=== PATIENT | male | born 1935 | race Caucasian/White ===

== ENCOUNTER 2023-10-11 13:43 | Inpatient (IN) | payer MEDICARE, BC, SELFPAY ==
[2023-10-11] VITALS (11 sets, daily range): BP systolic 104–171; BP diastolic 45–75; BMI 23.2
[2023-10-11 09:11] LABS: % Basophils 0.6 % (0-2); % Eosinophils 1.2 % (0-6); % Immature Granulocytes 0.6 % (0-0.5); % Lymphocytes 40.4 % (20.5-51.1); % Monocytes 5.8 % (1.7-9.3); % Neutrophils 51.4 % (42.2-75.2); Absolute Lymphocytes 0.7 10^3/uL (1.2-3.4); Absolute Monocytes 0.1 10^3/uL (0.1-0.6); Hematocrit 39.9 % (39.0-52.0); Hemoglobin 12.6 g/dL (13.0-18.0); Mean Corp Hgb Conc. 31.6 g/dL (33.0-37.0); Mean Corpuscular Hgb 31.3 pg (27.0-31.0); Mean Platelet Volume 12.8 fL (7.4-10.4); Nucleated Red Blood Cells % 1.8 % (-); Red Blood Cell Count 4.03 10^6/uL (4.70-6.10); Red Cell Dist. Width 15.6 % (11.5-14.5)
[2023-10-11 09:17] LABS: ALT (SGPT) 42 U/L (0-50); AST (SGOT) 50 U/L (17-59); Albumin 3.8 g/dl (3.5-5.0); Alkaline Phosphatase 103 U/L (38-126); Blood Urea Nitrogen 29 mg/dl (9-20); Carbon Dioxide 33 mmol/L (22-30); Chloride 103 mmol/L (98-107); Estimated Creatinine Clearance 55 ml/min; Glucose 98 mg/dl (70-99); Potassium 4.3 mmol/L (3.5-5.1); Sodium 138 mmol/L (135-145); Total Bilirubin 1.3 mg/dl (0.2-1.3); Total Protein 6.5 g/dl (6.3-8.2); White Blood Cell Count 1.7 10^3/uL (4.8-10.8); eGFR > 60.00
--- NOTE | 2023-10-11 09:17 | ED.GENMED ---
History of Present Illness
<Emma Gage PA-C - Last Filed: 10/11/23 15:12>
General
Chief Complaint: Fall
Source: patient
Exam Limitations: none
Time Seen by Provider: 10/11/23 08:03
Nursing documentation reviewed up to this point in time: agreed with
Travel History
Have you had any contact with someone who has COVID-19?: No
Do you have any symptoms of coronavirus? Fever > 100 degrees, chills, cough, shortness of breath, sore throat, loss of taste or smell, muscle aches, or headache?: No
History of Present Illness
History of Present Illness:
pt is a 87 y/o M with h/o afib s/p watchmann proc, neuropathy, chf, myelodysplasia
here with dizziness causing a fall this am
pt says he got up from sleeping and suddenly felt room spinning dizziness that caused him to sit back down. it resolved quickly. pt was abl eto get up and walk to his sliding door to let out his dog but whne he went to open the door the dizziness
returned causing him to fall against the door behind him and then slide onto the ground
he has mid back pain, no loc, no heads trike
pt says that he was slowly able to crawl back to his bedroom following the fall and pull the emergency cord.
pt has generalized fatigue x 1 week
says he hasnt' been feeling well for about 3 weeks, had UTI and was on abx and had some upset stomahc while on them
cmpleted the course but just hasn't had energy.
today since the fall he has felt a little sob. yesterday he had a mild headache
no fever, cp, sob, neck pain, numbness/tingling/weaknses in arms or legs, chest pain, abdominal pain, black stool, hematuria.
Past History
<Emma Gage PA-C - Last Filed: 10/11/23 15:12>
Past History
ED Past Medical History: Arrthythmia (Atrial fib), CHF, HTN and Hypercholesterolemia
ED Past Surgical History: Appendectomy, Cholecystectomy and Other (Hernia repair)
Patient has exhibited threatening behavior?: No
PSI?: No
Social History
Tobacco: Former smoker
Alcohol: Occasional
Personal:
Living: assisted living ([facility])
Review of Systems
<Emma Gage PA-C - Last Filed: 10/11/23 15:12>
Review of Systems
Allergies reviewed?: Yes
All Other Systems: Not applicable
Phy Exam
<Emma Gage PA-C - Last Filed: 10/11/23 15:12>
Physical Exam
Physical Exam:
GENERAL: Alert , in no apparent distress, generally weak
HEAD: NC
small area of redness base of skull, nontender
EYE: pupils equal and reactive, no nystagmus, no photophobia, pale conjunctiva
NECK: Supple,full rom, nontender
ENT: o/p clr, mmm.
CARDIAC: Regular rate and rhythm . no edema
LUNGS: Clear breath sounds bilaterally, no acute respiratory distress, no wheezes/rales/rhonchi
ABDOMEN: Soft, without focal tenderness, no r/g, no cvat
NEUROLOGICAL: Alert and orientedx 4, cn intact, no facial asymmetry, 5/5 strength in UE/LE, sensation intact, romberg neg, ambulates without assistance, neg pronator drift
SKIN: Warm and dry, skin intact.
MUSCULOSKELETAL: No edema, well perfused.
PSYCH: Normal and appropriate interaction.
Course
<Emma Gage PA-C - Last Filed: 10/11/23 15:12>
Orders/Labs/Results
Orders:
Orders
10/11/23 08:08
EKG [Electrocardiogram (*1)] Urgent
Reason for Study: Vertigo / Dizzy
EKG- Treatment ONCE
10/11/23 08:29
Type+Screen Urgent
CT Head W/o Iv Contrast Urgent
Comment:
Reason For Exam: fall, dizziness,
Cardiac Monitoring- Treatment ONCE
Orthostatic VS- Treatment ONCE
10/11/23 08:30
Electrocardiogram (*1) Stat
Reason for Study: Other
Other Reason for Exam: neuro symptoms
10/11/23 08:31
CR Chest - 2 Views Urgent
Comment:
Reason For Exam: fatigue, sob
CR Thoracic Spine 3 Views Urgent
Reason For Exam: back pain afterf fall
10/11/23 08:55
Complete Blood Count/With Diff Urgent
Comprehensive Metabolic Panel Urgent
NT-proBNP Urgent
Troponin I Urgent
10/11/23 09:17
COVID-19 Antigen Urgent
Source: Nasal Swab
Influenza A+B Rapid Molecular Urgent
ELI Source: Nasal Swab
Specimen Description:
10/11/23 09:46
Urinalysis Reflex To Culture Urgent
Date Specimen was Collected: 10/11/23
Time Specimen was Collected: 09:44
Urine Microscopic Reflex Cult Urgent
10/11/23 10:13
CT Chest Pe Study Urgent
Comment:
Reason For Exam: sob, fall;
10/11/23 10:18
Morphine Sulfate 2 mg IV NOW STA
10/11/23 11:32
Morphine Sulfate 2 mg .ROUTE .STK-MED ONE
10/11/23 11:38
Morphine Sulfate 2 mg IV NOW STA
10/11/23 13:24
Admit/Transfer Patient As Directed
Co-Sign Provider:
Level of Care: Inpatient admission
Assign to:: Telemetry
Physician / Group: Hospitalist
Diagnosis: Dizziness
Reason for Telemetry: Medication for Arrhythmia
Date to Stop Telemetry: 10/13/23
Time to Stop Telemetry: 11:00
Reason for Hospitalization: .
Expected length of stay greater than two midnights?: Yes
ELOS- Estimated Length of Stay in days: 3
I certify the patient meets the requirements for IP care: Yes
10/13/23 11:00
DC Protocol for Telemetry ONCE
Abnormal Lab Results
10/11/23 10/11/23
08:55 09:46
WBC 1.7 L* 10^3/uL
(4.8-10.8)
RBC 4.03 L 10^6/uL
(4.70-6.10)
Hgb 12.6 L g/dL
(13.0-18.0)
MCV 99.0 H fL
(80.0-94.0)
MCH 31.3 H pg
(27.0-31.0)
MCHC 31.6 L g/dL
(33.0-37.0)
RDW 15.6 H %
(11.5-14.5)
Plt Count 81 L 10^3/uL
(130-400)
MPV 12.8 H fL
(7.4-10.4)
Absolute Neuts (auto) 0.9 L* 10^3/uL
(1.4-6.5)
Absolute Lymphs (auto) 0.7 L 10^3/uL
(1.2-3.4)
Immature Gran % 0.6 H %
(0-0.5)
Carbon Dioxide 33 H mmol/L
(22-30)
BUN 29 H mg/dl
(9-20)
Calcium 8.0 L mg/dl
(8.4-10.2)
Ur Occult Blood Reflex 1+ A
(Negative)
10/11/23 08:55
02/24/24 08:55
Vital Signs
Initial and Last Documented VS:
Initial Vital Signs
Temp
98.4 F
10/11/23 08:04
Last Documented Vital Signs
Temp Pulse Resp BP Pulse Ox
98.4 F 85 32 135/45 99
10/11/23 08:04 10/11/23 13:00 10/11/23 13:00 10/11/23 13:03 10/11/23 11:15
<Carlos Fletcher MD - Last Filed: 10/11/23 11:28>
Orders/Labs/Results
Orders:
Orders
10/11/23 08:08
EKG [Electrocardiogram (*1)] Urgent
Reason for Study: Vertigo / Dizzy
EKG- Treatment ONCE
10/11/23 08:29
Type+Screen Urgent
CT Head W/o Iv Contrast Urgent
Comment:
Reason For Exam: fall, dizziness,
Cardiac Monitoring- Treatment ONCE
Orthostatic VS- Treatment ONCE
10/11/23 08:30
Electrocardiogram (*1) Stat
Reason for Study: Other
Other Reason for Exam: neuro symptoms
10/11/23 08:31
CR Chest - 2 Views Urgent
Comment:
Reason For Exam: fatigue, sob
CR Thoracic Spine 3 Views Urgent
Reason For Exam: back pain afterf fall
10/11/23 08:55
Complete Blood Count/With Diff Urgent
Comprehensive Metabolic Panel Urgent
NT-proBNP Urgent
Troponin I Urgent
10/11/23 09:17
COVID-19 Antigen Urgent
Source: Nasal Swab
Influenza A+B Rapid Molecular Urgent
ELI Source: Nasal Swab
Specimen Description:
10/11/23 09:46
Urinalysis Reflex To Culture Urgent
Date Specimen was Collected: 10/11/23
Time Specimen was Collected: 09:44
Urine Microscopic Reflex Cult Urgent
10/11/23 10:13
CT Chest Pe Study Urgent
Comment:
Reason For Exam: sob, fall;
10/11/23 10:18
Morphine Sulfate 2 mg IV NOW STA
10/11/23 11:32
Morphine Sulfate 2 mg .ROUTE .STK-MED ONE
10/11/23 11:38
Morphine Sulfate 2 mg IV NOW STA
10/11/23 13:24
Admit/Transfer Patient As Directed
Co-Sign Provider:
Level of Care: Inpatient admission
Assign to:: Telemetry
Physician / Group: Hospitalist
Diagnosis: Dizziness
Reason for Telemetry: Medication for Arrhythmia
Date to Stop Telemetry: 10/13/23
Time to Stop Telemetry: 11:00
Reason for Hospitalization: .
Expected length of stay greater than two midnights?: Yes
ELOS- Estimated Length of Stay in days: 3
I certify the patient meets the requirements for IP care: Yes
10/13/23 11:00
DC Protocol for Telemetry ONCE
Abnormal Lab Results
10/11/23 10/11/23
08:55 09:46
WBC 1.7 L* 10^3/uL
(4.8-10.8)
RBC 4.03 L 10^6/uL
(4.70-6.10)
Hgb 12.6 L g/dL
(13.0-18.0)
MCV 99.0 H fL
(80.0-94.0)
MCH 31.3 H pg
(27.0-31.0)
MCHC 31.6 L g/dL
(33.0-37.0)
RDW 15.6 H %
(11.5-14.5)
Plt Count 81 L 10^3/uL
(130-400)
MPV 12.8 H fL
(7.4-10.4)
Absolute Neuts (auto) 0.9 L* 10^3/uL
(1.4-6.5)
Absolute Lymphs (auto) 0.7 L 10^3/uL
(1.2-3.4)
Immature Gran % 0.6 H %
(0-0.5)
Carbon Dioxide 33 H mmol/L
(22-30)
BUN 29 H mg/dl
(9-20)
Calcium 8.0 L mg/dl
(8.4-10.2)
Ur Occult Blood Reflex 1+ A
(Negative)
10/11/23 08:55
10/11/23 08:55
Vital Signs
Initial and Last Documented VS:
Initial Vital Signs
Temp
98.4 F
10/11/23 08:04
Last Documented Vital Signs
Temp Pulse Resp BP Pulse Ox
98.4 F 85 32 135/45 99
10/11/23 08:04 10/11/23 13:00 10/11/23 13:00 10/11/23 13:03 10/11/23 11:15
<Emma Gage PA-C - Last Filed: 10/11/23 15:12>
MDM/Problems Addressed
Differential Diagnosis Includes:
Vertigo, vertebrobasilar insufficiency, stroke, PE, thoracic fracture
MDM/Problems Addressed:
87-year-old male coming from independent living [facility] after a fall, he says he banged into his door and hit his back which was quite painful. He was able to crawl to get for help. Patient says because the fall was a vertiginous dizziness
that occurred this morning when he got up and then again right before the fall. He did not feel like he was going to pass out but he felt like the room was spinning. He has had something like this 1 other time but did not get evaluated for it.
Patient's neurologic exam is intact, he had no midline thoracic tenderness, is moving his arms and legs, he did complain of back pain and was a little short of breath and was placed on oxygen for comfort. Patient has myelodysplastic syndrome and
his labs are at his baseline. His x-ray reveals a an acute T8-9 vertebral fracture without any pneumothorax or rib fractures. Unfortunately CT was delayed because he was having trouble laying flat, I believe this is because of pain and not really
that he was hypoxic, he had some air hunger and was put on oxygen for comfort. After morphine this tachypnea resolved. Patient was able to have his CT of his head and chest, there were no acute findings. We discussed the case with neurologist
Antonia who agreed that patient could have an MRI of his brain. Patient was signed out to the hospitalist
<Emma Gage PA-C - Last Filed: 10/11/23 15:12>
*Critical Care Note
Total Time (30-74mins, 75-104mins- exclusive of procedures): Not Applicable
ED Attending Note
<Emma Gage PA-C - Last Filed: 10/11/23 15:12>
-
Portions of this chart may have been created with voice recognition software.� Occasional wrong word or��sound alike� substitutions may have occurred due to the inherent limitations of voice recognition software.
<Carlos Fletcher MD - Last Filed: 10/11/23 11:28>
ED Attending Note
Patient seen and examined by attending physician: Yes
ED Attending Note:
I have seen and evaluated the patient with a [id number] encounter. I have spoken to the advance practicer provider and involved in the medical history, the physical exam, medical decision making.
Evaluation and management service: agree unless noted differently below.
Results interpretation: agree unless noted differently below.
Focused HPI: 87-year-old male with history as documented presents for evaluation of intense dizziness. Patient reports that he got up to walk his dog this morning and when he got up out of bed he felt very dizzy. He says that he walked out to the
[place] at his apartment and when he stepped outside he felt intense room spinning sensation to the point that he fell backwards and hit his back on a glass door. He says he did not hit his head. He says he was very dizzy could not get up instead
crawled to his bed sat up on the bed and the dizziness subsided a bit. He was able to pull the cord to call for help. Here in the emergency room he says that he does not have significant dizziness any longer. He did not have any loss of vision.
He has had some generalized weakness recently, was recently treated for UTI. No focal weakness or numbness. No speech issues. His only other complaint today is that he is feeling increased shortness of breath which started around the same time as
his dizziness this morning. Denies any chest pain.
Physical exam: Hypertensive, mild tachypnea. Pulse ox acceptable on room air. There is no signs of trauma to the head. No tenderness of the cervical spine. He has bidirectional fatigable nystagmus but no rotary or vertical nystagmus (he
apparently has baseline nystagmus). He has no focal weakness or numbness in his extremities, cranial nerves are intact 2 through 12.
Medical Decision Making: Patient presents with acute onset dizziness this morning that sounds vertiginous. It was quite intense caused him to fall had a minor back injury. No head trauma. It seems to have improved. He has bidirectional nystagmus
right now but apparently this is baseline according to medical records. He has no other neurologic symptoms and no deficits on exam. His only other complaint is shortness of breath�he has not appropriate pulse ox but he does have some mild
tachypnea. Dyspnea seems worse when laying flat. He had lab work sent off including a CBC which showed leukopenia and neutropenia which are at baseline for patient; he has marginal anemia unlikely accounts for his symptoms. His CMP is
unremarkable. Troponin is negative. BNP is slightly elevated. Chest x-ray showed some new cardiomegaly with no gross edema or other abnormalities. He had a thoracic spine x-ray which showed T9 compression fracture likely acute related to fall.
For his dyspnea will check CTA to rule out PE with nondiagnostic chest x-ray, tachypnea and rather abrupt onset dyspnea. Differential would also include new onset CHF. Regarding his dizziness it sounds more vertiginous rather than syncopal, stroke
a consideration;he does have an A-fib history but has a watchman in place. Will check CT head to start. Will need neurology consultation. Will plan for admission pending initial workup.
Discharge Plan
Departure
Patient Disposition: Admit
Date of Disposition: 10/11/23
Time of Disposition: 13:10
Admit to: Telemetry
Presentation/result/management discussed w/ accepting MD/DO: Hospitalist
Patient with high blood pressure during this ER visit?: No
Condition: Fair
Covid-19: Negative COVID-19
Discharge Problem:
Shortness of breath, Dizziness
Interventions
Interventions:
*Risk Screen - Suicide Last Done: 10/11/23 08:04
*General Assessment Last Done: 10/11/23 08:04
*Neglect/Abuse Screening Last Done: 10/11/23 08:04
*ED COVID-19 Vaccine History Last Done: 10/11/23 08:04
ED-Musculoskeletal Assessment Last Done: 10/11/23 08:09
ED- Neurological Assessment Last Done: 10/11/23 08:09
ED-Skin Assessment Last Done: 10/11/23 08:09
[2023-10-11 09:28] LABS: NT-proBNP 842 pg/ml; Troponin I < 0.012 ng/ml
[2023-10-11 09:39] LABS: COVID-19 Antigen Negative (Negative)
[2023-10-11 10:13] LABS: Platelet Count 81 10^3/uL (130-400)
[2023-10-11 10:15] LABS: Absolute Neutrophils 0.9 10^3/uL (1.4-6.5)
[2023-10-11] MEDS: MORPHINE SULFATE 2 MG IV ×2 (10:34→11:38)
[2023-10-11 10:59] LABS: Urine Albumin Trace (Neg - Trace); Urine Bilirubin Negative (Negative); Urine Character Clear (Clear); Urine Color Yellow; Urine Glucose Negative (Negative); Urine Ketone Negative (Negative); Urine Leukocyte Negative (Negative); Urine Nitrite Negative (Negative); Urine Occult Blood 1+ (Negative); Urine Specific Gravity 1.015 (<1.030); Urine Urobilinogen Negative (Neg - 1+)
[2023-10-11 11:32] LABS: Urine Red Blood Cell 0-2 /HPF (0-2); Urine Squamous Cell 0-2 /LPF (Few)
--- NOTE | 2023-10-11 13:24 | HPS.HSE ---
Family Physician
-
Family Physician: Shelby Dillon
Chief Complaint
-
Dizziness at home
History of Present Illness
87 years old male presented from independent living at [facility]. Patient woke up feeling normal this morning. He felt dizzy upon getting up but later resolved. He let the dog outside and then felt an episode of vertigo/spinning sensation.
He sat down but he got up later and he had another similar episode and he hit the door with his back. He fell to the floor without hitting his head. He crawled to his bedroom and pulled emergency cord line.
He reported feeling normal but recently treated for urinary tract infection. He gets shots with hematology for low blood counts. He complained of back pain in the emergency room and was given morphine. Scan of the head did not show acute finding.
X-ray of thoracic spine where he had the trauma showed superior endplate fracture of thoracic 9. Scan of the chest did not show pulmonary embolism or pneumothorax..
Medical History
Past Medical History
Past Medical History: Reports Other (Hypertension, paroxysmal atrial fibrillation, chronic diastolic heart failure, neuropathy, iron deficiency anemia, chronic fatigue, coronary artery disease, BPH, hyperlipidemia, history of GI bleeding, MDS, gait
disturbance.)
Past Surgical History: Reports Other (No recent major surgery)
Social History
Tobacco: Former Smoker
Alcohol: None
Drug: None
Living: Alone
Employment: Retired
Family History
Family History: Other (Family history positive for heart disease, coronary artery disease, mother had multiple myeloma, history of stroke in grandmother.)
Allergies / Home Medications
Allergies reflects when Allergies were last updated in [facility].
Home Medications with original date entered in [facility]
Allergy/Medication List:
Allergies
Allergy/AdvReac Type Severity Reaction Status Date / Time
No Known Allergies Allergy Verified 10/11/23 08:04
Home Medications
atorvastatin 20 mg tablet 20 mg PO HS High cholesterol 01/24/22
cyanocobalamin (vitamin B-12) 1,000 mcg tablet 500 mcg PO DAILY Supplement 01/24/22
famotidine 40 mg tablet 40 mg PO HS Gastrointestinal issue 01/24/22
finasteride 5 mg tablet 5 mg PO HS Urinary issue 01/24/22
tamsulosin 0.4 mg capsule 0.4 mg PO HS Urinary issue 01/24/22
pantoprazole 40 mg tablet,delayed release 40 mg PO BID #60 tabs 04/04/23
aspirin 81 mg chewable tablet 81 mg PO DAILY #30 tabs 04/12/23
sotalol 80 mg tablet 80 mg PO BID Arrhythmia #60 tabs 04/12/23
polyethylene glycol 3350 17 gram oral powder packet (Miralax) 17 g PO DAILY 10/11/23
vitamin A-vitamin C-vit E-min tablet 1 tab PO BID 10/11/23
Review of Systems
-
History Source: Patient
A 12 point ROS was completed and negative except as noted: Yes
Constitutional: Reports Fatigue; Denies Fever or Chills
EENT: Denies Sore Throat
Respiratory: Denies Cough or Trouble Breathing
Cardiac: Denies Chest Pain
Abdomen/GI: Denies Abdominal Pain
: Denies Dysuria, Frequency or Difficulty Voiding
Musculoskeletal: Reports Other (Back pain)
Neurological: Reports Dizzy; Denies Numbness
Endocrine: Denies Temp Intolerance
Hematologic/Lymphatic: Denies Bruising
Psych: Denies Panic Disorder
Physical Exam
Vital Signs
Vital Signs
Temp Pulse Resp BP Pulse Ox
98.4 F 85 32 135/45 99
10/11/23 08:04 10/11/23 13:00 10/11/23 13:00 10/11/23 13:03 10/11/23 11:15
Physical Exam
General: No Apparent Distress and Comfortable
HEENT: Moist mucous membranes, Atraumatic and Other (Chronic nystagmus in both eyes)
Respiratory: Clear
Cardiac: S1/S2 and Regular Rhythm
GI: Soft, Non Tender and Non Distended
Rectal: No Maroon Stools
Genito-urinary: No costovertebral tender
Musculoskeletal: No Clubbing, No Cyanosis and No Edema
Skin: Warm; No Jaundice
Neuro: AO x 3 and Nonfocal/grossly intact; No Slurred Speech or Facial Droop
Psych: Calm and Intact Judgment/Insight
Laboratory Results
-
10/11/23 08:55
10/11/23 08:55
Laboratory Results
Total Bilirubin 1.3 mg/dl (0.2-1.3) 10/11/23 08:55
AST 50 U/L (17-59) 10/11/23 08:55
ALT 42 U/L (0-50) 10/11/23 08:55
Alkaline Phosphatase 103 U/L (38-126) 10/11/23 08:55
Troponin I < 0.012 ng/ml 10/11/23 08:55
Impression/Plan
-
IMPRESSION:
87-year-old male presented with sudden onset of dizziness/vertigo
#Dizziness
Currently patient is not dizzy. Neurology recommended MRI.
Will do neurocheck. Continue with aspirin.
Head scan did not show acute finding
Patient had chronic nystagmus in both eyes.
No nausea or vomiting.
No fever or headache at present time.
Chronic fatigue reported and past medical history
#MDS
Primary tobacco roller Dr. Cortes.
Chronic leukopenia with WBC on admission 1.7. Platelet 81. Hemoglobin 12.6.
#History of mitral regurgitation.
#Chronic heart failure with a preserved ejection fraction. He is not in acute failure.
#T9 fracture. Continue with pain control. No pneumothorax. Continue with Tylenol [id number] and as needed and low-dose morphine
#Primary hypertension
Check for orthostatic hypotension.
#Paroxysmal atrial fibrillation
History of gait dysfunction. Uses a walker. Consult PT/OT.
# CODE STATUS, DNR.
Total time spent to see the patient, examine the patient on the floor, review data and lab results, discuss treatment plan with patient, nursing staff, ER doctor around 75 minutes
[2023-10-11] MEDS: TYLENOL 1000 MG PO (18:12)
[2023-10-11] MEDS: BETAPACE 80 MG PO (20:34)
[2023-10-11] MEDS: PROTONIX 40 MG PO (20:35)
[2023-10-11] MEDS: HEPARIN 5000 UNITS SC (20:35)
[2023-10-11] MEDS: LIPITOR 20 MG PO (21:21)
[2023-10-11] MEDS: PEPCID 40 MG PO (21:21)
[2023-10-11] MEDS: PROSCAR 5 MG PO (21:21)
[2023-10-11] MEDS: FLOMAX 0.400000000000000022 MG PO (21:21)
[2023-10-12] VITALS (8 sets, daily range): BP systolic 102–141; BP diastolic 46–59; PULSE 58–70; O2SAT 97; BMI 22.6
[2023-10-12] MEDS: TYLENOL 1000 MG PO ×4 (00:02→20:40)
[2023-10-12] MEDS: BETAPACE 80 MG PO (08:50)
[2023-10-12] MEDS: LOW STRENGTH ASPIRIN 81 MG PO (08:50)
[2023-10-12] MEDS: PROTONIX 40 MG PO ×2 (08:51→20:38)
[2023-10-12] MEDS: MIRALAX 17 GRAMS PO (08:51)
[2023-10-12] MEDS: HEPARIN 5000 UNITS SC ×2 (08:51→20:38)
--- NOTE | 2023-10-12 09:47 | CON.NEURO4 ---
Consultation - Neurology 4
-
CONSULTING PHYSICIAN: Jarocho
REFERRING PHYSICIAN: hospitalist
DICTATED BY: Jarocho
DATE/TIME OF REQUEST: 10/11/23
DATE/TIME OF CONSULTATION: 10/12/23 at 845
Reason for Consultation: vertigo
History of Present Illness:
87-year-old male with a history of A-fib status post Watchman procedure, neuropathy, CHF and myelodysplasia brought in yesterday after experiencing a fall in the morning as a result of dizziness. Of note about 1 year ago he had an episode of brief
vertigo. He says that yesterday he got up to walk his dog and when he got out of bed he felt very dizzy. He had to sit back down. He then walked out onto the stairs of his apartment and he felt an intense room spinning sensation again, falling
backwards and hitting his back on a glass door. No head trauma. He did sustain a T9 endplate fracture. He felt very dizzy afterward and could not get up. He had to crawl on the floor and pull a cord to for help. No associated focal neurological
deficits. No loss of consciousness. He does have some baseline hearing loss. He has no prior history of stroke. No further episodes of dizziness in the ER. no focal findings on exam in the ER. He reported that he had been generally weak and
fatigued and was recently treated for UTI. Also reported some increased shortness of breath that started around the time of this dizziness.
Yesterday he had an episode of mild dizziness with an internal room spinning sensation when standing up looking in the mirror in the bathroom in his room here. This was short in duration.
PMH: Hypertension, paroxysmal atrial fibrillation, chronic diastolic heart failure, neuropathy, iron deficiency anemia, chronic fatigue, coronary artery disease, BPH, hyperlipidemia, history of GI bleeding, MDS, gait disturbance, congenital
nystagmus, episode of brief vertigo about 1 year ago, hearing loss
Past Surgical History: watchman
Social History
Tobacco: Former Smoker
Alcohol: None
Drug: None
Employment: Retired
Family History
Family History:Family history positive for heart disease, coronary artery disease, mother had multiple myeloma, history of stroke in grandmother
Allergies
No Known Allergies Allergy (Verified 10/11/23 08:04)
Home Medications
Medication Instructions Recorded
atorvastatin 20 mg tablet 20 mg PO HS High cholesterol 01/24/22
cyanocobalamin (vitamin B-12) 500 mcg PO DAILY Supplement 01/24/22
1,000 mcg tablet
famotidine 40 mg tablet 40 mg PO HS Gastrointestinal issue 01/24/22
finasteride 5 mg tablet 5 mg PO HS Urinary issue 01/24/22
tamsulosin 0.4 mg capsule 0.4 mg PO HS Urinary issue 01/24/22
pantoprazole 40 mg tablet,delayed 40 mg PO BID #60 tabs 04/04/23
release
aspirin 81 mg chewable tablet 81 mg PO DAILY #30 tabs 04/12/23
sotalol 80 mg tablet 80 mg PO BID Arrhythmia #60 tabs 04/12/23
polyethylene glycol 3350 17 gram 17 g PO DAILY Constipation 10/11/23
oral powder packet (Miralax)
vitamin A-vitamin C-vit E-min 1 tab PO BID Supplement 10/11/23
tablet
Review of Symptoms:
Patient denies any fever, headache, chest pain, shortness of breath, GI or symptoms.
�Per the HPI.�All systems are reviewed negative except above.
Vital Signs
Temp Pulse Resp BP Pulse Ox
97.5 F 57 17 113/57 94
10/12/23 07:00 10/12/23 07:00 10/12/23 07:00 10/12/23 07:00 10/12/23 07:00
Lab Results
10/11/23 08:55
10/11/23 08:55
Sodium 138 mmol/L (135-145) 10/11/23 08:55
Potassium 4.3 mmol/L (3.5-5.1) 10/11/23 08:55
BUN 29 mg/dl (9-20) H 10/11/23 08:55
Glucose 98 mg/dl (70-99) 10/11/23 08:55
Calcium 8.0 mg/dl (8.4-10.2) L 10/11/23 08:55
Ovn-L-Xbgaerlrwcm Pept 842 pg/ml 10/11/23 08:55
Physical Exam:
The patient is afebrile, heart sounds S1 and S2 are regular , and chest is clear to auscultation bilaterally.
NIH Stroke Scale:
I performed the NIH stroke scale on the patient on 10/12/23 at 845. The patient scored 1 points on the NIH stroke scale assessment, which were assigned as follows: 1 point for right sided temperature sensation loss.
Neurologic Examination:
The patient is awake, alert and oriented x 3. He is able to follow commands and answer questions appropriately. There is no aphasia or dysarthria. On cranial nerve assessment, pupils are 3 mm bilateral, round and reactive to light and
accommodation. Visual booth are full. Extraocular movements are intact. He has congenital horizontal gaze evoked nystagmus. Facial sensations are intact and bilaterally symmetrical, there is no facial asymmetry. Hearing is intact bilaterally to
normal conversation volume. Tongue palate and uvula are midline. Sternocleidomastoid strengths are full bilaterally. Motor strengths are 5/5 bilateral upper and lower extremities on medical research [place] scale. There is no drift or involuntary
movement noted. Deep tendon reflexes are 1+ bilateral upper and lower extremities and Babinski is absent bilaterally. +diminished sensation to temperature in the R face arm and leg. There was no extinction noted on double simultaneous stimulation.
Coordination is intact by finger to nose bilaterally.
Lab Results:
Neuro Imaging: HCT 10/11 no acute findings,
In the anterior left paramidline frontal region, contiguous with the inner table of the calvarium, there is an extra-axial mass measuring approximately 10 mm, partially calcified. Similar to prior examination, most consistent with small meningioma.
Tspine XR:
1. � Mild subsegmental atelectasis and scarring in both lower lungs.
2. � Mild cardiomegaly.
3. � New superior endplate fracture of T9 with mild loss of vertebral body height.
4. � Mild multilevel discogenic degenerative disease throughout the thoracic spine.
5. � Mild right convex curvature of the midthoracic spine.
Impression:
JUAN ANTONIO FRIAS is a 87 year old M who has presented to the hospital with intermittent dizziness resulting in a fall. He has a small meningioma on HCT that appears stable and some R sided numbness on exam of unclear etiology.
Differentials for the patient's presentation include:
1. bppv
2. Labyrinthitis
3. Orthostasis
4. Small posterior circulation stroke, intermittent nature of the symptoms argues against stroke
Patient has the following risk factors for their symptoms: afib, htn, hld
IV Tenecteplase/IAT candidacy: not a candidate given nondisabling symptoms, lack of clarity of stroke as cause for symptoms
Recommendations:
1. mri brain w/wo contrast with attn to iacs
2. continue asa 81mg daily, atorvastatin; only order remainder of stroke workup if stroke is seen on MRI
3. check orthostatics
4. consider meclizine if dizziness returns
5. Management of pain and T9 fracture per primary team
6. continue neurochecks
Discussed patient care with: patient, primary team
--- NOTE | 2023-10-12 10:25 | W.PN.HOSP.TC ---
Today's Communication/Plan
-
.
Assessment / Plan
Assessment / Plan
Physical Exam
General: No Apparent Distress and Comfortable
HEENT: Moist mucous membranes, Atraumatic and Other (Chronic nystagmus in both eyes)
Respiratory: Clear
Cardiac: S1/S2 and Regular Rhythm
GI: Soft, Non Tender and Non Distended
Rectal: No Maroon Stools
Genito-urinary: No costovertebral tender
Musculoskeletal: No Clubbing, No Cyanosis and No Edema
Skin: Warm; No Jaundice
Neuro: AO x 3 and Nonfocal/grossly intact; No Slurred Speech or Facial Droop
Psych: Calm and Intact Judgment/Insight.
87-year-old male presented with sudden onset of dizziness/vertigo
#Dizziness
Intermittent at times. Could be BPPV
Currently patient is not dizzy.�
Unchanged neurochecks.� Continue with aspirin.
Head scan did not show acute finding
Patient had chronic nystagmus in both eyes.
No nausea or vomiting.
No fever or headache at present time.
Chronic fatigue reported and past medical history
Order MRI
Appreciate neurology input
#MDS
Primary biomedical scientist Dr. Cortes.
Chronic leukopenia with WBC on admission 1.7.� Platelet 81.� Hemoglobin 12.6.
#History of mitral regurgitation.
#Chronic heart failure with a preserved ejection fraction.� He is not in acute failure.
#T9 fracture.�
Pain is not significant today
Normal SaO2 on RA
Order PT/OT
Continue with pain control.� No pneumothorax.� Continue with Tylenol [id number] and as needed and low-dose morphine
#Primary hypertension
Check for orthostatic hypotension.
#Paroxysmal atrial fibrillation
History of gait dysfunction.� Uses a walker.� Consult PT/OT.
# CODE STATUS, DNR.
Total time spent to see the patient, examine the patient on the floor, review data and lab results, discuss treatment plan with patient, nursing staff around 55 minutes
Anticipated Discharge: 24 - 48 hours
Subjective/Interval History
-
Date of Service: October 12, 2023
No back pain
Not dizzy
No chest pain or sob
Objective Data
-
Vital Signs:
Vital Signs
Temp Pulse Resp BP Pulse Ox
97.5 F 57 17 113/57 94
10/12/23 07:00 10/12/23 07:00 10/12/23 07:00 10/12/23 07:00 10/12/23 07:00
I&O
10/11/23 10/12/23 10/13/23
06:59 06:59 06:59
Intake Total 720 / 720
Output Total 125 / 125
Balance 595 / 595
--- NOTE | 2023-10-12 10:43 | CM ---
CM following re: discharge planning.
Reviewed pt's chart, met with pt.
Pt is an 87 year old male, admitted with primary dx of Dizziness.
The patient resides alone in an independent apartment at [facility], has supportive son and a stepson. Patient has a walker, shower chair and shower rails in bath at home. The patient has not been to a SNF/rehab in the past. Pt is known to
[facility].
PT and OT will evaluate the pt to determine a level of care at discharge.
PCP: Shelby Dillon
Pharmacy: [facility].
D/C plan: The patient anticipates being discharged back to home with [facility].
CM will follow with discharge plan updates as hospitalization progresses
[2023-10-12] MEDS: PEPCID 40 MG PO (20:38)
[2023-10-12] MEDS: PROSCAR 5 MG PO (20:38)
[2023-10-12] MEDS: FLOMAX 0.400000000000000022 MG PO (20:38)
[2023-10-12] MEDS: LIPITOR 20 MG PO (20:39)
[2023-10-12] MEDS: BETAPACE PO (23:03)
[2023-10-13 01:05] VITALS: BP 132/46
[2023-10-13 05:16] VITALS: BP 133/54
[2023-10-13 05:17] VITALS: BMI 22.0
[2023-10-13 05:28] LABS: Hematocrit 35.2 % (39.0-52.0); Mean Corp Hgb Conc. 31.3 g/dL (33.0-37.0); Mean Corpuscular Hgb 31.7 pg (27.0-31.0); Mean Corpuscular Volume 101.4 fL (80.0-94.0); Mean Platelet Volume 11.5 fL (7.4-10.4); Platelet Count 69 10^3/uL (130-400); Red Blood Cell Count 3.47 10^6/uL (4.70-6.10); Red Cell Dist. Width 15.9 % (11.5-14.5)
[2023-10-13 05:44] LABS: White Blood Cell Count 1.2 10^3/uL (4.8-10.8)
[2023-10-13 05:56] LABS: Blood Urea Nitrogen 33 mg/dl (9-20); Calcium 7.9 mg/dl (8.4-10.2); Carbon Dioxide 33 mmol/L (22-30); Chloride 102 mmol/L (98-107); Estimated Creatinine Clearance 47 ml/min; Glucose 96 mg/dl (70-99); Potassium 3.9 mmol/L (3.5-5.1); Sodium 138 mmol/L (135-145); eGFR > 60.00
[2023-10-13 07:00] VITALS: BP 141/59
[2023-10-13] MEDS: BETAPACE 80 MG PO (08:07)
[2023-10-13] MEDS: LOW STRENGTH ASPIRIN 81 MG PO (08:07)
[2023-10-13] MEDS: TYLENOL 1000 MG PO ×2 (08:07→15:16)
[2023-10-13] MEDS: PROTONIX 40 MG PO (08:07)
[2023-10-13] MEDS: HEPARIN 5000 UNITS SC (08:08)
[2023-10-13] MEDS: MIRALAX 17 GRAMS PO (08:08)
--- NOTE | 2023-10-13 08:15 | W.PN.NEURO.1 ---
Addendum entered and electronically signed by Jim Denney MD 10/13/23 12:06:
I saw and evaluated the patient I reviewed the note by Debby Goldman agree the findings with the following comments:
87-year-old male with a past ministry of atrial fibrillation, congenital nystagmus neuropathy, CHF, mild dysplasia presents to hospital after fall that occurred after a very short lasting very severe dizziness.
Patient reports that he had had a similar episode that was very short lasting about 9 to 12 months ago. He has not had any headaches or tinnitus or obvious hearing loss.
Patient denies any diplopia.
Neurologic examination shows the congenital nystagmus with nystagmus on the left and right horizontal gaze, no other cranial nerve abnormalities, motor function shows normal bulk and tone no pronator drift or focal weakness is seen, patient requires
walker for standing but does not have an ataxic gait..
Moni-Hallpike maneuver was positive with leftward head turn producing upward torsional nystagmus and small dizziness.
MRI brain demonstrates a small nodule in the left inferior rectus muscle of the left eye.
Assessment: Presumed benign paroxysmal positional vertigo producing a episode of severe vertigo.
Left eye inferior rectus muscle abnormality appears nodule on MRI brain, appears asymptomatic at this time, unclear etiology to me and would warrant outpatient ophthalmology evaluation.
Recommendations
-Educated and provided printout on Jada maneuver which patient should do twice a day for the next 7 days and expect resolution of the vertigo and BPPV symptoms
-Outpatient ophthalmology evaluation for the left eye inferior rectus muscle abnormality seen on MRI brain
-Not recommending any myasthenia gravis antibody test
-Outpatient physical therapy
-TREVOR stockings slow position changing and increase fluid intake for orthostasis
-Would have neurology follow-up in 4 to 6 weeks as
No further recommendations neurology will sign off call questions and concerns
Original Note:
Today's Communication / Plan
-
.
Neuro Assessment/Plan
Assessment
87-year-old male with a history of A-fib status post Watchman procedure, neuropathy, CHF and myelodysplasia brought in yesterday after experiencing a fall in the morning as a result of dizziness.� Of note about 1 year ago he had an episode of brief
vertigo.� He says that yesterday he got up to walk his dog and when he got out of bed he felt very dizzy.� He had to sit back down.� He then walked out onto the stairs of his apartment and he felt an intense room spinning sensation again, falling
backwards and hitting his back on a glass door.� No head trauma.� He did sustain a T9 endplate fracture.
�
-CT head 10/11/23: HCT 10/11 no acute findings, In the anterior left paramidline frontal region, contiguous with the inner table of the calvarium, there is an extra-axial mass measuring approximately�10 mm, partially calcified. Similar to prior
examination, most consistent with small meningioma.
-Xray Thoracic Spine 10/11/23: 1. � Mild subsegmental atelectasis and scarring in both lower lungs. Mild cardiomegaly. New superior endplate fracture of T9 with mild loss of vertebral body height. Mild multilevel discogenic degenerative disease
throughout the thoracic spine. Mild right convex curvature of the midthoracic spine.
-MRI Brain 10/12/23: No acute infarct. Moderate chronic microvascular white matter ischemic disease. 3 small uncomplicated meningiomas. No evidence of vestibular cochlear schwannoma. Incidental circumscribed 6 mm enhancing nodule adjacent to the left
orbital inferior rectus muscle sclera attachment. Nonspecific. Possibly reactive or inflammatory (prior inflammatory myositis). Cannot entirely exclude primary benign or malignant neoplasm, or unusual metastatic neoplasm in the proper clinical
setting.
I. Left-sided BPPV, +Jerome Halpike maneuver on the left side.
II. Orthostasis
III. MRI brain negative for stroke.
IV. Left eye ptosis. MRI brain demonstrates a left orbital inferior rectus muscle sclera nodule, possibly contributing to left eyelid drooping. Less likely myasthenia gravis.
V. Incidental three benign meningiomas.
. Fall with traumatic T9 endplate fracture.
Plan
-Patient provided with left-sided Self-Jada maneuver instructions. Should perform this at least twice a day for one week.
-Patient would benefit from continued outpatient physical therapy.
-Check orthostatic vital signs as ordered. Slow position changes, TREVOR stockings, and increased fluid intake discussed.
-Patient should follow-up with ophthalmology regarding left orbital inferior rectus nodule.
-Consider myasthenia gravis antibody testing as an outpatient after evaluation by ophthalmology.
-Management of pain and T9 fracture per primary team.
-PT/OT evaluations.
-DVT prophylaxis.
-Neurological checks per unit guidelines.
-Patient should follow-up with Neurology as an outpatient in about 4 weeks, may see the NUTRITION AIDES TEACHER or one of the physicians.
Subjective/Objective
Subjective Data
Date of Service: October 13, 2023
No acute events overnight. Patient denies any further dizziness since yesterday. He endorses left eyelid drooping that has been ongoing for about 3 years. He denies any double vision or changes in his vision. He reports chronic sensation loss in
bilateral lower extremities. He also reports fatigue starting last summer when he was severely anemic. He has severe exhaustion with the 8 minute walk to the dining room at [facility] where he lives. He denies any headache, speech/swallow
difficulty, arm weakness, tinnitus, nausea, chest pain, back pain, palpitations, and shortness of breath.
Objective Data
Vital Signs
Temp Pulse Resp BP Pulse Ox
99.3 F 59 17 141/59 95
10/13/23 07:00 10/13/23 08:07 10/13/23 07:00 10/13/23 08:07 10/13/23 07:00
Lab Results
10/13/23 05:06
10/13/23 05:06
Sodium 138 mmol/L (135-145) 10/13/23 05:06
Potassium 3.9 mmol/L (3.5-5.1) 10/13/23 05:06
BUN 33 mg/dl (9-20) H 10/13/23 05:06
Glucose 96 mg/dl (70-99) 10/13/23 05:06
Calcium 7.9 mg/dl (8.4-10.2) L 10/13/23 05:06
Cfc-B-Damiglnklti Pept 842 pg/ml 10/11/23 08:55
Patient Allergies
No Known Allergies Allergy (Verified 10/11/23 08:04)
Review of Systems
-
History Source: Patient
EENT: Other (left eye ptosis); Negative Blurry Vision, Eye Pain, Decreased Vision, Tinnitis or Swallowing Difficulty
Respiratory: Negative Cough or Trouble Breathing
Cardiac: Negative Chest Pain or Palpitations
Abdomen/GI: Negative Nausea
Musculoskeletal: Negative Back Pain
Neuro: Numbness (BLE); Negative Dizzy, Headache, Weakness, Ataxia, Tremors or Speech Problem
Physical Exam
-
General: No Apparent Distress
Eyes: PERRLA; Negative No Ptosis (left eye ptosis)
HEENT: Normocephalic and Atraumatic
Neck: Full Range of Motion
Respiratory: No Dyspnea
GI: Non-distended
Extremities: No Clubbing, No Cyanosis and No Edema
Psych: Unremarkable
Extended Neurological Exam
Mood & Affect: Mood Unremarkable and Affect Unremarkable
Attention Span & Concentration: Awake, Alert and Interactive
Memory: Unremarkable (AAOx3) and Able to Recall
Tremor: Hand Tremor Absent and Head Tremor Absent
Involuntary Movement: None
Speech: Quality Unremarkable, Quantity Unremarkable and Rate of Production Unremarkable
Cranial Nerve II: Left Eye: Pupillary Reactivity Unremarkable, Pupillary Size Unremarkable and Visual [place] Intact
Cranial Nerve II: Right Eye: Pupillary Reactivity Unremarkable, Pupillary Size Unremarkable and Visual [place] Intact
Cranial Nerves III, IV, : Extraocular Movement: Extraocular Movement Full in all Directions, Nystagmus with Extreme Gaze to Left, Nystagmus with Extreme Gaze to Right and Other (nystagmus with upward gaze, slight nystagmus with resting gaze.
Positive Jerome Hallpike on the Left.)
Cranial Nerve V: Facial Sensation: Intact to Light Touch
Cranial Nerve VII: Facial Symmetry: Normal Facial Symmetry
Cranial Nerve VIII: Hearing: Grossly Reduced (wearing hearing aids)
Cranial Nerves IX, X: Palate Movement: Palate Elevation Symmetric
Cranial Nerve XI: Shoulder Shrug: Unremarkable
Cranial Nerve XII: Tongue Protusion: Midline
Muscle Strength, Overall: Full Throughout
Muscle Bulk & Tone: Bulk Unremarkable and Tone Unremarkable
Pronator Drift: No Drift in Upper Extremities and No Drift in Lower Extremities
Deep Tendon Reflexes: Unremarkable Throughout
Cold Sensation: Reduced Mildly Distally
Vibration Sensation: Reduced Moderately Distally
Touch Sensation: Double Simultaneous Stimulation Unremarkable
Coordination: Stpgdt-[id number]-lgmjhp Testing Unremarkable
Babinski Sign: Absent Bilaterally
Data Reviewed
-
MRI Head: Report Reviewed and Image Reviewed
Orthostatic Testing: Report Reviewed
Labs: Report Reviewed
Reviewed with: Physician and Patient
Medications
-
Active Medications
Generic Name Dose Route Start Last Admin
Trade Name Freq PRN Reason Stop Dose Admin
Acetaminophen 1,000 mg 10/12/23 22:00 10/13/23 08:07
Acetaminophen 500 Mg Tablet PO 11/09/23 21:59 1,000 mg
TID DANICA Administration
Aspirin 81 mg 10/12/23 08:00 10/13/23 08:07
Aspirin 81 Mg Chewable Tablet PO 11/09/23 07:59 81 mg
DAILY DANICA Administration
Atorvastatin Calcium 20 mg 10/11/23 22:00 10/12/23 20:39
Atorvastatin (Lipitor) 20 Mg Tablet PO 11/08/23 21:59 20 mg
HS DANICA Administration
Famotidine 40 mg 10/11/23 22:00 10/12/23 20:38
Famotidine 40 Mg Tablet PO 11/08/23 21:59 40 mg
HS DANICA Administration
Finasteride 5 mg 10/11/23 22:00 10/12/23 20:38
Finasteride 5 Mg Tablet PO 11/08/23 21:59 5 mg
HS DANICA Administration
Heparin Sodium 5,000 units 10/11/23 20:00 10/13/23 08:08
Heparin 5,000 Units/Ml 1 Ml Vial SC 11/08/23 19:59 5,000 units
Q12 DANICA Administration
Morphine Sulfate 2 mg 10/11/23 16:03
Morphine 2 Mg/Ml Syringe IV 10/25/23 16:02
Q4HPRN PRN
mod to severe pain
Pantoprazole Sodium 40 mg 10/11/23 20:00 10/13/23 08:07
Pantoprazole 40 Mg Delayed Release Tablet PO 11/08/23 19:59 40 mg
BID DANICA Administration
Polyethylene Glycol 17 grams 10/12/23 08:00 10/13/23 08:08
Polyethylene Glycol Powder 17 Grams Packet PO 11/09/23 07:59 17 grams
DAILY DANICA Administration
Sodium Chloride 0 flush 10/11/23 17:00
Sodium Chloride 0.9% (Flush) Syringe IV 11/08/23 16:59
PER PROTOCOL DANICA
Sotalol HCl 80 mg 10/11/23 20:00 10/13/23 08:07
Sotalol 80 Mg Tablet PO 11/08/23 19:59 80 mg
BID DANICA Administration
Tamsulosin HCl 0.4 mg 10/11/23 22:00 10/12/23 20:38
Tamsulosin 0.4 Mg Capsule PO 11/08/23 21:59 0.4 mg
HS DANICA Administration
Home Medications
Medication Instructions Recorded
atorvastatin 20 mg tablet 20 mg PO HS High cholesterol 01/24/22
cyanocobalamin (vitamin B-12) 500 mcg PO DAILY Supplement 01/24/22
1,000 mcg tablet
famotidine 40 mg tablet 40 mg PO HS Gastrointestinal issue 01/24/22
finasteride 5 mg tablet 5 mg PO HS Urinary issue 01/24/22
tamsulosin 0.4 mg capsule 0.4 mg PO HS Urinary issue 01/24/22
pantoprazole 40 mg tablet,delayed 40 mg PO BID #60 tabs 04/04/23
release
aspirin 81 mg chewable tablet 81 mg PO DAILY #30 tabs 04/12/23
sotalol 80 mg tablet 80 mg PO BID Arrhythmia #60 tabs 04/12/23
polyethylene glycol 3350 17 gram 17 g PO DAILY Constipation 10/11/23
oral powder packet (Miralax)
vitamin A-vitamin C-vit E-min 1 tab PO BID Supplement 10/11/23
tablet
--- NOTE | 2023-10-13 09:24 | W.PN.HOSP.TC ---
Today's Communication/Plan
-
Discharge today
Assessment / Plan
Assessment / Plan
87-year-old male presented with sudden onset of dizziness/vertigo
# Probable BPPV
Brain MRI negative
Appreciate neurology input, patient likely has BPPV
He ambulated with PT without any dizziness
PT recommends home care
Medically stable for discharge, outpatient vestibular rehab prescription provided
Follow-up neurology in the office
#Nodule and left inferior rectus muscle seen on MRI
Recommend outpatient follow-up with ophthalmology
#MDS
Primary grading clerk Dr. Cortes.
Chronic leukopenia
#History of mitral regurgitation
#Chronic heart failure with a preserved ejection fraction
Stable
#New superior endplate fracture of T9 with mild loss of vertebral body height
Continue Tylenol 1 g 3 times daily upon discharge
#Primary hypertension
Check for orthostatic hypotension.
#Paroxysmal atrial fibrillation
History of gait dysfunction.� Uses a walker.�
DVT prophylaxis�subcu heparin
DNR
Physical Exam
General: No acute distress
HEENT: Normocephalic, Atraumatic, EOMI, MMM
Respiratory: Clear to Auscultation bilaterally
Cardiac: Normal S1/S2, Regular Rate and Rhythm
GI: Soft, Nontender, Nondistended, Normal Bowel Sounds
Extremities: No Clubbing, Cyanosis, or Edema
Neuro: Appears diffusely weak
Anticipated Discharge: Today
Subjective/Interval History
-
Date of Service: October 13, 2023
No dizziness at rest. Patient ambulated without any dizziness. He does feel weak.
Objective Data
-
Labs:
Laboratory Results
10/13/23
05:06
WBC 1.2 L*
Hgb 11.0 L
Hct 35.2 L
Plt Count 69 L
Sodium 138
Potassium 3.9
Chloride 102
Carbon Dioxide 33 H
BUN 33 H
Creatinine 1.1
Glucose 96
Calcium 7.9 L
Vital Signs:
Vital Signs
Temp Pulse Resp BP Pulse Ox
99.3 F 59 17 141/59 95
10/13/23 07:00 10/13/23 08:07 10/13/23 07:00 10/13/23 08:07 10/13/23 07:00
I&O
10/12/23 10/13/23 10/14/23
06:59 06:59 06:59
Intake Total 720 / 720 1200 / 1200
Output Total 125 / 125 300 / 300
Balance 595 / 595 900 / 900
[2023-10-13 11:00] VITALS: BP 125/55; BP 140/64; BP 141/65; PULSE 65; O2SAT 94
--- NOTE | 2023-10-13 12:45 | W.DCSUMMARY ---
Discharge Summary
Discharge Data
Date of Admission: 10/11/23
Date of Discharge: 10/13/23
-
Pending Results: No
Hospital Course
Discharge diagnosis:
Vertigo, probable benign paroxysmal positional vertigo
Nodule in the left inferior rectus muscle seen on imaging
Myelodysplastic syndrome
History of mitral regurgitation
Chronic heart failure with a preserved ejection fraction
New superior endplate fracture of the thoracic 9 vertebrae
Primary hypertension
Paroxysmal atrial fibrillation
History of gait dysfunction
Consults: Neurology
Brain MRI:
No acute infarct. Moderate chronic microvascular white matter ischemic disease. 3 small uncomplicated meningiomas. No evidence of vestibular cochlear schwannoma.
Incidental circumscribed 6 mm enhancing nodule adjacent to the left orbital inferior rectus muscle sclera attachment. Nonspecific. Possibly reactive or inflammatory (prior inflammatory myositis). Cannot entirely exclude primary benign or malignant
neoplasm, or unusual metastatic neoplasm in the proper clinical setting.
Chest CT:
No evidence of pulmonary embolism.
Small left and trace right pleural effusion. Minor atelectasis. No evidence of pneumonia. Mild bronchial wall thickening, suggesting bronchitis.
T Spine XR:
1. � Mild subsegmental atelectasis and scarring in both lower lungs.
2. � Mild cardiomegaly.
3. � New superior endplate fracture of T9 with mild loss of vertebral body height.
4. � Mild multilevel discogenic degenerative disease throughout the thoracic spine.
5. � Mild right convex curvature of the midthoracic spine.
Hospital course:
87-year-old male with a history of A-fib status post Watchman procedure, neuropathy, CHF and myelodysplasia was admitted for a fall secondary to vertigo. Patient was seen in conjunction with neurology, who suspects he has benign paroxysmal
positional vertigo. Brain MRI was negative. Patient's vertigo resolved.
Brain MRI did show an incidental nodule in the left inferior rectus muscle. Patient has been recommended to follow-up with ophthalmology in the office.
Patient had back pain from his fall. He did have spine x-rays, which showed a new superior endplate fracture of T9 with mild loss of vertebral body height. He was treated with Tylenol 1 g 3 times a day, and can continue this upon discharge.
Patient was seen in conjunction with PT. He ambulated in the hallways without any dizziness or vertigo. He felt much better. He is medically stable and cleared by neurology for discharge. He needs to follow-up with his primary care doctor 1
week, ophthalmology, as well as neurology in 3-4 weeks.
Disposition: Home with home care
Discharge planning: Required 36 minutes
Discharge Plan
-
Patient Disposition: Home with Home Care
Discharge Diagnosis/Procedures: Presumed benign paroxysmal positional vertigo producing an episode of severe vertigo, weakness
Condition: Good
Diet: Low Fat and Low Cholesterol
Activity: As tolerated
Driving Restrictions: As prior to admission
Other Services: VN and PT
Activity Restrictions/Additional Instructions:
You have an abnormal left eye inferior rectus muscle seen on your brain MRI.
We recommend you follow-up with ophthalmology in the office.
Please wear TEDs stockings, and increase fluid intake.
Please undergo outpatient vestibular rehab for your vertigo.
Follow-up with your primary care doctor 1 week, neurology in the office in 4 to 6 weeks as needed.
Referrals:
Jim Denney MD [Active] - in four to six weeks
Nain Hudson MD [Active] - in three to four weeks
Shelby Dillon MD [Family Provider] - in one week
Prescriptions:
New
acetaminophen [Tylenol Extra Strength] 500 mg Tablet
1,000 mg PO TID PRN (Reason: fever or pain) Qty: 0 0RF
Continued
atorvastatin 20 MG tablet
20 mg PO HS
famotidine 40 MG tablet
40 mg PO HS
cyanocobalamin (vitamin B-12) 1,000 MCG tablet
500 mcg PO DAILY
tamsulosin 0.4 MG capsule
0.4 mg PO HS
finasteride 5 MG tablet
5 mg PO HS
pantoprazole 40 mg Tablet,Delayed Release (Dr/Ec)
40 mg PO BID Qty: 60 1RF
aspirin 81 mg Tablet,Chewable
81 mg PO DAILY Qty: 30 0RF
sotalol 80 mg tablet
80 mg PO BID Qty: 60 0RF
polyethylene glycol 3350 [Miralax] 17 gram Powder In Packet
17 g PO DAILY
vitamin A-vitamin C-vit E-min Tablet
1 tab PO BID
Discharge Orders:
Discharge Patient (As Directed); Ordered 10/13/23
Ordered By: Octavio Kumar
Discharge Date and Time
Discharge Date/Time: 10/13/23 17:58
--- NOTE | 2023-10-13 12:51 | CM ---
Patient seen bedside, discussed recommendation of home health, patient agreeable to [facility] as he has had [facility] in the past, update to [facility] liaison. IMM reviewed, signed, placed in patients chart. Patient reports his friend will provide transportation
home. CM will continue to follow for discharge planning needs.
Plan; return to [facility] with [facility].
--- NOTE | 2023-10-13 16:05 | VNURNOTE ---
Home Health Liaison met with patient at 1500 to discuss [facility] nurse/therapy, visits, schedule and homebound status. Patient discussed need of Vestibular therapy and home health is unable to provide that.
Patient wants to start OP PT with Vestibular Therapy as soon as possible and understands he is not able to receive both OP and [facility] at same time.
[facility] referral that was completed in [facility] earlier is now a non admit.
== END 2023-10-13 17:58 | disposition home health service (06) | DRG 149 ==
LOC: 3 WEST ACU 13:43
PROVIDERS: Physician Assistant; ADMITTING PHYSICIAN Internal Medicine; ATTENDING PHYSICIAN Family Medicine; CONSULT PHYSICIAN Psychiatry & Neurology Neurology; EMERGENCY PHYSICIAN Emergency Medicine; FAMILY PHYSICIAN Internal Medicine Geriatric Medicine
DX: H81.10 Benign paroxysmal vertigo, unspecified ear (principal); S22.079A Unspecified fracture of T9-T10 vertebra, initial encounter for closed fracture; I50.32 Chronic diastolic (congestive) heart failure; Z11.52 Encounter for screening for COVID-19; Z87.891 Personal history of nicotine dependence; D46.9 Myelodysplastic syndrome, unspecified; I11.0 Hypertensive heart disease with heart failure; Z66 Do not resuscitate; Z79.82 Long term (current) use of aspirin; I48.0 Paroxysmal atrial fibrillation
CPT/HCPCS: 70450; 70553; 71046; 71275; 72072; 80048; 80053; 81003; 81015; 83880; 84484; 85025; 85027; 86850; 86900; 86901; 87502; 87811; 93005; 96374; 96376; 97163; 97167; 97530; 99285; A9575; Q9967

== ENCOUNTER → 2023-11-27 13:46 | Outpatient (REF) | payer MEDICARE, BC, SELFPAY | LOC: HWRAD 13:46 | PROVIDERS: ATTENDING PHYSICIAN Internal Medicine; FAMILY PHYSICIAN Internal Medicine Geriatric Medicine | DX: R04.2 Hemoptysis (principal) | CPT/HCPCS: 71046 ==

== ENCOUNTER 2024-03-13 20:48 | Inpatient (IN) | payer MEDICARE, BC, SELFPAY ==
[2024-03-13 17:08] VITALS: BMI 22.8
[2024-03-13 17:09] VITALS: BP 162/69
--- NOTE | 2024-03-13 17:29 | ED.GENMED ---
History of Present Illness
General
Chief Complaint: Fatigue
Source: patient
Exam Limitations: none
Time Seen by Provider: 03/13/24 17:18
History of Present Illness
History of Present Illness:
See MDM
Past History
Past History
ED Past Medical History: Arrthythmia (Atrial fib), CHF, HTN and Hypercholesterolemia
ED Past Surgical History: Appendectomy, Cholecystectomy and Other (Hernia repair)
Patient has exhibited threatening behavior?: No
PSI?: No
Social History
Tobacco: Former smoker
Alcohol: Occasional
Personal:
Living: assisted living ([facility])
Phy Exam
Physical Exam
Physical Exam:
See MDM
Course
Orders/Labs/Results
Orders:
Orders
03/13/24 17:13
Electrocardiogram (*1) Urgent
Reason for Study: Chest Pain
Cardiac Monitoring- Treatment ONCE
EKG- Treatment ONCE
IV Insert/Care/Rem.- Treatment PRN
O2 Therapy [RESP] Urgent
Titrate/Wean O2 to maintain O2 sat greater than (%): 90
Special Instructions: Maintain sats >/=90%
Pulse Ox/spot Check [RESP] Urgent
Quantity: 1
Special Instructions: ON ROOM AIR
03/13/24 17:15
Complete Blood Count/With Diff Urgent
Comprehensive Metabolic Panel Urgent
NT-proBNP Urgent
Comment: ADD ON
Troponin I Urgent
03/13/24 17:28
Add On- LAB Urgent
Tests Added?: pro BNP
03/13/24 17:29
CR Chest - 2 Views Urgent
Comment:
Reason For Exam: SOB, weight gain
03/13/24 19:30
Furosemide [Lasix] 40 mg IV NOW STA
Abnormal Lab Results
03/13/24
17:15
WBC 1.7 L* 10^3/uL
(4.8-10.8)
RBC 3.78 L 10^6/uL
(4.70-6.10)
Hgb 12.1 L g/dL
(13.0-18.0)
Hct 37.7 L %
(39.0-52.0)
MCV 99.7 H fL
(80.0-94.0)
MCH 32.0 H pg
(27.0-31.0)
MCHC 32.1 L g/dL
(33.0-37.0)
RDW 15.6 H %
(11.5-14.5)
Plt Count 73 L 10^3/uL
(130-400)
Absolute Neuts (auto) 0.7 L* 10^3/uL
(1.4-6.5)
Absolute Lymphs (auto) 0.9 L 10^3/uL
(1.2-3.4)
Neutrophils % 40.2 L %
(42.2-75.2)
Lymphocytes % 52.1 H %
(20.5-51.1)
Carbon Dioxide 39 H mmol/L
(22-30)
BUN 33 H mg/dl
(9-20)
Glucose 106 H mg/dl
(70-99)
Calcium 8.2 L mg/dl
(8.4-10.2)
Total Bilirubin 1.4 H mg/dl
(0.2-1.3)
03/13/24 17:15
03/13/24 17:15
Vital Signs
Initial and Last Documented VS:
Initial Vital Signs
Temp Pulse Resp BP Pulse Ox
98.5 F 69 20 162/69 86
03/13/24 17:09 03/13/24 17:09 03/13/24 17:09 03/13/24 17:09 03/13/24 17:09
Last Documented Vital Signs
Temp Pulse Resp BP Pulse Ox
98.5 F 67 21 143/63 96
03/13/24 17:09 03/13/24 18:15 03/13/24 18:15 03/13/24 18:00 03/13/24 18:15
MDM/Problems Addressed
Differential Diagnosis Includes:
HPI and MDM Narrative:
88-year-old male presenting with increased shortness of breath over the past month or so. Patient has noted that he is requiring more breaks when he walks to dinner at the nursing facility. When questioned, patient does acknowledge that he thinks
he has gained weight and thinks that both his legs are more swollen. He does have a history of CHF. Given that symptoms have progressed, 911 was called. On arrival, patient 85% on room air and patient was placed on 2 liters nasal cannula
Physical exam
General: Weak and frail
HEENT: protecting airway
Neck: appears supple
CV: No evidence of cyanosis. Regular rate and rhythm
Resp: No accessory muscle use. Crackles at bases
Abd: Non-distended
Extremities: +2 pitting edema bilateral lower extremities
Neuro: alert
Psych: Normal affect
Skin: Intact
Problems Addressed including Acute and Chronic Conditions affecting care:
1. CHF exacerbation
Acuity: acute
Prognosis: unstable
Details: Given his history of CHF and his new hypoxia, concern for CHF exacerbation and pulmonary edema. Will continue 2 L nasal cannula and obtain chest x-ray and basic blood work
Updates
BNP mildly elevated from baseline. However, chest x-ray shows moderate size left pleural effusion which is increased from prior. Patient ambulated to the bathroom without difficulty. However, when he returned to the bed, he is more visibly short
of breath. Patient 75% on 2 L. This was increased to 4 L. Will give IV Lasix and admit
Differential Diagnosis (but not limited to): CHF exacerbation, pneumonia
Testing considered: D-dimer
Drug therapy (if applicable): OTC meds, please see d/c instruction regarding Rx drugs
Amount and/or Complexity of Data Reviewed
Clinical info obtained from: Patient
External data reviewed: N/A
Labs I independently reviewed (but not limited to): Elevated BNP, baseline leukopenia
Radiology: X-ray independently reviewed: Chest x-ray has a large left pleural effusion
Pulse Ox: hypoxic
EKG independently reviewed: Sinus rhythm, normal axis, no STEMI
Svp: Sinus rhythm
Critical Care: N/A
Risk of Complication:
Social Determinants of health: Good social support
Discussed with other providers: Hospitalist
Escalation of Care includes Admit/Obs: Given the pleural effusion with hypoxia, will admit
Occasional wrong word or 'sound a like' substitutions may have occurred due to the inherent limitations of voice recognition software. Read the chart carefully and recognize, using context, where substitutions have occurred.
*Critical Care Note
Total Time (30-74mins, 75-104mins- exclusive of procedures): Not Applicable
ED Attending Note
-
Portions of this chart may have been created with voice recognition software.� Occasional wrong word or��sound alike� substitutions may have occurred due to the inherent limitations of voice recognition software.
Discharge Plan
Departure
Patient Disposition: Admit
Date of Disposition: 03/13/24
Time of Disposition: 19:42
Admit to: Med/Surg
Presentation/result/management discussed w/ accepting MD/DO: Hospitalist
Discharge Problem:
Pleural effusion, Hypoxia
Prescriptions:
No Action
atorvastatin 20 MG tablet
20 mg PO HS
famotidine 40 MG tablet
40 mg PO HS
cyanocobalamin (vitamin B-12) 1,000 MCG tablet
500 mcg PO DAILY
tamsulosin 0.4 MG capsule
0.4 mg PO HS
finasteride 5 MG tablet
5 mg PO HS
aspirin 81 mg Tablet,Chewable
81 mg PO DAILY Qty: 30 0RF
sotalol 80 mg tablet
80 mg PO BID Qty: 60 0RF
polyethylene glycol 3350 [Miralax] 17 gram Powder In Packet
17 g PO DAILYPRN PRN (Reason: constipation)
ferrous sulfate 325 mg (65 mg iron) Tablet
325 mg PO DAILY
Referrals:
Shelby Dillon MD [Family Provider] -
Interventions
Interventions:
*Risk Screen - Suicide Last Done: 03/13/24 17:20
*General Assessment Last Done: 03/13/24 17:11
ED- Fall Risk Assessment Last Done: 03/13/24 17:20
*ED COVID-19 Vaccine History Last Done: 03/13/24 17:11
Discharge Date and Time
Print Language: ROMANIAN
[2024-03-13 17:39] LABS: ALT (SGPT) 33 U/L (0-50); AST (SGOT) 51 U/L (17-59); Alkaline Phosphatase 86 U/L (38-126); Blood Urea Nitrogen 33 mg/dl (9-20); Calcium 8.2 mg/dl (8.4-10.2); Carbon Dioxide 39 mmol/L (22-30); Chloride 99 mmol/L (98-107); Estimated Creatinine Clearance 59 ml/min; Glucose 106 mg/dl (70-99); Sodium 139 mmol/L (135-145); Total Bilirubin 1.4 mg/dl (0.2-1.3); Total Protein 6.3 g/dl (6.3-8.2); eGFR > 60.00
[2024-03-13 17:42] LABS: % Basophils 0.6 % (0-2); % Eosinophils 1.2 % (0-6); % Lymphocytes 52.1 % (20.5-51.1); % Monocytes 5.9 % (1.7-9.3); % Neutrophils 40.2 % (42.2-75.2); Absolute Lymphocytes 0.9 10^3/uL (1.2-3.4); Absolute Monocytes 0.1 10^3/uL (0.1-0.6); Absolute Neutrophils 0.7 10^3/uL (1.4-6.5); Hematocrit 37.7 % (39.0-52.0); Hemoglobin 12.1 g/dL (13.0-18.0); Mean Corp Hgb Conc. 32.1 g/dL (33.0-37.0); Mean Corpuscular Volume 99.7 fL (80.0-94.0); Nucleated Red Blood Cells % 0 % (-); Platelet Count 73 10^3/uL (130-400); Red Blood Cell Count 3.78 10^6/uL (4.70-6.10); Red Cell Dist. Width 15.6 % (11.5-14.5); White Blood Cell Count 1.7 10^3/uL (4.8-10.8)
[2024-03-13 17:51] LABS: NT-proBNP 1110 pg/ml; Troponin I < 0.012 ng/ml
[2024-03-13 18:00] VITALS: BP 143/63
[2024-03-13] MEDS: LASIX 40 MG IV (19:38)
--- NOTE | 2024-03-13 20:24 | HPS.HSE ---
Family Physician
-
Family Physician: Shelby Dillon
Chief Complaint
-
SOB
History of Present Illness
Patient is an 88y M with PMH significant for MDS, A-Fib and prior CHFpEF who presents to ED complaining of progressive weakness and RODRÍGUEZ over the past 2-3 weeks. Patient states that he began to note fatigue when walking to and from the dining
facility at [facility]. This has gotten progressively worse over the past few weeks. He now needs to stop and rest about retirement between the dining [place] and his rooms. Patient also notes SOB that occurs at night when lying down in bed. He
sleeps elevated on 4 pillows. He has chronic LE swelling which he notes may be slightly worse than usual. He denies any abdominal distention, N/V/D, etc. He does not check his weight at home regularly.
Patient has been checking his SpO2 with a home monitor and notes that it has very fluctuant - but with readings frequently into the 80s. He does not wear oxygen at home.
He felt very weak this AM and his SpO2 was in the 80s. He called EMS and it was recommended that he go to the ED for evaluation; however, he declined at that time.
Later in the day, he began to feel more weak / SOB and again called EMS. He was then agreeable to transport to the ED.
Patient denies any chest pain, palpitations.
He denies any recent illness including sore throat, cough, fevers / chills.
He denies any recent changes in his medication regimen.
Medical History
Past Medical History
Past Medical History: Reports Other
Additional Past Medical History:
Myelodysplastic Syndrome with Pancytopenia
Paroxysmal Atrial Fibrillation
Chronic HFpEF
BPH
Chronic Nystagmus
Schwannoma of the Neck
Past Surgical History: Reports Other
Additional Past Surgical History:
DCCV x 2
Watchman Device Implantation
Schwannoma Excision (2012)
Appendectomy
Cholecystectomy
T&A
TURP
Social History
Tobacco: Former Smoker (Quit smoking in 1970. < 20 pack years total.)
Alcohol: None
Drug: None
Living: Assisted Living
Family History
Family History: Not pertinent
Allergies / Home Medications
Allergies reflects when Allergies were last updated in [facility].
Home Medications with original date entered in [facility]
Allergy/Medication List:
Allergies
Allergy/AdvReac Type Severity Reaction Status Date / Time
No Known Allergies Allergy Verified 10/11/23 08:04
Home Medications
atorvastatin 20 mg tablet 20 mg PO HS High cholesterol 01/24/22
cyanocobalamin (vitamin B-12) 1,000 mcg tablet 500 mcg PO DAILY Supplement 01/24/22
famotidine 40 mg tablet 40 mg PO HS Gastrointestinal issue 01/24/22
finasteride 5 mg tablet 5 mg PO HS Urinary issue 01/24/22
tamsulosin 0.4 mg capsule 0.4 mg PO HS Urinary issue 01/24/22
aspirin 81 mg chewable tablet 81 mg PO DAILY #30 tabs 04/12/23
sotalol 80 mg tablet 80 mg PO BID Arrhythmia #60 tabs 04/12/23
polyethylene glycol 3350 17 gram oral powder packet (Miralax) 17 g PO DAILYPRN PRN constipation 10/11/23
ferrous sulfate 325 mg (65 mg iron) tablet 325 mg PO DAILY 03/13/24
Review of Systems
-
History Source: Patient
A 12 point ROS was completed and negative except as noted: Yes
Constitutional: Reports Fatigue; Denies Fever or Chills
EENT: Denies Sore Throat
Respiratory: Reports Trouble Breathing and Other (Orthopnea); Denies Cough or Hemoptysis
Cardiac: Denies Chest Pain, Diaphoresis, Palpitations or Syncope
Abdomen/GI: Denies Abdominal Pain, Nausea, Vomiting or Diarrhea
: Denies Dysuria, Frequency or Flank Pain
Musculoskeletal: Reports Edema; Denies Joint Pain
Neurological: Denies Dizzy or Headache
Psych: Denies Depression or Anxiety
Physical Exam
Vital Signs
Vital Signs
Temp Pulse Resp BP Pulse Ox
98.5 F 76 20 143/63 95
03/13/24 17:09 03/13/24 19:48 03/13/24 19:48 03/13/24 18:00 03/13/24 19:48
Physical Exam
General: Other (88y M in no acute distress, Occasional conversational dyspnea and some 'deliberate' swallowing during interview / exam.)
HEENT: Moist mucous membranes, PERRLA and Other (Neck supple. No JVD.)
Respiratory: Other (Decrased BS throughout. Dullness at L base. No wheezes / rales.)
Cardiac: S1/S2, Regular Rhythm and Murmur (Late systolic murmur.)
GI: Soft, Non Tender, Non Distended and Normal Bowel Sounds
Musculoskeletal: No Clubbing, No Cyanosis and Other (2+ pitting edema b/l LEs.)
Neuro: AO x 3
Laboratory Results
-
03/13/24 17:15
03/13/24 17:15
Laboratory Results
Total Bilirubin 1.4 mg/dl (0.2-1.3) H 03/13/24 17:15
AST 51 U/L (17-59) 03/13/24 17:15
ALT 33 U/L (0-50) 03/13/24 17:15
Alkaline Phosphatase 86 U/L (38-126) 03/13/24 17:15
Troponin I < 0.012 ng/ml 03/13/24 17:15
Impression/Plan
-
A/P: Patient is an 88y M with PMH significant for A-Fib, MDS and prior cardiomyopathy / CHF who presents to ED complaining of progressive weakness and dyspnea over several weeks.
Acute HFpEF
Acute / Subacute Hypoxemic Respiratory Insufficiency secondary to the above
- Admit for further evaluation and treatment.
- IV Lasix BID for now and follow I/Os, daily weights, etc.
- Update Echo - last done 05/2023. EF = 55%, moderate MR, mild AR.
- Cardiology evaluation for additional recommendations.
- Follow I/Os, daily weights, etc.
- Follow for clinical improvement.
Left Pleural Effusion
- Moderate L effusion.
- Likely secondary to CHF as noted above - follow for any changes.
- If no significant improvement with diuresis, would consider IR eval for dx / tx thoracentesis.
Paroxysmal Atrial Fibrillation
- Stable. In sinus rhythm at present.
- Continue Sotalol at current dose.
- Not on OAC s/p Watchman device.
MDS with Pancytopenia
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
- Stable. Cell counts seem at / near known baselines.
- Hgb somewhat higher than prior values.
- Continue to monitor H&H.
- Patient followed by Dr. Cortes as an outpatient and received occasional injection therapy for Hgb (? Procrit).
BPH
- Stable. Continue finasteride / tamsulosin.
- Bladder scan protocol.
DVT Prophylaxis: SCDs
Code Status: DNR
[2024-03-13 21:32] VITALS: BMI 22.8
[2024-03-13 21:46] VITALS: BP 134/52; BP 147/66; BP 152/62; PULSE 71; PULSE 73; BMI 21.8
[2024-03-13] MEDS: PEPCID 40 MG PO (22:09)
[2024-03-13] MEDS: FLOMAX 0.4 MG PO (22:12)
[2024-03-13] MEDS: LIPITOR 20 MG PO (22:12)
[2024-03-13] MEDS: PROSCAR 5 MG PO (22:12)
[2024-03-13 22:31] LABS: Troponin I 0.012 ng/ml
[2024-03-13 22:52] LABS: TSH Reflex To Free T4 1.46 uIU/ml (0.47-4.68)
--- NOTE | 2024-03-13 23:00 | PTCARENOTE ---
Addendum entered by Lola Young RN 03/14/24 01:22:
Pt AAOx2 (time), forgetful and high risk for fall. Pt severely weak, requires 2 person assistance. Constantly trying to get up to urinate. Bladder scan and pt had > 378 ml and ENTRY LEVEL BUSINESS ANALYST notify. Oneil cath order for retention.
Original Note:
Pt was admitted to . AAOx3, forgetful at times, anxious and flat affect. [employer] [place] [employer] NSR int he monitor. Shallow breathing and tachypneic. Diminished and fine crackles at the bases lung sounds. SaO2 96-98% 4L. Dyspneic w/ exertion and rest. +BS. Frequent
urination. Call arndt within reach. will cont w/ tx plan.
[2024-03-13 23:14] VITALS: BP 164/68
[2024-03-14] VITALS (10 sets, daily range): BP systolic 111–143; BP diastolic 45–84; PULSE 2–77; BMI 21.8
[2024-03-14] MEDS: MIRALAX 17 GRAMS PO (00:51)
--- NOTE | 2024-03-14 05:15 | PTCARENOTE ---
Pt mental state changed as the night progressed. AAOx1, anxious and restless. SaO2 96% 3L. Lung sounds stayed the same, diminished with crackles at the bases. TRAVELING SALES REPRESENTATIVE notify and ABG order.
[2024-03-14 05:25] LABS: Hematocrit 36.3 % (39.0-52.0); Hemoglobin 11.3 g/dL (13.0-18.0); Mean Corp Hgb Conc. 31.1 g/dL (33.0-37.0); Mean Corpuscular Hgb 31.7 pg (27.0-31.0); Mean Platelet Volume 12.3 fL (7.4-10.4); Platelet Count 63 10^3/uL (130-400); Red Blood Cell Count 3.56 10^6/uL (4.70-6.10); Red Cell Dist. Width 15.3 % (11.5-14.5); White Blood Cell Count 1.4 10^3/uL (4.8-10.8)
[2024-03-14 05:43] LABS: Calcium 7.8 mg/dl (8.4-10.2); Chloride 98 mmol/L (98-107); Estimated Creatinine Clearance 56 ml/min; Glucose 97 mg/dl (70-99); Potassium 4.6 mmol/L (3.5-5.1); Sodium 139 mmol/L (135-145); eGFR > 60.00
[2024-03-14 05:50] LABS: Troponin I < 0.012 ng/ml
[2024-03-14 05:53] LABS: Blood Urea Nitrogen 31 mg/dl (9-20); Carbon Dioxide 35 mmol/L (22-30)
[2024-03-14 06:57] LABS: B.E. 13.8 mmol/L; O2 Saturation % 97.4 % (94-98); PO2 79 mmHg (83-108); pH 7.29 (7.35-7.45)
[2024-03-14 07:03] LABS: HCO3 43.8 mmol/L (21-28); PCO2 91 mmHg (35-48)
--- NOTE | 2024-03-14 08:15 | W.PN.HOSP.TC ---
Today's Communication/Plan
-
Increase oxygen flow to 4 L
Pulmonary consult
Continue diuresis
Check echocardiogram
Lidocaine patch to the neck
Assessment / Plan
Assessment / Plan
Gen-awake, alert, tachypneic
HEENT-NC, AT, anicteric, clear oral mm
Neck-supple
CV-reg, no M, +S1/S2
Lungs-clear B/L
Abd-soft, NT, ND
Ext-no edema
Musculoskeletal-no cyanosis, clubbing, tender posterior cervical spine
Skin-warm and dry
Neuro-grossly non-focal
Psych-calm, cooperative
Acute hypoxic/hypercapnic respiratory failure -mildly increased work of breathing and tachypneic this morning but denies shortness of breath. Mainly complaining of posterior neck pain.
ABG noted with respiratory acidosis. Suspect chronic respiratory acidosis given elevated serum bicarbonate. Etiology unclear but rule out diaphragmatic muscle weakness, COPD, other causes. Consult pulmonary. Oxygenation currently 88 to 90% on 2
L, improved to 94% on 4 L. Not ideal BiPAP candidate given his age and frailty.
Pulmonary edema and pleural effusion contributing to respiratory failure. Chest x-ray also mentions severe atelectasis basilar segments of the left lower lobe, mild atelectasis in the right lower lobe.
Acute heart failure with preserved EF exacerbation -continue diuresis. Cardiology consulted. Check echocardiogram. BNP 1110.
Moderate left pleural effusion -likely due to heart failure exacerbation. May need thoracentesis if no improvement with diuretics.
Posterior neck pain -started in the hospital. Tender on exam and suspect musculoskeletal pain. Denies radicular symptoms. Will treat supportively for now. Add lidocaine patch.
Paroxysmal atrial fibrillation -continue sotalol. Underwent Watchman device in the past. Not on anticoagulation.
Chronic pancytopenia -likely due to myelodysplastic syndrome. Counts appear to be at baseline.
Hyperlipidemia - on atorvastatin.
BPH
DNR
Anticipated Discharge: > 48 hours
Subjective/Interval History
-
Date of Service: March 14, 2024
Patient seen and examined. Complaining of posterior neck pain. Denies shortness of breath currently.
Objective Data
-
Labs:
Laboratory Results
03/14/24 03/14/24
04:44 06:47
WBC 1.4 L*
Hgb 11.3 L
Hct 36.3 L
Plt Count 63 L
HCO3 43.8 H*
Sodium 139
Potassium 4.6
Chloride 98
Carbon Dioxide 35 H
BUN 31 H
Creatinine 0.9
Glucose 97
Calcium 7.8 L
Vital Signs:
Vital Signs
Temp Pulse Resp BP Pulse Ox
98.1 F 78 20 137/84 100
03/14/24 07:29 03/14/24 07:29 03/14/24 07:29 03/14/24 07:29 03/14/24 07:29
I&O
03/13/24 03/14/24 03/15/24
06:59 06:59 06:59
Intake Total 240 / 240
Output Total 1825 / 1825
Balance -1585 / -1585
Review of Systems
-
History Source: Patient
All other systems: Reviewed and negative
[2024-03-14] MEDS: LASIX 20 MG IV ×2 (08:39→17:10)
[2024-03-14] MEDS: LOW STRENGTH ASPIRIN 81 MG PO (08:40)
[2024-03-14] MEDS: FEOSOL 325 MG PO (08:40)
[2024-03-14] MEDS: BETAPACE 80 MG PO ×2 (08:40→20:08)
[2024-03-14] MEDS: LIDOCAINE 4% PATCH 1 PATCH TOPICAL (08:42)
--- NOTE | 2024-03-14 09:17 | CON.PUL ---
Consultation
Consultation Request
Date/Time Consultation Requested: 03/14/2024-9:30 AM
Date/Time Consultation Performed: 03/14/2024-9:30 AM
Requesting Provider: Hospitalist
Performing Provider: Dr. Aranda
Reason for Consultation: Hypercapnia
Medical History
-
Chief Complaint: Confusion and shortness of breath
History of Present Illness:
88-year-old male with a history of myelodysplasia, atrial fibrillation, heart failure preserved EF presented with weakness over the past 3 weeks and noted to have acute heart failure with preserved EF, respiratory insufficiency and moderate left
pleural effusion-pulmonary consulted for hypercapnia, effusions and confusion 03/14/2024. Patient is alert and oriented and knows that he is somewhat confused. Denies any shortness of breath at rest but has some dyspnea with exertion. Denies any
chest pain, chest congestion, productive cough, hemoptysis, abdominal pain or focal weakness.
Past Medical History
Past Medical History: None (MDS followed by Dr. Cortes. PAF. Chronic heart failure preserved EF. BPH. Chronic nystagmus. Schwannoma of the neck. Watchman device. Appendectomy. Cholecystectomy. Schwannoma excision 2012. Tonsillectomy. TURP.)
Social History
Tobacco: Former Smoker ( [id number] quit 1971)
Alcohol: None
Drug: None
Personal:
Living: Assisted Living
Occupational Exposures: No known asbestos exposure
Environmental Exposures: No known tuberculosis exposure
Family History
Family History: Reviewed & Not Pertinent
Allergies / Home Medications
Allergies
Allergy/AdvReac Type Severity Reaction Status Date / Time
No Known Allergies Allergy Verified 10/11/23 08:04
Home Medications
�Medication �Instructions �Recorded �Confirmed �Last Taken �Type
atorvastatin 20 mg tablet 20 mg PO HS High cholesterol 01/24/22 03/13/24 03/12/24 History
cyanocobalamin (vitamin B-12) 500 mcg PO DAILY Supplement 01/24/22 03/13/24 03/13/24 History
1,000 mcg tablet
famotidine 40 mg tablet 40 mg PO HS Gastrointestinal issue 01/24/22 03/13/24 03/12/24 History
finasteride 5 mg tablet 5 mg PO HS Urinary issue 01/24/22 03/13/24 03/12/24 History
tamsulosin 0.4 mg capsule 0.4 mg PO HS Urinary issue 01/24/22 03/13/24 03/12/24 History
aspirin 81 mg chewable tablet 81 mg PO DAILY #30 tabs 04/12/23 03/13/24 03/13/24 Rx
sotalol 80 mg tablet 80 mg PO BID Arrhythmia #60 tabs 04/12/23 03/13/24 03/13/24 Rx
polyethylene glycol 3350 17 gram 17 g PO DAILYPRN PRN constipation 10/11/23 03/13/24 Unknown History
oral powder packet (Miralax)
ferrous sulfate 325 mg (65 mg 325 mg PO DAILY Supplement 03/13/24 03/13/24 03/13/24 History
iron) tablet
Review of Systems
-
Unable to Obtain full review of systems at this time due to: Other (Per HPI)
Vitals / Labs / Diagnostic Testing
Vital Signs
Temp Pulse Resp BP Pulse Ox
98.1 F 78 20 137/84 100
03/14/24 07:29 03/14/24 08:39 03/14/24 07:29 03/14/24 08:39 03/14/24 07:29
Lab Data
03/14/24 04:44
03/14/24 04:44
Laboratory Results
03/14/24
06:47
pH 7.29 L
pCO2 91 H*
pO2 79 L
HCO3 43.8 H*
O2 Delivery Level
Diagnostic Testing:
Physical Exam
-
Exam:
Well-nourished and well-developed in no apparent distress
HEENT-atraumatic, normocephalic, mild temporal wasting
Neck-supple, no JVD, no bruit
Heart irregular with systolic murmur
Chest with diminished breath sounds especially at the left base, rare crackles and no wheezes
Back-no tenderness
Abdomen-soft, nontender, nondistended, no hepatosplenomegaly
Extremities-no cyanosis, clubbing, lower extremity edema
Integument-intact, no rashes, lesions or ecchymosis
Neurology-alert and oriented, nonfocal motor and sensory exam
Assessment
-
88-year-old male with a history of myelodysplasia, atrial fibrillation, heart failure preserved EF presented with weakness over the past 3 weeks and noted to have acute heart failure with preserved EF, respiratory insufficiency and moderate left
pleural effusion-pulmonary consulted for hypercapnia, effusions and confusion 03/14/2024.
Respiratory insufficiency-hypoxemia and acute on top of chronic hypercapnic respiratory failure
ABG 03/14/2024--91/79/7.29
CHF-acute preserved EF
Left pleural effusion-moderate
Hypercapnia
Posterior neck pain
Metabolic alkalosis-suspect from chronic underlying hypercapnia
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
Leukopenia-WBC 1.4
Emszns-jdfzidbwdh-yvqpfnchls 11.3
Thrombocytopenia-platelet 63
Conditions present prior to admission:
Recent hospitalization 10/13/2023-vertigo probably paroxysmal positional vertigo-seen by neurology
MDS followed by Dr. Cortes.
PAF.
Chronic heart failure preserved EF.
Pulmonary nodules-followed on CT, no enlargement, small
BPH.
Chronic nystagmus.
Schwannoma of the neck.
Watchman device. Appendectomy. Cholecystectomy. Schwannoma excision 2012. Tonsillectomy. TURP.
Plan
Suspect decompensation is subacute and has been progressive over the last several weeks/months with progressive heart failure
Supplemental oxygen as needed
High flow oxygen if needed
Temporary BiPAP if tolerated
Nebulizers if needed-currently not bronchospastic
Aspiration precautions
Incentive spirometry
Acapella if able
Moderate left pleural effusion significantly increased since last x-ray 3 months ago-summarized below
Thoracentesis on the left recommended with fluid analysis
Interventional radiology contacted
Diuresis as tolerated
Monitor renal function, electrolytes, intake/output, lower extremity edema and weight
Replace electrolytes as needed
Cardiology to see patient-pending
Continues with sotalol, Lasix, aspirin and atorvastatin
Monitor pancytopenia
Follows with Dr. Cortes as an outpatient
DVT prophylaxis-mechanical
GI prophylaxis-on famotidine
Nutrition
Early mobilization/physical therapy
Reviewed with nursing, hospitalist and stepson-Dr. Shea
Diagnostic data:
Chest x-ray 10/07/2023-mild subsegmental atelectasis and scarring both lungs, T9 endplate fracture
Chest x-ray 11/27/2023-trace left pleural effusion
Chest x-ray 03/13/2024-moderate size left pleural effusion, severe basilar atelectasis
CT chest 10/06/2022-stable or slightly less pronounced tiny pulmonary nodules, no hilar or mediastinal mass, bronchial wall thickening consistent with bronchitis,, no new nodules or existing nodular enlargement
CT chest 01/24/2023-left atrial appendage chicken wing morphology without evidence for thrombus, small sub-5 mm pulmonary nodules in both lungs appear unchanged
CT chest 10/07/2023-no evidence for pulm embolism, small left and trace right pleural effusions
Echocardiogram 05/22/2023-EF 55%, [address], no thrombus or significant leak, moderate mitral regurgitation, mild aortic regurgitation
Data Reviewed
-
Radiology: Image personally visualized and interpreted and Report reviewed by me
CT Scan: Report reviewed by me
Medical Tests (Nuc Med, Echo etc): Report reviewed by me
Labs: Labs reviewed by me
Old Records: Reviewed
Total Time Spent with Patient (in minutes): 65
[2024-03-14 11:16] LABS: Troponin I < 0.012 ng/ml
--- NOTE | 2024-03-14 12:57 | PTOTSP ---
SPEECH THERAPY SWALLOW EVALUATION:
Patient exhibits clinical signs of oropharyngeal dysphagia, likely chronic related to weakness/deconditioning secondary to MDS and acutely exacerbated by acute/subacute hypoxic respiratory insufficiency. Patient remains at risk for aspiration and
related complications given tenuous pulmonary status and confusion. CXR concerning for moderate size left pleural effusion, severe basilar atelectasis. Unable to rule out aspiration at bedside. Consider a Videofluoroscopic Swallowing Study if
concern for aspiration. Recommend Regular texture diet, thin liquids. Medications whole in applesauce. Aspiration precautions: Full supervision and partial assistance as needed with meals. Small single sips/bites. Slow rate of intake. Ensure patient
swallows prior to next bite. Oral care 3x/day to reduce risk for nosocomial infection. Monitor CXR, labs, temperature. D/c oral diet and make NPO should patient exhibit any signs of aspiration or decline in mental or respiratory status. Speech
therapy to follow closely, assess diet tolerance and modify as appropriate, determine indication for VSE, and provide continued diagnostic swallow therapy as appropriate. Discussed with pt, RN, Dr. Chowdhury.
RECOMMEND:
1) Regular texture diet, thin liquids
2) Medications whole in applesauce
3) Aspiration precautions: Full supervision and partial assistance as needed with meals. Small single sips/bites. Slow rate of intake. Ensure patient swallows prior to next bite. Oral care 3x/day to reduce risk for nosocomial infection. Monitor CXR,
labs, temperature. D/c oral diet and make NPO should patient exhibit any signs of aspiration or decline in mental or respiratory status
4) Consider a Videofluoroscopic Swallowing Study if concern for aspiration
5) Speech therapy to follow
--- NOTE | 2024-03-14 16:33 | CM ---
Patient from [facility] with Dx Acute hypoxic/hypercapnic respiratory failure, HF, Moderate left pleural effusion. O2 4L. Receiving IV Lasix. Per nurse assessment; confused. PT/OT Evals pending.
Spoke with criss Hyde;
the patient resides alone in an apartment at [facility].
At baseline patient is A/O.
He has been independent in ADLs and ambulates with his rollator.
The patient has occasionally had a caregiver assisting him, however not on a regular basis/regular schedule.
DME - rollator
No prior VN or SNF.
Plan follow up after seen by PT/OT.
[facility]
--- NOTE | 2024-03-14 18:04 | CON.CAR ---
Consultation
Consultation Request
Date/Time Consultation Requested: 03/13/2024 2117
Date/Time Consultation Performed: 03/14/2024 1100
Requesting Provider: Cain Ashby DO
Performing Provider: Reynaldo Grewal DO
Reason for Consultation: HF
Medical History
-
Chief Complaint: SOB, edema
History of Present Illness:
Patient is an 88-year-old male with a past medical history significant for paroxysmal atrial fibrillation, hypertension, nonischemic cardiomyopathy with recovered LVEF in 2021 at 51%, nonrheumatic mitral regurgitation, mild AI, MDS, dyslipidemia,
history of GI bleed status post Watchman device 03/25/2023 off anticoagulation who presents with worsening shortness of breath, edema, and fatigue over the past 2-3 weeks. Additionally, patient notes worsening shortness of breath requiring elevation
of head of bed/pillows (positive orthopnea). Patient denies any chest pain, lightheadedness, dizziness, near-syncope, syncope, cough, fever, chills, palpitations. Patient was noted to have fluctuating oxygen levels by home pulse oximeter however
prior to arrival, patient was noted to be more weak, shortness of breath, and hypoxic in the 80s. Patient subsequently brought to [facility] for evaluation. On admission, patient noted to have an elevated BNP of 1100, evidence of pleural
effusions on imaging and elevated CO2 on blood gas. Troponin were negative.
Past Medical History
Past Medical History: Other (See HPI)
Past Surgical History: Other (DCCVx2, Watchman 2022, schwannoma excision, appy/choley, T&A, TURP)
Social History
Tobacco: Former Smoker
Alcohol: None
Drug: None
Living: Assisted Living
Employment: Retired
Family History
Family History: Reviewed & Not Pertinent
Allergies / Home Medications
Allergy/AdvReac Type Severity Reaction Status Date / Time
No Known Allergies Allergy Verified 10/11/23 08:04
�Medication �Instructions �Recorded �Confirmed �Type
atorvastatin 20 mg tablet 20 mg PO HS High cholesterol 01/24/22 03/13/24 History
cyanocobalamin (vitamin B-12) 500 mcg PO DAILY Supplement 01/24/22 03/13/24 History
1,000 mcg tablet
famotidine 40 mg tablet 40 mg PO HS Gastrointestinal issue 01/24/22 03/13/24 History
finasteride 5 mg tablet 5 mg PO HS Urinary issue 01/24/22 03/13/24 History
tamsulosin 0.4 mg capsule 0.4 mg PO HS Urinary issue 01/24/22 03/13/24 History
aspirin 81 mg chewable tablet 81 mg PO DAILY #30 tabs 04/12/23 03/13/24 Rx
sotalol 80 mg tablet 80 mg PO BID Arrhythmia #60 tabs 04/12/23 03/13/24 Rx
polyethylene glycol 3350 17 gram 17 g PO DAILYPRN PRN constipation 10/11/23 03/13/24 History
oral powder packet (Miralax)
ferrous sulfate 325 mg (65 mg 325 mg PO DAILY Supplement 03/13/24 03/13/24 History
iron) tablet
Review of Systems
-
History Source: Patient and Family
All other systems: Negative unless noted
Constitutional: Fatigue
EENT: No Symptoms
Respiratory: Trouble Breathing
Cardiac: No Symptoms
Abdomen/GI: No Symptoms
: No Symptoms
Musculoskeletal: No Symptoms
Skin: No Symptoms
Neurological: No Symptoms
Endocrine: No Symptoms
Hematologic/Lymphatic: No Symptoms
Physical Exam
Vital Signs
Temp Pulse Resp BP Pulse Ox
98.2 F 67 20 116/50 97
03/14/24 15:20 03/14/24 17:10 03/14/24 15:20 03/14/24 17:10 03/14/24 15:20
Lab Results
03/14/24 04:44
03/14/24 04:44
Troponin I < 0.012 ng/ml 03/14/24 10:41
Mcz-Y-Pumdedapfrs Pept 1110 pg/ml 03/13/24 17:15
Physical Exam
General: No Apparent Distress and Other (Conversational dyspnea)
HEENT: Normocephalic, Anicteric, Moist Mucous Membranes and Other (no JVD appreciated)
Respiratory: Other (decreased breath sounds BL; no rhonchi or wheeze)
Cardiac: S1/S2, Regular Rhythm, Murmur (2/6 holosystolic) and Other (no rub or gallop)
Breast: Deferred by me
GI: Soft, Non Tender and Non Distended
Rectal: Deferred by Provider
Musculoskeletal: No Clubbing, No Cyanosis and Edema (2+ RLE, 1+ LLE)
Skin: Warm and Dry
Neuro: AO x 3
Psych: Calm
Impression / Plan
-
PCP: Shelby Dillon MD
Primary Extractor Operator Solvent Process: Martha Brizuela MD
.
Assessment:
Acute on chronic heart failure with preserved ejection fraction
� Noted pleural effusions
� Elevated BNP
� Negative troponin
Hypoxic respiratory insufficiency, multifactorial
� Likely component of CO2 retention with heart failure
Diastolic dysfunction
Paroxysmal atrial fibrillation
� Off anticoagulation, status post Watchman LAAO 03/25/2023
Nonischemic cardiomyopathy with recovered EF 2021
History of GI bleed
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
Hypertension
Hyperlipidemia
MDS follows with oncology
BPH
FABIANA 05/22/2023: EF 55%, no leak with watchman, mod MR, mild AR
FABIANA 03/25/2023: EF 55-60%, mild-mod MR, mild AR
Echo 04/04/2022: EF 51%, mild MR, Mild AR
Echo 04/11/21: EF 68%, mild cLVH, mild MR, mild AI, mild TR, PAP 32 mmHg
Echo 03/2020:�EF 45% mild MR, mild TR
Recommendations:
� 2D echocardiogram
� IV diuresis, strict intake/output
� Agree with [facility] consult for possible intervention on pole or low effusions
� Monitor renal function, hemoglobin as anemia may also play a role in shortness of breath
� Supplemental O2 for now, wean as tolerated
� PT OT
� Neutropenic precautions with history of MDS
Data Reviewed
-
EKG: Tracing Personally Visualized and interpreted
Radiology: Report Reviewed by me
Medical Tests (Nuc Med, Echo etc): Report Reviewed by me
Labs: Labs Reviewed by me
Old Records: Reviewed
Total Time Spent with Patient (in minutes): 55
--- NOTE | 2024-03-14 18:12 | PTCARENOTE ---
pt on Bipap PRN this shift, tolerated for a few hours; more arousable as the shift progressed, continuous pox to monitor; family at bedside, assisted to the bedside commode very unsteady on his feet, no BM yet.
[2024-03-14] MEDS: PROSCAR 5 MG PO (21:17)
[2024-03-14] MEDS: LIPITOR 20 MG PO (21:17)
[2024-03-14] MEDS: FLOMAX 0.4 MG PO (21:17)
[2024-03-14] MEDS: PEPCID 40 MG PO (21:17)
[2024-03-15] VITALS (13 sets, daily range): BP systolic 60–141; BP diastolic 38–66; PULSE 2–73; O2SAT 96; BMI 21.4
[2024-03-15] MEDS: TYLENOL 650 MG PO (01:58)
--- NOTE | 2024-03-15 08:53 | W.PN.CARDCBS ---
Addendum entered and electronically signed by Nain Barclay MD 03/15/24 11:42:
Patient does not complain of dyspnea. He complained of having the mask on but said he did not realize earlier he was short of breath. Close family friend at bedside.
PMH/PSH/FH/SH: Reviewed
Allergies: None
Outpatient medications: Reviewed, patient on sotalol as outpatient, was not on furosemide
Current medications: Aspirin 81 mg a day, atorvastatin 20 mg a day, Pepcid 40 mg a day, iron, Proscar 5 mg at bedtime, sotalol 80 mg p.o. twice daily, tamsulosin, 0.4 mg at bedtime, furosemide 20 mg IV twice daily, lidocaine patch
ROS: Reviewed
127/59, pulse 66, respirate 18, afebrile, weight is 67.8 kg, down 1.2 kg, weight on admission was 72 kg
Pleasant, somewhat tangential, head neck exam unremarkable, lungs seem fairly clear on right, decreased on left, regular rate and rhythm, very soft systolic murmur at apex JVD okay, abdomen seems benign extremities without significant edema, neuro
nonfocal, musculoskeletal intact pulses palpable
White count 1.8, hemoglobin 10.2, platelets are 61, BUN and creatinine are 40 and 1.0, potassium is 4.3, troponin was undetectable, proBNP was 1110, had been 842 September
Assessment:
Presented 03/13/2024 with worsening shortness of breath, edema, and fatigue over the past 2-3 weeks
Respiratory insufficiency-hypoxemia and acute on top of chronic hypercapnic respiratory failure
Acute on chronic heart failure with preserved ejection fraction
� Noted pleural effusions
� Elevated BNP, 1100
� Negative troponin
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
Chronic heart failure with recovered EF
Paroxysmal atrial fibrillation
� Off anticoagulation, status post Watchman LAAO 03/25/2023
Nonischemic cardiomyopathy with recovered EF 2021
History of GI bleed
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
Hypertension
Hyperlipidemia
MDS follows with oncology
BPH
Plan:
He looks reasonably comfortable from a volume standpoint despite diminished breath sounds in the left bases. Overall heart failure with mildly reduced EF is clinically improved.
For thoracentesis later today.
Await echocardiogram.
He reports he had a bladder infection earlier this year, so for now we will not start SGLT2 antagonist.
We could consider the use of spironolactone, but will defer to Dr. Brizuela as an outpatient.
.
Will discuss continued sotalol use with electrophysiology in the setting of HFpEF
.
Continue IV furosemide at present. Await serologies from pleural fluid.
Original Note:
Today's Communication / Plan
-
Continue IV diuresis
Echo today
Left thoracentesis today
Labs pending
Impression / Plan
-
PCP: Shelby Dillon MD
Primary Crm Dynamics Developer: Martha Brizuela MD
.
Assessment:
Presented 03/13/2024 with worsening shortness of breath, edema, and fatigue over the past 2-3 weeks
Respiratory insufficiency-hypoxemia and acute on top of chronic hypercapnic respiratory failure
Acute on chronic heart failure with preserved ejection fraction
� Noted pleural effusions
� Elevated BNP, 1100
� Negative troponin
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
Chronic heart failure with recovered EF
Paroxysmal atrial fibrillation
� Off anticoagulation, status post Watchman LAAO 03/25/2023
Nonischemic cardiomyopathy with recovered EF 2021
History of GI bleed
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
Hypertension
Hyperlipidemia
MDS follows with oncology
BPH
Echo 03/15/2024: ordered
FABIANA 05/22/2023: EF 55%, no leak with watchman, mod MR, mild AR
FABIANA 03/25/2023: EF 55-60%, mild-mod MR, mild AR
Echo 04/04/2022: EF 51%, mild MR, Mild AR
Echo 04/11/21: EF 68%, mild cLVH, mild MR, mild AI, mild TR, PAP 32 mmHg
Echo 03/2020:�EF 45% mild MR, mild TR
Recommendations:
- Presented 03/13/2024 with worsening shortness of breath, edema, and fatigue over the past 2-3 weeks and noted to have acute on chronic HF with recovered EF.
� Check 2D echocardiogram 03/15/24
- Weight down at least 3 pounds if not more if admission scale correct. Continue IV diuresis with Lasix 20 mg IV twice daily
- Repeat labs pending, creatinine stable on 03/14/2024 is 0.9.
� Left moderate size pleural effusion. IR consulted for thoracentesis
- Paroxysmal atrial fibrillation maintained on sotalol. Per review of telemetry patient in sinus rhythm.
- Not on anticoagulation as patient has watchman implant
� MDS followed by Dr. Cortes hemoglobin 11.3 on 03/14/2024. Repeat labs pending.
�Currently 3 L via nasal cannula, wean as tolerated
� Neutropenic precautions with history of MDS
HPI 03/14/2024:
Patient is an 88-year-old male with a past medical history significant for paroxysmal atrial fibrillation, hypertension, nonischemic cardiomyopathy with recovered LVEF in 2021 at 51%, nonrheumatic mitral regurgitation, mild AI, MDS, dyslipidemia,
history of GI bleed status post Watchman device 03/25/2023 off anticoagulation who presents with worsening shortness of breath, edema, and fatigue over the past 2-3 weeks. Additionally, patient notes worsening shortness of breath requiring elevation
of head of bed/pillows (positive orthopnea). Patient denies any chest pain, lightheadedness, dizziness, near-syncope, syncope, cough, fever, chills, palpitations. Patient was noted to have fluctuating oxygen levels by home pulse oximeter however
prior to arrival, patient was noted to be more weak, shortness of breath, and hypoxic in the 80s. Patient subsequently brought to [facility] for evaluation. On admission, patient noted to have an elevated BNP of 1100, evidence of pleural
effusions on imaging and elevated CO2 on blood gas. Troponin were negative.
Progress Note - Crm [employer] Developer
Subjective
Date of Service: March 15, 2024
Patient seen and examined. Patient sitting in bed and denies chest pain, shortness of breath. Reports he is feeling better. Still on oxygen
Objective
Labs:
Labs
Hgb 11.3 g/dL (13.0-18.0) L 03/14/24 04:44
Hct 36.3 % (39.0-52.0) L 03/14/24 04:44
Plt Count 63 10^3/uL (130-400) L 03/14/24 04:44
Sodium 139 mmol/L (135-145) 03/14/24 04:44
Potassium 4.6 mmol/L (3.5-5.1) 03/14/24 04:44
BUN 31 mg/dl (9-20) H 03/14/24 04:44
Creatinine 0.9 mg/dL (0.7-1.3) 03/14/24 04:44
Glucose 97 mg/dl (70-99) 03/14/24 04:44
Troponins
03/13/24 03/13/24 03/14/24
17:15 21:51 04:44
Troponin I < 0.012 0.012 < 0.012
03/14/24
10:41
Troponin I < 0.012
Vital Signs and I&O:
Vital Signs
Temp Pulse Resp BP Pulse Ox
97.6 F 58 18 99/38 92
03/15/24 03:21 03/15/24 03:21 03/15/24 03:21 03/15/24 03:03/15/24 05:00
Vital Signs
Temp Pulse Resp BP Pulse Ox
97.6 F 58 18 99/38 92
03/15/24 03:21 03/15/24 03:21 03/15/24 03:21 03/15/24 03:21 03/15/24 05:00
Intake & Output
03/13/24 03/14/24 03/15/24 03/16/24
06:59 06:59 06:59 06:59
Intake Total 240 / 240 1200 / 1200
Output Total 1825 / 1825 1350 / 1350
Balance -1585 / -1585 -150 / -150
Physical Exam
Physical Exam
GEN: No distress, awake, Ox3
HEENT: supple, anicteric, mmm
LUNGS: Absent breath sounds at left base, mildly decreased at right base CTA, no wheezes/rales, wearing oxygen 3 L/min
CV: Reg, S1/S2, 1/6 syst murmur, no rub or gallop
ABD: soft, BS+, NT/ND
: Oneil indwelling with orange-colored urine
EXT: No edema, clubbing or cyanosis, pneumatic compression stockings in place
NEURO: Gross non-focal
SKIN: No rash, warm, dry, pink
[2024-03-15] MEDS: FEOSOL 325 MG PO (08:55)
[2024-03-15] MEDS: LIDOCAINE 4% PATCH 1 PATCH TOPICAL (08:55)
[2024-03-15] MEDS: LOW STRENGTH ASPIRIN 81 MG PO (08:55)
[2024-03-15] MEDS: BETAPACE 80 MG PO ×2 (08:56→20:29)
[2024-03-15] MEDS: LASIX 20 MG IV ×2 (08:56→17:15)
--- NOTE | 2024-03-15 09:09 | W.PN.HOSP.TC ---
Today's Communication/Plan
-
see bold
Assessment / Plan
Assessment / Plan
Acute hypoxic/hypercapnic respiratory failure -ABG noted with respiratory acidosis. Suspect chronic respiratory acidosis given elevated serum bicarbonate. Etiology unclear but rule out diaphragmatic muscle weakness, COPD, other causes. Pulmonary
edema and pleural effusion contributing to respiratory failure. Chest x-ray also mentions severe atelectasis basilar segments of the left lower lobe, mild atelectasis in the right lower lobe. Currently down to 3 L of oxygen, was on 4. He does not
wear oxygen at home. Appreciate pulmonology input, continue Bipap HS and prn.
Acute heart failure with preserved EF exacerbation -appreciate cardiology input, continue IV Lasix, echocardiogram requested.
Moderate left pleural effusion -likely due to heart failure exacerbation. For thoracentesis today
Posterior neck pain -started in the hospital. Tender on exam and suspect musculoskeletal pain. Denies radicular symptoms. Will treat supportively with lidocaine patch, tylenol prn
Paroxysmal atrial fibrillation -continue sotalol. Underwent Watchman device in the past. Not on anticoagulation.
Chronic pancytopenia -likely due to myelodysplastic syndrome. Counts appear to be at baseline.
Hyperlipidemia - on atorvastatin.
BPH
DVT prophylaxis�SCDs secondary to thrombocytopenia
DNR
Dispo - PT rec SNF
Total time spent to see the patient on the floor, examine the patient, review data and lab results, discuss treatment plan with patient, nursing staff around 38 minutes.
Physical exam
Gen-awake, alert, tachypneic
HEENT-NC, AT, anicteric, clear oral mm
Neck-supple
CV-reg, no M, +S1/S2
Lungs-clear B/L
Abd-soft, NT, ND
Ext-no edema
Musculoskeletal-no cyanosis, clubbing, tender posterior cervical spine
Skin-warm and dry
Neuro-grossly non-focal
Psych-calm, cooperative
Anticipated Discharge: 24 - 48 hours
Subjective/Interval History
-
Date of Service: March 15, 2024
Patient reports his shortness of breath continues to improve. No chest pain, no vomiting. No fever.
Objective Data
-
Labs:
Laboratory Results
03/15/24
06:00
WBC Pending
Hgb Pending
Hct Pending
Plt Count Pending
Sodium Pending
Potassium Pending
Chloride Pending
Carbon Dioxide Pending
BUN Pending
Creatinine Pending
Glucose Pending
Calcium Pending
Vital Signs:
Vital Signs
Temp Pulse Resp BP Pulse Ox
97.8 F 66 18 127/59 94
03/15/24 08:56 03/15/24 08:56 03/15/24 08:56 03/15/24 08:56 03/15/24 08:56
I&O
03/14/24 03/15/24 03/16/24
06:59 06:59 06:59
Intake Total 240 / 240 1200 / 1200
Output Total 1825 / 1825 1350 / 1350
Balance -1585 / -1585 -150 / -150
[2024-03-15 09:51] LABS: Hematocrit 32.7 % (39.0-52.0); Hemoglobin 10.2 g/dL (13.0-18.0); Mean Corp Hgb Conc. 31.2 g/dL (33.0-37.0); Mean Corpuscular Hgb 31.8 pg (27.0-31.0); Mean Corpuscular Volume 101.9 fL (80.0-94.0); Mean Platelet Volume 11.8 fL (7.4-10.4); Platelet Count 61 10^3/uL (130-400); Red Blood Cell Count 3.21 10^6/uL (4.70-6.10); Red Cell Dist. Width 15.2 % (11.5-14.5)
[2024-03-15 10:08] LABS: Blood Urea Nitrogen 40 mg/dl (9-20); Calcium 7.9 mg/dl (8.4-10.2); Chloride 94 mmol/L (98-107); Estimated Creatinine Clearance 50 ml/min; Glucose 94 mg/dl (70-99); Potassium 4.3 mmol/L (3.5-5.1); Sodium 140 mmol/L (135-145); eGFR > 60.00
[2024-03-15 10:12] LABS: % Eosinophils 1.1 % (0-6); % Immature Granulocytes 0.6 % (0-0.5); % Monocytes 6.3 % (1.7-9.3); Absolute Lymphocytes 0.7 10^3/uL (1.2-3.4); Absolute Monocytes 0.1 10^3/uL (0.1-0.6); Absolute Neutrophils 0.9 10^3/uL (1.4-6.5); Nucleated Red Blood Cells % 0 % (-); White Blood Cell Count 1.8 10^3/uL (4.8-10.8)
[2024-03-15 10:18] LABS: Carbon Dioxide 44 mmol/L (22-30)
--- NOTE | 2024-03-15 10:41 | W.PN.PUL3 ---
Today's Communication / Plan
-
Continue IV diuresis
Monitor electrolytes
Incentive spirometry
BiPAP as needed and at bedtime.
Thoracentesis today
Continue ox supplementation and wean off as able.
Assessment
-
88-year-old male with a history of myelodysplasia, atrial fibrillation, heart failure preserved EF presented with weakness over the past 3 weeks and noted to have acute heart failure with preserved EF, respiratory insufficiency and moderate left
pleural effusion-pulmonary consulted for hypercapnia, effusions and confusion 03/14/2024.
Respiratory insufficiency-hypoxemia and acute on top of chronic hypercapnic respiratory failure
ABG 03/14/2024--91/.
CHF-acute preserved EF
Left pleural effusion-moderate
Hypercapnia
Posterior neck pain
Metabolic alkalosis-suspect from chronic underlying hypercapnia
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
Leukopenia-WBC 1.4
Tmxwze-yedcjjqtvz-pzcvqeowaj 11.3
Thrombocytopenia-platelet 63
Conditions present prior to admission:
Recent hospitalization 10/13/2023-vertigo probably paroxysmal positional vertigo-seen by neurology
MDS followed by Dr. Cortes.
PAF.
Chronic heart failure preserved EF.
Pulmonary nodules-followed on CT, no enlargement, small
BPH.
Chronic nystagmus.
Schwannoma of the neck.
Watchman device. Appendectomy. Cholecystectomy. Schwannoma excision 2012. Tonsillectomy. TURP.
Plan
Suspect decompensation is subacute and has been progressive over the last several weeks/months with progressive heart failure.
-
Mental status appears baseline.
Continue nocturnal BiPAP and as needed-patient states that he is uncomfortable with BiPAP. He will try his best. Definitely does not want for home.
Avoid sedatives
Oxygen supplementation, maintain pulse ox above 90%. Currently on 4 L, pulse ox 94% with conversation. Continue to wean as able.
-
Aspiration precautions
Incentive spirometry encouraged.
Moderate left pleural effusion significantly increased since last x-ray 3 months ago-summarized below
Ultrasound-guided thoracentesis today 03/15/2024. Part of it may be atelectatic.
Interventional radiology on consult.
IV diuresis ongoing.
Monitor renal function, electrolytes, intake/output, lower extremity edema and weight
Replace electrolytes as needed
Cardiology following patient, repeat echocardiogram today.
Monitor pancytopenia
Follows with Dr. Cortes as an outpatient
DVT prophylaxis-mechanical
GI prophylaxis-on famotidine
Early mobilization/physical therapy as tolerated.

Diagnostic data:
Chest x-ray 10/07/2023-mild subsegmental atelectasis and scarring both lungs, T9 endplate fracture
Chest x-ray 11/27/2023-trace left pleural effusion
Chest x-ray 03/13/2024-moderate size left pleural effusion, severe basilar atelectasis
CT chest 10/06/2022-stable or slightly less pronounced tiny pulmonary nodules, no hilar or mediastinal mass, bronchial wall thickening consistent with bronchitis,, no new nodules or existing nodular enlargement
CT chest 01/24/2023-left atrial appendage chicken wing morphology without evidence for thrombus, small sub-5 mm pulmonary nodules in both lungs appear unchanged
CT chest 10/07/2023-no evidence for pulm embolism, small left and trace right pleural effusions
Echocardiogram 05/22/2023-EF 55%, [address], no thrombus or significant leak, moderate mitral regurgitation, mild aortic regurgitation
Subjective Data
-
Date of Service:
Date of Service: March 15, 2024
Chief Complaint: Pulmonary Follow Up (Acute hypoxemic respiratory sufficiency/left pleural effusion)
Subjective:
No new complaints
Tolerated BiPAP overnight
Denies any headache
Denies shortness of breath at rest
No significant cough or phlegm production.
Review of Systems
Cardiopulmonary: Dyspnea (n)
GI: Abdominal Pain (n)
Neuro: Headache (n)
Objective Data
Data Reviewed
Vital Signs / I&O / Oxygen:
Vital Signs
Temp Pulse Resp BP Pulse Ox
97.8 F 66 18 127/59 94
03/15/24 08:56 03/15/24 08:56 03/15/24 08:56 03/15/24 08:56 03/15/24 08:56
Intake and Output
03/14/24 03/15/24 03/16/24
06:59 06:59 06:59
Intake Total 240 / 240 1200 / 1200
Output Total 1825 / 1825 1350 / 1350
Balance -1585 / -1585 -150 / -150
SaO2 94
Nasal Cannula flow liters per 3
minute
Physical Exam
General: Comfortable
HEENT: Normocephalic
Cardiovascular: S1-S2 and Regular Rhythm
Respiratory: Crackles and Non-Labored Respirations
GI: Soft and Non Distended
Neurology: Awake and Alert
Skin: Warm
Labs/Micro/Reports
Lab Data
03/15/24 09:24
03/15/24 09:24
Microbiology
03/13/24 21:51 Nose MRSA Screen - Final
No Methicillin Resistant Staphylococcus aureus isolated.
[2024-03-15 14:49] LABS: Body Fluid Mononuclear 98.7 %; Body Fluid Polymorphonuclear 1.3 %; Body Fluid WBC 839 /CUMM
[2024-03-15 14:50] LABS: Body Fluid pH 7.43
[2024-03-15 14:52] LABS: Body Fluid Second Tech AMA
[2024-03-15 15:02] LABS: Body Fluid Glucose 126 mg/dl; Body Fluid LDH 138 U/L; Body Fluid Protein 3.3 g/dl
--- NOTE | 2024-03-15 15:32 | CM ---
Addendum entered by Gamal Clinton 03/15/24 15:38:
Resident of [facility]. Notified liaison. Patient and Primary contact prefer Kindra Davila. Referral forwarded.
Original Note:
IV Lasix, Thoracentesis w 600cc pleural fluid, wean O2 as tolerated. Therapy recommending STR. Will contact primary contact for preferences and to provide [employer] lists.
[2024-03-15] MEDS: LIPITOR 20 MG PO (21:26)
[2024-03-15] MEDS: FLOMAX 0.4 MG PO (21:26)
[2024-03-15] MEDS: PROSCAR 5 MG PO (21:26)
[2024-03-15] MEDS: PEPCID 40 MG PO (21:26)
[2024-03-16] VITALS (8 sets, daily range): BP systolic 100–135; BP diastolic 47–62; PULSE 2–100; BMI 22.0
[2024-03-16 06:55] LABS: Blood Urea Nitrogen 47 mg/dl (9-20); Calcium 7.7 mg/dl (8.4-10.2); Chloride 93 mmol/L (98-107); Estimated Creatinine Clearance 57 ml/min; Glucose 112 mg/dl (70-99); Magnesium 1.9 mg/dl (1.6-2.3); Potassium 4.2 mmol/L (3.5-5.1); Sodium 138 mmol/L (135-145); eGFR > 60.00
[2024-03-16 07:04] LABS: Carbon Dioxide 44 mmol/L (22-30)
[2024-03-16] MEDS: LOW STRENGTH ASPIRIN 81 MG PO (07:37)
[2024-03-16] MEDS: FEOSOL 325 MG PO (07:37)
[2024-03-16] MEDS: LIDOCAINE 4% PATCH 1 PATCH TOPICAL (07:37)
[2024-03-16] MEDS: BETAPACE 80 MG PO ×2 (07:38→19:54)
[2024-03-16] MEDS: LASIX 20 MG IV ×2 (07:39→17:19)
--- NOTE | 2024-03-16 08:08 | W.PN.HOSP.TC ---
Addendum entered and electronically signed by Octavio Kumar MD 03/16/24 15:02:
Stage 1 pressure injury sacrum - offloading, wound care
Original Note:
Today's Communication/Plan
-
see bold
Assessment / Plan
Assessment / Plan
Acute hypoxic/hypercapnic respiratory failure -ABG noted with respiratory acidosis. Suspect chronic respiratory acidosis given elevated serum bicarbonate. Etiology unclear but rule out diaphragmatic muscle weakness, COPD, other causes. Pulmonary
edema and pleural effusion contributing to respiratory failure. Chest x-ray also mentions severe atelectasis basilar segments of the left lower lobe, mild atelectasis in the right lower lobe. Currently down to 2-3 L of oxygen, was on 4. He does
not wear oxygen at home. Appreciate pulmonology input, continue Bipap HS and prn. He is compensated. Avoid sedatives.
Acute heart failure with preserved EF exacerbation -appreciate cardiology input, continue IV Lasix. Echo 03/15/2024: EF 60 to 65%, some views suggest prolapse of posterior leaflet, mild MR, mild AI, mild TR, PAP 35 to 40 mmHg, no significant change
compared to prior.
Moderate left pleural effusion -likely due to heart failure exacerbation. Status post left thoracentesis yielding 600 cc of clear elma fluid, mildly exudative. Pulmonology suspects it is due to heart failure, and is now exudative due to IV
diuresis.
Toxic metabolic encephalopathy -check urine analysis, TSH, B12
Posterior neck pain -started in the hospital. Tender on exam and suspect musculoskeletal pain. Denies radicular symptoms. Treat supportively with lidocaine patch, tylenol prn
Paroxysmal atrial fibrillation -continue sotalol. Underwent Watchman device in the past. Not on anticoagulation.
Chronic pancytopenia -likely due to myelodysplastic syndrome. Counts appear to be at baseline. Follow-up with hematology/oncology outpatient
Hyperlipidemia - on atorvastatin.
Constipation�increase laxatives
BPH
DVT prophylaxis�SCDs secondary to thrombocytopenia
DNR
Dispo - PT rec SNF
Total time spent to see the patient on the floor, examine the patient, review data and lab results, discuss treatment plan with patient, nursing staff around 50 minutes.
Physical exam
Gen-awake, alert, no acute distress
HEENT-NC, AT, anicteric, clear oral mmm
Neck-supple
CV-reg, no M, +S1/S2
Lungs-diminished breath sounds at the bases bilaterally
Abd-soft, NT, ND
Ext-no edema
Musculoskeletal-no cyanosis, clubbing, tender posterior cervical spine
Skin-warm and dry
Neuro-intermittently confused
Psych-calm, cooperative
Anticipated Discharge: 24 - 48 hours
Subjective/Interval History
-
Date of Service: March 15, 2024
Patient is confused, he thinks there was a stranger in his room last night. He complains of constipation. No fever, no vomiting.
Objective Data
-
Labs:
Laboratory Results
03/15/24
09:24
WBC 1.8 L*
Hgb 10.2 L
Hct 32.7 L
Plt Count 61 L
Sodium 140
Potassium 4.3
Chloride 94 L
Carbon Dioxide 44 H
BUN 40 H
Creatinine 1.0
Glucose 94
Calcium 7.9 L
Vital Signs:
Vital Signs
Temp Pulse Resp BP Pulse Ox
98.6 F 67 18 110/60 99
03/15/24 14:05 03/15/24 14:40 03/15/24 14:40 03/15/24 14:40 03/15/24 14:05
I&O
03/14/24 03/15/24 03/16/24
06:59 06:59 06:59
Intake Total 240 / 240 1200 / 1200
Output Total 1825 / 1825 1350 / 1350
Balance -1585 / -1585 -150 / -150
[2024-03-16] MEDS: MIRALAX PO (08:50)
[2024-03-16 09:15] LABS: B.E. 19.5 mmol/L; O2 Saturation % 95.7 % (94-98); PCO2 67 mmHg (35-48); PO2 68 mmHg (83-108); pH 7.45 (7.35-7.45)
[2024-03-16 09:18] LABS: HCO3 46.6 mmol/L (21-28)
[2024-03-16] MEDS: DULCOLAX 10 MG RECTAL (09:33)
--- NOTE | 2024-03-16 10:24 | W.PN.PUL3 ---
Today's Communication / Plan
-
Continue IV diuresis
Follow cytology
Wean down FiO2
Can use BiPAP at night if patient tolerates. Currently not needed during the day while patient awake, ABG is compensated.
Avoid sedatives, discussed with nursing and respiratory therapist.
Assessment
-
88-year-old male with a history of myelodysplasia, atrial fibrillation, heart failure preserved EF presented with weakness over the past 3 weeks and noted to have acute heart failure with preserved EF, respiratory insufficiency and moderate left
pleural effusion-pulmonary consulted for hypercapnia, effusions and confusion 03/14/2024.
Respiratory insufficiency-hypoxemia and acute on top of chronic hypercapnic respiratory failure
ABG 03/14/2024--91//7.
CHF-acute preserved EF
Left pleural effusion-moderate
Hypercapnia
Posterior neck pain
Metabolic alkalosis-suspect from chronic underlying hypercapnia
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
Leukopenia-WBC 1.4
Ytqhjv-jgnyccuuqp-awrpggiauw 11.3
Thrombocytopenia-platelet 63
Conditions present prior to admission:
Recent hospitalization 10/13/2023-vertigo probably paroxysmal positional vertigo-seen by neurology
MDS followed by Dr. Cortes.
PAF.
Chronic heart failure preserved EF.
Pulmonary nodules-followed on CT, no enlargement, small
BPH.
Chronic nystagmus.
Schwannoma of the neck.
Watchman device. Appendectomy. Cholecystectomy. Schwannoma excision 2012. Tonsillectomy. TURP.
Plan
Suspect decompensation is subacute and has been progressive over the last several weeks/months with progressive heart failure.
-
Mental status appears baseline.
Continue nocturnal BiPAP and as with naps-patient states that he is uncomfortable with BiPAP. He will try his best. Definitely does not want for home.
ABG this morning 03/16/2024: Compensated/baseline despite not wearing BiPAP consistently.
on 2 L nasal cannula.
Avoid sedatives-would avoid Ativan.
He can use BiPAP as tolerated. He does not like it. Would not force it or use any sedative to increase compliance. He is compensated and likely has been living with this for years.
Oxygen supplementation, maintain pulse ox above 90%.
Pulse ox 3 L nasal cannula pulse ox is 94% with conversation. Wean as able.
-
Aspiration precautions
Incentive spirometry encouraged.
Moderate left pleural effusion significantly increased since last x-ray 3 months ago-summarized below
Ultrasound-guided thoracentesis today 03/15/2024. Part of it may be atelectatic.
Status post left thoracentesis.
Repeat chest x-ray 03/15/2024 reviewed showed resolution of pleural effusion without pneumothorax
Chemistry consistent with a mild exudate. Suspect converted to exudate after diuresis.
I suspect pleural effusion is to volume overload.
No evidence for infection
Follow cytology.
-
IV diuresis ongoing.
Monitor renal function, electrolytes, intake/output, lower extremity edema and weight
Replace electrolytes as needed
Cardiology following patient, repeat echocardiogram today.
Monitor pancytopenia
Follows with Dr. Cortes as an outpatient
DVT prophylaxis-mechanical
GI prophylaxis-on famotidine
Increase physical activity as tolerated.

Diagnostic data:
Chest x-ray 10/07/2023-mild subsegmental atelectasis and scarring both lungs, T9 endplate fracture
Chest x-ray 11/27/2023-trace left pleural effusion
Chest x-ray 03/13/2024-moderate size left pleural effusion, severe basilar atelectasis
CT chest 10/06/2022-stable or slightly less pronounced tiny pulmonary nodules, no hilar or mediastinal mass, bronchial wall thickening consistent with bronchitis,, no new nodules or existing nodular enlargement
CT chest 01/24/2023-left atrial appendage chicken wing morphology without evidence for thrombus, small sub-5 mm pulmonary nodules in both lungs appear unchanged
CT chest 10/07/2023-no evidence for pulm embolism, small left and trace right pleural effusions
Echocardiogram 05/22/2023-EF 55%, [address], no thrombus or significant leak, moderate mitral regurgitation, mild aortic regurgitation
Subjective Data
-
Date of Service:
Date of Service: March 16, 2024
Chief Complaint: Pulmonary Follow Up (Acute hypoxemic respiratory sufficiency/left pleural effusion)
Subjective:
Denies any coughing
Denies shortness of breath at rest
Intermittently tolerating BiPAP. He does not like it.
Review of Systems
General: Fever (n)
Cardiopulmonary: Dyspnea (Not at rest), Cough (n) and Chest Pain (n)
GI: Abdominal Pain (n) and Nausea (n)
Neuro: Headache (n)
Objective Data
Data Reviewed
Vital Signs / I&O / Oxygen:
Vital Signs
Temp Pulse Resp BP Pulse Ox
97.9 F 69 18 128/50 87
03/16/24 07:10 03/16/24 07:39 03/16/24 07:10 03/16/24 07:39 03/16/24 07:10
Intake and Output
03/15/24 03/16/24 03/17/24
06:59 06:59 06:59
Intake Total 1200 / 1200 1440 / 1440
Output Total 1350 / 1350 1000 / 1000
Balance -150 / -150 440 / 440
SaO2 87
Nasal Cannula flow liters per 3
minute
Physical Exam
General: Comfortable
HEENT: Normocephalic
Cardiovascular: S1-S2 and Regular Rhythm
Respiratory: Crackles and Non-Labored Respirations
GI: Soft and Non Distended
Neurology: Awake, Alert, Oriented and Other (Cooperative. Calm. Follows commands.)
Skin: Warm
Labs/Micro/Reports
Lab Data
03/15/24 09:24
03/16/24 05:20
Laboratory Results
03/16/24
09:03
pH 7.45
pCO2 67 H
pO2 68 L
HCO3 46.6 H*
O2 Delivery Level
Microbiology
03/15/24 14:32 Pleural Fluid Body Fluid Culture - Preliminary
No Growth After 18-24 Hours
03/15/24 14:32 Pleural Fluid Gram Stain - Preliminary
03/13/24 21:51 Nose MRSA Screen - Final
No Methicillin Resistant Staphylococcus aureus isolated.
--- NOTE | 2024-03-16 11:13 | W.PN.CARDCBS ---
Addendum entered and electronically signed by Matt Mendoza DO 03/16/24 13:02:
I saw and examined the patient.
The Fryer Operator's note was reviewed and I agree with the note.
Comment:
Plan:
Continue diuresis.
Remains in sinus. Given limited options with regards to antiarrhythmic therapy after discussion with primary fabrication department supervisor, will continue Sotalol for now.
She has hx of chronic HF.
Not on anticoagulation as patient has watchman implant
MDS followed by Dr. Cortes, hemoglobin 10.2 on 03/16
-currently on neutropenic precautions with history of MDS
Wean O2 as able
Original Note:
Today's Communication / Plan
-
Continue diuresis
Await pathology/cytology of pleural fluid
Wean O2
Consider transitioning off sotalol
Impression / Plan
-
PCP: Shelby Dillon MD
Primary Hogshead Roller: Martha Brizuela MD
.
Assessment:
Presented 03/13/2024 with worsening shortness of breath, edema, and fatigue over the past 2-3 weeks
Respiratory insufficiency-hypoxemia and acute on top of chronic hypercapnic respiratory failure
Acute on chronic heart failure with preserved ejection fraction
� Noted pleural effusions
� Elevated BNP, 1100
� Negative troponin
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
Chronic heart failure with recovered EF
Paroxysmal atrial fibrillation
� Off anticoagulation, status post Watchman LAAO 03/25/2023
Nonischemic cardiomyopathy with recovered EF 2021
History of GI bleed
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
Hypertension
Hyperlipidemia
MDS follows with oncology
BPH
Echo 03/15/2024: EF 60 to 65%, some views suggest prolapse of posterior leaflet, mild MR, mild AI, mild TR, PAP 35 to 40 mmHg, no significant change compared to prior
FABIANA 05/22/2023: EF 55%, no leak with watchman, mod MR, mild AR
FABIANA 03/25/2023: EF 55-60%, mild-mod MR, mild AR
Echo 04/04/2022: EF 51%, mild MR, Mild AR
Echo 04/11/21: EF 68%, mild cLVH, mild MR, mild AI, mild TR, PAP 32 mmHg
Echo 03/2020:�EF 45% mild MR, mild TR
Recommendations:
-Presented 03/13/2024 with worsening shortness of breath, edema, and fatigue over the past 2-3 weeks and noted to have acute on chronic HF with recovered EF.
-Status post left thoracentesis for 600 cc on 03/15/2024
-Wean supplemental O2 as able
-Echocardiogram with results as above, reviewed with patient on 03/16
-Suspect weight today inaccurate as up 4 pounds overnight. Continue IV Lasix diuresis 20 mg twice daily. Prior to admission was not on diuretic. Creatinine stable at 0.9
-Remains in sinus rhythm upon review of telemetry with 1 brief episode of A-fib versus A. tach. He is chronically been on sotalol. Will need to consider continued candidacy for sotalol given new heart failure diagnosis.
-Not on anticoagulation as patient has watchman implant
-MDS followed by Dr. Cortes, hemoglobin 10.2 on 03/16
-currently on neutropenic precautions with history of MDS
HPI 03/14/2024:
Patient is an 88-year-old male with a past medical history significant for paroxysmal atrial fibrillation, hypertension, nonischemic cardiomyopathy with recovered LVEF in 2021 at 51%, nonrheumatic mitral regurgitation, mild AI, MDS, dyslipidemia,
history of GI bleed status post Watchman device 03/25/2023 off anticoagulation who presents with worsening shortness of breath, edema, and fatigue over the past 2-3 weeks. Additionally, patient notes worsening shortness of breath requiring elevation
of head of bed/pillows (positive orthopnea). Patient denies any chest pain, lightheadedness, dizziness, near-syncope, syncope, cough, fever, chills, palpitations. Patient was noted to have fluctuating oxygen levels by home pulse oximeter however
prior to arrival, patient was noted to be more weak, shortness of breath, and hypoxic in the 80s. Patient subsequently brought to [facility] for evaluation. On admission, patient noted to have an elevated BNP of 1100, evidence of pleural
effusions on imaging and elevated CO2 on blood gas. Troponin were negative.
Progress Note - Hogshead Roller
Subjective
Date of Service: March 16, 2024
reports constipation. reports breathing is ok
Objective
Labs:
03/15/24 09:24
03/16/24 05:20
Labs
Hgb 10.2 g/dL (13.0-18.0) L 03/15/24 09:24
Hct 32.7 % (39.0-52.0) L 03/15/24 09:24
Plt Count 61 10^3/uL (130-400) L 03/15/24 09:24
Sodium 138 mmol/L (135-145) 03/16/24 05:20
Potassium 4.2 mmol/L (3.5-5.1) 03/16/24 05:20
BUN 47 mg/dl (9-20) H 03/16/24 05:20
Creatinine 0.9 mg/dL (0.7-1.3) 03/16/24 05:20
Glucose 112 mg/dl (70-99) H 03/16/24 05:20
Troponins
03/13/24 03/13/24 03/14/24
17:15 21:51 04:44
Troponin I < 0.012 0.012 < 0.012
03/14/24
10:41
Troponin I < 0.012
Vital Signs and I&O:
Vital Signs
Temp Pulse Resp BP Pulse Ox
97.9 F 69 18 128/50 87
03/16/24 07:10 03/16/24 07:39 03/16/24 07:10 03/16/24 07:39 03/16/24 07:10
Vital Signs
Temp Pulse Resp BP Pulse Ox
97.9 F 69 18 128/50 87
03/16/24 07:10 03/16/24 07:39 03/16/24 07:10 03/16/24 07:39 03/16/24 07:10
Intake & Output
03/14/24 03/15/24 03/16/24 03/17/24
07:59 07:59 07:59 07:59
Intake Total 240 / 240 1200 / 1200 1440 / 1440
Output Total 1825 / 1825 1350 / 1350 1000 / 1000
Balance -1585 / -1585 -150 / -150 440 / 440
Physical Exam
Physical Exam
GEN: No distress, awake, alert, oriented x3. sitting in chair. on supp O2. TETLIN
HEENT: supple, anicteric, mmm, eomi
LUNGS: few crackles at bases, no wheezes
CV: Reg, S1/S2, 1/6 syst LSB
ABD: soft, BS+, NT/ND
EXT: No cyanosis, clubbing, edema
NEURO: Gross non-focal
SKIN: Warm, pink, dry. No rash
--- NOTE | 2024-03-16 11:14 | PN.CDI ---
CDI
- -
CDI:
Physician Documentation Request
Admit Date: 03/13/24 20:48
Dear Doctor Do,
Patient admitted for acute heart failure.
03/13-03/16 Nursing Documentation: 'Stage 1 pressure injury sacrum'
Physician documentation of the type and location of wounds is required for compliant documentation. Based on the above clinical findings and your assessment, please provide the following in your progress note:
1. Location of the ulcer/wound, including laterality.
2. Type (etiology) of ulcer/wound:
- Diabetic ulcer
- Arterial (ischemic) ulcer
- Traumatic wound
- Venous stasis ulcer
- Pressure (decubitus) ulcer
- Non-healing surgical wound
- Other
- Unable to determine
3. For a non-pressure ulcer, please indicate the depth/severity:
- Limited to the breakdown of skin
- With fat layer exposed
- With necrosis of muscle
- With necrosis of bone
- Other
- Unable to determine
4. If a pressure ulcer, please also include the stage* of the ulcer:
- Stage 1 - Skin intact, non-blanchable redness
- Stage 2 - Partial thickness loss of dermis, includes intact or open blister
- Stage 3 - Full thickness tissue not including bone, tendon or muscle
- Stage 4 - Full thickness tissue loss, including exposed bone, tendon or muscle
- Unstageable - Full thickness loss in which the base of the ulcer is covered by slough (yellow, santacruz, crenshaw, green or brown) and/or eschar (santacruz, brown or black) in the wound bed.
- Unable to determine
Use of terms such as suspected, likely, concern for, or probable (associated with a specific diagnosis that is being evaluated, monitored, or treated as if it exists) are acceptable and can be coded in the inpatient setting, when documented at the
time of discharge.
Thank you,
Christine Elias RN, BSN
CDI Specialist
Available via [place] text
Please use your independent medical judgment in providing your response.
*Source: National Pressure Ulcer Advisory Panel (NPUAP)
--- NOTE | 2024-03-16 14:40 | CM ---
3L O2, continue to wean, diuresing. Discharge Plan of Care: STR at [facility]. Patient is a resident at [facility]. Liaison notified and referral previously forwarded.
[2024-03-16 15:03] LABS: Urine Albumin 1+ (Neg - Trace); Urine Bilirubin 1+ (Negative); Urine Character Clear (Clear); Urine Color Yellow; Urine Glucose Negative (Negative); Urine Ketone Trace (Negative); Urine Leukocyte 2+ (Negative); Urine Nitrite Positive (Negative); Urine Occult Blood 4+ (Negative); Urine Urobilinogen 2+ (Neg - 1+)
[2024-03-16 15:15] LABS: Urine Squamous Cell 0-2 /LPF (Few)
[2024-03-16 15:16] LABS: Urine Bacteria Many (Negative); Urine Red Blood Cell 50-60 /HPF (0-2); Urine White Cell 60-70 /HPF (0-5)
[2024-03-16] MEDS: ROCEPHIN 1000 MG IV (17:20)
[2024-03-16] MEDS: STERILE WATER FOR INJECTION 10 ML IV (17:20)
[2024-03-16] MEDS: MIRALAX 17 GRAMS PO (19:55)
[2024-03-16] MEDS: FLOMAX 0.4 MG PO (21:34)
[2024-03-16] MEDS: LIPITOR 20 MG PO (21:35)
[2024-03-16] MEDS: PROSCAR 5 MG PO (21:35)
[2024-03-16] MEDS: PEPCID 40 MG PO (21:35)
[2024-03-17] VITALS (8 sets, daily range): BP systolic 108–127; BP diastolic 46–68; PULSE 2–65; O2SAT 95; BMI 20.8
--- NOTE | 2024-03-17 01:54 | PTCARENOTE ---
Pt continuously removing Bipap throughout the night. Pt educated on reason for needing Bipap and benefits. Pt unable to tolerate bipap so 4L NC applied. Pts O2 ranging from 94-95%. Pt continuously removing continuous pulse ox. Pt educated on reason
to leave on. pulse ox re applied.
[2024-03-17] MEDS: LOW STRENGTH ASPIRIN 81 MG PO (08:49)
[2024-03-17] MEDS: BETAPACE 80 MG PO ×2 (08:49→21:47)
[2024-03-17] MEDS: FEOSOL 325 MG PO (08:49)
[2024-03-17] MEDS: LASIX 20 MG IV ×2 (08:50→18:09)
[2024-03-17] MEDS: LIDOCAINE 4% PATCH 1 PATCH TOPICAL (08:50)
[2024-03-17] MEDS: MIRALAX 17 GRAMS PO ×2 (08:50→21:47)
--- NOTE | 2024-03-17 10:11 | W.PN.PUL3 ---
Today's Communication / Plan
-
Wean down FiO2
Home oxygen assessment closer to discharge.
BiPAP at night as able while in the hospital
Incentive spirometry encouraged.
Physical therapy as able.
Antibiotics for UTI
Diuresis IV for now, monitor BUN and metabolic alkalosis.
Assessment
-
88-year-old male with a history of myelodysplasia, atrial fibrillation, heart failure preserved EF presented with weakness over the past 3 weeks and noted to have acute heart failure with preserved EF, respiratory insufficiency and moderate left
pleural effusion-pulmonary consulted for hypercapnia, effusions and confusion 03/14/2024.
Respiratory insufficiency-hypoxemia and acute on top of chronic hypercapnic respiratory failure
ABG 03/14/2024--91/79/7.29
CHF-acute preserved EF
Left pleural effusion-moderate
Chronic hypercapnic respiratory failure-not on BiPAP in the outpatient setting
Metabolic alkalosis-suspect from chronic underlying hypercapnia
E. coli -UTI
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
Leukopenia-WBC 1.4
Ypmbql-vwhptqkjyx-xjhyduaady 11.3
Thrombocytopenia-platelet 63
Conditions present prior to admission:
Recent hospitalization 10/13/2023-vertigo probably paroxysmal positional vertigo-seen by neurology
MDS followed by Dr. Cortes.
PAF.
Chronic heart failure preserved EF.
Pulmonary nodules-followed on CT, no enlargement, small
BPH.
Chronic nystagmus.
Schwannoma of the neck.
Watchman device. Appendectomy. Cholecystectomy. Schwannoma excision 2012. Tonsillectomy. TURP.
Plan
Suspect decompensation is subacute and has been progressive over the last several weeks/months with progressive heart failure.
-
No new events from the respiratory perspective overnight.
Remains on low rate supplemental oxygen 3L NC
-
Continue nocturnal BiPAP and as with naps-patient states that he is uncomfortable with BiPAP. He will try his best. Definitely does not want for home.
ABG 03/16/2024: Compensated/baseline despite not wearing BiPAP consistently.
on 2 L nasal cannula.
Avoid sedatives-would avoid Ativan.
Hopefully continues to wear BiPAP nocturnally while in the hospital.
Oxygen supplementation, maintain pulse ox above 90%.
Pulse ox improved with deep inspiration, part of hypoxemia is due to immobility/atelectasis.
Home oxygen assessment prior to discharge.
-
Aspiration precautions
Incentive spirometry encouraged.
Moderate left pleural effusion significantly increased since last x-ray 3 months ago-summarized below
Ultrasound-guided thoracentesis today 03/15/2024. Part of it may be atelectatic.
Status post left thoracentesis.
Repeat chest x-ray 03/15/2024 reviewed showed resolution of pleural effusion without pneumothorax
Chemistry consistent with a mild exudate. Suspect converted to exudate after diuresis.
I suspect pleural effusion is to volume overload.
No evidence for infection
Follow cytology-pending.
-
IV diuresis ongoing.
Increased BUN, worsening metabolic alkalosis. Creatinine stable.
Monitor closely.
If further diuresis is required Diamox may be an option.
Weight is trending lower.
Replace electrolytes as needed
Echocardiogram noted: Normal LVEF. No significant valvular abnormalities compared to prior. Mild increased pulmonary pressures. Normal RV function.
Cardiology following patient
On antibiotics for urinary tract infection per primary team.
Urine culture with E. coli
Monitor pancytopenia
Follows with Dr. Cortes as an outpatient
DVT prophylaxis-mechanical
GI prophylaxis-on famotidine
Physical therapy as tolerated.

Diagnostic data:
Chest x-ray 10/07/2023-mild subsegmental atelectasis and scarring both lungs, T9 endplate fracture
Chest x-ray 11/27/2023-trace left pleural effusion
Chest x-ray 03/13/2024-moderate size left pleural effusion, severe basilar atelectasis
CT chest 10/06/2022-stable or slightly less pronounced tiny pulmonary nodules, no hilar or mediastinal mass, bronchial wall thickening consistent with bronchitis,, no new nodules or existing nodular enlargement
CT chest 01/24/2023-left atrial appendage chicken wing morphology without evidence for thrombus, small sub-5 mm pulmonary nodules in both lungs appear unchanged
CT chest 10/07/2023-no evidence for pulm embolism, small left and trace right pleural effusions
Echocardiogram 05/22/2023-EF 55%, [address], no thrombus or significant leak, moderate mitral regurgitation, mild aortic regurgitation
Subjective Data
-
Date of Service:
Date of Service: March 17, 2024
Chief Complaint: Pulmonary Follow Up (Acute hypoxemic respiratory sufficiency/left pleural effusion)
Subjective:
No new complaints
Remains lorazepam and Aloxi
Remains on IV diuresis
Now on antibiotics for UTI
Review of Systems
General: Fever (n)
Cardiopulmonary: Dyspnea (none at rest)
GI: Abdominal Pain (n) and Nausea (n)
Neuro: Headache (n)
Objective Data
Data Reviewed
Vital Signs / I&O / Oxygen:
Vital Signs
Temp Pulse Resp BP Pulse Ox
98.3 F 68 16 124/49 100
03/17/24 07:10 03/17/24 08:50 03/17/24 07:10 03/17/24 08:50 03/17/24 07:10
Intake and Output
03/16/24 03/17/24 03/18/24
06:59 06:59 06:59
Intake Total 1440 / 1440 780 / 780
Output Total 1000 / 1000 1225 / 1225
Balance 440 / 440 -445 / -445
SaO2 100
Nasal Cannula flow liters per 4
minute
Physical Exam
General: Comfortable
HEENT: Normocephalic
Cardiovascular: S1-S2 and Regular Rhythm
Respiratory: Wheeze (n), Crackles (minimal ) and Non-Labored Respirations
GI: Soft and Non Distended
Neurology: Awake, Alert, Oriented and Other (Cooperative. Calm. Follows commands.)
Skin: Warm
Labs/Micro/Reports
Lab Data
03/15/24 09:24
Microbiology
03/16/24 14:47 Urine Urine Culture - Preliminary
Escherichia coli
03/15/24 14:32 Pleural Fluid Body Fluid Culture - Preliminary
No Growth After 18-24 Hours
03/15/24 14:32 Pleural Fluid Gram Stain - Preliminary
03/13/24 21:51 Nose MRSA Screen - Final
No Methicillin Resistant Staphylococcus aureus isolated.
[2024-03-17 10:38] LABS: Blood Urea Nitrogen 48 mg/dl (9-20); Calcium 7.9 mg/dl (8.4-10.2); Chloride 91 mmol/L (98-107); Estimated Creatinine Clearance 48 ml/min; Glucose 106 mg/dl (70-99); Potassium 4.3 mmol/L (3.5-5.1); Sodium 139 mmol/L (135-145); eGFR > 60.00
[2024-03-17 10:49] LABS: Carbon Dioxide 42 mmol/L (22-30)
--- NOTE | 2024-03-17 12:53 | W.PN.CARDCBS ---
Addendum entered and electronically signed by Nestor Echeverria MD 03/17/24 14:03:
I saw and examined the patient.
The Gas M[employer] Prover's note was reviewed and I agree with the note.
Comment:
GEN: No distress, awake, Ox3
HEENT: supple, anicteric, mmm
LUNGS: scatt rhonchi
CV: Reg, S1/S2, 1/6 syst LSB, no gallop
ABD: soft, BS+, NT/ND
EXT: No edema
NEURO: Gross non-focal
SKIN: trace edema
Plan:
He is diuresing well. Will continue IV Lasix for another 24 hours. Wean oxygen. Creatinine remained stable at 1.0. Likely will switch to oral diuretics over the next 24 to 48 hours.
Status post thoracentesis.
He remains in sinus rhythm. Sotalol is not an ideal antiarrhythmic for him with his heart failure. For now we will make no changes.
Continue IV antibiotics and incentive spirometer.
Original Note:
Today's Communication / Plan
-
continue IV lasix
wean supp O2 as able
continue sotalol
Impression / Plan
-
PCP: Shelby Dillon MD
Primary Food And Beverage Director: Martha Brizuela MD
.
Assessment:
Presented 03/13/2024 with worsening shortness of breath, edema, and fatigue over the past 2-3 weeks
Respiratory insufficiency-hypoxemia and acute on top of chronic hypercapnic respiratory failure
Acute on chronic heart failure with preserved ejection fraction
� Noted pleural effusions
� Elevated BNP, 1100
� Negative troponin
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
Chronic heart failure with recovered EF
Paroxysmal atrial fibrillation
� Off anticoagulation, status post Watchman LAAO 03/25/2023
Nonischemic cardiomyopathy with recovered EF 2021
History of GI bleed
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
Hypertension
Hyperlipidemia
MDS follows with oncology
BPH
Echo 03/15/2024: EF 60 to 65%, some views suggest prolapse of posterior leaflet, mild MR, mild AI, mild TR, PAP 35 to 40 mmHg, no significant change compared to prior
FABIANA 05/22/2023: EF 55%, no leak with watchman, mod MR, mild AR
FABIANA 03/25/2023: EF 55-60%, mild-mod MR, mild AR
Echo 04/04/2022: EF 51%, mild MR, Mild AR
Echo 04/11/21: EF 68%, mild cLVH, mild MR, mild AI, mild TR, PAP 32 mmHg
Echo 03/2020:�EF 45% mild MR, mild TR
Recommendations:
-Presented 03/13/2024 with worsening shortness of breath, edema, and fatigue over the past 2-3 weeks and noted to have acute on chronic HF with recovered EF.
-Status post left thoracentesis for 600 cc on 03/15/2024
-Wean supplemental O2 as able, currently on 3L NC. was not on home O2 prior to admission
-Echocardiogram with results as above, reviewed with patient on 03/16
-weight trending down if accurate. Continue IV Lasix diuresis 20 mg twice daily. Prior to admission was not on diuretic. Creatinine stable at 1.0. follow alkalosis with diuresis
-Remains in sinus rhythm upon review of telemetry overnight with 1 brief episode of A-fib versus A. tach. He is chronically been on sotalol. plan to continue sotalol for now however if continued issues with CHF/fluid retention, would consider
transitioning to amiodarone
-Not on anticoagulation as patient has watchman implant
-MDS followed by Dr. Cortes, hemoglobin 10.2 on 03/16
-currently on neutropenic precautions with history of MDS
HPI 03/14/2024:
Patient is an 88-year-old male with a past medical history significant for paroxysmal atrial fibrillation, hypertension, nonischemic cardiomyopathy with recovered LVEF in 2021 at 51%, nonrheumatic mitral regurgitation, mild AI, MDS, dyslipidemia,
history of GI bleed status post Watchman device 03/25/2023 off anticoagulation who presents with worsening shortness of breath, edema, and fatigue over the past 2-3 weeks. Additionally, patient notes worsening shortness of breath requiring elevation
of head of bed/pillows (positive orthopnea). Patient denies any chest pain, lightheadedness, dizziness, near-syncope, syncope, cough, fever, chills, palpitations. Patient was noted to have fluctuating oxygen levels by home pulse oximeter however
prior to arrival, patient was noted to be more weak, shortness of breath, and hypoxic in the 80s. Patient subsequently brought to [facility] for evaluation. On admission, patient noted to have an elevated BNP of 1100, evidence of pleural
effusions on imaging and elevated CO2 on blood gas. Troponin were negative.
Progress Note - Food And Beverage Director
Subjective
Date of Service: March 17, 2024
denies CP, SOB, palpitations
Objective
Labs:
03/15/24 09:24
03/17/24 09:13
Labs
Hgb 10.2 g/dL (13.0-18.0) L 03/15/24 09:24
Hct 32.7 % (39.0-52.0) L 03/15/24 09:24
Plt Count 61 10^3/uL (130-400) L 03/15/24 09:24
Sodium 139 mmol/L (135-145) 03/17/24 09:13
Potassium 4.3 mmol/L (3.5-5.1) 03/17/24 09:13
BUN 48 mg/dl (9-20) H 03/17/24 09:13
Creatinine 1.0 mg/dL (0.7-1.3) 03/17/24 09:13
Glucose 106 mg/dl (70-99) H 03/17/24 09:13
Vital Signs and I&O:
Vital Signs
Temp Pulse Resp BP Pulse Ox
98.3 F 70 18 125/53 94
03/17/24 11:05 03/17/24 11:05 03/17/24 11:05 03/17/24 11:05 03/17/24 11:05
Vital Signs
Temp Pulse Resp BP Pulse Ox
98.3 F 70 18 125/53 94
03/17/24 11:05 03/17/24 11:05 03/17/24 11:05 03/17/24 11:05 03/17/24 11:05
Intake & Output
03/15/24 03/16/24 03/17/24 03/18/24
07:59 07:59 07:59 07:59
Intake Total 1200 / 1200 1440 / 1440 780 / 780
Output Total 1350 / 1350 1000 / 1000 1225 / 1225
Balance -150 / -150 440 / 440 -445 / -445
Physical Exam
Physical Exam
GEN: No distress, awake, alert, oriented x3. on supp O2. [place]
HEENT: supple, anicteric, mmm, eomi
LUNGS: few crackles at bases, no wheezes
CV: Reg, S1/S2, 1/6 syst LSB
ABD: soft, BS+, NT/ND
EXT: No cyanosis, clubbing, edema
NEURO: Gross non-focal
SKIN: Warm, pink, dry. No rash
--- NOTE | 2024-03-17 14:54 | W.PN.HOSP.TC ---
Today's Communication/Plan
-
see bold
Assessment / Plan
Assessment / Plan
Acute hypoxic/hypercapnic respiratory failure -ABG noted with respiratory acidosis. Suspect chronic respiratory acidosis given elevated serum bicarbonate. Etiology unclear but rule out diaphragmatic muscle weakness, COPD, other causes. Pulmonary
edema and pleural effusion contributing to respiratory failure. Chest x-ray also mentions severe atelectasis basilar segments of the left lower lobe, mild atelectasis in the right lower lobe. Currently down to 2-3 L of oxygen, was on 4. He does
not wear oxygen at home. Appreciate pulmonology input, continue Bipap HS and prn. He is compensated. Avoid sedatives.
Acute heart failure with preserved EF exacerbation -appreciate cardiology input, continue IV Lasix. Echo 03/15/2024: EF 60 to 65%, some views suggest prolapse of posterior leaflet, mild MR, mild AI, mild TR, PAP 35 to 40 mmHg, no significant change
compared to prior.
Moderate left pleural effusion -likely due to heart failure exacerbation. Status post left thoracentesis yielding 600 cc of clear elma fluid, mildly exudative. Pulmonology suspects it is due to heart failure, and is now exudative due to IV
diuresis.
Toxic metabolic encephalopathy
Acute urinary tract infection
-Continue Rocephin day 2, urine cultures growing E. coli, follow-up on sensitivities
-TSH normal, follow-up B12
Acute urinary retention� Oneil removed 03/17, he is voiding
Posterior neck pain -started in the hospital. Tender on exam and suspect musculoskeletal pain. Denies radicular symptoms. Treat supportively with lidocaine patch, tylenol prn
Paroxysmal atrial fibrillation -continue sotalol. Underwent Watchman device in the past. Not on anticoagulation.
Chronic pancytopenia -likely due to myelodysplastic syndrome. Counts appear to be at baseline. Follow-up with hematology/oncology outpatient
Hyperlipidemia - on atorvastatin.
Constipation�increased laxatives
Stage 1 pressure injury sacrum - POA, offloading
BPH
DVT prophylaxis�SCDs secondary to thrombocytopenia
DNR
Dispo - PT rec SNF
Updated stepson, Dr. Jeanmarie Shea on phone 03/17
Total time spent to see the patient on the floor, examine the patient, review data and lab results, discuss treatment plan with patient, nursing staff around 45 minutes.
Physical exam
Gen-awake, alert, no acute distress
HEENT-NC, AT, anicteric, clear oral mmm
Neck-supple
CV-reg, no M, +S1/S2
Lungs-diminished breath sounds at the bases bilaterally
Abd-soft, NT, ND
Ext-no edema
Musculoskeletal-no cyanosis, clubbing, tender posterior cervical spine
Skin-warm and dry
Neuro-intermittently confused
Psych-calm, cooperative
Derm-Stage 1 pressure injury sacrum
Anticipated Discharge: 24 - 48 hours
Subjective/Interval History
-
Date of Service: March 16, 2024
Patient's confusion has improved. Denies shortness of breath. No fever, no vomiting.
Objective Data
-
Labs:
Laboratory Results
03/16/24 03/16/24
05:20 09:03
HCO3 46.6 H*
Sodium 138
Potassium 4.2
Chloride 93 L
Carbon Dioxide 44 H
BUN 47 H
Creatinine 0.9
Glucose 112 H
Calcium 7.7 L
Vital Signs:
Vital Signs
Temp Pulse Resp BP Pulse Ox
98.0 F 71 18 119/48 91
03/16/24 11:05 03/16/24 11:05 03/16/24 11:05 03/16/24 11:05 03/16/24 11:05
I&O
03/15/24 03/16/24 03/17/24
06:59 06:59 06:59
Intake Total 1200 / 1200 1440 / 1440
Output Total 1350 / 1350 1000 / 1000
Balance -150 / -150 440 / 440
--- NOTE | 2024-03-17 16:00 | CM ---
Discharge Plan of Care: Patient is resident of [facility]. Therapy recommendation for SNF for STR. Referral previously forwarded to [facility] and liaison was notified at that time. Met with liaison on this date who informed CM that they do
not have an available bed at this time and do not foresee availability into the weekend. Liaison notified patient's step-son and discussed. Step-son called and spoke with this CM and wants to continue following bed situation at [facility]. In
the alternative, if a bed is not available his preferences in order are as follows: [facility], [facility], [facility] and [facility]. Step-son DOES NOT want referrals forwarded at this time. He will have ongoing contact with [facility] liaison.
[2024-03-17 16:58] LABS: Vitamin B12 > 1000 pg/ml (239-931)
--- NOTE | 2024-03-17 17:23 | ED TECH ---
Addendum entered by Gloria Medrano 03/18/24 14:22:
Pt refused orthostatic vitals and became very upset.
Original Note:
Pt refused and became very upset.
[2024-03-17] MEDS: STERILE WATER FOR INJECTION 10 ML IV (18:10)
[2024-03-17] MEDS: ROCEPHIN 1000 MG IV (18:10)
[2024-03-17] MEDS: PEPCID 40 MG PO (21:48)
[2024-03-17] MEDS: FLOMAX 0.4 MG PO (21:48)
[2024-03-17] MEDS: LIPITOR 20 MG PO (21:48)
[2024-03-17] MEDS: PROSCAR 5 MG PO (21:49)
[2024-03-18] VITALS (7 sets, daily range): BP systolic 106–132; BP diastolic 46–69; PULSE 67–91; BMI 20.4
[2024-03-18 08:02] LABS: Blood Urea Nitrogen 53 mg/dl (9-20); Calcium 7.8 mg/dl (8.4-10.2); Chloride 91 mmol/L (98-107); Estimated Creatinine Clearance 47 ml/min; Glucose 104 mg/dl (70-99); Sodium 140 mmol/L (135-145); eGFR > 60.00
[2024-03-18] MEDS: FEOSOL 325 MG PO (08:26)
[2024-03-18] MEDS: BETAPACE 80 MG PO ×2 (08:26→19:24)
[2024-03-18] MEDS: LOW STRENGTH ASPIRIN 81 MG PO (08:27)
[2024-03-18] MEDS: LIDOCAINE 4% PATCH 1 PATCH TOPICAL (08:28)
[2024-03-18] MEDS: LASIX IV (08:28)
[2024-03-18] MEDS: MIRALAX 17 GRAMS PO ×2 (08:28→19:23)
--- NOTE | 2024-03-18 08:33 | W.PN.HOSP.TC ---
Today's Communication/Plan
-
Discharge tomorrow
Assessment / Plan
Assessment / Plan
Acute hypoxic/hypercapnic respiratory failure -ABG noted with respiratory acidosis. Suspect chronic respiratory acidosis given elevated serum bicarbonate. Etiology unclear but rule out diaphragmatic muscle weakness, COPD, other causes. Pulmonary
edema and pleural effusion contributing to respiratory failure. Chest x-ray also mentions severe atelectasis basilar segments of the left lower lobe, mild atelectasis in the right lower lobe. Currently down to 2-3 L of oxygen, was on 4. He does
not wear oxygen at home. Appreciate pulmonology input, continue Bipap HS and prn. He is compensated. Avoid sedatives.
Acute heart failure with preserved EF exacerbation -appreciate cardiology input, weight down 10 pounds on IV Lasix. Holding IV Lasix today, plan to transition to oral Lasix in the next 24 hours. Echo 03/15/2024: EF 60 to 65%, some views suggest
prolapse of posterior leaflet, mild MR, mild AI, mild TR, PAP 35 to 40 mmHg, no significant change compared to prior.
Moderate left pleural effusion -likely due to heart failure exacerbation. Status post left thoracentesis yielding 600 cc of clear elma fluid, mildly exudative. Pulmonology suspects it is due to heart failure, and is now exudative due to IV
diuresis.
Toxic metabolic encephalopathy
Acute urinary tract infection, unable to determine if UTI is related to Oneil catheter
-On Rocephin day 3, urine cultures growing E. coli, sensitivities reviewed
-Plan to change to Bactrim tomorrow to complete 7-day course
-TSH/B12 normal
Acute urinary retention� Oneil removed 03/17, he is voiding. Continue flomax
Posterior neck pain -started in the hospital. Tender on exam and suspect musculoskeletal pain. Denies radicular symptoms. Treat supportively with lidocaine patch, tylenol prn
Paroxysmal atrial fibrillation -continue sotalol. Underwent Watchman device in the past. Not on anticoagulation.
Chronic pancytopenia -likely due to myelodysplastic syndrome. Counts appear to be at baseline. Follow-up with hematology/oncology outpatient
Hyperlipidemia - on atorvastatin.
Constipation�increased laxatives
Stage 1 pressure injury sacrum - POA, offloading
BPH
DVT prophylaxis�SCDs secondary to thrombocytopenia
DNR
Dispo - PT rec SNF
Updated criss, Dr. Jeanmarie Shea on phone 03/17
Total time spent to see the patient on the floor, examine the patient, review data and lab results, discuss treatment plan with patient, nursing staff around 40 minutes.
Physical exam
Gen-awake, alert, no acute distress
HEENT-NC, AT, anicteric, clear oral mmm
Neck-supple
CV-reg, no M, +S1/S2
Lungs-diminished breath sounds at the bases bilaterally
Abd-soft, NT, ND
Ext-no edema
Musculoskeletal-no cyanosis, clubbing, tender posterior cervical spine
Skin-warm and dry
Neuro-intermittently confused
Psych-calm, cooperative
Derm-Stage 1 pressure injury sacrum
Anticipated Discharge: Within 24 hours
Subjective/Interval History
-
Date of Service: March 17, 2024
Confusion resolved. Denies shortness of breath. No fever, no vomiting.
Objective Data
-
Labs:
Laboratory Results
03/17/24
09:13
Sodium 139
Potassium 4.3
Chloride 91 L
Carbon Dioxide 42 H
BUN 48 H
Creatinine 1.0
Glucose 106 H
Calcium 7.9 L
Vital Signs:
Vital Signs
Temp Pulse Resp BP Pulse Ox
98.3 F 70 18 125/53 94
03/17/24 11:05 03/17/24 11:05 03/17/24 11:05 03/17/24 11:05 03/17/24 11:05
I&O
07/30/24 07/31/24 08/01/24
06:59 06:59 06:59
Intake Total 1440 / 1440 780 / 780
Output Total 1000 / 1000 1225 / 1225
Balance 440 / 440 -445 / -445
[2024-03-18 08:36] LABS: Carbon Dioxide 41 mmol/L (22-30)
--- NOTE | 2024-03-18 09:30 | W.PN.CARDCBS ---
Addendum entered and electronically signed by Matt Mendoza DO 03/18/24 11:36:
I saw and examined the patient.
The Hurricane Tracker's note was reviewed and I agree with the note.
Comment:
Plan:
BUN trending up. Hold IV lasix today. Likely transition to oral lasix next 24 hrs.
Wt down over 10 lbs
Echo stable with preserved EF.
Cont Sotalol for now as maintaining sinus benefit currently greater than risk. If he has recurrent HF, low threshold to transtion off Sotalol to Amiodarone.
Reviewed with primary hydropulper.
Wean O2, appreciate pulm input.
Outpt follow up with Dr Thomas.
Original Note:
Today's Communication / Plan
-
BUN continues to trend up. lasix on hold at present, likely transition to po in next 24 hours
wean supp O2 as able
appreciate pulm input
continue sotalol for now.
Impression / Plan
-
PCP: Shelby Dillon MD
Primary Ferryboat Operator Helper: Martha Brizuela MD
.
Assessment:
Presented 03/13/2024 with worsening shortness of breath, edema, and fatigue over the past 2-3 weeks
Respiratory insufficiency-hypoxemia and acute on top of chronic hypercapnic respiratory failure
Acute on chronic heart failure with preserved ejection fraction
� Noted pleural effusions
� Elevated BNP, 1100
� Negative troponin
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
Chronic heart failure with recovered EF
Paroxysmal atrial fibrillation
� Off anticoagulation, status post Watchman LAAO 03/25/2023
Nonischemic cardiomyopathy with recovered EF 2021
History of GI bleed
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
Hypertension
Hyperlipidemia
MDS follows with oncology
BPH
Echo 03/15/2024: EF 60 to 65%, some views suggest prolapse of posterior leaflet, mild MR, mild AI, mild TR, PAP 35 to 40 mmHg, no significant change compared to prior
FABIANA 05/22/2023: EF 55%, no leak with watchman, mod MR, mild AR
FABIANA 03/25/2023: EF 55-60%, mild-mod MR, mild AR
Echo 04/04/2022: EF 51%, mild MR, Mild AR
Echo 04/11/21: EF 68%, mild cLVH, mild MR, mild AI, mild TR, PAP 32 mmHg
Echo 03/2020:�EF 45% mild MR, mild TR
Recommendations:
-Presented 03/13/2024 with worsening shortness of breath, edema, and fatigue over the past 2-3 weeks and noted to have acute on chronic HF with recovered EF.
-Status post left thoracentesis for 600 cc on 03/15/2024
-weight down 11 pounds from admission if accurate. Cr remains stable at 1 however BUN uptrending. will hold lasix for now, and likely place on 20mg po daily in AM
-appreciate pulm input. remains on 3-4 L NC, appears SOB multifactorial. was not on supp O2 prior to admission. he has chronic hypercapnic respiratory failure in addition
-Echocardiogram with results as above
-Remains in sinus rhythm upon review of telemetry overnight with 1 brief episode of A-fib versus A. tach. He is chronically been on sotalol, however this is now not ideal medication for him given new CHF. plan to continue sotalol for now however
if continued issues with CHF/fluid retention, would consider transitioning to amiodarone
-Not on anticoagulation as patient has watchman implant
-MDS followed by Dr. Cortes, hemoglobin 10.2 on 03/16
-currently on neutropenic precautions with history of MDS
HPI 03/14/2024:
Patient is an 88-year-old male with a past medical history significant for paroxysmal atrial fibrillation, hypertension, nonischemic cardiomyopathy with recovered LVEF in 2021 at 51%, nonrheumatic mitral regurgitation, mild AI, MDS, dyslipidemia,
history of GI bleed status post Watchman device 03/25/2023 off anticoagulation who presents with worsening shortness of breath, edema, and fatigue over the past 2-3 weeks. Additionally, patient notes worsening shortness of breath requiring elevation
of head of bed/pillows (positive orthopnea). Patient denies any chest pain, lightheadedness, dizziness, near-syncope, syncope, cough, fever, chills, palpitations. Patient was noted to have fluctuating oxygen levels by home pulse oximeter however
prior to arrival, patient was noted to be more weak, shortness of breath, and hypoxic in the 80s. Patient subsequently brought to [facility] for evaluation. On admission, patient noted to have an elevated BNP of 1100, evidence of pleural
effusions on imaging and elevated CO2 on blood gas. Troponin were negative.
Progress Note - Ferryboat Operator Helper
Subjective
Date of Service: March 18, 2024
he appears brighter today. no SOB reported by patient
Objective
Labs:
03/15/24 09:24
03/18/24 06:34
Labs
Hgb 10.2 g/dL (13.0-18.0) L 03/15/24 09:24
Hct 32.7 % (39.0-52.0) L 03/15/24 09:24
Plt Count 61 10^3/uL (130-400) L 03/15/24 09:24
Sodium 140 mmol/L (135-145) 03/18/24 06:34
Potassium 4.0 mmol/L (3.5-5.1) 03/18/24 06:34
BUN 53 mg/dl (9-20) H 03/18/24 06:34
Creatinine 1.0 mg/dL (0.7-1.3) 03/18/24 06:34
Glucose 104 mg/dl (70-99) H 03/18/24 06:34
Vital Signs and I&O:
Vital Signs
Temp Pulse Resp BP Pulse Ox
97.5 F 70 18 115/69 96
03/18/24 07:10 03/18/24 08:26 03/18/24 07:10 03/18/24 08:26 03/18/24 07:10
Vital Signs
Temp Pulse Resp BP Pulse Ox
97.5 F 70 18 115/69 96
03/18/24 07:10 03/18/24 08:26 03/18/24 07:10 03/18/24 08:26 03/18/24 07:10
Intake & Output
03/16/24 03/17/24 03/18/24 03/19/24
07:59 07:59 07:59 07:59
Intake Total 1440 / 1440 780 / 780 630 / 630
Output Total 1000 / 1000 1225 / 1225
Balance 440 / 440 -445 / -445 630 / 630
Physical Exam
Physical Exam
GEN: No distress, awake, alert, oriented x3. on supp O2. [place]
HEENT: supple, anicteric, mmm, eomi
LUNGS: CTA B/L, no wheezes
CV: Reg, S1/S2, 1/6 syst LSB
ABD: soft, BS+, NT/ND
EXT: No cyanosis, clubbing, edema
NEURO: Gross non-focal
SKIN: Warm, pink, dry. No rash
--- NOTE | 2024-03-18 11:35 | W.PN.PUL3 ---
Today's Communication / Plan
-
BiPAP as able, not able to tolerate consistently.
Diuresis on hold
Incentive spirometry
Wean oxygen as able
Antibiotics for UTI
Physical therapy as able
I will sign off at this point. Please call with questions.
Assessment
-
88-year-old male with a history of myelodysplasia, atrial fibrillation, heart failure preserved EF presented with weakness over the past 3 weeks and noted to have acute heart failure with preserved EF, respiratory insufficiency and moderate left
pleural effusion-pulmonary consulted for hypercapnia, effusions and confusion 03/14/2024.
Respiratory insufficiency-hypoxemia and acute on top of chronic hypercapnic respiratory failure
ABG 03/14/2024--91/79/7.29
CHF-acute preserved EF
Left pleural effusion-moderate
Chronic hypercapnic respiratory failure-not on BiPAP in the outpatient setting
Metabolic alkalosis-suspect from chronic underlying hypercapnia
E. coli -UTI
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
Leukopenia-WBC 1.4
Dlstfb-imsgfvsrbt-jczsjothav 11.3
Thrombocytopenia-platelet 63
Conditions present prior to admission:
Recent hospitalization 10/13/2023-vertigo probably paroxysmal positional vertigo-seen by neurology
MDS followed by Dr. Cortes.
PAF.
Chronic heart failure preserved EF.
Pulmonary nodules-followed on CT, no enlargement, small
BPH.
Chronic nystagmus.
Schwannoma of the neck.
Watchman device. Appendectomy. Cholecystectomy. Schwannoma excision 2012. Tonsillectomy. TURP.
Plan
Suspect decompensation is subacute and has been progressive over the last several weeks/months with progressive heart failure.
-
Remains on low rate supplemental oxygen.
Continue to wean down as able
-
Continue nocturnal BiPAP and as with naps-patient states that he is uncomfortable with BiPAP. He will try his best. Definitely does not want for home.
Has not been able to tolerate consistently. Continue as able.
ABG 03/16/2024: Compensated/baseline despite not wearing BiPAP consistently.
7. on 2 L nasal cannula.
Avoid sedatives.
-
Pulse ox improved with deep inspiration, part of hypoxemia is due to immobility/atelectasis.
Home oxygen assessment prior to discharge.
Aspiration precautions
Incentive spirometry encouraged.
Moderate left pleural effusion significantly increased since last x-ray 3 months ago-summarized below
Ultrasound-guided thoracentesis today 03/15/2024. Part of it may be atelectatic.
Status post left thoracentesis.
Repeat chest x-ray 03/15/2024 reviewed showed resolution of pleural effusion without pneumothorax
Chemistry consistent with a mild exudate. Suspect converted to exudate after diuresis.
I suspect pleural effusion is to volume overload.
No evidence for infection
Negative cytology.
Chest x-ray only as needed
-
BUN continues to increase, diuretics on hold. Eventual transition to oral.
Metabolic alkalosis noted. If further diuresis is needed Diamox may be an option.
Weight is trending lower.
Replace electrolytes as needed
Echocardiogram noted: Normal LVEF. No significant valvular abnormalities compared to prior. Mild increased pulmonary pressures. Normal RV function.
Cardiology following patient
On antibiotics for urinary tract infection per primary team.
Urine culture with E. coli
Monitor pancytopenia
Follows with Dr. Cortes as an outpatient
DVT prophylaxis-mechanical
-
No additional recommendation from the pulmonary perspective.
Wean oxygen as able. Home oxygen assessment closer to discharge
Diuresis as able
May use BiPAP if patient allows. Definitely does not want at home.
-
At this point, I will sign off. Please call with questions.

Diagnostic data:
Chest x-ray 10/07/2023-mild subsegmental atelectasis and scarring both lungs, T9 endplate fracture
Chest x-ray 11/27/2023-trace left pleural effusion
Chest x-ray 03/13/2024-moderate size left pleural effusion, severe basilar atelectasis
CT chest 10/06/2022-stable or slightly less pronounced tiny pulmonary nodules, no hilar or mediastinal mass, bronchial wall thickening consistent with bronchitis,, no new nodules or existing nodular enlargement
CT chest 01/24/2023-left atrial appendage chicken wing morphology without evidence for thrombus, small sub-5 mm pulmonary nodules in both lungs appear unchanged
CT chest 10/07/2023-no evidence for pulm embolism, small left and trace right pleural effusions
Echocardiogram 05/22/2023-EF 55%, [address], no thrombus or significant leak, moderate mitral regurgitation, mild aortic regurgitation
Subjective Data
-
Date of Service:
Date of Service: March 18, 2024
Chief Complaint: Pulmonary Follow Up (Acute hypoxemic respiratory sufficiency/left pleural effusion)
Subjective:
No overnight pulmonary events
Remains on low rate supplemental oxygen
Unable to tolerate BiPAP
Review of Systems
General: Fever (n)
Cardiopulmonary: Dyspnea (None at rest)
GI: Abdominal Pain (n)
Objective Data
Data Reviewed
Vital Signs / I&O / Oxygen:
Vital Signs
Temp Pulse Resp BP Pulse Ox
97.5 F 70 18 115/69 96
03/18/24 07:10 03/18/24 08:26 03/18/24 07:10 03/18/24 08:26 03/18/24 07:10
Intake and Output
03/17/24 03/18/24 03/19/24
06:59 06:59 06:59
Intake Total 780 / 780 630 / 630
Output Total 1225 / 1225
Balance -445 / -445 630 / 630
SaO2 96
Nasal Cannula flow liters per 3
minute
Physical Exam
General: Comfortable
HEENT: Normocephalic
Cardiovascular: S1-S2 and Regular Rhythm
Respiratory: Wheeze (n), Crackles (minimal ) and Non-Labored Respirations
GI: Soft and Non Distended
Neurology: Awake, Alert and Other (Cooperative. Calm. Follows commands. Intermittently confused)
Skin: Warm
Labs/Micro/Reports
Lab Data
03/15/24 09:24
03/18/24 06:34
Microbiology
03/15/24 14:32 Pleural Fluid Body Fluid Culture - Final
No Growth After 72 Hours
03/15/24 14:32 Pleural Fluid Gram Stain - Final
03/16/24 14:47 Urine Urine Culture - Final
Escherichia coli
03/13/24 21:51 Nose MRSA Screen - Final
No Methicillin Resistant Staphylococcus aureus isolated.
--- NOTE | 2024-03-18 13:58 | PN.CDI ---
CDI
- -
CDI:
Physician Documentation Request
Admit Date: 03/13/24 20:48
Dear Doctor Do,
03/13 PCN: 'Bladder scan and pt had > 378 ml and DATA ANALYSIS INTERN notify. Lovell cath order for retention.'
03/16 Urine culture positive for Escherichia coli
03/16 Hospitalist PN: 'Acute urinary tract infection...Acute urinary retention� Lovell removed 03/17'
Please clarify the relationship between these conditions:
Yes, UTI is related to/associated with/due to lovell catheter.
No, UTI is not related to/associated with/due to lovell catheter but it is due to ___. (Please specify)
Unable to determine
Use of terms such as suspected, likely, concern for, or probable (associated with a specific diagnosis that is being evaluated, monitored, or treated as if it exists) are acceptable and can be coded in the inpatient setting, when documented at the
time of discharge.
Thank you,
Christine Elias RN, BSN
CDI Specialist
Available via [place] text
Please use your independent medical judgment in providing your response.
--- NOTE | 2024-03-18 14:58 | CM ---
Discharge Plan of Care: Patient is a resident of [facility] [place]. Family is planning on transitioning to assisted living. Therapy recommendation for SNF for STR. Patient and family preference is [facility]. No bed today.
[2024-03-18] MEDS: STERILE WATER FOR INJECTION 10 ML IV (17:25)
[2024-03-18] MEDS: ROCEPHIN 1000 MG IV (17:25)
[2024-03-18] MEDS: PROSCAR 5 MG PO (21:55)
[2024-03-18] MEDS: FLOMAX 0.4 MG PO (21:55)
[2024-03-18] MEDS: LIPITOR 20 MG PO (21:56)
[2024-03-18] MEDS: PEPCID 40 MG PO (21:56)
[2024-03-19] VITALS (8 sets, daily range): BP systolic 110–133; BP diastolic 49–64; PULSE 63–71; O2SAT 91–97; BMI 20.9
[2024-03-19 07:09] LABS: Blood Urea Nitrogen 49 mg/dl (9-20); Chloride 91 mmol/L (98-107); Estimated Creatinine Clearance 54 ml/min; Glucose 104 mg/dl (70-99); Sodium 140 mmol/L (135-145); eGFR > 60.00
[2024-03-19 07:20] LABS: Carbon Dioxide 44 mmol/L (22-30)
[2024-03-19] MEDS: LOW STRENGTH ASPIRIN 81 MG PO (08:00)
[2024-03-19] MEDS: MIRALAX 17 GRAMS PO ×2 (08:00→20:01)
[2024-03-19] MEDS: FEOSOL 325 MG PO (08:00)
[2024-03-19] MEDS: BETAPACE 80 MG PO ×2 (08:00→20:01)
[2024-03-19] MEDS: LIDOCAINE 4% PATCH 1 PATCH TOPICAL (08:00)
--- NOTE | 2024-03-19 08:30 | W.PN.HOSP.TC ---
Today's Communication/Plan
-
Discharge to short-term rehab when bed available
Assessment / Plan
Assessment / Plan
Acute hypoxic/hypercapnic respiratory failure -ABG noted with respiratory acidosis. Suspect chronic respiratory acidosis given elevated serum bicarbonate. Etiology unclear but rule out diaphragmatic muscle weakness, COPD, other causes. Pulmonary
edema and pleural effusion contributing to respiratory failure. Chest x-ray also mentions severe atelectasis basilar segments of the left lower lobe, mild atelectasis in the right lower lobe. Currently down to 1 L of oxygen, was on 4. He does not
wear oxygen at home. Appreciate pulmonology input, continue Bipap HS and prn. He is compensated. Avoid sedatives.
Acute heart failure with preserved EF exacerbation -appreciate cardiology input, weight down 10 pounds status post IV Lasix. Cardiology recommends discharge on Lasix 20 mg po daily. Echo 03/15/2024: EF 60 to 65%, some views suggest prolapse of
posterior leaflet, mild MR, mild AI, mild TR, PAP 35 to 40 mmHg, no significant change compared to prior.
Moderate left pleural effusion -likely due to heart failure exacerbation. Status post left thoracentesis yielding 600 cc of clear elma fluid, mildly exudative. Pulmonology suspects it is due to heart failure, and is now exudative due to IV
diuresis.
Toxic metabolic encephalopathy
Acute urinary tract infection, unable to determine if UTI is related to Oneil catheter
-Urine cultures growing E. coli, sensitivities reviewed
-Status post IV Rocephin, now on Bactrim to complete a 7-day course
-TSH/B12 normal
Acute urinary retention� Oneil removed 03/17, he is voiding. Continue flomax
Posterior neck pain -started in the hospital. Tender on exam and suspect musculoskeletal pain. Denies radicular symptoms. Treat supportively with lidocaine patch, tylenol prn
Paroxysmal atrial fibrillation -continue sotalol. Underwent Watchman device in the past. Not on anticoagulation.
Chronic pancytopenia -likely due to myelodysplastic syndrome. Counts appear to be at baseline. Follow-up with hematology/oncology outpatient
Hyperlipidemia - on atorvastatin.
Constipation�increased laxatives
Stage 1 pressure injury sacrum - POA, offloading
BPH
DVT prophylaxis�SCDs secondary to thrombocytopenia
DNR
Dispo - PT rec SNF
Updated Dr. Jeanmarie kahn on phone 03/17
Total time spent to see the patient on the floor, examine the patient, review data and lab results, discuss treatment plan with patient, nursing staff around 38 minutes.
Physical exam
Gen-awake, alert, no acute distress
HEENT-NC, AT, anicteric, clear oral mmm
Neck-supple
CV-reg, no M, +S1/S2
Lungs-diminished breath sounds at the bases bilaterally
Abd-soft, NT, ND
Ext-no edema
Musculoskeletal-no cyanosis, clubbing, tender posterior cervical spine
Skin-warm and dry
Neuro-intermittently confused
Psych-calm, cooperative
Derm-Stage 1 pressure injury sacrum
Anticipated Discharge: Within 24 hours
Subjective/Interval History
-
Date of Service: March 19, 2024
Patient denies shortness of breath. No fever, no vomiting.
Objective Data
-
Labs:
Laboratory Results
03/19/24
05:54
Sodium 140
Potassium 4.0
Chloride 91 L
Carbon Dioxide 44 H
BUN 49 H
Creatinine 0.9
Glucose 104 H
Calcium 8.0 L
Vital Signs:
Vital Signs
Temp Pulse Resp BP Pulse Ox
98.9 F 69 16 120/64 94
03/19/24 07:49 03/19/24 08:00 03/19/24 07:49 03/19/24 08:00 03/19/24 07:49
I&O
03/18/24 03/19/24 03/20/24
06:59 06:59 06:59
Intake Total 630 / 630 2400 / 2400
Output Total 650 / 650
Balance 630 / 630 1750 / 1750
--- NOTE | 2024-03-19 08:48 | W.PN.CARDCBS ---
Addendum entered and electronically signed by Nestor Echeverria MD 03/19/24 10:37:
I saw and examined the patient.
The Business Analyst Manager's note was reviewed and I agree with the note.
Comment:
GEN: No distress, awake, Ox3
HEENT: supple, anicteric, mmm
LUNGS: scatt rhonchi
CV: Reg, S1/S2, 1/6 syst LSB, no gallop
ABD: soft, BS+, NT/ND
EXT: No edema
NEURO: Gross non-focal
SKIN: No rash
Plan:
Weight is down overall. Resume Lasix 20 mg daily. BUN is improved and creatinine is normal. Recheck basic metabolic panel in 1 week.
Okay for discharge to [facility] facility. Will arrange outpatient cardiology follow-up.
As outpatient would consider switching sotalol to amiodarone.
Continue aspirin and atorvastatin.
Original Note:
Today's Communication / Plan
-
po lasix 20mg daily
BMP in 1 week
low threshold to transition sotalol to amiodarone if recurs with CHF
for SNF
OP cardiac follow up arranged
Impression / Plan
-
PCP: Shelby Dillon MD
Primary Salon/Spa Manager: Martha Brizuela MD
.
Assessment:
Presented 03/13/2024 with worsening shortness of breath, edema, and fatigue over the past 2-3 weeks
Respiratory insufficiency-hypoxemia and acute on top of chronic hypercapnic respiratory failure
Acute on chronic heart failure with preserved ejection fraction
� Noted pleural effusions
� Elevated BNP, 1100
� Negative troponin
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
Chronic heart failure with recovered EF
Paroxysmal atrial fibrillation
� Off anticoagulation, status post Watchman LAAO 03/25/2023
Nonischemic cardiomyopathy with recovered EF 2021
History of GI bleed
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
Hypertension
Hyperlipidemia
MDS follows with oncology
BPH
Echo 03/15/2024: EF 60 to 65%, some views suggest prolapse of posterior leaflet, mild MR, mild AI, mild TR, PAP 35 to 40 mmHg, no significant change compared to prior
FABIANA 05/22/2023: EF 55%, no leak with watchman, mod MR, mild AR
FABIANA 03/25/2023: EF 55-60%, mild-mod MR, mild AR
Echo 04/04/2022: EF 51%, mild MR, Mild AR
Echo 04/11/21: EF 68%, mild cLVH, mild MR, mild AI, mild TR, PAP 32 mmHg
Echo 03/2020:�EF 45% mild MR, mild TR
Recommendations:
-Presented 03/13/2024 with worsening shortness of breath, edema, and fatigue over the past 2-3 weeks and noted to have acute on chronic HF with recovered EF.
-Status post left thoracentesis for 600 cc on 03/15/2024
-weight down 11 pounds from admission if accurate. weight up 4 pounds overnight however suspect inaccurate. lasix held yesterday due to worsening BUN, slightly improved today. will place on po lasix 20mg daily today, to continue upon DC
-will need BMP in 1 week upon DC
-appreciate pulm input. remains on 3 L NC, appears SOB multifactorial. was not on supp O2 prior to admission, wean as able. he has chronic hypercapnic respiratory failure in addition. recommended bipap, however patient cannot tolerate.
-Echocardiogram with results as above
-Remains in sinus rhythm upon review of telemetry overnight with 2 brief episodes of A-fib versus A. tach. He is chronically been on sotalol, however this is now not ideal medication for him given new CHF. plan to continue sotalol for now however
if continued issues with CHF/fluid retention, would have low threshold to transition to amiodarone
-Not on anticoagulation as patient has watchman implant
-MDS followed by Dr. Cortes, hemoglobin 10.2 on 03/16
-currently on neutropenic precautions with history of MDS
-for SNF upon DC. OP cardiac follow up arranged
[facility] 03/14/2024:
Patient is an 88-year-old male with a past medical history significant for paroxysmal atrial fibrillation, hypertension, nonischemic cardiomyopathy with recovered LVEF in 2021 at 51%, nonrheumatic mitral regurgitation, mild AI, MDS, dyslipidemia,
history of GI bleed status post Watchman device 03/25/2023 off anticoagulation who presents with worsening shortness of breath, edema, and fatigue over the past 2-3 weeks. Additionally, patient notes worsening shortness of breath requiring elevation
of head of bed/pillows (positive orthopnea). Patient denies any chest pain, lightheadedness, dizziness, near-syncope, syncope, cough, fever, chills, palpitations. Patient was noted to have fluctuating oxygen levels by home pulse oximeter however
prior to arrival, patient was noted to be more weak, shortness of breath, and hypoxic in the 80s. Patient subsequently brought to [facility] for evaluation. On admission, patient noted to have an elevated BNP of 1100, evidence of pleural
effusions on imaging and elevated CO2 on blood gas. Troponin were negative.
Progress Note - Salon/Spa Manager
Subjective
Date of Service: March 19, 2024
he states he is tired. eager for DC
Objective
Labs:
03/15/24 09:24
03/19/24 05:54
Labs
Hgb 10.2 g/dL (13.0-18.0) L 03/15/24 09:24
Hct 32.7 % (39.0-52.0) L 03/15/24 09:24
Plt Count 61 10^3/uL (130-400) L 03/15/24 09:24
Sodium 140 mmol/L (135-145) 03/19/24 05:54
Potassium 4.0 mmol/L (3.5-5.1) 03/19/24 05:54
BUN 49 mg/dl (9-20) H 03/19/24 05:54
Creatinine 0.9 mg/dL (0.7-1.3) 03/19/24 05:54
Glucose 104 mg/dl (70-99) H 03/19/24 05:54
Vital Signs and I&O:
Vital Signs
Temp Pulse Resp BP Pulse Ox
98.9 F 69 16 120/64 94
03/19/24 07:49 03/19/24 08:00 03/19/24 07:49 03/19/24 08:00 03/19/24 07:49
Vital Signs
Temp Pulse Resp BP Pulse Ox
98.9 F 69 16 120/64 94
03/19/24 07:49 03/19/24 08:00 03/19/24 07:49 03/19/24 08:00 03/19/24 07:49
Intake & Output
03/17/24 03/18/24 03/19/24 03/20/24
07:59 07:59 07:59 07:59
Intake Total 780 / 780 630 / 630 2400 / 2400
Output Total 1225 / 1225 650 / 650
Balance -445 / -445 630 / 630 1750 / 1750
Physical Exam
Physical Exam
GEN: No distress, awake, alert, oriented x3. on supp O2.
HEENT: supple, anicteric, mmm, eomi
LUNGS: CTA B/L, no wheezes
CV: Reg, S1/S2, 1/6 syst LSB
ABD: soft, BS+, NT/ND
EXT: No cyanosis, clubbing, edema
NEURO: Gross non-focal
SKIN: Warm, pink, dry. No rash
[2024-03-19] MEDS: BACTRIM DS 800 MG/160 MG 1 TABLET PO ×2 (10:00→20:01)
[2024-03-19] MEDS: LASIX 20 MG PO (10:13)
--- NOTE | 2024-03-19 11:02 | CM ---
Addendum entered by Elvia Valdez 03/19/24 12:50:
Ambulance picker packer scheduled for 1030 tomorrow, 03/20/24
Original Note:
[facility] will have a bed available for patient tomorrow morning
Admissions requested a 1030 ambulance picker packer if possible
Attending notified; requested order for Covid-19 Test
Plan: Discharge to [facility] tomorrow morning, 03/20, via ambulance
Report # [phone]
[2024-03-19 12:54] LABS: COVID-19 Antigen Negative (Negative)
--- NOTE | 2024-03-19 20:04 | PTCARENOTE ---
Addendum entered by Lola Young RN 03/20/24 04:07:
pt has sleep apnea and desaturated to the high 70's. pt O2 increased to 6L. pt is a mouth breather.
Original Note:
Pt O2 demand was increased from 2.5L to 5L. SaO2 88-91%. Pt has been c/o breathing issues unable to express how. Pt appears to be dyspneic w/ exertion. Lung sounds are diminished , crackles at the bases. Shallow breathing. tachypneic. COMPATIBILITY TEST ENGINEER notified
and will cont w/ tx plan.
[2024-03-19] MEDS: LASIX 20 MG IV (20:27)
[2024-03-19] MEDS: PROSCAR 5 MG PO (21:00)
[2024-03-19] MEDS: PEPCID 40 MG PO (21:00)
[2024-03-19] MEDS: FLOMAX 0.4 MG PO (21:00)
[2024-03-19] MEDS: LIPITOR 20 MG PO (21:00)
[2024-03-20 03:15] VITALS: BP 114/54
[2024-03-20 05:23] VITALS: BMI 20.5
[2024-03-20 07:10] VITALS: BP 110/49
[2024-03-20] MEDS: FEOSOL 325 MG PO (08:15)
[2024-03-20] MEDS: LASIX 20 MG PO (08:15)
[2024-03-20] MEDS: BACTRIM DS 800 MG/160 MG 1 TABLET PO (08:15)
[2024-03-20 08:19] VITALS: BP 110/49; BP 88/43; PULSE 64; PULSE 78
[2024-03-20] MEDS: BETAPACE 80 MG PO (08:23)
[2024-03-20] MEDS: LOW STRENGTH ASPIRIN 81 MG PO (08:25)
[2024-03-20] MEDS: MIRALAX PO (08:26)
--- NOTE | 2024-03-20 08:30 | W.PN.HOSP.TC ---
Addendum entered and electronically signed by Octavio Kumar MD 03/21/24 16:13:
Chest x-ray reviewed, shows new left-sided pneumonia.
Patient denies coughing, denies shortness of breath, he is afebrile.
Pneumonia is a clinical diagnosis, would recommend monitoring off antibiotics.
Addendum entered and electronically signed by Octavio Kumar MD 03/21/24 16:09:
Updated by case management, [facility] is able to accept the patient on 03/20/2024.
Original Note:
Today's Communication/Plan
-
Cleared by cardiology for discharge.
Stepson in law, Dr. Jeanmarie Shea, requesting discharge to [facility] today.
Discharge orders in, however [facility] cannot take until tomorrow.
SPL consulted.
Assessment / Plan
Assessment / Plan
Acute hypoxic/hypercapnic respiratory failure -ABG noted with respiratory acidosis. Suspect chronic respiratory acidosis given elevated serum bicarbonate. Etiology unclear but rule out diaphragmatic muscle weakness, COPD, other causes. Pulmonary
edema and pleural effusion contributing to respiratory failure. Chest x-ray also mentions severe atelectasis basilar segments of the left lower lobe, mild atelectasis in the right lower lobe. Currently down to 3 L of oxygen, was on 4. He does not
wear oxygen at home. Appreciate pulmonology input, continue Bipap HS and prn. He is compensated. Avoid sedatives.
Acute heart failure with preserved EF exacerbation -appreciate cardiology input, weight down 10 pounds status post IV Lasix. Cardiology recommends discharge on Lasix 20 mg po daily, repeat BMP in 1 week. Echo 03/15/2024: EF 60 to 65%, some views
suggest prolapse of posterior leaflet, mild MR, mild AI, mild TR, PAP 35 to 40 mmHg, no significant change compared to prior.
Moderate left pleural effusion -likely due to heart failure exacerbation. Status post left thoracentesis yielding 600 cc of clear elma fluid, mildly exudative. Pulmonology suspects it is due to heart failure, and is now exudative due to IV
diuresis.
Toxic metabolic encephalopathy
Acute urinary tract infection, unable to determine if UTI is related to Oneil catheter
-Urine cultures growing E. coli, sensitivities reviewed
-Status post IV Rocephin, now on Bactrim to complete a 7-day course
-TSH/B12 normal
Acute urinary retention� Oneil removed 03/17, he is voiding. Continue flomax
Posterior neck pain -started in the hospital. Tender on exam and suspect musculoskeletal pain. Denies radicular symptoms. Treat supportively with lidocaine patch, tylenol prn
Paroxysmal atrial fibrillation -continue sotalol. Underwent Watchman device in the past. Not on anticoagulation.
Chronic pancytopenia -likely due to myelodysplastic syndrome. Counts appear to be at baseline. Follow-up with hematology/oncology outpatient
Hyperlipidemia - on atorvastatin.
Constipation�increased laxatives
Stage 1 pressure injury sacrum - POA, offloading
BPH
DVT prophylaxis�SCDs secondary to thrombocytopenia
DNR
Dispo - PT rec SNF
Updated Dr. Jeanmarie kahn on phone 03/20
Total time spent to see the patient on the floor, examine the patient, review data and lab results, discuss treatment plan with patient, nursing staff around 50 minutes.
Physical exam
Gen-awake, alert, no acute distress
HEENT-NC, AT, anicteric, clear oral mmm
Neck-supple
CV-reg, no M, +S1/S2
Lungs-diminished breath sounds at the bases bilaterally
Abd-soft, NT, ND
Ext-no edema
Musculoskeletal-no cyanosis, clubbing, tender posterior cervical spine
Skin-warm and dry
Neuro-intermittently confused
Psych-calm, cooperative
Derm-Stage 1 pressure injury sacrum
Anticipated Discharge: Within 24 hours
Subjective/Interval History
-
Date of Service: March 20, 2024
Overnight events noted. Nursing staff reports patient required more oxygen overnight, 5 to 6 L, nursing thinks it may have been something family brought in to eat and drink. He denies shortness of breath, denies chest pain. No fever, no vomiting.
Objective Data
-
Labs:
Laboratory Results
03/20/24
08:05
Sodium Pending
Potassium Pending
Chloride Pending
Carbon Dioxide Pending
BUN Pending
Creatinine Pending
Glucose Pending
Calcium Pending
Vital Signs:
Vital Signs
Temp Pulse Resp BP Pulse Ox
98.1 F 64 20 110/49 94
03/20/24 07:10 03/20/24 07:10 03/20/24 07:10 03/20/24 07:10 03/20/24 07:10
I&O
03/19/24 03/20/24 03/21/24
06:59 06:59 06:59
Intake Total 2400 / 2400 1440 / 1440
Output Total 650 / 650 750 / 750
Balance 1750 / 1750 690 / 690
[2024-03-20] MEDS: LIDOCAINE 4% PATCH TOPICAL (08:34)
[2024-03-20 08:44] LABS: Calcium 8.1 mg/dl (8.4-10.2); Estimated Creatinine Clearance 40 ml/min; eGFR 58.53
[2024-03-20 08:57] LABS: Blood Urea Nitrogen 52 mg/dl (9-20); Carbon Dioxide 42 mmol/L (22-30); Chloride 92 mmol/L (98-107); Glucose 164 mg/dl (70-99); Sodium 138 mmol/L (135-145)
--- NOTE | 2024-03-20 09:04 | W.PN.CARDCBS ---
Today's Communication / Plan
-
Cont oral lasix
Consider speech eval
Defer chest xray findings to primary service/pulm
Impression / Plan
-
.
PCP: Shelby Dillon MD
Primary Fitness Studies Teacher: Martha Brizuela MD
Impression:
Presented 03/13/2024 with worsening shortness of breath, edema, and fatigue over the past 2-3 weeks
Respiratory insufficiency-hypoxemia and acute on top of chronic hypercapnic respiratory failure
Acute on chronic heart failure with preserved recovered ejection fraction
� Noted pleural effusions
� Elevated BNP, 1100
� Negative troponin
Pancytopenia from MDS followed by hematology
Paroxysmal atrial fibrillation
� Off anticoagulation, status post Watchman LAAO 03/25/2023
Nonischemic cardiomyopathy with recovered EF 2021
Hx GI bleed
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
Hypertension
Hyperlipidemia
BPH
Echo 03/15/2024: EF 60 to 65%, some views suggest prolapse of posterior leaflet, mild MR, mild AI, mild TR, PAP 35 to 40 mmHg, no significant change compared to prior
FABIANA 05/22/2023: EF 55%, no leak with watchman, mod MR, mild AR
FABIANA 03/25/2023: EF 55-60%, mild-mod MR, mild AR
Echo 04/04/2022: EF 51%, mild MR, Mild AR
Echo 04/11/21: EF 68%, mild cLVH, mild MR, mild AI, mild TR, PAP 32 mmHg
Echo 03/2020:�EF 45% mild MR, mild TR
Plan:
-Presented 03/13/2024 with worsening shortness of breath, edema, and fatigue over the past 2-3 weeks and noted to have acute on chronic HF with recovered EF.
Wt down 2 lbs from last 24 hrs.
Received Lasix 20 mg IV last night Aug 2 PM after network systems administrator RN reported thought it may have been something family brought him in to eat and drink
Appears euvolemic.
Cont oral lasix and monitor daily wts.
Check BMP in one week after d/c
EF is preserved by echo.
Status post left thoracentesis for 600 cc on 03/15/2024
Chest xray with possible new LLL PNA. Defer tx to primary service and pulm
Wean O2 as able.
Consider speech eval to eval for aspiration.
Remains in sinus. Not on anticoagulation as patient has Watchman implant
As outpt, pt to be considered for transition from Sotaolol to amiodarone if no contraindication.
MDS followed by Dr. Cortes, hemoglobin 10.2 on 03/16
Chest xray with possible new LLL PNA. Defer tx to primary service and pulm
Wean O2 as able.
Continue aspirin and atorvastatin.
SNF at d/c
Discussed with primary service
HPI 03/14/2024:
Patient is an 88-year-old male with a past medical history significant for paroxysmal atrial fibrillation, hypertension, nonischemic cardiomyopathy with recovered LVEF in 2021 at 51%, nonrheumatic mitral regurgitation, mild AI, MDS, dyslipidemia,
history of GI bleed status post Watchman device 03/25/2023 off anticoagulation who presents with worsening shortness of breath, edema, and fatigue over the past 2-3 weeks. Additionally, patient notes worsening shortness of breath requiring elevation
of head of bed/pillows (positive orthopnea). Patient denies any chest pain, lightheadedness, dizziness, near-syncope, syncope, cough, fever, chills, palpitations. Patient was noted to have fluctuating oxygen levels by home pulse oximeter however
prior to arrival, patient was noted to be more weak, shortness of breath, and hypoxic in the 80s. Patient subsequently brought to [facility] for evaluation. On admission, patient noted to have an elevated BNP of 1100, evidence of pleural
effusions on imaging and elevated CO2 on blood gas. Troponin were negative.
Progress Note - Fitness Studies Teacher
Subjective
Date of Service: March 20, 2024
Pt seen and examined. No complaints. No chest pain or shortness of breath.
Objective
Labs:
03/15/24 09:24
03/20/24 08:05
Labs
Hgb 10.2 g/dL (13.0-18.0) L 03/15/24 09:24
Hct 32.7 % (39.0-52.0) L 03/15/24 09:24
Plt Count 61 10^3/uL (130-400) L 03/15/24 09:24
Sodium 138 mmol/L (135-145) 03/20/24 08:05
Potassium 4.0 mmol/L (3.5-5.1) 03/20/24 08:05
BUN 52 mg/dl (9-20) H 03/20/24 08:05
Creatinine 1.2 mg/dL (0.7-1.3) 03/20/24 08:05
Glucose 164 mg/dl (70-99) H 03/20/24 08:05
Vital Signs and I&O:
Vital Signs
Temp Pulse Resp BP Pulse Ox
98.1 F 64 20 110/59 94
03/20/24 07:10 03/20/24 08:23 03/20/24 07:10 03/20/24 08:23 03/20/24 07:10
Vital Signs
Temp Pulse Resp BP Pulse Ox
98.1 F 64 20 110/59 94
03/20/24 07:10 03/20/24 08:23 03/20/24 07:10 03/20/24 08:23 03/20/24 07:10
Intake & Output
03/18/24 03/19/24 03/20/24 03/21/24
06:59 06:59 06:59 06:59
Intake Total 630 / 630 2400 / 2400 1440 / 1440
Output Total 650 / 650 750 / 750
Balance 630 / 630 1750 / 1750 690 / 690
Physical Exam
Physical Exam
General: No acute distress, AAOX3
Neck: Negative JVD
Heart: Regular, Negative S3 positive S1/S2, Negative S4, No murmur
Lungs: CTA b/l, negative wheezes/rales/rhonchi
Abd: Positive BS, NT/ND, neg rebound/rigidity/guarding
Ext: Negative cyanosis/clubbing/edema
Neuro: nonfocal
--- NOTE | 2024-03-20 10:12 | W.DCSUMMARY ---
Discharge Summary
Discharge Data
Date of Admission: 03/13/24
Date of Discharge: 03/20/24
-
Pending Results: No
Hospital Course
Discharge diagnosis:
Acute hypoxic and hypercapnic respiratory failure
Acute heart failure with preserved ejection fraction
Moderate left pleural effusion
Toxic metabolic encephalopathy
Acute urinary tract infection
Acute urinary retention status post Oneil
Abnormal chest x-ray
Benign prostatic hypertrophy
Posterior neck pain
Paroxysmal atrial fibrillation
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
Hyperlipidemia
Constipation
Stage I pressure injury to the sacrum
Consults: Pulmonology, cardiology
Echo:
1. Left ventricle: Normal size and function with an estimated ejection
fraction of 60-65% by visual estimation
2. Right ventricle: Normal
3. Atria: Normal
4. Mitral valve: Mildly thickened mitral leaflets. Some views suggest
prolapse of the posterior leaflet. Mild mitral regurgitation
5. Aortic valve: Mild aortic insufficiency
6. Tricuspid valve: Mild tricuspid regurgitation with estimated pulmonary
artery systolic pressures of 35-40 mmHg
7. When compared to the most recent transthoracic echocardiogram from
04/04/2022 there has been no significant change. When compared to the FABIANA from
05/22/2023, the severity of mitral prolapse is estimated as mild rather than
moderate and posterior mitral leaflet prolapse is better visualized on the FABIANA.
CXR:
The lungs show obscuration of the left hemidiaphragm concerning for left lower lobe pneumonia. There is a probable small left pleural effusion as well.. No pleural effusion or pneumothorax.
Procedures:
Left thoracentesis yielding 600 cc of fluid
Hospital course:
88-year-old male with a past medical history of MDS, atrial fibrillation, CHF, and BPH was admitted for acute hypoxic and hypercapnic respiratory failure secondary to acute heart failure and left pleural effusion. Patient was seen in conjunction
with pulmonology and cardiology. He had left thoracentesis draining 600 cc of fluid. He was diuresed with IV Lasix. Pleural fluid is exudative in nature, likely due to receiving IV Lasix.
While patient was noted to be hypercapnic, he is compensated. Pulmonology recommends continuing bronchodilators, and BiPAP at night as tolerated.
Patient was diuresed with IV Lasix. His weight improved, and cardiology recommends discharge on Lasix 20 mg p.o. daily.
Patient had acute urinary retention, and required a Oneil. His Oneil was removed, and he was able to void.
Patient had toxic metabolic encephalopathy, secondary to an acute urinary tract infection. He received IV Rocephin. Urine cultures grew out E. coli, sensitivities reviewed. He was transitioned to Bactrim to complete a 7-day course.
The night prior to discharge, he had an acute episode of worsening hypoxia, requiring 5 L. He was given an additional dose of Lasix 20 mg IV. He was weaned back down to 3 L. Chest x-ray shows new left-sided pneumonia. He denies fever, coughing,
or shortness of breath. He is already on antibiotics for his urine infection, which he can continue.
Patient has a history of paroxysmal atrial fibrillation status post Watchman device. He is not on anticoagulation. He is continued on his sotalol.
Patient's medical conditions have been optimized. He is discharged to short-term rehab per his family's request. He needs to follow-up with his primary care doctor 1 week after he leaves rehab, as well as as cardiology in the office in 2-3 weeks.
Disposition: Short-term rehab
Discharge planning: Required 50 minutes
Discharge Plan
-
Patient Disposition: Penitentiary/SNF
Discharge Diagnosis/Procedures: Acute hypoxic and hypercapnic respiratory failure, acute heart failure with preserved ejection fraction, moderate left lower effusion, toxic metabolic encephalopathy, acute urinary tract infection, acute urinary
retention status post Oneil, paroxysmal atrial fibrillation, chronic pancytopenia due to myelodysplastic syndrome
Condition: Fair
Diet: 2 Gram Sodium
Activity: As tolerated
Blood Work: BMP in 1 week
Specialty Instructions: Weigh Daily- Call MD for wt gain/loss 3 lbs overnight/5 lbs in 1 week
Activity Restrictions/Additional Instructions:
Continue Bactrim for 3 more days for your urinary tract infection.
Follow-up with your primary care doctor 1 week after you leave rehab, and cardiology as scheduled.
Instructions: *[facility] Heart Failure Instructions
Referrals:
Thania Cruz PA-C [Specified Professional Personl] - 04/13/24 3:40 pm (You have a cardiology follow-up appointment at the [place] office with Dr. Thomas's physician assistant director of nursing, Thania. Please call with questions)
Shelby Dillon MD [Family Provider] - in one week
Prescriptions:
New
lidocaine 4 % Adhesive Patch,Medicated
1 patch topical DAILY Qty: 0 0RF
polyethylene glycol 3350 [HealthyLax] 17 gram Powder In Packet
17 g PO BID Qty: 60 0RF
sulfamethoxazole-trimethoprim 800-160 mg Tablet
1 tab PO BID 3 Days Qty: 6 0RF
furosemide 20 mg Tablet
20 mg PO DAILY Qty: 0 0RF
Continued
atorvastatin 20 MG tablet
20 mg PO HS
famotidine 40 MG tablet
40 mg PO HS
cyanocobalamin (vitamin B-12) 1,000 MCG tablet
500 mcg PO DAILY
tamsulosin 0.4 MG capsule
0.4 mg PO HS
finasteride 5 MG tablet
5 mg PO HS
aspirin 81 mg Tablet,Chewable
81 mg PO DAILY Qty: 30 0RF
sotalol 80 mg tablet
80 mg PO BID Qty: 60 0RF
ferrous sulfate 325 mg (65 mg iron) Tablet
325 mg PO DAILY
Discontinued
polyethylene glycol 3350 [Miralax] 17 gram Powder In Packet
17 g PO DAILYPRN PRN (Reason: constipation)
Discharge Orders:
Discharge Patient (As Directed); Ordered 03/20/24
Ordered By: Octavio Do
Discharge Date and Time
Discharge Date/Time: 03/20/24 14:53
Print Language: HONDURAN
--- NOTE | 2024-03-20 10:21 | CM ---
Reviewed the chart notes and spoke with the patient at the bedside. IMM reviewed. Patient to be discharged to [facility] today.
Plan: [facility] today.
Report # [phone]
--- NOTE | 2024-03-20 11:59 | PTOTSP ---
Speech Language Pathology
Dysphagia Re-evaluation
Chart reviewed. PIT SHOVEL OPERATOR re-eval requested RE: CXR yesterday (03/19) with 'new findings suggesting mild left lower lobe pneumonia.' Planned discharge back to [facility] today.
Voice hoarse and breathy upon observation. Endorses frequent voice difficulties - 'by the end of the day my voice is gone.'
Denies difficulty swallowing with no new aspiration events.
Initiated PO trials of regular solids and thin liquids. No overt s/s of aspiration or penetration observed; however, silent aspiration cannot be r/o at bedside.
Recommend continuation of regular solids and thin liquids with possible ENT follow up and voice therapy at the next level of care. ? Possible impaired vocal fold closure 2/2 voice changes that could be related to possible silent aspiration and
increased risk of PNA. Educated patient on findings/POC, patient verbalized agreement and understanding.
Maintain recommendations:
1. Regular texture diet, thin liquids
2. Medications whole in applesauce
3. Aspiration precautions: Full supervision and partial assistance as needed with meals; small single sips/bites; slow rate of intake with breaks for breathing; alternate solids/liquids
4. Oral care 3x/day to reduce risk for nosocomial infection.
5. Outpatient voice evaluation
--- NOTE | 2024-03-20 12:04 | SUR.OPER ---
Called over to [facility] to give report and left a message to have them call back. Awaiting call back from nurse from [facility] facility. will cont to monitor.
--- NOTE | 2024-03-20 12:11 | PTCARENOTE ---
Pt's family brought in fast food from outside per pt's request. Instructions were given to family and pt about using too much fluids and sodium in his diet. this can cause hypoxic events like last night where pt desat and pox in 70-80 on 2.5L and
had to get extra dose of Lasix 20. will cont to monitor.
[2024-03-20 13:18] VITALS: BP 112/49
--- NOTE | 2024-03-22 11:37 | W.HF.CON ---
Heart Failure
- LV Function
Left ventricular function study result: LV Ejection fraction >40%
Ejection Fraction Percentage: 60-65
- ARNI
Patient already on ARNI: No
Heart Failure ARNI Not Indicated: LV Ejection Fraction >/= 40%
- ACEI/ARB
Patient already on ACEI/ARB: No
Heart Failure ACEI/ARB Not Indicated: LV Ejection Fraction > 40%
- Beta Stephon
Patient already on Evidence Based Beta Stephon: No
Heart Failure Evidence Based Beta Stephon Not Indicated: LV Ejection Fraction > 40%
- Mineralocorticord Receptor Antagonist
Patient already on MRA: No
Heart Failure MRA Not Indicated: LV Ejection Fraction > 40%
- SGLT-2 Inhibitor
Patient already on SGLT-2 Inhibitor: No
Heart Failure SGLT-2 Inhibitor Not Indicated: LV Ejection Fraction >40%
- Afib Anticoagulation
Patient already on Anticoagulation for Afib: No
Heart Failure Afib Anticoagulation Contraindication: Patient Refusal (watchman implanted 03/25/23)
== END 2024-03-20 14:53 | DRG 291 ==
LOC: 2 NORTH 20:48
PROVIDERS: Hospitalist; Nurse Practitioner Gerontology; Radiology Diagnostic Radiology; ADMITTING PHYSICIAN Hospitalist; ATTENDING PHYSICIAN Family Medicine; CONSULT PHYSICIAN Internal Medicine Cardiovascular Disease; CONSULT PHYSICIAN Internal Medicine Critical Care Medicine; EMERGENCY PHYSICIAN Student in an Organized Health Care Education/Training Program; FAMILY PHYSICIAN Internal Medicine Geriatric Medicine
PROC: 5A09357 Assistance with Respiratory Ventilation, Less than 24 Consecutive Hours, Continuous Positive Airway Pressure (ICD-10-PCS; 2024-03-14)
PROC: 0W9B3ZZ Drainage of Left Pleural Cavity, Percutaneous Approach (ICD-10-PCS; 2024-03-15)
DX: I11.0 Hypertensive heart disease with heart failure (principal); G92.8 Other toxic encephalopathy; I50.33 Acute on chronic diastolic (congestive) heart failure; J96.22 Acute and chronic respiratory failure with hypercapnia; J96.01 Acute respiratory failure with hypoxia; J18.9 Pneumonia, unspecified organism; D61.818 Other pancytopenia; Z66 Do not resuscitate; E87.4 Mixed disorder of acid-base balance; N39.0 Urinary tract infection, site not specified; J98.11 Atelectasis; E78.00 Pure hypercholesterolemia, unspecified; I42.8 Other cardiomyopathies; I48.0 Paroxysmal atrial fibrillation; D46.9 Myelodysplastic syndrome, unspecified; I08.3 Combined rheumatic disorders of mitral, aortic and tricuspid valves; L89.151 Pressure ulcer of sacral region, stage 1; J98.6 Disorders of diaphragm; H55.00 Unspecified nystagmus; N40.1 Benign prostatic hyperplasia with lower urinary tract symptoms; R33.8 Other retention of urine; K59.00 Constipation, unspecified; B96.20 Unspecified Escherichia coli [E. coli] as the cause of diseases classified elsewhere; M54.2 Cervicalgia; Z11.52 Encounter for screening for COVID-19; Z87.891 Personal history of nicotine dependence; Z95.818 Presence of other cardiac implants and grafts; Z79.82 Long term (current) use of aspirin; Z79.899 Other long term (current) drug therapy
CPT/HCPCS: 88305; 32555; 36600; 71045; 71046; 80048; 80053; 81003; 81015; 82607; 82805; 82945; 83615; 83735; 83880; 83986; 84157; 84443; 84484; 85025; 85027; 87015; 87070; 87086; 87088; 87186; 87205; 87811; 88112; 89051; 92526; 92610; 93005; 93306; 94660; 94760; 96374; 97163; 97166; 97530; 97535; 99285

== ENCOUNTER 2024-06-02 22:41 | Inpatient (IN) | payer MEDICARE, BC, SELFPAY ==
[2024-06-02] VITALS (17 sets, daily range): BP systolic 79–144; BP diastolic 40–73; PULSE 2; BMI 21.3
[2024-06-02 20:20] LABS: B.E. 11.2 mmol/L; O2 Saturation % 96.7 % (94-98); PO2 82 mmHg (83-108); pH 7.27 (7.35-7.45)
[2024-06-02 20:25] LABS: HCO3 41.3 mmol/L (21-28); O2 Therapy %Oxygen/Room Air 60; PCO2 90 mmHg (35-48)
[2024-06-02] MEDS: TYLENOL/FEVERALL 650 MG RECTAL (20:29)
--- NOTE | 2024-06-02 20:33 | ED.GENMED ---
History of Present Illness
General
Chief Complaint: Breathing Problem
Source: patient and ambulance crew
Exam Limitations: altered mental status
Time Seen by Provider: 06/02/24 19:50
Nursing documentation reviewed up to this point in time: agreed with
History of Present Illness
History of Present Illness:
Patient with history of congestive heart failure on Lasix, presents to ED from [facility] independent living, secondary to mental status change. Per paramedics, patient was found to be minimally responsive with profound hypoxia. Patient was
placed on CPAP en route to the hospital, with mild improvement in mental status. Upon arrival, patient is somnolent but arousable to loud voice and nodding appropriately to simple questions. No further information is available at this time.
Past History
Past History
ED Past Medical History: Arrthythmia (Atrial fib), CHF, HTN and Hypercholesterolemia
ED Past Surgical History: Appendectomy, Cholecystectomy and Other (Hernia repair)
Patient has exhibited threatening behavior?: No
PSI?: No
Social History
Tobacco: Former smoker
Alcohol: Occasional
Personal:
Living: assisted living ([facility])
Review of Systems
Review of Systems
Allergies reviewed?: Yes
Unable to obtain full review of systems at this time due to: due to acuity
All Other Systems: Not applicable
Phy Exam
Physical Exam
Physical Exam:
Physical Exam
General: moderate distress, acutely ill. febrile. hypoxic
Head: nc/at
Neck: supple.
Heart: s1/s2 regular rate and rhythm, no murmur. equal radial pulses.
Lungs: mild respiratory distress. diminished breath sounds bilaterally
Abdomen: normal bowel sounds. not tender.
Neuro: Somnolent but arousable. No focal deficit noted.
Skin: no rash
Extremities: LE nonpitting edema.
Scores
Heart Failure Risk
Heart Failure Risk Score: Not Applicable
Sepsis
Sepsis Screening
Sepsis Assessment: Sepsis
Sepsis Screen
Sepsis Screen: Sepsis
Date: 06/04/24
Time: 12:44
Course
Orders/Labs/Results
Orders:
Orders
06/02/24 19:50
Portable Chest Xray [CR Chest Portable - 1 View] Urgent
Comment:
Reason For Exam: SOB
Reason Study Needs to be Portable: Patient Unstable
06/02/24 19:55
Electrocardiogram (*1) Urgent
Reason for Study: Other
Other Reason for Exam: mental status change
EKG- Treatment ONCE
06/02/24 20:01
Acetaminophen [Tylenol/Feverall] 650 mg .ROUTE .STK-MED ONE
06/02/24 20:07
COVID-19 Antigen Urgent
Source: Nasal Swab
Complete Blood Count/With Diff Urgent
Comprehensive Metabolic Panel Urgent
Magnesium Urgent
NT-proBNP Urgent
Troponin I Urgent
Influenza A+B Rapid Molecular Urgent
ELI Source: Nasal Swab
Specimen Description:
06/02/24 20:10
Arterial Blood Gas Urgent
%Oxygen/Room Air: 60
06/02/24 20:11
CT Head W/o Iv Contrast Urgent
Comment:
Reason For Exam: mental status change
06/02/24 20:16
Acetaminophen [Tylenol/Feverall] 650 mg RECTAL NOW STA
06/02/24 20:20
Urinalysis Reflex To Culture Urgent
Date Specimen was Collected: 06/02/24
Time Specimen was Collected: 20:19
Urine Microscopic Reflex Cult Urgent
06/02/24 20:26
Lactic Acid Q4H
Comment: CANCEL 2nd LACTIC ACID IF 1st LACTIC ACID IS LESS THAN 2
Blood Culture Routine
ELI Source: Blood/Venous
Specimen Description:
Blood Culture Urgent
ELI Source: Blood/Venous
Specimen Description:
06/02/24 21:04
0.9% Sodium Chloride 500 ml [Nss] 500 ml IV BOLUS
06/02/24 21:30
Piperacillin/Tazo 3.375 Gram [Zosyn] 3.375 gram in 50 ml IV NOW
Vancomycin 1 Gram/200 ml [Vancocin] 1 gram in 200 ml IV NOW
06/02/24 21:39
Arterial Blood Gas Urgent
%Oxygen/Room Air: 90
06/02/24 22:18
Admit/Transfer Patient As Directed
Co-Sign Provider:
Level of Care: Inpatient admission
Assign to:: ICU
Physician / Group: Pearl Chapa
Diagnosis: acute hypoxic resp failure, aspiration pneumonia
Reason for Hospitalization: acute hypoxic resp failure, aspiration pneumonia
Expected length of stay greater than two midnights?: Yes
ELOS- Estimated Length of Stay in days: 3
I certify the patient meets the requirements for IP care: Yes
PRN Pain Medication Management As Directed
May give lesser potent ordered pain med per pt: Yes
preference::
Protocol:: Medication orders for pain may be administered in a
manner that supports deferring to patient preference
when the pt is:
- Requesting an ordered lesser potent pain medication.
Least to most potent pain medications are defined
as: acetaminophen < NSAID < tramadol < opioids
(morphine, oxycodone, hydromorphone).
- Requesting a lesser dose of the same medication IF
ORDERED.
- Requesting a less intrusive route of administration
if both routes are prescribed by the provider (PO <
IV).
06/02/24 22:19
Code Status As Directed
Resuscitation Status: Do not resuscitate
Reached after discussion with pt or family/Healthcare POA: Yes
06/02/24 22:21
DNR Bracelet Application ONCE
06/02/24 23:26
0.9% Sodium Chloride 1000 ml [Nss] 1,000 ml IV 80 mls/hr
Acetaminophen [Tylenol/Feverall] 650 mg RECTAL Q4HPRN PRN
Acetaminophen [Tylenol] 650 mg PO Q4HPRN PRN
Bisacodyl [Dulcolax] 10 mg RECTAL [id number] PRN
Docusate W/Senna [Senokot-S] 1 tablet PO BIDPRN PRN
Polyethylene Glycol Powder [Miralax] 17 grams PO DAILYPRN PRN
06/02/24 23:26
Consult Notification Routine
Specialty to Notify: Oil Rig Driller
Date consulting provider notified: 06/03/24
Time consulting provider notified: 06:56
Notified:: Provider
Oil Rig Driller Consult Routine
Consulting Provider: Gold Aranda
Was physician already notified: No
Reason for consult: hypoxic/hypercarb resp failure; aspiration
INR [Prothrombin Time] Routine
Activity As Directed
Activity Level: As Tolerated
Vital Signs As Directed
Frequency: Per unit guidelines
Weight As Directed
Frequency: Daily
Speech Therapy Eval & Treat Routine
DX Deep Vein Thrombosis Video Routine
06/03/24 04:00
Piperacillin/Tazo 3.375 Gram [Zosyn] 3.375 gram in 50 ml IV Q6H
06/03/24 Breakfast
NPO
Allow oral meds: Yes
Allow clear liquids: No
US Chest - Left IN AM
Comment:
Reason For Exam: pleural effusion versus PNA
06/03/24 08:00
Aspirin Chewable [Low Strength Aspirin] 81 mg PO DAILY
Sotalol [Betapace] 80 mg PO BID
06/03/24 18:00
Enoxaparin Sodium [Lovenox] 40 mg SC QPM
06/03/24 22:00
Atorvastatin [Lipitor] 20 mg PO HS
Famotidine [Pepcid] 20 mg PO HS
Finasteride [Proscar] 5 mg PO HS
Tamsulosin [Flomax] 0.4 mg PO HS
Abnormal Lab Results
06/02/24 06/02/24 06/02/24
20:07 20:10 20:20
WBC 3.9 L 10^3/uL
(4.8-10.8)
RBC 3.56 L 10^6/uL
(4.70-6.10)
Hgb 11.3 L g/dL
(13.0-18.0)
Hct 37.0 L %
(39.0-52.0)
MCV 103.9 H fL
(80.0-94.0)
MCH 31.7 H pg
(27.0-31.0)
MCHC 30.5 L g/dL
(33.0-37.0)
Plt Count 87 L 10^3/uL
(130-400)
MPV 10.5 H fL
(7.4-10.4)
Absolute Lymphs (auto) 0.6 L 10^3/uL
(1.2-3.4)
Immature Gran % 0.8 H %
(0-0.5)
Neutrophils % 78.4 H %
(42.2-75.2)
Lymphocytes % 14.8 L %
(20.5-51.1)
pH 7.27 L
(7.35-7.45)
pCO2 90 H* mmHg
(35-48)
pO2 82 L mmHg
(83-108)
HCO3 41.3 H* mmol/L
(21-28)
Chloride 93 L mmol/L
(98-107)
Carbon Dioxide 37 H mmol/L
(22-30)
BUN 40 H mg/dl
(9-20)
Glucose 138 H mg/dl
(70-99)
Calcium 8.0 L mg/dl
(8.4-10.2)
Total Bilirubin 1.5 H mg/dl
(0.2-1.3)
Ur Occult Blood Reflex 1+ A
(Negative)
Urine RBC 7-10 A /HPF
(0-2)
Urine Bacteria (Reflex) Few A
(Negative)
06/02/24
21:39
WBC
RBC
Hgb
Hct
MCV
MCH
MCHC
Plt Count
MPV
Absolute Lymphs (auto)
Immature Gran %
Neutrophils %
Lymphocytes %
pH 7.28 L
(7.35-7.45)
pCO2 88 H* mmHg
(35-48)
pO2 76 L mmHg
(83-108)
HCO3 41.4 H* mmol/L
(21-28)
Chloride
Carbon Dioxide
BUN
Glucose
Calcium
Total Bilirubin
Ur Occult Blood Reflex
Urine RBC
Urine Bacteria (Reflex)
06/02/24 20:07
06/02/24 20:07
Vital Signs
Initial and Last Documented VS:
Initial Vital Signs
Pulse Resp Pulse Ox
102 18 88
06/02/24 19:48 06/02/24 19:48 06/02/24 19:48
Last Documented Vital Signs
Temp Pulse Resp BP Pulse Ox
97.8 F 57 16 115/95 98
06/04/24 11:59 06/04/24 11:59 06/04/24 11:59 06/04/24 11:59 06/04/24 11:59
MDM/Problems Addressed
MDM/Problems Addressed:
Per family, patient had complained of feeling tired and fatigue today. In addition, while speaking with family ember on the phone, patient noted to have potentially aspirated with coughing spell. Although patient does have living will, at this
present time, patient is full code.
Patient found to be febrile - possible mental status change secondary to infectious etiology. Patient remains responsive to loud verbal command as well as physical stimuli. Patient is able to recognize family member at bedside.
Chest x-ray report reviewed -difficult to exclude potential pneumonia. However in light of fever along with hypoxia, as well as previously noted coughing episodes, will start IV antibiotics.
Blood culture pending.
Patient remains arousable to verbal stimuli. No indication for intubation at this time. However, patient is high risk for respiratory failure. As such, patient will be evaluated for potential ICU admission tonight.
Critical care statement: A total of 40 minutes of critical care time was provided for this patient. This includes management of unstable vital signs, evaluation of the patient at bedside, reviewing the patient's pertinent medical records, review of
old EKGs and review of pertinent medical records. This time with separate from time utilized to perform the aforementioned documented procedures
*EKG
Interpreted by ED Provider?: Yes
EKG Intrepretation Date: 06/02/24
Heart Rate: 71
Rate: normal
Rhythm: sinus
Calion: normal axis
Interval: normal interval
*Critical Care Note
Total Time (30-74mins, 75-104mins- exclusive of procedures): 40 min
ED Attending Note
-
Portions of this chart may have been created with voice recognition software.� Occasional wrong word or��sound alike� substitutions may have occurred due to the inherent limitations of voice recognition software.
Discharge Plan
Departure
Patient Disposition: Admit
Date of Disposition: 06/02/24
Time of Disposition: 21:37
Admit to: IMU
Presentation/result/management discussed w/ accepting MD/DO: Hospitalist
Discharge Problem:
Sepsis, Hypoxia
Interventions
Interventions:
*Risk Screen - Suicide Last Done: 06/03/24 10:09
*General Assessment Last Done: 06/02/24 19:55
*Neglect/Abuse Screening Last Done: 06/02/24 19:55
ED- Fall Risk Assessment Last Done: 06/02/24 19:59
*ED COVID-19 Vaccine History Last Done: 06/03/24 10:05
*Nursing Disposition Last Done: 06/02/24 23:55
ED- Cardiac Assessment Last Done: 06/02/24 23:00
ED- Pulmonary Assessment Last Done: 06/02/24 23:00
Discharge Date and Time
Discharge Date/Time: 06/02/24 23:50
[2024-06-02 20:41] LABS: % Basophils 0.3 % (0-2); % Eosinophils 0.3 % (0-6); % Immature Granulocytes 0.8 % (0-0.5); % Lymphocytes 14.8 % (20.5-51.1); % Monocytes 5.4 % (1.7-9.3); % Neutrophils 78.4 % (42.2-75.2); Absolute Lymphocytes 0.6 10^3/uL (1.2-3.4); Absolute Monocytes 0.2 10^3/uL (0.1-0.6); Absolute Neutrophils 3.1 10^3/uL (1.4-6.5); Hemoglobin 11.3 g/dL (13.0-18.0); Mean Corp Hgb Conc. 30.5 g/dL (33.0-37.0); Mean Corpuscular Hgb 31.7 pg (27.0-31.0); Mean Corpuscular Volume 103.9 fL (80.0-94.0); Mean Platelet Volume 10.5 fL (7.4-10.4); Nucleated Red Blood Cells % 0 % (-); Platelet Count 87 10^3/uL (130-400); Red Blood Cell Count 3.56 10^6/uL (4.70-6.10); Red Cell Dist. Width 14.2 % (11.5-14.5); White Blood Cell Count 3.9 10^3/uL (4.8-10.8)
[2024-06-02 20:53] LABS: COVID-19 Antigen Negative (Negative)
[2024-06-02 21:00] LABS: Lactic Acid 1.4 mmol/L (0.7-2.0)
[2024-06-02 21:01] LABS: ALT (SGPT) 30 U/L (0-50); AST (SGOT) 44 U/L (17-59); Albumin 4.3 g/dl (3.5-5.0); Alkaline Phosphatase 107 U/L (38-126); Blood Urea Nitrogen 40 mg/dl (9-20); Chloride 93 mmol/L (98-107); Estimated Creatinine Clearance 51 ml/min; Glucose 138 mg/dl (70-99); Sodium 145 mmol/L (135-145); Total Bilirubin 1.5 mg/dl (0.2-1.3); Total Protein 6.9 g/dl (6.3-8.2); eGFR > 60.00
[2024-06-02] MEDS: NSS 500 IV ×2 (21:06→23:03)
[2024-06-02 21:11] LABS: Carbon Dioxide 37 mmol/L (22-30)
[2024-06-02 21:12] LABS: Urine Albumin Trace (Neg - Trace); Urine Bilirubin Negative (Negative); Urine Character Clear (Clear); Urine Color Yellow; Urine Glucose Negative (Negative); Urine Ketone Negative (Negative); Urine Leukocyte Negative (Negative); Urine Nitrite Negative (Negative); Urine Occult Blood 1+ (Negative); Urine Specific Gravity 1.015 (<1.030); Urine Urobilinogen Negative (Neg - 1+)
[2024-06-02 21:14] LABS: NT-proBNP 1930 pg/ml; Troponin I 0.013 ng/ml
[2024-06-02] MEDS: ZOSYN 50 IV (21:35)
[2024-06-02 21:37] LABS: Urine Mucus Few
[2024-06-02 21:38] LABS: Urine Amorphous Seen; Urine Bacteria Few (Negative); Urine White Cell 0-2 /HPF (0-5)
--- NOTE | 2024-06-02 21:39 | HPS.HSE ---
Family Physician
-
Family Physician: Shelby Dillon
Chief Complaint
-
altered mental status
History of Present Illness
Mr. 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 He is a resident at [facility]. Per EMS, he was found to
be minimally responsive on arrival and hypoxic to 65% on RA.
Per report from Dr. Shea (patient's step son), this morning on the phone patient was coughing and stated that he may have aspirated his coffee. They discussed him going to the onsite clinic. Later this evening he became progressively more
lethargic and EMS was called.
Patient was placed on BiPAP in the ER. He is arousable to voice and moving all extremities.
He lives in independent living and has a caregiver throughout the day.
Patient was admitted in March 2024 for acute hypoxic and hypercapneic respiratory failure secondary to heart failure and left pleural effusion.� He was diuresed and underwent thoracentesis.
Medical History
Past Medical History
Past Medical History: Reports Other
Additional Past Medical History:
Myelodysplastic Syndrome with Pancytopenia
Paroxysmal Atrial Fibrillation
Chronic HFpEF
BPH
Chronic Nystagmus
Schwannoma of the Neck
Past Surgical History: Reports Other
Additional Past Surgical History:
DCCV x 2
Watchman Device Implantation
Schwannoma Excision (2012)
Appendectomy
Cholecystectomy
T&A
TURP
Social History
Tobacco: Former Smoker (Quit smoking in 1970. < 20 pack years total.)
Alcohol: None
Drug: None
Living: Assisted Living
Family History
Family History: Not pertinent
Allergies / Home Medications
Allergies reflects when Allergies were last updated in [employer].
Home Medications with original date entered in [employer]
Allergy/Medication List:
Allergies
Allergy/AdvReac Type Severity Reaction Status Date / Time
No Known Allergies Allergy Verified 06/02/24 19:47
Home Medications
atorvastatin 20 mg tablet 20 mg PO HS High cholesterol 01/24/22
cyanocobalamin (vitamin B-12) 1,000 mcg tablet 1,000 mcg PO DAILY Supplement 01/24/22
famotidine 40 mg tablet 40 mg PO HS Gastrointestinal issue 01/24/22
finasteride 5 mg tablet 5 mg PO HS Urinary issue 01/24/22
tamsulosin 0.4 mg capsule 0.4 mg PO HS Urinary issue 01/24/22
aspirin 81 mg chewable tablet 81 mg PO DAILY #30 tabs 04/12/23
sotalol 80 mg tablet 80 mg PO BID Arrhythmia #60 tabs 04/12/23
ferrous sulfate 325 mg (65 mg iron) tablet 325 mg PO DAILY Supplement 03/13/24
furosemide 20 mg tablet 20 mg PO DAILY #0 tabs 03/20/24
polyethylene glycol 3350 17 gram oral powder packet (HealthyLax) 17 g PO BID #60 ea 03/20/24
miconazole nitrate 2 % topical cream 1 applic topical BID 06/02/24
mirtazapine 7.5 mg tablet 7.5 mg PO HS 06/02/24
Review of Systems
-
History Source: Patient
A 12 point ROS was completed and negative except as noted: Yes
Physical Exam
Vital Signs
Vital Signs
Pulse Resp BP Pulse Ox
74 18 87/43 94
06/02/24 21:01 06/02/24 21:12 06/02/24 21:01 06/02/24 21:01
Physical Exam
General: Other (frail appearing, on BIPAP)
HEENT: PERRLA
Respiratory: Rales and Decreased Breath Sounds; No Wheezes
Cardiac: S1/S2 and Regular Rhythm
GI: Soft and Non Tender
Musculoskeletal: No Edema
Skin: Warm and Dry; No Rash
Neuro: Awake (awakes to voice )
Psych: Calm
Laboratory Results
-
06/02/24 20:07
06/02/24 20:07
Laboratory Results
pH 7.27 (7.35-7.45) L 06/02/24 20:10
pCO2 90 mmHg (35-48) H* 06/02/24 20:10
pO2 82 mmHg (83-108) L 06/02/24 20:10
HCO3 41.3 mmol/L (21-28) H* 06/02/24 20:10
Lactic Acid 1.4 mmol/L (0.7-2.0) 06/02/24 20:26
Total Bilirubin 1.5 mg/dl (0.2-1.3) H 06/02/24 20:07
AST 44 U/L (17-59) 06/02/24 20:07
ALT 30 U/L (0-50) 06/02/24 20:07
Alkaline Phosphatase 107 U/L (38-126) 06/02/24 20:07
Troponin I 0.013 ng/ml 06/02/24 20:07
Data Reviewed
-
Diagnostic Radiology: Report Reviewed by me
Lab Data: Labs Reviewed by me
Impression/Plan
-
Mr. 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 He was found to be hypoxic to 65% on room air, place on CPAP by EMS., febrile to
102.5 on arrival to the ER with CXR showing possible pneumonia. Concern for aspiration pneumonia.
Triage VS: P 102, RR 18, SpO2 88% (on CPAP). Rectal temp was 102.5 (not yet recorded in chart)
Labs: wbc 3.9, Hg 11.3, PLT 87, Na 145, K+ 5.0, Cl 93, CO2 37, BUN 40, Cr 1.0, Glucose 138, lactate 1.4 , Mag 2.0, T. Bili 1.5, liver enzymes WNL, Trop 0.013, BNP 1930
AB.27/90/82/41.3
EKG: NSR @ 71
flu and covid negative
Head CT:IMPRESSION:
No acute intracranial abnormality noted.
Mild atrophy. Stable
Mild nonacute sinusitis.
CXR:IMPRESSION:
Moderate left pleural effusion. Progressed. Underlying pneumonia not excluded.
MAR: Tylenol, IV Vanc/Zosyn/IVF
Acute Hypoxic Hypercarbic Respiratory Failure
Hx Left Pleural Effusion
Sepsis 2/2 Aspiration Pneumonia
-admit to ICU
-continue BiPAP
-monitor ABG, second ABG with mild improvement
-POA (Dr. Shea) confirms patient is DNR/DNI
-continue IV Zosyn
-gentle IVF
-chest US tomorrow AM, consider thoracentesis
-Rn Long Term Care consult
Paroxysmal Afib s/p Watchman Device
-ENVIRONMENTAL LAW PROFESSOR Sotalol
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
HLD
-ENVIRONMENTAL LAW PROFESSOR lipitor
HFpEF
-TTE from with EF 60-65%, mild MR
-hold ENVIRONMENTAL LAW PROFESSOR lasix
BPH
-ENVIRONMENTAL LAW PROFESSOR Finasteride, Flomax
DVT PPx lovenox subQ
DNR - confirmed with POA on admission
Total Critical Care Time 55 minutes. I was immediately available to the patient and staff. I personally examined, reviewed labs, diagnostic images/reports, interpretations, treatment plans, discussed patient care with other providers and family
or caregivers (if patient is unable to make decisions), entered orders as appropriate and documented the medical record.
[2024-06-02 21:48] LABS: B.E. 12.1 mmol/L; O2 Saturation % 97.2 % (94-98); PO2 76 mmHg (83-108); pH 7.28 (7.35-7.45)
[2024-06-02 21:50] LABS: O2 Therapy 90%
[2024-06-02 21:51] LABS: HCO3 41.4 mmol/L (21-28); PCO2 88 mmHg (35-48)
[2024-06-02] MEDS: VANCOCIN 200 IV (22:26)
[2024-06-02] MEDS: NSS 1000 IV (23:40)
--- NOTE | 2024-06-02 23:41 | W.PN.UPDATE ---
Addendum entered and electronically signed by Pearl Chapa MD 06/03/24 08:01:
stop lovenox and start SCD's given drop in PLT overnight
stop MEAT AND SEAFOOD CLERK asa if PLT < 50
Original Note:
Update Note
Progress Note Update
blood pressure dropped to 70's in ER. Giving another 1L now. Confirmed with Dr. Shea, OK to give pressors overnight if necessary.
[2024-06-03] VITALS (58 sets, daily range): BP systolic 80–163; BP diastolic 40–91; PULSE 2–100; BMI 21.3; BMI 22.8
[2024-06-03] MEDS: NSS 1000 IV (00:44)
[2024-06-03] MEDS: LEVOPHED 250 IV (00:56)
[2024-06-03 01:05] LABS: PT 17.3 Sec (11.4-14.6)
--- NOTE | 2024-06-03 01:27 | PTCARENOTE ---
Received patient oriented to self and responding to verbal stimuli. Sinus jenny, 50s. BP 80s/40s, [employer] notified, levo gtt started at 2 mcg/min, BP now 90s/40s. Titrating for MAP>65. Normothermic. +2 b/l ankle edema. Lung sounds diminished throughout,
on bipap 4 liters, 18/6. Abdomen soft, hypoactive bowel sounds. #30 condom cath applied. MASD on sacrum, barrier ointment applied. PIVs patent, WNL. NSS @ ml/hr ongoing.
[2024-06-03 01:47] LABS: HCO3 39.5 mmol/L (21-28); O2 Saturation % 99.3 % (94-98); PCO2 70 mmHg (35-48); PO2 86 mmHg (83-108); pH 7.36 (7.35-7.45)
[2024-06-03] MEDS: ZOSYN 50 IV ×4 (03:24→23:41)
--- NOTE | 2024-06-03 04:06 | PTCARENOTE ---
Mouth care done, patient repositioned. Bladder scanned for 165 mls. Otherwise patient assessment unchanged from previous.
[2024-06-03 04:49] LABS: % Basophils 0.3 % (0-2); % Lymphocytes 24.5 % (20.5-51.1); % Monocytes 8.3 % (1.7-9.3); % Neutrophils 65.9 % (42.2-75.2); Absolute Lymphocytes 0.7 10^3/uL (1.2-3.4); Absolute Monocytes 0.2 10^3/uL (0.1-0.6); Absolute Neutrophils 1.9 10^3/uL (1.4-6.5); Hematocrit 30.7 % (39.0-52.0); Hemoglobin 9.5 g/dL (13.0-18.0); Mean Corp Hgb Conc. 30.9 g/dL (33.0-37.0); Mean Corpuscular Hgb 32.6 pg (27.0-31.0); Mean Corpuscular Volume 105.5 fL (80.0-94.0); Mean Platelet Volume 10.2 fL (7.4-10.4); Nucleated Red Blood Cells % 0 % (-); Platelet Count 58 10^3/uL (130-400); Red Blood Cell Count 2.91 10^6/uL (4.70-6.10); Red Cell Dist. Width 14.5 % (11.5-14.5); White Blood Cell Count 2.9 10^3/uL (4.8-10.8)
[2024-06-03 05:26] LABS: ALT (SGPT) 31 U/L (0-50); AST (SGOT) 43 U/L (17-59); Albumin 3.1 g/dl (3.5-5.0); Alkaline Phosphatase 75 U/L (38-126); Blood Urea Nitrogen 38 mg/dl (9-20); Calcium 7.1 mg/dl (8.4-10.2); Carbon Dioxide 35 mmol/L (22-30); Chloride 102 mmol/L (98-107); Estimated Creatinine Clearance 52 ml/min; Glucose 110 mg/dl (70-99); Magnesium 1.9 mg/dl (1.6-2.3); Potassium 4.5 mmol/L (3.5-5.1); Sodium 145 mmol/L (135-145); Total Bilirubin 1.3 mg/dl (0.2-1.3); Total Protein 5.4 g/dl (6.3-8.2); eGFR > 60.00
[2024-06-03] MEDS: CALCIUM GLUCONATE 100 IV (06:36)
--- NOTE | 2024-06-03 07:27 | CON.INTV ---
Consultation
Consultation Request
Date/Time Consultation Requested: 06/03/2024-7 AM
Date/Time Consultation Performed: 06/03/2024-7:30 AM
Requesting Provider: Hospitalist
Performing Provider: Dr. Aranda
Reason for Consultation: Shortness of breath/critical care management
Medical History
-
Chief Complaint: Shortness of breath
History of Present Illness:
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 Patient has BiPAP on board and difficult to communicate with, review of systems was thus unreliable and difficult to obtain.
Past Medical History
Past Medical History: None (Myelodysplasia. PAF/Watchman. Chronic heart failure preserved EF. BPH. Chronic nystagmus. Schwannoma excision 2012. Appendectomy. Cholecystectomy. Tonsillectomy. TURP.)
Social History
Tobacco: Former Smoker (Less than [id number] quit 1971)
Alcohol: None
Drug: None
Personal:
Occupational Exposures: No known asbestos exposure
Environmental Exposures: No known tuberculosis exposure
Family History
Family History: Reviewed & Not Pertinent
Allergies / Home Medications
Allergies
Allergy/AdvReac Type Severity Reaction Status Date / Time
No Known Allergies Allergy Verified 06/02/24 19:47
Home Medications
�Medication �Instructions �Recorded �Confirmed �Last Taken �Type
atorvastatin 20 mg tablet 20 mg PO HS High cholesterol 01/24/22 06/02/24 03/12/24 History
cyanocobalamin (vitamin B-12) 1,000 mcg PO DAILY Supplement 01/24/22 06/02/24 03/13/24 History
1,000 mcg tablet
famotidine 40 mg tablet 40 mg PO HS Gastrointestinal issue 01/24/22 06/02/24 03/12/24 History
finasteride 5 mg tablet 5 mg PO HS Urinary issue 01/24/22 06/02/24 03/12/24 History
tamsulosin 0.4 mg capsule 0.4 mg PO HS Urinary issue 01/24/22 06/02/24 03/12/24 History
aspirin 81 mg chewable tablet 81 mg PO DAILY #30 tabs 04/12/23 06/02/24 03/13/24 Rx
sotalol 80 mg tablet 80 mg PO BID Arrhythmia #60 tabs 04/12/23 06/02/24 03/13/24 Rx
ferrous sulfate 325 mg (65 mg 325 mg PO DAILY Supplement 03/13/24 06/02/24 03/13/24 History
iron) tablet
furosemide 20 mg tablet 20 mg PO DAILY #0 tabs 03/20/24 06/02/24 Unknown Rx
polyethylene glycol 3350 17 gram 17 g PO BID #60 ea 03/20/24 06/02/24 Unknown Rx
oral powder packet ([employer])
miconazole nitrate 2 % topical 1 applic topical BID 06/02/24 06/02/24 Unknown History
cream
mirtazapine 7.5 mg tablet 7.5 mg PO HS 06/02/24 06/02/24 Unknown History
Review of Systems
-
Unable to Obtain full review of systems at this time due to: Other (Per HPI)
Vitals / Labs / Diagnostic Testing
Vital Signs
Temp Pulse Resp BP Pulse Ox
98.0 F 62 17 163/59 96
06/03/24 03:46 06/03/24 06:15 06/03/24 06:15 06/03/24 06:15 06/03/24 06:00
Lab Data
06/03/24 04:34
06/03/24 04:34
Laboratory Results
06/02/24 06/02/24 06/03/24
20:10 21:39 00:47
PT 17.3 H
INR 1.40
pH 7.27 L 7.28 L
pCO2 90 H* 88 H*
pO2 82 L 76 L
HCO3 41.3 H* 41.4 H*
O2 Delivery Level %oxygen/room air 60 90%
06/03/24
01:41
PT
INR
pH 7.36
pCO2 70 H
pO2 86
HCO3 39.5 H
O2 Delivery Level
Microbiology
06/02/24 20:07 Nasal Swab Influenza Types A & B (STANISLAW) - Final
Negative for Influenza A & B, NAAT
Negative results must be combined with clinical observations
and patient history.
Nucleic Acid Amplification test (NAAT)performed on the
[employer] platform.
Diagnostic Testing:
Physical Exam
-
Exam:
Well-nourished and well-developed in no apparent distress
HEENT-atraumatic, normocephalic
Neck-supple, no JVD, no bruit
Heart-regular rate and rhythm-no murmurs, rubs or gallops
Chest with diminished breath sounds, crackles, rhonchi, no wheezes
Abdomen-soft, nontender, nondistended, no hepatosplenomegaly
Extremities-no cyanosis, clubbing, peripheral edema
Integument-intact, no rashes, lesions or ecchymosis
Neurology-alert and oriented, nonfocal motor and sensory exam
Assessment
-
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
Respiratory failure-acute hypoxemic and hypercapnic due to aspiration pneumonia ABG
06/02/2024--90/82/7.27 on 60%
Respiratory acidosis-suspect component of chronic hypercapnia-baseline pCO2 65
Chronic compensatory metabolic alkalosis
Aspiration pneumonia
Left pleural effusion
Sepsis with hypotension unresponsive to fluids requiring pressors
Leukopenia
Xjasvd-qzduxoplvg-dpynlwcqkj 9.5
Thrombocytopenia-platelet 58
Hyperglycemia
Hypoalbuminemia
DNR
Conditions present prior to admission:
Recent hospitalization 03/2024-hypoxemic/hypercapnic respiratory failure, CHF, left pleural effusion
Myelodysplasia.
PAF/Watchman.
Chronic heart failure preserved EF.
BPH.
Chronic nystagmus.
Schwannoma excision 2012. Appendectomy. Cholecystectomy. Tonsillectomy. TURP.
Plan
Transferred to medical intensive care unit
Supplemental oxygen-has home O2
High flow oxygen if necessary
Noninvasive ventilation-currently on BiPAP
Attempt to liberate from BiPAP
Follow ABG-chronic hypercapnia suspected
Aspiration precautions
Eventual speech therapy evaluation
Nebulizers as needed
Chest ultrasound 06/03/2024-suspect small amount of fluid-unless large amount we will hold off on thoracentesis pursued based on exam/chest x-ray
Moderate left pleural effusion slightly increased-obtain interventional radiology consultation for therapeutic diagnostic thoracentesis
Check cultures
Empiric antibiotics-Zosyn initiated
Trend lactate
Norepinephrine as needed
Intravenous fluid resuscitation-monitor for CHF
Monitor hemoglobin
Transfuse as needed
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
Monitor blood sugar
Insulin supplementation as needed
DVT prophylaxis-mechanical
Nutrition
Early mobilization
If weaned off pressors and hemodynamics improved then transfer out of ICU-pulmonary will follow briefly-would benefit from BiPAP at home-discussed with case management
Critical care statement: A total of 55 minutes of critical care time was provided for this patient today. This includes management of unstable vital signs, evaluation of the patient at bedside, reviewing the patient's pertinent medical records
including radiographs, sepsis, pneumonia management, pressor management, microbiology, laboratory evaluations, and discussion with primary team, consultants, pharmacy, nutrition, physical therapy, case management, charge nurse, critical care
nursing, and respiratory therapy.
Diagnostic data:
Chest x-ray 10/07/2023-mild subsegmental atelectasis and scarring both lungs, T9 endplate fracture
Chest x-ray 11/27/2023-trace left pleural effusion
Chest x-ray 03/13/2024-moderate size left pleural effusion, severe basilar atelectasis
Chest x-ray 06/02/2024-moderate left pleural effusion which is progressed
CT chest 10/06/2022-stable or slightly less pronounced tiny pulmonary nodules, no hilar or mediastinal mass, bronchial wall thickening consistent with bronchitis,, no new nodules or existing nodular enlargement
CT chest 01/24/2023-left atrial appendage chicken wing morphology without evidence for thrombus, small sub-5 mm pulmonary nodules in both lungs appear unchanged
CT chest 10/07/2023-no evidence for pulm embolism, small left and trace right pleural effusions
CT head 06/02/2024-no acute intracranial abnormalities
Thoracentesis 03/15/[id number], 600 mL elma pleural fluid
Echocardiogram 05/22/2023-EF 55%, [address], no thrombus or significant leak, moderate mitral regurgitation, mild aortic regurgitation
Echocardiogram 03/15/2024-EF 60-65%, mild mitral regurgitation, PA systolic 35
Data Reviewed
-
EKG: Report reviewed by me
Radiology: Image personally visualized and interpreted and Report reviewed by me
CT Scan: Report reviewed by me
Medical Tests (Nuc Med, Echo etc): Report reviewed by me
Labs: Labs reviewed by me
Old Records: Reviewed
Critical Care Time (in minutes): 55
[2024-06-03] MEDS: LOW STRENGTH ASPIRIN PO ×2 (08:18→09:49)
[2024-06-03] MEDS: BETAPACE PO ×2 (08:18→09:49)
--- NOTE | 2024-06-03 08:55 | PTCARENOTE ---
Received pt on BiPAP 18/6 6L. Pt awake, more alert, talking, oriented to self and place. Unaware of events which brought him in. RT at bedside and placed pt on NC, weaned to 2L sating 98%. LLS completely diminished throughout. RR 20's. +2 REEMA. R FA
w/ NS @ 80ml/hr. #[address] Q2hr turns.
[2024-06-03] MEDS: LOW STRENGTH ASPIRIN 81 MG PO (09:55)
[2024-06-03] MEDS: BETAPACE 80 MG PO ×2 (09:56→21:30)
--- NOTE | 2024-06-03 10:11 | PTOTSP ---
ST Acute Care Evaluation
Pt currently presents with clinical signs of suspected pharyngeal dysphagia characterized by immediate and delayed weak coughing and throat clearing following both thin and thick consistencies. An instrumental swallow study is warranted to gather
more information.
Recommendations:
- NPO except critical medications whole in puree.
- No ARHP at this time.
- VFSS for more information (likely tomorrow).
- CORPORATE SALES TRAINER to provide recommendations following completion of VFSS.
- CORPORATE SALES TRAINER to monitor cognitive linguistic function and assess further if indicated (check MRI Brain results).
--- NOTE | 2024-06-03 10:14 | PTCARENOTE ---
Swallow eval preformed by Speech. Slight droop noted on L lip and eye lid, mildly slurred speech. Dr Bustillos at bedside to assess. NIHSS performed by this RN, NIHSS 4. Plan for MRI. Will keep NPO, able to take pills w/ applesauce.
--- NOTE | 2024-06-03 10:27 | W.PN.HOSP.TC ---
Addendum entered and electronically signed by Hill Bustillos MD 06/03/24 11:26:
Bladder scan, rule out retention
Original Note:
Today's Communication/Plan
-
Monitor respiratory status
BiPAP at night
Evaluate left pleural effusion with ultrasound with consideration of thoracentesis.
Speech and swallow evaluation.
Aspiration precautions
Antibiotics covering aspiration.
MRI of the brain (mental status on admission as well as mild left facial droop)
PT eval
Assessment / Plan
Assessment / Plan
Impression:
Toxic metabolic encephalopathy secondary to hypercarbia.
Acute on chronic hypercarbic respiratory failure
-On home O2 at 2 L
Aspiration episode with pneumonia suspected.
Aspiration risk
Possibly reaccumulating left pleural effusion.
Left facial droop, mild with reasonable concern for CVA
Conditions prior to admission:
Paroxysmal atrial fibrillation not on anticoagulation due to hemorrhagic complications
Status post watchman
MDS with chronic pancytopenia
Nonischemic cardiomyopathy with recovered EF 2021.
Echo 03/15/2024: EF 60 to 65%, some views suggest prolapse of posterior leaflet, mild MR, mild AI, mild TR, PAP 35 to 40 mmHg, no significant change compared to prior
History of gastrointestinal hemorrhage.
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
Dyslipidemia
BPH.
Surgical history: Status post watchman, schwannoma excision, appendectomy, cholecystectomy, TURP
Plan:
Toxic metabolic encephalopathy most likely secondary to hypoxemia and hypercarbia
Mental status improved and back to baseline.
ABG with improved respiratory acidosis and pCO2 down to baseline at 70
Neuro exam with mild left facial droop
CT scan of the head in ED with no acute abnormalities.
Who check MRI of the brain
Continue neurochecks
Consider neurology evaluation if positive for MRI.
Acute on chronic hypercarbic respiratory failure.
Admission ABG: pH 7.2
BiPAP
Repeat ABG on 06/03: pH 7.3 O2 nasal cannula 4 L
Continue oxygen supplementation per
May require BiPAP at night.
Concern for aspiration pneumonia
Chest x-ray with reaccumulating left pleural effusion.
Prior history of left pleural effusion with thoracentesis on 03/10 600 mL transudate
Empiric antibiotics covering aspiration: Zosyn
Speech and swallow evaluation currently recommend n.p.o. with pending VSE.
Chest ultrasound to evaluate left pleural effusion with consideration of thoracentesis.
Nonischemic cardiomyopathy
Volume status close to be compensated.
Noted mild elevation of pro CHF BNP 1900 (baseline around 1000).
Monitor his volume status closely.
Low threshold to reintroduce furosemide.
Currently on IV fluids at maintenance rate while NPO
Paroxysmal atrial fibrillation baseline status post watchman.
Continue sotalol
MDS with pancytopenia
Monitor CBC
Avoid heparin products due to chronic thrombocytopenia
BPH
Continue tamsulosin and finasteride
Dyslipidemia on atorvastatin.
DVT prophylaxis mechanical.
Anticipated Discharge: > 48 hours
Subjective/Interval History
-
Date of Service: June 03, 2024
Objective Data
-
Labs:
Laboratory Results
06/03/24 06/03/24 06/03/24
00:47 01:41 03:32
WBC Cancelled
Hgb Cancelled
Hct Cancelled
Plt Count Cancelled
PT 17.3 H
INR 1.40
HCO3 39.5 H
Sodium Cancelled
Potassium Cancelled
Chloride Cancelled
Carbon Dioxide Cancelled
BUN Cancelled
Creatinine Cancelled
Glucose Cancelled
Calcium Cancelled
Total Bilirubin
AST
ALT
Alkaline Phosphatase
06/03/24
04:34
WBC 2.9 L
Hgb 9.5 L
Hct 30.7 L
Plt Count 58 L D
PT
INR
HCO3
Sodium 145
Potassium 4.5
Chloride 102
Carbon Dioxide 35 H
BUN 38 H
Creatinine 1.0
Glucose 110 H
Calcium 7.1 L
Total Bilirubin 1.3
AST 43
ALT 31
Alkaline Phosphatase 75
Vital Signs:
Vital Signs
Temp Pulse Resp BP Pulse Ox
97.8 F 70 17 131/58 99
06/03/24 08:12 06/03/24 09:56 06/03/24 06:15 06/03/24 09:56 06/03/24 08:40
I&O
06/02/24 06/03/24 06/04/24
06:59 06:59 06:59
Intake Total 663.8 / 743.8 320 / 320
Balance 663.8 / 743.8 320 / 320
Physical Exam
-
General: Well Developed and No Apparent Distress
HEENT: Normocephalic, Atraumatic and Moist Mucous Membranes
Respiratory: Clear to Auscultation
Cardiac: Regular Rhythm and S1/S2; Negative Murmur, Rub or Gallop
GI: Soft, Nontender, Nondistended and Normal Bowel Sounds; Negative Organomegaly
Rectal: Deferred by Provider
Musculoskeletal: No Clubbing, No Cyanosis and No Edema
Skin: Negative Rash
Neuro: Awake, Alert, Oriented, AO x 3 and Other (Left facial droop, mild)
--- NOTE | 2024-06-03 12:18 | CM ---
Addendum entered by Carlyle Cerna 06/03/24 14:19:
PT and OT evaluations noted - SNF level of care recommended. Pt is aware, expressed his agreement and pt requested [facility]. A referral to [facility] made. Awaiting for determination
D/c plan: [facility] when medically stable
Original Note:
CM following re: discharge planning.
Discussed in Rounds, reviewed pt's chart, met with pt.
Pt is an 88 year old male, admitted with primary dx of Acute on chronic hypercarbic respiratory failure. On home O2 at 2 L NC at baseline. Per Rounds meeting, MRI today, continue supportive care.
Pt reports he lives alone in an independent apartment at [facility], has supportive family, ambulates with Rollator at baseline, has home Oxygen, 2L NC at baseline. Pt reports he was at [facility] and had [facility] VN services. Pt
reports he has caregiver services at home.
PT and OT will evaluate the pt to determine a level of care at discharge.
PCP: Shelby Dillon
Pharmacy: [facility].
D/C plan: most likely return back to his living arrangements at [facility] independent apartment with [facility], caregiver services and family support.
CM will follow with discharge plan updates as hospitalization progresses
--- NOTE | 2024-06-03 13:34 | PTCARENOTE ---
Pt went for MRI, now back in room. Family friend at bedside, will assist in getting pt his belongings, phone & hearing aides, from [facility]. Pt downgraded to tele, plan to move to [phone] when bed is clean. Awaiting call from RN to give report.
Pt c/o feeling urge to pee but unable to void. Bladder scanned for 336ml. Discussed w/ Dr Bustillos. Straight cathed for due to discomfort, for 375ml. Condom cath remains off. Will continue to monitor.
--- NOTE | 2024-06-03 14:45 | PTCARENOTE ---
Pt received as transfer from ICU. AAOx3. Drowsy but arousable to voice. Speech garbled at times. NSR on cardiac nurse specialist. SpO2 95% on 2L. VSS. Assessment documented. Pt resting in bed, call arndt in reach.
[2024-06-03] MEDS: OFIRMEV 100 IV (19:51)
[2024-06-03] MEDS: OCEAN, SALINE MIST 2 SPRAYS NASAL (21:30)
[2024-06-03] MEDS: FLOMAX PO (23:16)
[2024-06-03] MEDS: LIPITOR PO (23:17)
[2024-06-03] MEDS: PEPCID PO (23:17)
[2024-06-03] MEDS: PROSCAR PO (23:17)
[2024-06-04 03:52] VITALS: BP 118/52
[2024-06-04] MEDS: ZOSYN 50 IV ×4 (05:23→21:04)
[2024-06-04 06:00] VITALS: BMI 23.0
[2024-06-04 07:28] LABS: Blood Urea Nitrogen 44 mg/dl (9-20); Chloride 100 mmol/L (98-107); Estimated Creatinine Clearance 47 ml/min; Glucose 74 mg/dl (70-99); Potassium 4.6 mmol/L (3.5-5.1); Sodium 145 mmol/L (135-145); eGFR > 60.00
[2024-06-04 07:31] LABS: % Lymphocytes 33.3 % (20.5-51.1); % Monocytes 8.2 % (1.7-9.3); % Neutrophils 56.5 % (42.2-75.2); Absolute Lymphocytes 0.7 10^3/uL (1.2-3.4); Absolute Monocytes 0.2 10^3/uL (0.1-0.6); Absolute Neutrophils 1.2 10^3/uL (1.4-6.5); Hematocrit 33.4 % (39.0-52.0); Mean Corp Hgb Conc. 29.9 g/dL (33.0-37.0); Mean Corpuscular Hgb 31.3 pg (27.0-31.0); Mean Corpuscular Volume 104.7 fL (80.0-94.0); Mean Platelet Volume 11.8 fL (7.4-10.4); Nucleated Red Blood Cells % 0 % (-); Platelet Count 61 10^3/uL (130-400); Red Blood Cell Count 3.19 10^6/uL (4.70-6.10); Red Cell Dist. Width 14.3 % (11.5-14.5); White Blood Cell Count 2.1 10^3/uL (4.8-10.8)
[2024-06-04 07:35] LABS: Carbon Dioxide 37 mmol/L (22-30)
[2024-06-04 07:56] VITALS: BP 135/78
[2024-06-04] MEDS: BETAPACE 80 MG PO ×2 (09:08→21:03)
[2024-06-04] MEDS: LOW STRENGTH ASPIRIN 81 MG PO (09:09)
--- NOTE | 2024-06-04 10:00 | PTOTSP ---
Speech Language Pathology
VIDEOFLUOROSCOPIC SWALLOWING EXAMINATION (VSE) completed. Overall, pt with mild pharyngeal dysphagia. Trace supraglottic penetration noted at times with no deep penetration or any aspiration. Significant pharyngeal residue, which mostly cleared
with either effortful swallow or liquid wash.
Recommend:
(1) Regular solids/thin liquids
(2) Aspiration precautions: slow rate, intermittent use of effortful swallow after solids or liquid wash
(3) Meds as tolerated
(4) CHRONOMETER REPAIRER to continue to follow
--- NOTE | 2024-06-04 10:42 | CM ---
Addendum entered by Elsie Bunn 06/04/24 14:05:
No current available beds at [facility] per Ilana today. Ilana is recreational assistant this weekend at below phone number. CM will continue to follow for discharge planning needs.
Original Note:
VM left for Ilana at [facility] [phone], no answer in all scripts as of this time. CM will continue to follow for discharge planning needs.
[2024-06-04] MEDS: LASIX 20 MG PO (11:50)
[2024-06-04 11:59] VITALS: BP 115/95
--- NOTE | 2024-06-04 12:37 | W.PN.PUL3 ---
Today's Communication / Plan
-
Continue IV antibiotics for today
Left thoracentesis
Wean off oxygen as able
Incentive spirometry
Aspiration precaution
Assessment
-
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
Respiratory failure-acute hypoxemic and hypercapnic due to aspiration pneumonia ABG
06/02/2024--90/82/7.27 on 60%
Respiratory acidosis-suspect component of chronic hypercapnia-baseline pCO2 65
Chronic compensatory metabolic alkalosis
Aspiration pneumonia
Left pleural effusion
Sepsis with hypotension unresponsive to fluids requiring pressors
Leukopenia
Lomgcp-iconegmqqk-jocquvxfaq 9.5
Thrombocytopenia-platelet 58
Hyperglycemia
Hypoalbuminemia
DNR
Conditions present prior to admission:
Recent hospitalization 03/2024-hypoxemic/hypercapnic respiratory failure, CHF, left pleural effusion
Myelodysplasia.
PAF/Watchman.
Chronic heart failure preserved EF.
BPH.
Chronic nystagmus.
Schwannoma excision 2012. Appendectomy. Cholecystectomy. Tonsillectomy. TURP.
Plan
Aspiration pneumonia.
Left lower lobe pleural effusion-moderate on ultrasound.
Chest ultrasound 06/03/2024-report reviewed, moderate left pleural effusion. Amenable for thoracentesis.
Recommend thoracentesis. Discussed with Dr. Bustillos.
-
Currently on 2 L supplemental oxygen, wean off as able.
Noninvasive ventilation-currently on BiPAP nocturnally.
Patient has history of chronic hypercapnic respiratory failure.
ABG 06/03/2024: 7.36/70/86. Compensated.
Aspiration precautions
Speech therapy evaluation. Ongoing.
Nebulizers as needed
Afebrile/Chronic leukopenia
Able to speak in full sentences.
Appears nontoxic.
All cultures negative.
Empiric antibiotics-Zosyn initiated-continue until thoracentesis performed. If thoracentesis shows no evidence for infection then okay to transition to Augmentin if all cultures negative. Complete total 7 days
Monitor hemoglobin
Transfuse as needed
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
DVT prophylaxis-mechanical
Pulmonary will continue to follow.

Diagnostic data:
Chest x-ray 10/07/2023-mild subsegmental atelectasis and scarring both lungs, T9 endplate fracture
Chest x-ray 11/27/2023-trace left pleural effusion
Chest x-ray 03/13/2024-moderate size left pleural effusion, severe basilar atelectasis
Chest x-ray 06/02/2024-moderate left pleural effusion which is progressed
CT chest 10/06/2022-stable or slightly less pronounced tiny pulmonary nodules, no hilar or mediastinal mass, bronchial wall thickening consistent with bronchitis,, no new nodules or existing nodular enlargement
CT chest 01/24/2023-left atrial appendage chicken wing morphology without evidence for thrombus, small sub-5 mm pulmonary nodules in both lungs appear unchanged
CT chest 10/07/2023-no evidence for pulm embolism, small left and trace right pleural effusions
CT head 06/02/2024-no acute intracranial abnormalities
Thoracentesis 03/15/20240317-[id number], 600 mL elma pleural fluid
Echocardiogram 05/22/2023-EF 55%, [address], no thrombus or significant leak, moderate mitral regurgitation, mild aortic regurgitation
Echocardiogram 03/15/2024-EF 60-65%, mild mitral regurgitation, PA systolic 35
Subjective Data
-
Date of Service:
Date of Service: June 04, 2024
Chief Complaint: Pulmonary Follow Up (Aspiration pneumonia/parapneumonic effusion)
Subjective:
On 2 L supplemental oxygen
Denies worsening coughing
Denies chest discomfort
Denies shortness of breath at rest
Review of Systems
Cardiopulmonary: Dyspnea (none at rest), Cough and Sputum Production (n)
GI: Abdominal Pain (n) and Nausea (n)
Objective Data
Data Reviewed
Vital Signs / I&O / Oxygen:
Vital Signs
Temp Pulse Resp BP Pulse Ox
97.8 F 57 16 115/95 98
06/04/24 11:59 06/04/24 11:59 06/04/24 11:59 06/04/24 11:59 06/04/24 11:59
Intake and Output
06/03/24 06/04/24 06/05/24
06:59 06:59 06:59
Intake Total 663.8 / 743.8 1160 / 1160
Output Total 550 / 550
Balance 663.8 / 743.8 610 / 610
SaO2 98
Nasal Cannula flow liters per 2
minute
Labs/Micro/Reports
Lab Data
06/04/24 06:59
06/04/24 07:00
Microbiology
06/03/24 03:21 Nose MRSA Screen - Final
No Methicillin Resistant Staphylococcus aureus isolated.
06/02/24 20:26 Blood/Venous Blood Culture - Preliminary
No Growth in 24 hours- Final report to follow
06/02/24 20:26 Blood/Venous Blood Culture - Preliminary
No Growth in 24 hours- Final report to follow
06/02/24 20:07 Nasal Swab Influenza Types A & B (STANISLAW) - Final
Negative for Influenza A & B, NAAT
Negative results must be combined with clinical observations
and patient history.
Nucleic Acid Amplification test (NAAT)performed on the
[employer] platform.
[2024-06-04 13:59] VITALS: BP 109/42; BP_SYST 61
--- NOTE | 2024-06-04 14:20 | W.PN.HOSP.TC ---
Today's Communication/Plan
-
Left thoracentesis diagnostic and therapeutic
Oral antibiotics covering aspiration.
Reassess volume and respiratory status post thoracentesis.
May need additional diuresis if concern for volume overload.
May require nightly BiPAP as a maintenance.
Physical therapy assessment
Assessment / Plan
Assessment / Plan
Impression:
Toxic metabolic encephalopathy secondary to hypercarbia.
Acute on chronic hypercarbic respiratory failure
-On home O2 at 2 L
Aspiration episode with pneumonia suspected.
Aspiration risk
Possibly reaccumulating left pleural effusion.
Left facial droop, mild with reasonable concern for CVA
Conditions prior to admission:
Paroxysmal atrial fibrillation not on anticoagulation due to hemorrhagic complications
Status post watchman
MDS with chronic pancytopenia
Nonischemic cardiomyopathy with recovered EF 2021.
Echo 03/15/2024: EF 60 to 65%, some views suggest prolapse of posterior leaflet, mild MR, mild AI, mild TR, PAP 35 to 40 mmHg, no significant change compared to prior
History of gastrointestinal hemorrhage.
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
Dyslipidemia
BPH.
Surgical history: Status post watchman, schwannoma excision, appendectomy, cholecystectomy, TURP
Plan:
Toxic metabolic encephalopathy most likely secondary to hypoxemia and hypercarbia
Mental status improved and back to baseline.
ABG with improved respiratory acidosis and pCO2 down to baseline at 70
Neuro exam with mild left facial droop
CT scan of the head in ED with no acute abnormalities.
MRI of the brain with no acute abnormalities
Acute on chronic hypercarbic respiratory failure.
Admission ABG: pH 7.2
Repeat ABG on 06/03: pH 7.3 / O2 nasal cannula 4 L
Continue oxygen supplementation
Moving forward may require BiPAP at night.
Concern for aspiration pneumonia
Chest x-ray with reaccumulating left pleural effusion.
Prior history of left pleural effusion with thoracentesis on 03/10 600 mL transudate
Empiric antibiotics covering aspiration: Zosyn
Chest ultrasound to evaluate left pleural effusion with consideration of thoracentesis.
Speech eval on board recommended regular consistency diet with thin liquids.
Nonischemic cardiomyopathy
Volume status close to be compensated.
Noted mild elevation of pro CHF BNP 1900 (baseline around 1000).
Monitor volume status closely.
Continue oral Lasix
Paroxysmal atrial fibrillation baseline status post watchman.
Continue sotalol
MDS with pancytopenia
Monitor CBC
Avoid heparin products due to chronic thrombocytopenia
BPH
Continue tamsulosin and finasteride
Dyslipidemia on atorvastatin.
DVT prophylaxis mechanical.
Anticipated Discharge: > 48 hours
Subjective/Interval History
-
Date of Service: June 04, 2024
Objective Data
-
Labs:
Laboratory Results
06/04/24 06/04/24
06:59 07:00
WBC 2.1 L*
Hgb 10.0 L
Hct 33.4 L
Plt Count 61 L
Sodium 145
Potassium 4.6
Chloride 100
Carbon Dioxide 37 H
BUN 44 H
Creatinine 1.1
Glucose 74
Calcium 8.0 L
Vital Signs:
Vital Signs
Temp Pulse Resp BP Pulse Ox
98.1 F 61 18 109/42 98
06/04/24 13:59 06/04/24 13:59 06/04/24 13:59 06/04/24 13:59 06/04/24 13:59
I&O
06/03/24 06/04/24 06/05/24
06:59 06:59 06:59
Intake Total 663.8 / 743.8 1160 / 1160
Output Total 550 / 550
Balance 663.8 / 743.8 610 / 610
Physical Exam
-
General: Well Developed and No Apparent Distress
HEENT: Normocephalic, Atraumatic and Moist Mucous Membranes
Respiratory: Clear to Auscultation
Cardiac: Regular Rhythm and S1/S2; Negative Murmur, Rub or Gallop
GI: Soft, Nontender, Nondistended and Normal Bowel Sounds; Negative Organomegaly
Rectal: Deferred by Provider
Musculoskeletal: No Clubbing, No Cyanosis and No Edema
Skin: Negative Rash
Neuro: Awake, Alert, Oriented, AO x 3 and Other (Left facial droop, mild)
[2024-06-04 15:26] LABS: Body Fluid pH 7.38
[2024-06-04 15:31] LABS: Body Fluid Mononuclear 90.8 %; Body Fluid Polymorphonuclear 9.2 %; Body Fluid WBC 578 /CUMM
[2024-06-04 15:55] LABS: Body Fluid Second Tech DW
[2024-06-04 15:59] LABS: Body Fluid Glucose 103 mg/dl; Body Fluid LDH 130 U/L; Body Fluid Protein 2.9 g/dl
[2024-06-04 19:56] VITALS: BP 116/45
[2024-06-04] MEDS: PROSCAR 5 MG PO (21:04)
[2024-06-04] MEDS: LIPITOR 20 MG PO (21:04)
[2024-06-04] MEDS: FLOMAX 0.4 MG PO (21:04)
[2024-06-04] MEDS: PEPCID 20 MG PO (21:04)
[2024-06-04 23:32] VITALS: BP 119/44
[2024-06-04] MEDS: TYLENOL 650 MG PO (23:39)
[2024-06-05] VITALS (7 sets, daily range): BP systolic 99–120; BP diastolic 42–54; BMI 22.7
[2024-06-05] MEDS: ZOSYN 50 IV ×4 (03:34→22:27)
[2024-06-05 07:02] LABS: Hematocrit 31.2 % (39.0-52.0); Hemoglobin 9.3 g/dL (13.0-18.0); Mean Corp Hgb Conc. 29.8 g/dL (33.0-37.0); Mean Corpuscular Hgb 31.1 pg (27.0-31.0); Mean Corpuscular Volume 104.3 fL (80.0-94.0); Mean Platelet Volume 11.1 fL (7.4-10.4); Platelet Count 63 10^3/uL (130-400); Red Blood Cell Count 2.99 10^6/uL (4.70-6.10); Red Cell Dist. Width 14.3 % (11.5-14.5); White Blood Cell Count 1.2 10^3/uL (4.8-10.8)
[2024-06-05 07:12] LABS: Blood Urea Nitrogen 42 mg/dl (9-20); Calcium 7.7 mg/dl (8.4-10.2); Chloride 98 mmol/L (98-107); Estimated Creatinine Clearance 43 ml/min; Glucose 101 mg/dl (70-99); Potassium 3.9 mmol/L (3.5-5.1); Sodium 146 mmol/L (135-145); eGFR 58.53
[2024-06-05 07:23] LABS: Carbon Dioxide 42 mmol/L (22-30)
[2024-06-05 08:07] LABS: Band Neutrophils 1 % (0-3); Lymphocytes 38 % (20-51); Monocytes 6 % (2-9); Segmented Neutrophils 55 % (42-75)
[2024-06-05 08:08] LABS: Normal RBC Morphology Yes; Platelets Checked Yes
[2024-06-05 08:09] LABS: Total Cells Counted 100
[2024-06-05 08:10] LABS: Absolute Neutrophils -Man Diff 0.6 10^3/uL (1.4-6.5)
[2024-06-05] MEDS: BETAPACE 80 MG PO ×2 (09:04→22:24)
[2024-06-05] MEDS: LASIX 20 MG PO (09:04)
[2024-06-05] MEDS: LOW STRENGTH ASPIRIN 81 MG PO (09:05)
[2024-06-05 09:17] LABS: LDH 227 U/L (120-246); Total Protein 5.6 g/dl (6.3-8.2)
--- NOTE | 2024-06-05 12:52 | W.PN.HOSP.TC ---
Today's Communication/Plan
-
Continue IV antibiotics
Continue nightly BiPAP
SpO2 goal >88%
SNF on Friday
Assessment / Plan
Assessment / Plan
#Acute on chronic hypercapnic and hypoxemic respiratory failure
#Suspected aspiration pneumonia
#Left pleural effusion s/p thoracentesis
-Currently uses 2 L of oxygen nightly at baseline
-Presented with significant respiratory distress, saturations in mid 60s on baseline oxygen
-S/p thoracentesis on 06/04 with exudative qualities per lights criteria; WBC 578, glucose 103, pH 7.3
-Started on IV Zosyn empirically for coverage of aspiration pneumonia
-Was started on nightly BiPAP due to significant hypercapnia, pCO2 82 on ABG; most recent pCO2 70
-Pulmonology following
Plan
-Continue IV Zosyn with plan for antibiotics through 06/09
-Continue nightly BiPAP for hypercapnia
-Wean supplemental oxygen for SpO2 goal >88%
-Aspiration precautions
#Toxic metabolic encephalopathy
-Likely secondary to hypercapnia and hypoxemia
-Patient seems oriented today, likely baseline
#MDS C/B chronic pancytopenia
#Neutropenia
-All cell lines chronically depressed, ANC today 0.6
-Will continue to trend CBC and start neutropenic precaution
-Plan for IV cefepime for new onset fever
#Mild facial droop
-Stroke workup here was negative, MRI without acute findings
-Does not seem that profound upon my assessment today
#HFrecEF
#NICM
#Cardiac valvular disease
-Echo with LVEF 60%, mild MR, mild AI
-Not currently on any GDMT, does take Lasix 20 mg
-Seems euvolemic upon my assessment today
#Paroxysmal AF s/p Watchman
#H/O GIB
-Home medication includes sotalol 80 mg twice daily
-No longer on AC following watchman due to history of GIB
#BPH
-Home medications include finasteride and tamsulosin
#HLD
-No known ASCVD history
-Home meds include moderate intensity
DVT prophylaxis: SCDs
Diet: Regular
CODE STATUS: DNR
Anticipated Discharge: 24 - 48 hours
Subjective/Interval History
-
Date of Service: June 05, 2024
Seen and examined at the bedside. No acute events reported overnight. AFVSS on 2 L oxygen this morning.
He seems well, has no acute complaints though does request one of his family members bring his reading glasses.
He states he does get short of breath with exertion. Denies resting dyspnea, chest pain, fevers or chills, GI issues, urinary issues, bleeding or bruising, paresthesias or weakness
Objective Data
-
Labs:
Laboratory Results
06/05/24
06:06
WBC 1.2 L*
Hgb 9.3 L
Hct 31.2 L
Plt Count 63 L
Sodium 146 H
Potassium 3.9
Chloride 98
Carbon Dioxide 42 H
BUN 42 H
Creatinine 1.2
Glucose 101 H
Calcium 7.7 L
Vital Signs:
Vital Signs
Temp Pulse Resp BP Pulse Ox
97.7 F 62 16 102/54 95
06/05/24 11:25 06/05/24 11:25 06/05/24 11:25 06/05/24 11:28 06/05/24 11:25
I&O
06/04/24 06/05/24 06/06/24
06:59 06:59 06:59
Intake Total 1160 / 1160 1140 / 1140
Output Total 550 / 550 1100 / 1100
Balance 610 / 610 40 / 40
Review of Systems
-
History Source: Patient
All other systems: Reviewed and negative
Physical Exam
-
General: Well Nourished, No Apparent Distress and Comfortable
HEENT: Normocephalic, Atraumatic, Moist Mucous Membranes and Oxygen
Respiratory: Clear to Auscultation, Non Labored Respirations and Other (Reduced breath sounds)
Cardiac: Regular Rhythm and S1/S2; Negative Murmur, Rub or Gallop
GI: Soft, Nontender, Nondistended and Normal Bowel Sounds
Musculoskeletal: No Clubbing, No Cyanosis and No Edema
Skin: Warm and Dry; Negative Rash
Neuro: AO x 3, Nonfocal/Grossly Intact and Central Nerve's Intact; Negative Facial Droop
Psych: Calm
Data Reviewed
-
Labs: Labs Reviewed by me and Discussed with Patient
--- NOTE | 2024-06-05 13:07 | W.PN.PUL.V3 ---
Today's Communication / Plan
-
Wean oxygen
BiPAP encouraged
Finite course of antibiotics
Aspiration precautions
Assessment
-
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
Respiratory failure-acute hypoxemic and hypercapnic due to aspiration pneumonia ABG
06/02/2024--90/82/7.27 on 60%
Respiratory acidosis-suspect component of chronic hypercapnia-baseline pCO2 65
Chronic compensatory metabolic alkalosis
Aspiration pneumonia
Left pleural effusion
Sepsis with hypotension unresponsive to fluids requiring pressors
Leukopenia
Riwrmc-[id number]-yuberetpzq 9.5
Thrombocytopenia-platelet 58
Hyperglycemia
Hypoalbuminemia
DNR
Conditions present prior to admission:
Recent hospitalization 03/2024-hypoxemic/hypercapnic respiratory failure, CHF, left pleural effusion
Myelodysplasia.
PAF/Watchman.
Chronic heart failure preserved EF.
BPH.
Chronic nystagmus.
Schwannoma excision 2012. Appendectomy. Cholecystectomy. Tonsillectomy. TURP.
Plan
Respiratory status has improved and near his baseline
Supplemental oxygen as needed
Encouraged BiPAP usage at nighttime-explained benefits of improved ventilation/CO2 elimination
ABGs reviewed-chronic hypercapnia suspected with baseline pCO2 70
Nebulizers as needed
Mucolytic's
Aspiration precautions
Speech therapy evaluation ongoing
Chest ultrasound 06/03/2024 with moderate pleural effusion
Thoracentesis 06/04/[id number] -850 mL elma fluid-pH 7.38, WBC 579, glucose 103, total protein 2.9, LDH 130, cultures negative, cytology pending
Cultures reviewed
Finite course of antibiotics-transition Zosyn to Augmentin for a total of 7-10 days
Monitor hemoglobin
Transfuse as needed
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
DVT prophylaxis-mechanical
Nutrition
PT/OT
Diagnostic data:
Chest x-ray 10/07/2023-mild subsegmental atelectasis and scarring both lungs, T9 endplate fracture
Chest x-ray 11/27/2023-trace left pleural effusion
Chest x-ray 03/13/2024-moderate size left pleural effusion, severe basilar atelectasis
Chest x-ray 06/02/2024-moderate left pleural effusion which is progressed
CT chest 10/06/2022-stable or slightly less pronounced tiny pulmonary nodules, no hilar or mediastinal mass, bronchial wall thickening consistent with bronchitis,, no new nodules or existing nodular enlargement
CT chest 01/24/2023-left atrial appendage chicken wing morphology without evidence for thrombus, small sub-5 mm pulmonary nodules in both lungs appear unchanged
CT chest 10/07/2023-no evidence for pulm embolism, small left and trace right pleural effusions
CT head 06/02/2024-no acute intracranial abnormalities
Thoracentesis 03/15/[id number], 600 mL elma pleural fluid
Echocardiogram 05/22/2023-EF 55%, [address], no thrombus or significant leak, moderate mitral regurgitation, mild aortic regurgitation
Echocardiogram 03/15/2024-EF 60-65%, mild mitral regurgitation, PA systolic 35
Subjective Data
-
Date of Service:
Date of Service: June 05, 2024
Chief Complaint: Pulmonary Follow Up (Aspiration pneumonia/parapneumonic effusion) and Dyspnea Follow Up
Subjective:
Overall feels better, did not use BiPAP last night, no complaints of worsening shortness of breath, chest pain or abdominal pain
Review of Systems
General: Other (Per HPI)
Objective Data
Data Reviewed
Vital Signs / I&O:
Vital Signs
Temp Pulse Resp BP Pulse Ox
97.7 F 62 16 102/54 95
06/05/24 11:25 06/05/24 11:25 06/05/24 11:25 06/05/24 11:28 06/05/24 11:25
Intake and Output
06/04/24 06/05/24 06/06/24
06:59 06:59 06:59
Intake Total 1160 / 1160 1140 / 1140
Output Total 550 / 550 1100 / 1100
Balance 610 / 610 40 / 40
SaO2: 95
Nasal Cannula flow liters per minute: 2
Physical Exam
General: Respiratory Distress (n) and Comfortable
HEENT: Normocephalic, Anicteric and Moist Mucous Membranes
Cardiovascular: Regular Rhythm and Murmur
Respiratory: Crackles (Basilar), Rhonchi (Few expiratory), Non-Labored Respirations, Accessory Resp Muscle Use (n) and Stridor (n)
GI: Soft, Non Distended and Non Tender
Neurology: Awake, Alert and No Motor Deficits
Skin: Warm, Good Color, Cyanosis (n), Jaundice (n) and Rash (n)
Labs/Micro/Reports
Lab Data
06/05/24 06:06
06/05/24 06:06
Microbiology
06/04/24 14:59 Pleural Fluid Body Fluid Culture - Preliminary
No Growth After 18-24 Hours
06/04/24 14:59 Pleural Fluid Gram Stain - Preliminary
06/02/24 20:26 Blood/Venous Blood Culture - Preliminary
No Growth in 48 hours- Final report to follow
06/02/24 20:26 Blood/Venous Blood Culture - Preliminary
No Growth in 48 hours- Final report to follow
06/03/24 03:21 Nose MRSA Screen - Final
No Methicillin Resistant Staphylococcus aureus isolated.
06/02/24 20:07 Nasal Swab Influenza Types A & B ([facility]) - Final
Negative for Influenza A & B, NAAT
Negative results must be combined with clinical observations
and patient history.
Nucleic Acid Amplification test (NAAT)performed on the
[employer] platform.
[2024-06-05] MEDS: LIPITOR 20 MG PO (22:27)
[2024-06-05] MEDS: PEPCID 20 MG PO (22:27)
[2024-06-05] MEDS: FLOMAX 0.4 MG PO (22:27)
[2024-06-05] MEDS: PROSCAR 5 MG PO (22:27)
[2024-06-06] VITALS (9 sets, daily range): BP systolic 108–128; BP diastolic 44–56; PULSE 2–61; BMI 22.5
[2024-06-06] MEDS: ZOSYN 50 IV (03:50)
[2024-06-06 06:29] LABS: White Blood Cell Count 1.6 10^3/uL (4.8-10.8)
[2024-06-06 08:02] LABS: Hematocrit 28.8 % (39.0-52.0); Hemoglobin 8.6 g/dL (13.0-18.0); Mean Corp Hgb Conc. 29.9 g/dL (33.0-37.0); Mean Corpuscular Hgb 31.3 pg (27.0-31.0); Mean Corpuscular Volume 104.7 fL (80.0-94.0); Mean Platelet Volume 11.1 fL (7.4-10.4); Platelet Count 67 10^3/uL (130-400); Red Blood Cell Count 2.75 10^6/uL (4.70-6.10); Red Cell Dist. Width 14.1 % (11.5-14.5)
[2024-06-06] MEDS: BETAPACE 80 MG PO ×2 (08:26→19:28)
[2024-06-06] MEDS: LOW STRENGTH ASPIRIN 81 MG PO (08:27)
[2024-06-06] MEDS: LASIX 20 MG PO (08:27)
[2024-06-06 09:05] LABS: % Eosinophils 1.3 % (0-6); % Lymphocytes 42.4 % (20.5-51.1); % Monocytes 8.9 % (1.7-9.3); % Neutrophils 47.4 % (42.2-75.2); Absolute Lymphocytes 0.7 10^3/uL (1.2-3.4); Absolute Monocytes 0.1 10^3/uL (0.1-0.6); Absolute Neutrophils 0.8 10^3/uL (1.4-6.5); Nucleated Red Blood Cells % 0 % (-)
--- NOTE | 2024-06-06 10:13 | W.PN.HOSP.TC ---
Today's Communication/Plan
-
Transition Zosyn to oral Augmentin
BiPAP for 4 hours today due to missed session
Encourage compliance with nightly BiPAP
SNF tomorrow
Assessment / Plan
Assessment / Plan
#Acute on chronic hypercapnic and hypoxemic respiratory failure
#Suspected aspiration pneumonia
#Left pleural effusion s/p thoracentesis
-Currently uses 2 L of oxygen nightly at baseline
-Presented with significant respiratory distress, saturations in mid 60s on baseline oxygen
-S/p thoracentesis on 06/04 with exudative qualities per lights criteria; WBC 578, glucose 103, pH 7.3
-Started on IV Zosyn empirically for coverage of aspiration pneumonia; unclear if true infection was present
-Was started on nightly BiPAP due to significant hypercapnia, pCO2 82 on ABG; most recent pCO2 70
-Pulmonology following; refuses BiPAP last night
Plan
-Transition to oral Augmentin, continue through 06/09
-Will order BiPAP for 4 hours now and encourage nightly use
-Continue nightly BiPAP for hypercapnia
-Wean supplemental oxygen for SpO2 goal >88%
-Aspiration precautions
#Toxic metabolic encephalopathy
-Likely secondary to hypercapnia and hypoxemia
-Patient seems oriented today, likely baseline
#MDS C/B chronic pancytopenia
#Neutropenia
-All cell lines chronically depressed, ANC today 0.6
-Will continue to trend CBC and start neutropenic precaution
-Plan for IV cefepime for new onset fever
#Mild facial droop
-Stroke workup here was negative, MRI without acute findings
-Does not seem that profound upon my assessment today
#HFrecEF
#NICM
#Cardiac valvular disease
-Echo with LVEF 60%, mild MR, mild AI
-Not currently on any GDMT, does take Lasix 20 mg
-Seems euvolemic upon my assessment today
#Paroxysmal AF s/p Watchman
#H/O GIB
-Home medication includes sotalol 80 mg twice daily
-No longer on AC following watchman due to history of GIB
#BPH
-Home medications include finasteride and tamsulosin
#HLD
-No known ASCVD history
-Home meds include moderate intensity
DVT prophylaxis: SCDs
Diet: Regular
CODE STATUS: DNR
Anticipated Discharge: Within 24 hours
Subjective/Interval History
-
Date of Service: June 06, 2024
Seen and examined at the bedside. No acute events reported overnight. AFVSS this morning on 2 L oxygen
Per nursing he refused his BiPAP overnight. Seems slightly lethargic/confused this morning. Ordered BiPAP now for 4 hours, will encourage nightly BiPAP use
Denies acute complaints such as chest pain, dyspnea, fevers or chills, wheezing, bleeding or bruising, GI upset, urinary issues
Objective Data
-
Labs:
Laboratory Results
06/06/24
05:12
WBC 1.6 L*
Hgb 8.6 L
Hct 28.8 L
Plt Count 67 L
Vital Signs:
Vital Signs
Temp Pulse Resp BP Pulse Ox
97.8 F 64 20 111/44 94
06/06/24 07:30 06/06/24 08:26 06/06/24 07:30 06/06/24 08:26 06/06/24 07:30
I&O
06/05/24 06/06/24 06/07/24
06:59 06:59 06:59
Intake Total 1140 / 1140 1979 / 1979
Output Total 1100 / 1100 900 / 900
Balance 40 / 40 1080 / 1080
Review of Systems
-
History Source: Patient
All other systems: Reviewed and negative
Physical Exam
-
General: Well Nourished, No Apparent Distress and Comfortable
HEENT: Normocephalic, Atraumatic and Moist Mucous Membranes
Respiratory: Non Labored Respirations and Decreased Breath Sounds; Negative Wheezes, Rales, Rhonchi or Accessory Resp Muscle Use
Cardiac: Regular Rhythm and S1/S2; Negative Murmur, Rub or Gallop
GI: Soft, Nontender, Nondistended and Normal Bowel Sounds
Musculoskeletal: No Clubbing, No Cyanosis and No Edema
Skin: Warm and Dry; Negative Rash
Neuro: AO x 3, Nonfocal/Grossly Intact, Central Nerve's Intact and Other (Lethargic appearing)
Psych: Calm
Data Reviewed
-
Labs: Labs Reviewed by me, Discussed with Nurse and Discussed with Patient
[2024-06-06] MEDS: ZOSYN IV (10:34)
[2024-06-06] MEDS: AUGMENTIN 875 MG/125 MG 1 TABLET PO ×2 (10:44→19:28)
--- NOTE | 2024-06-06 12:19 | W.PN.PUL.V3 ---
Today's Communication / Plan
-
Encouraged BiPAP use-patient has refused-benefits reviewed with him-willing to try
BiPAP at night
Antibiotics
Aspiration precautions
Assessment
-
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
Respiratory failure-acute hypoxemic and hypercapnic due to aspiration pneumonia ABG
06/02/2024--90/82/7.27 on 60%
Respiratory acidosis-suspect component of chronic hypercapnia-baseline pCO2 65
Chronic compensatory metabolic alkalosis
Aspiration pneumonia
Left pleural effusion
Sepsis with hypotension unresponsive to fluids requiring pressors
Leukopenia
Rnahsl-[id number]-gwllnwpiqk 9.5
Thrombocytopenia-platelet 58
Hyperglycemia
Hypoalbuminemia
DNR
Conditions present prior to admission:
Recent hospitalization 03/2024-hypoxemic/hypercapnic respiratory failure, CHF, left pleural effusion
Myelodysplasia.
PAF/Watchman.
Chronic heart failure preserved EF.
BPH.
Chronic nystagmus.
Schwannoma excision 2012. Appendectomy. Cholecystectomy. Tonsillectomy. TURP.
Plan
Respiratory status has improved and near his baseline
Supplemental oxygen as needed
Encouraged BiPAP usage at nighttime-explained benefits of improved ventilation/CO2 elimination-respiratory therapy notes from 06/04/2024 state patient refused
ABGs reviewed-chronic hypercapnia suspected with baseline pCO2 70
Nebulizers as needed
Mucolytic's
Aspiration precautions
Speech therapy evaluation ongoing
Chest ultrasound 06/03/2024 with moderate pleural effusion
Thoracentesis 06/04/[id number] -850 mL elma fluid-pH 7.38, WBC 579, glucose 103, total protein 2.9, LDH 130, cultures negative, cytology pending
Cultures reviewed
Finite course of antibiotics-transition Zosyn to Augmentin for a total of 7-10 days
Monitor hemoglobin
Transfuse as needed
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
DVT prophylaxis-mechanical
Nutrition
PT/OT
Diagnostic data:
Chest x-ray 10/07/2023-mild subsegmental atelectasis and scarring both lungs, T9 endplate fracture
Chest x-ray 11/27/2023-trace left pleural effusion
Chest x-ray 03/13/2024-moderate size left pleural effusion, severe basilar atelectasis
Chest x-ray 06/02/2024-moderate left pleural effusion which is progressed
CT chest 10/06/2022-stable or slightly less pronounced tiny pulmonary nodules, no hilar or mediastinal mass, bronchial wall thickening consistent with bronchitis,, no new nodules or existing nodular enlargement
CT chest 01/24/2023-left atrial appendage chicken wing morphology without evidence for thrombus, small sub-5 mm pulmonary nodules in both lungs appear unchanged
CT chest 10/07/2023-no evidence for pulm embolism, small left and trace right pleural effusions
CT head 06/02/2024-no acute intracranial abnormalities
Thoracentesis 03/15/[id number], 600 mL elma pleural fluid
Echocardiogram 05/22/2023-EF 55%, [address], no thrombus or significant leak, moderate mitral regurgitation, mild aortic regurgitation
Echocardiogram 03/15/2024-EF 60-65%, mild mitral regurgitation, PA systolic 35
Subjective Data
-
Date of Service:
Date of Service: June 06, 2024
Chief Complaint: Pulmonary Follow Up (Aspiration pneumonia/parapneumonic effusion) and Dyspnea Follow Up
Subjective:
Patient states that he did not use BiPAP last night, no complaints of worsening shortness of breath or chest pain
Review of Systems
General: Other (Per HPI)
Objective Data
Data Reviewed
Vital Signs / I&O:
Vital Signs
Temp Pulse Resp BP Pulse Ox
97.5 F 64 20 108/51 94
06/06/24 11:50 06/06/24 11:50 06/06/24 11:50 06/06/24 11:50 06/06/24 07:30
Intake and Output
06/05/24 06/06/24 06/07/24
06:59 06:59 06:59
Intake Total 1140 / 1140 1979 / 1979
Output Total 1100 / 1100 900 / 900
Balance 40 / 40 1080 / 1080
SaO2: 94
Nasal Cannula flow liters per minute: 2
Physical Exam
General: Respiratory Distress (n) and Comfortable
HEENT: Normocephalic, Anicteric and Moist Mucous Membranes
Cardiovascular: Regular Rhythm and Murmur
Respiratory: Crackles (Basilar), Rhonchi (Few expiratory), Non-Labored Respirations, Accessory Resp Muscle Use (n) and Stridor (n)
GI: Soft, Non Distended and Non Tender
Neurology: Awake, Alert and No Motor Deficits
Skin: Warm, Good Color, Cyanosis (n), Jaundice (n) and Rash (n)
Labs/Micro/Reports
Lab Data
06/06/24 05:12
06/05/24 06:06
Microbiology
06/04/24 14:59 Pleural Fluid Body Fluid Culture - Preliminary
No Growth After 48 Hours
06/04/24 14:59 Pleural Fluid Gram Stain - Preliminary
06/02/24 20:26 Blood/Venous Blood Culture - Preliminary
No Growth in 72 hours- Final report to follow
06/02/24 20:26 Blood/Venous Blood Culture - Preliminary
No Growth in 72 hours- Final report to follow
06/03/24 03:21 Nose MRSA Screen - Final
No Methicillin Resistant Staphylococcus aureus isolated.
[2024-06-06] MEDS: PEPCID 20 MG PO (19:29)
[2024-06-06] MEDS: FLOMAX 0.4 MG PO (19:29)
[2024-06-06] MEDS: LIPITOR 20 MG PO (19:29)
[2024-06-06] MEDS: PROSCAR 5 MG PO (19:29)
[2024-06-07] VITALS (9 sets, daily range): BP systolic 118–158; BP diastolic 49–70; PULSE 2–74; O2SAT 98; BMI 22.8
[2024-06-07 06:25] LABS: Blood Urea Nitrogen 27 mg/dl (9-20); Calcium 7.3 mg/dl (8.4-10.2); Chloride 97 mmol/L (98-107); Estimated Creatinine Clearance 56 ml/min; Glucose 107 mg/dl (70-99); Potassium 4.2 mmol/L (3.5-5.1); Sodium 147 mmol/L (135-145); eGFR > 60.00
[2024-06-07 06:54] LABS: Carbon Dioxide 42 mmol/L (22-30)
[2024-06-07 07:51] LABS: % Eosinophils 1.4 % (0-6); % Immature Granulocytes 0.7 % (0-0.5); % Lymphocytes 46.5 % (20.5-51.1); % Monocytes 8.5 % (1.7-9.3); % Neutrophils 42.9 % (42.2-75.2); Absolute Lymphocytes 0.7 10^3/uL (1.2-3.4); Absolute Monocytes 0.1 10^3/uL (0.1-0.6); Absolute Neutrophils 0.6 10^3/uL (1.4-6.5); Hematocrit 29.8 % (39.0-52.0); Hemoglobin 8.9 g/dL (13.0-18.0); Mean Corp Hgb Conc. 29.9 g/dL (33.0-37.0); Mean Corpuscular Hgb 32.4 pg (27.0-31.0); Mean Corpuscular Volume 108.4 fL (80.0-94.0); Nucleated Red Blood Cells % 0 % (-); Platelet Count 79 10^3/uL (130-400); Red Blood Cell Count 2.75 10^6/uL (4.70-6.10); White Blood Cell Count 1.4 10^3/uL (4.8-10.8)
[2024-06-07] MEDS: BETAPACE 80 MG PO ×2 (08:31→19:46)
[2024-06-07] MEDS: LASIX 20 MG PO (08:32)
[2024-06-07] MEDS: AUGMENTIN 875 MG/125 MG 1 TABLET PO ×2 (08:32→19:46)
[2024-06-07] MEDS: LOW STRENGTH ASPIRIN 81 MG PO (08:32)
[2024-06-07 11:35] LABS: Glucose - Point of Care 104 mg/dl (70-99)
--- NOTE | 2024-06-07 14:30 | PN.CDI ---
CDI
- -
CDI:
Physician Documentation Request
Admit Date: 06/02/24 22:41
Dear Doctor Tressa,
06/04 Pulmonary PN: 'Sepsis with hypotension unresponsive to fluids requiring pressors'
06/04 Hospitalist PN: 'Aspiration episode with pneumonia suspected.'
Selected Entries
06/03/24
01:01 06/03/24
05:05
Levophed Administration Initial rate Infusion off
06/03/24
01:01 06/03/24
03:32 06/03/24
05:05
Rate in ml/hr 7.5 3.8 0
Please clarify which of the following is the most likely etiology of the above symptoms and treatment rendered:
Septic shock
Shock, unknown type
Hypotension - indicate type/etiology, such as idiopathic, neurogenic or orthostatic, post-procedural, postoperative, due to hemodialysis, chronic, drug induced (indicate drug), etc.
Hypotension - unknown type/etiology
Other
Use of terms such as suspected, likely, concern for, or probable (associated with a specific diagnosis that is being evaluated, monitored, or treated as if it exists) are acceptable and can be coded in the inpatient setting, when documented at the
time of discharge.
Thank you,
Christine Elias RN, BSN
CDI Specialist
Available via [place] text
Please use your independent medical judgment in providing your response.
--- NOTE | 2024-06-07 14:50 | W.PN.PUL3 ---
Today's Communication / Plan
-
Discontinue BiPAP. Patient is refusing
Minimize sedation, avoid narcotic therapy as able
To complete antibiotics 06/09
Follow-up chest x-ray as clinically indicated for recurrence of left pleural effusion
We will sign off. Please call with questions
Assessment
-
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
Respiratory failure-acute hypoxemic and hypercapnic due to aspiration pneumonia ABG
06/02/2024--90/82/7.27 on 60%
Respiratory acidosis-suspect component of chronic hypercapnia-baseline pCO2 65
Chronic compensatory metabolic alkalosis
Aspiration pneumonia
Left pleural effusion
Sepsis with hypotension unresponsive to fluids requiring pressors
Leukopenia
[id number]-[id number] 9.5
Thrombocytopenia-platelet 58
Hyperglycemia
Hypoalbuminemia
DNR
Conditions present prior to admission:
Recent hospitalization 03/2024-hypoxemic/hypercapnic respiratory failure, CHF, left pleural effusion
Myelodysplasia.
PAF/Watchman.
Chronic heart failure preserved EF.
BPH.
Chronic nystagmus.
Schwannoma excision 2012. Appendectomy. Cholecystectomy. Tonsillectomy. TURP.
Plan/recommendations
At this time, patient appears to be comfortable on 2 L
Not maintaining BiPAP 18/, 4 L consistently overnight. Taking mask off
Chest exam presently clear
Moving forward
It appears respiratory status has improved overall,
Supplemental oxygen as needed
Encouraged BiPAP usage at nighttime-explained benefits of improved ventilation/CO2 elimination-respiratory therapy notes from 06/04/2024 state patient refused
ABGs reviewed-chronic hypercapnia suspected with baseline pCO2 70
Nebulizers as needed
Mucolytic's
Aspiration precautions
Speech therapy evaluation ongoing
Chest ultrasound 06/03/2024 with moderate pleural effusion
Thoracentesis 06/04/20249434-[id number] -850 mL elma fluid-pH 7.38, WBC 579, glucose 103, total protein 2.9, LDH 130, cultures negative, cytology pending
Follow clinically for recurrence
Cultures reviewed
Finite course of antibiotics-transition Zosyn to Augmentin for a total of 7-10 days. Consider discontinuation 06/09
Monitor hemoglobin
Transfuse as needed
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
DVT prophylaxis-mechanical
Nutrition
PT/OT
DNR status noted
We will sign off. Please call with questions
Diagnostic data:
Chest x-ray 10/07/2023-mild subsegmental atelectasis and scarring both lungs, T9 endplate fracture
Chest x-ray 11/27/2023-trace left pleural effusion
Chest x-ray 03/13/2024-moderate size left pleural effusion, severe basilar atelectasis
Chest x-ray 06/02/2024-moderate left pleural effusion which is progressed
CT chest 10/06/2022-stable or slightly less pronounced tiny pulmonary nodules, no hilar or mediastinal mass, bronchial wall thickening consistent with bronchitis,, no new nodules or existing nodular enlargement
CT chest 01/24/2023-left atrial appendage chicken wing morphology without evidence for thrombus, small sub-5 mm pulmonary nodules in both lungs appear unchanged
CT chest 10/07/2023-no evidence for pulm embolism, small left and trace right pleural effusions
CT head 06/02/2024-no acute intracranial abnormalities
Thoracentesis 03/15/20245480-[id number], 600 mL elma pleural fluid
Echocardiogram 05/22/2023-EF 55%, [address], no thrombus or significant leak, moderate mitral regurgitation, mild aortic regurgitation
Echocardiogram 03/15/2024-EF 60-65%, mild mitral regurgitation, PA systolic 35
Subjective Data
-
Date of Service:
Date of Service: June 07, 2024
Chief Complaint: Pulmonary Follow Up (Aspiration pneumonia/parapneumonic effusion) and Dyspnea Follow Up
Subjective:
Patient currently sleeping comfortably. Did not awaken during my exam.
Objective Data
Data Reviewed
Vital Signs / I&O / Oxygen:
Vital Signs
Temp Pulse Resp BP Pulse Ox
98.4 F 65 17 120/49 97
06/07/24 11:00 06/07/24 11:00 06/07/24 11:00 06/07/24 11:00 06/07/24 11:25
Intake and Output
06/06/24 06/07/24 06/08/24
06:59 06:59 06:59
Intake Total 1980 / 1979 890 / 890
Output Total 900 / 900 500 / 500
Balance 1080 / 1080 390 / 390
SaO2 97
Nasal Cannula flow liters per 2
minute
Physical Exam
General: Comfortable (No use of accessory muscles)
HEENT: Normocephalic
Cardiovascular: Regular Rhythm, Murmur and Peripheral Edema (n)
Respiratory: Crackles (n), Rhonchi (n), Non-Labored Respirations and Stridor (n)
GI: Soft, Non Distended and Non Tender
Neurology: Lethargic (Sleeping comfortably. Does spontaneously move extremities to stimuli)
Skin: Good Color and Rash (n)
Labs/Micro/Reports
Lab Data
06/07/24 05:21
06/07/24 05:21
Microbiology
06/04/24 14:59 Pleural Fluid Body Fluid Culture - Final
No Growth After 72 Hours
06/04/24 14:59 Pleural Fluid Gram Stain - Final
06/02/24 20:26 Blood/Venous Blood Culture - Preliminary
No Growth in 4 days- Final report to follow
06/02/24 20:26 Blood/Venous Blood Culture - Preliminary
No Growth in 4 days- Final report to follow
--- NOTE | 2024-06-07 14:53 | CM ---
Met with patient at bedside. Patient is a resident at [facility] [place] with caregivers
Discussed role of CM.
PT recommended SNF
Called Ilana ([phone]) at [facility]. No beds available at [facility] today.
Will continue to follow up with Ilana regarding bed
PLAN: SNF, pending bed availability. CM to follow
--- NOTE | 2024-06-07 15:25 | W.PN.HOSP.TC ---
Today's Communication/Plan
-
Refusing BiPAP.
Complete antibiotic course on 06/09
Assessment / Plan
Assessment / Plan
Impression:
Toxic metabolic encephalopathy secondary to hypercarbia.
Acute on chronic hypercarbic respiratory failure
-On home O2 at 2 L
Aspiration episode with pneumonia suspected.
Aspiration risk
Possibly reaccumulating left pleural effusion.
Left facial droop, mild with reasonable concern for CVA
Conditions prior to admission:
Paroxysmal atrial fibrillation not on anticoagulation due to hemorrhagic complications
Status post watchman
MDS with chronic pancytopenia
Nonischemic cardiomyopathy with recovered EF 2021.
Echo 03/15/2024: EF 60 to 65%, some views suggest prolapse of posterior leaflet, mild MR, mild AI, mild TR, PAP 35 to 40 mmHg, no significant change compared to prior
History of gastrointestinal hemorrhage.
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
Dyslipidemia
BPH.
Surgical history: Status post watchman, schwannoma excision, appendectomy, cholecystectomy, TURP
Plan:
#Acute on chronic hypercapnic and hypoxemic respiratory failure
#Suspected aspiration pneumonia
#Left pleural effusion s/p thoracentesis
-Currently uses 2 L of oxygen nightly at baseline
-Presented with significant respiratory distress, saturations in mid 60s on baseline oxygen
-S/p thoracentesis on 06/04 with exudative qualities per lights criteria; WBC 578, glucose 103, pH 7.3
-Started on IV Zosyn empirically for coverage of aspiration pneumonia; unclear if true infection was present
-Was started on nightly BiPAP due to significant hypercapnia, pCO2 82 on ABG; most recent pCO2 70
-Pulmonology following; refuses BiPAP last night
-Transitioned to oral Augmentin, continue through 06/09
-Patient refusing BiPAP. Had been discontinued
-Continue nightly BiPAP for hypercapnia
-Wean supplemental oxygen for SpO2 goal >88%
-Aspiration precautions
Left pleural effusion.
Status post thoracentesis 850 mL. Transudate.
Follow-up chest x-ray improved.
#Toxic metabolic encephalopathy
-Likely secondary to hypercapnia and hypoxemia
-Patient seems oriented today, likely baseline
#MDS C/B chronic pancytopenia
#Neutropenia
-All cell lines chronically depressed, ANC today 0.6
-Will continue to trend CBC and start neutropenic precaution
-Plan for IV cefepime for new onset fever
#Mild facial droop
-Stroke workup here was negative, MRI without acute findings
-Does not seem that profound upon my assessment today
#HFrecEF
#NICM
#Cardiac valvular disease
-Echo with LVEF 60%, mild MR, mild AI
-Not currently on any GDMT, does take Lasix 20 mg
-Seems euvolemic upon my assessment today
#Paroxysmal AF s/p Watchman
#H/O GIB
-Home medication includes sotalol 80 mg twice daily
-No longer on AC following watchman due to history of GIB
#BPH
-Home medications include finasteride and tamsulosin
#HLD
-No known ASCVD history
-Home meds include moderate intensity
DVT prophylaxis: SCDs
Diet: Regular
CODE STATUS: DNR
Anticipated Discharge: Within 24 hours
Subjective/Interval History
-
Date of Service: June 07, 2024
Objective Data
-
Labs:
Laboratory Results
06/07/24
05:21
WBC 1.4 L*
Hgb 8.9 L
Hct 29.8 L
Plt Count 79 L
Sodium 147 H
Potassium 4.2
Chloride 97 L
Carbon Dioxide 42 H
BUN 27 H
Creatinine 0.9
Glucose 107 H
Calcium 7.3 L
Vital Signs:
Vital Signs
Temp Pulse Resp BP Pulse Ox
98.4 F 65 17 120/49 97
06/07/24 11:00 06/07/24 11:00 06/07/24 11:00 06/07/24 11:00 06/07/24 11:25
I&O
06/06/24 06/07/24 06/08/24
06:59 06:59 06:59
Intake Total 1979 / 1979 890 / 890
Output Total 900 / 900 500 / 500
Balance 1080 / 1080 390 / 390
Physical Exam
-
General: Well Nourished, No Apparent Distress and Comfortable
HEENT: Normocephalic, Atraumatic and Moist Mucous Membranes
Respiratory: Non Labored Respirations and Decreased Breath Sounds; Negative Wheezes, Rales, Rhonchi or Accessory Resp Muscle Use
Cardiac: Regular Rhythm and S1/S2; Negative Murmur, Rub or Gallop
GI: Soft, Nontender, Nondistended and Normal Bowel Sounds
Musculoskeletal: No Clubbing, No Cyanosis and No Edema
Skin: Warm and Dry; Negative Rash
Neuro: AO x 3, Nonfocal/Grossly Intact, Central Nerve's Intact and Other (Lethargic appearing)
Psych: Calm
[2024-06-07] MEDS: LIPITOR 20 MG PO (19:46)
[2024-06-07] MEDS: PROSCAR 5 MG PO (19:46)
[2024-06-07] MEDS: PEPCID 20 MG PO (19:46)
[2024-06-07] MEDS: FLOMAX 0.4 MG PO (19:46)
[2024-06-07] MEDS: OCEAN, SALINE MIST 2 SPRAYS NASAL (19:47)
[2024-06-08 03:23] VITALS: BP 140/56
[2024-06-08 06:00] VITALS: BMI 23.0
[2024-06-08 07:22] VITALS: BP 154/61
[2024-06-08] MEDS: BETAPACE 80 MG PO ×2 (08:08→21:01)
[2024-06-08] MEDS: LASIX 20 MG PO (08:08)
[2024-06-08] MEDS: AUGMENTIN 875 MG/125 MG 1 TABLET PO (08:08)
[2024-06-08] MEDS: LOW STRENGTH ASPIRIN 81 MG PO (08:09)
--- NOTE | 2024-06-08 10:35 | CM ---
Addendum entered by Delaney Benito 06/08/24 11:03:
Return call from Ilana/[facility]. She confirmed that there are no SNF beds and could not confirm any availability this week.
She stated she will let CM know if a bed becomes available as she is aware pt's criss is only interested in [facility]
Original Note:
Per hospitalist pt is ready for d/c to SNF
CM spoke w/ Dr. Monse kahn re d/c plan
Dr. Shea informed CM that pt is from [facility] and is requesting pt to return to facility's SNF.
Dr. Shea denies exploring additional options at this time. Dr. Shea informed CM he did speak w/ liaisonIlana and was informed that there are no beds.
CM attempted TC to Ilana/[facility], there was no answer, CM left VM
CM will cont. to follow up
Plan: [facility] SNF
[2024-06-08 10:54] VITALS: BP 125/47
[2024-06-08 15:32] VITALS: BP 92/34
--- NOTE | 2024-06-08 15:40 | W.PN.HOSP.TC ---
Today's Communication/Plan
-
Monitor respiratory status closely.
Unable to tolerate CPAP.
Optimized for placement to nursing home facility pending bed availability
Assessment / Plan
Assessment / Plan
Impression:
Toxic metabolic encephalopathy secondary to hypercarbia.
Acute on chronic hypercarbic respiratory failure
-On home O2 at 2 L
Aspiration episode with pneumonia
Aspiration risk
Possibly reaccumulating left pleural effusion.
Left facial droop, mild with reasonable concern for CVA
Conditions prior to admission:
Paroxysmal atrial fibrillation not on anticoagulation due to hemorrhagic complications
Status post watchman
MDS with chronic pancytopenia
Nonischemic cardiomyopathy with recovered EF 2021.
Echo 03/15/2024: EF 60 to 65%, some views suggest prolapse of posterior leaflet, mild MR, mild AI, mild TR, PAP 35 to 40 mmHg, no significant change compared to prior
History of gastrointestinal hemorrhage.
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
Dyslipidemia
BPH.
Surgical history: Status post watchman, schwannoma excision, appendectomy, cholecystectomy, TURP
Plan:
#Acute on chronic hypercapnic and hypoxemic respiratory failure
#Suspected aspiration pneumonia
#Left pleural effusion s/p thoracentesis
-Currently uses 2 L of oxygen nightly at baseline
-Presented with significant respiratory distress, saturations in mid 60s on baseline oxygen
-S/p thoracentesis on 06/04 with exudative qualities per lights criteria; WBC 578, glucose 103, pH 7.3
-Started on IV Zosyn empirically for coverage of aspiration pneumonia; unclear if true infection was present
-Was started on nightly BiPAP due to significant hypercapnia, pCO2 82 on ABG; most recent pCO2 70
-Pulmonology following; refuses BiPAP
-Transitioned to oral Augmentin, completed antibiotic course on 06/09
-Patient refusing BiPAP. Had been discontinued
-Continue nightly BiPAP for hypercapnia
-Wean supplemental oxygen for SpO2 goal >88%
-Aspiration precautions
Transient hypotension in the settings of acidosis responding to IV fluids and CPAP administration. Sepsis ruled out.
Left pleural effusion.
Status post thoracentesis 850 mL. Transudate.
Follow-up chest x-ray improved.
#Toxic metabolic encephalopathy
-Likely secondary to hypercapnia and hypoxemia
-Patient seems oriented today, likely baseline
#MDS C/B chronic pancytopenia
#Neutropenia
-All cell lines chronically depressed, ANC today 0.6
-Will continue to trend CBC and start neutropenic precaution
-Plan for IV cefepime for new onset fever
#Mild facial droop
-Stroke workup here was negative, MRI without acute findings
-Does not seem that profound upon my assessment today
#HFrecEF
#NICM
#Cardiac valvular disease
-Echo with LVEF 60%, mild MR, mild AI
-Not currently on any GDMT, does take Lasix 20 mg
-Seems euvolemic upon my assessment today
#Paroxysmal AF s/p Watchman
#H/O GIB
-Home medication includes sotalol 80 mg twice daily
-No longer on AC following watchman due to history of GIB
#BPH
-Home medications include finasteride and tamsulosin
#HLD
-No known ASCVD history
-Home meds include moderate intensity
DVT prophylaxis: SCDs
Diet: Regular
CODE STATUS: DNR
Anticipated Discharge: Within 24 hours
Subjective/Interval History
-
Date of Service: June 08, 2024
Objective Data
-
Vital Signs:
Vital Signs
Temp Pulse Resp BP Pulse Ox
97.4 F 63 16 92/34 97
06/08/24 15:32 06/08/24 15:32 06/08/24 15:32 06/08/24 15:32 10/22/24 15:32
I&O
06/07/24 06/08/24 06/09/24
06:59 06:59 06:59
Intake Total 890 / 890 830 / 830
Output Total 500 / 500 500 / 500
Balance 390 / 390 330 / 330
Physical Exam
-
General: Well Nourished, No Apparent Distress and Comfortable
HEENT: Normocephalic, Atraumatic and Moist Mucous Membranes
Respiratory: Non Labored Respirations and Decreased Breath Sounds; Negative Wheezes, Rales, Rhonchi or Accessory Resp Muscle Use
Cardiac: Regular Rhythm and S1/S2; Negative Murmur, Rub or Gallop
GI: Soft, Nontender, Nondistended and Normal Bowel Sounds
Musculoskeletal: No Clubbing, No Cyanosis and No Edema
Skin: Warm and Dry; Negative Rash
Neuro: AO x 3, Nonfocal/Grossly Intact, Central Nerve's Intact and Other (Lethargic appearing)
Psych: Calm
[2024-06-08 19:30] VITALS: BP 119/51
[2024-06-08] MEDS: PROSCAR 5 MG PO (21:02)
[2024-06-08] MEDS: LIPITOR 20 MG PO (21:02)
[2024-06-08] MEDS: FLOMAX 0.4 MG PO (21:02)
[2024-06-08] MEDS: PEPCID 20 MG PO (21:02)
[2024-06-08 23:50] VITALS: BP 122/49
[2024-06-09] VITALS (8 sets, daily range): BP systolic 114–133; BP diastolic 48–78; PULSE 65; O2SAT 95–98; BMI 22.8
[2024-06-09] MEDS: LOW STRENGTH ASPIRIN 81 MG PO (08:32)
[2024-06-09] MEDS: LASIX 20 MG PO (08:32)
[2024-06-09] MEDS: BETAPACE 80 MG PO ×2 (08:33→21:23)
--- NOTE | 2024-06-09 13:03 | CM ---
Spoke with Ilana from [facility] [employer].
No bed availability.
Ilana spoke with son Nain and he will contact department.
Plan: skilled rehab once bed available.
[2024-06-09] MEDS: TYLENOL 650 MG PO (14:33)
--- NOTE | 2024-06-09 16:11 | W.PN.HOSP.TC ---
Today's Communication/Plan
-
Continue supportive care.
Placement pending SNF bed availability
Assessment / Plan
Assessment / Plan
Impression:
Toxic metabolic encephalopathy secondary to hypercarbia.
Acute on chronic hypercarbic respiratory failure
-On home O2 at 2 L
Aspiration episode with pneumonia
Aspiration risk
Possibly reaccumulating left pleural effusion.
Left facial droop, mild with reasonable concern for CVA
Conditions prior to admission:
Paroxysmal atrial fibrillation not on anticoagulation due to hemorrhagic complications
Status post watchman
MDS with chronic pancytopenia
Nonischemic cardiomyopathy with recovered EF 2021.
Echo 03/15/2024: EF 60 to 65%, some views suggest prolapse of posterior leaflet, mild MR, mild AI, mild TR, PAP 35 to 40 mmHg, no significant change compared to prior
History of gastrointestinal hemorrhage.
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
Dyslipidemia
BPH.
Surgical history: Status post watchman, schwannoma excision, appendectomy, cholecystectomy, TURP
Plan:
#Acute on chronic hypercapnic and hypoxemic respiratory failure
#Suspected aspiration pneumonia
#Left pleural effusion s/p thoracentesis
-Currently uses 2 L of oxygen nightly at baseline
-Presented with significant respiratory distress, saturations in mid 60s on baseline oxygen
-S/p thoracentesis on 06/04 with exudative qualities per lights criteria; WBC 578, glucose 103, pH 7.3
-Started on IV Zosyn empirically for coverage of aspiration pneumonia; unclear if true infection was present
-Was started on nightly BiPAP due to significant hypercapnia, pCO2 82 on ABG; most recent pCO2 70
-Pulmonology following; refuses BiPAP
-Transitioned to oral Augmentin, completed antibiotic course on 06/09
-Patient refusing BiPAP. Had been discontinued
-Continue nightly BiPAP for hypercapnia
-Wean supplemental oxygen for SpO2 goal >88%
-Aspiration precautions
Transient hypotension in the settings of acidosis responding to IV fluids and CPAP administration. Sepsis ruled out.
Left pleural effusion.
Status post thoracentesis 850 mL. Transudate.
Follow-up chest x-ray improved.
#Toxic metabolic encephalopathy
-Likely secondary to hypercapnia and hypoxemia
-Patient seems oriented today, likely baseline
#MDS C/B chronic pancytopenia
#Neutropenia
-All cell lines chronically depressed, ANC today 0.6
-Will continue to trend CBC and start neutropenic precaution
-Plan for IV cefepime for new onset fever
#Mild facial droop
-Stroke workup here was negative, MRI without acute findings
-Does not seem that profound upon my assessment today
#HFrecEF
#NICM
#Cardiac valvular disease
-Echo with LVEF 60%, mild MR, mild AI
-Not currently on any GDMT, does take Lasix 20 mg
-Seems euvolemic upon my assessment today
#Paroxysmal AF s/p Watchman
#H/O GIB
-Home medication includes sotalol 80 mg twice daily
-No longer on AC following watchman due to history of GIB
#BPH
-Home medications include finasteride and tamsulosin
#HLD
-No known ASCVD history
-Home meds include moderate intensity
DVT prophylaxis: SCDs
Diet: Regular
CODE STATUS: DNR
Anticipated Discharge: Within 24 hours
Subjective/Interval History
-
Date of Service: June 09, 2024
Objective Data
-
Vital Signs:
Vital Signs
Temp Pulse Resp BP Pulse Ox
98.2 F 62 16 118/49 97
06/09/24 15:19 06/09/24 15:19 06/09/24 15:19 06/09/24 15:19 06/09/24 15:19
I&O
1006/09/24 06/10/24
06:59 06:59 06:59
Intake Total 830 / 830 540 / 540
Output Total 500 / 500 215 / 215
Balance 330 / 330 325 / 325
Physical Exam
-
General: Well Nourished, No Apparent Distress and Comfortable
HEENT: Normocephalic, Atraumatic and Moist Mucous Membranes
Respiratory: Non Labored Respirations and Decreased Breath Sounds; Negative Wheezes, Rales, Rhonchi or Accessory Resp Muscle Use
Cardiac: Regular Rhythm and S1/S2; Negative Murmur, Rub or Gallop
GI: Soft, Nontender, Nondistended and Normal Bowel Sounds
Musculoskeletal: No Clubbing, No Cyanosis and No Edema
Skin: Warm and Dry; Negative Rash
Neuro: AO x 3, Nonfocal/Grossly Intact, Central Nerve's Intact and Other (Lethargic appearing)
Psych: Calm
[2024-06-09] MEDS: COMPAZINE 10 MG IV (16:21)
[2024-06-09] MEDS: SENOKOT-S 1 TABLET PO (17:51)
[2024-06-09] MEDS: MIRALAX 17 GRAMS PO (17:52)
[2024-06-09] MEDS: PEPCID 20 MG PO (21:23)
[2024-06-09] MEDS: PROSCAR 5 MG PO (21:23)
[2024-06-09] MEDS: FLOMAX 0.4 MG PO (21:23)
[2024-06-09] MEDS: LIPITOR 20 MG PO (21:23)
[2024-06-10 03:44] VITALS: BP 156/71
[2024-06-10 06:00] VITALS: BMI 23.1
[2024-06-10 07:23] VITALS: BP 142/59
[2024-06-10] MEDS: BETAPACE 80 MG PO ×2 (07:54→20:19)
[2024-06-10] MEDS: LASIX 20 MG PO (07:55)
[2024-06-10] MEDS: LOW STRENGTH ASPIRIN 81 MG PO (07:55)
[2024-06-10 11:44] VITALS: BP 125/52
[2024-06-10] MEDS: OCEAN, SALINE MIST 1 SPRAYS NASAL (15:10)
--- NOTE | 2024-06-10 15:13 | W.PN.HOSP.TC ---
Today's Communication/Plan
-
Medically optimized
Pending placement to senior living facility
Assessment / Plan
Assessment / Plan
Impression:
Toxic metabolic encephalopathy secondary to hypercarbia.
Acute on chronic hypercarbic respiratory failure
-On home O2 at 2 L
Aspiration episode with pneumonia
Aspiration risk
Possibly reaccumulating left pleural effusion.
Left facial droop, mild with reasonable concern for CVA
Conditions prior to admission:
Paroxysmal atrial fibrillation not on anticoagulation due to hemorrhagic complications
Status post watchman
MDS with chronic pancytopenia
Nonischemic cardiomyopathy with recovered EF 2021.
Echo 03/15/2024: EF 60 to 65%, some views suggest prolapse of posterior leaflet, mild MR, mild AI, mild TR, PAP 35 to 40 mmHg, no significant change compared to prior
History of gastrointestinal hemorrhage.
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
Dyslipidemia
BPH.
Surgical history: Status post watchman, schwannoma excision, appendectomy, cholecystectomy, TURP
Plan:
#Acute on chronic hypercapnic and hypoxemic respiratory failure
#Suspected aspiration pneumonia
#Left pleural effusion s/p thoracentesis
-Currently uses 2 L of oxygen nightly at baseline
-Presented with significant respiratory distress, saturations in mid 60s on baseline oxygen
-S/p thoracentesis on 06/04 with exudative qualities per lights criteria; WBC 578, glucose 103, pH 7.3
-Started on IV Zosyn empirically for coverage of aspiration pneumonia; unclear if true infection was present
-Was started on nightly BiPAP due to significant hypercapnia, pCO2 82 on ABG; most recent pCO2 70
-Pulmonology following; refuses BiPAP
-Transitioned to oral Augmentin, completed antibiotic course on 06/09
-Patient refusing BiPAP. Had been discontinued
-Continue nightly BiPAP for hypercapnia
-Wean supplemental oxygen for SpO2 goal >88%
-Aspiration precautions
Transient hypotension in the settings of acidosis responding to IV fluids and CPAP administration. Sepsis ruled out.
Left pleural effusion.
Status post thoracentesis 850 mL. Transudate.
Follow-up chest x-ray improved.
#Toxic metabolic encephalopathy
-Likely secondary to hypercapnia and hypoxemia
-Patient seems oriented today, likely baseline
#MDS C/B chronic pancytopenia
#Neutropenia
-All cell lines chronically depressed, ANC today 0.6
-Will continue to trend CBC and start neutropenic precaution
-Plan for IV cefepime for new onset fever
#Mild facial droop
-Stroke workup here was negative, MRI without acute findings
-Does not seem that profound upon my assessment today
#HFrecEF
#NICM
#Cardiac valvular disease
-Echo with LVEF 60%, mild MR, mild AI
-Not currently on any GDMT, does take Lasix 20 mg
-Seems euvolemic upon my assessment today
#Paroxysmal AF s/p Watchman
#H/O GIB
-Home medication includes sotalol 80 mg twice daily
-No longer on AC following watchman due to history of GIB
#BPH
-Home medications include finasteride and tamsulosin
#HLD
-No known ASCVD history
-Home meds include moderate intensity
DVT prophylaxis: SCDs
Diet: Regular
CODE STATUS: DNR
Anticipated Discharge: Within 24 hours
Subjective/Interval History
-
Date of Service: June 10, 2024
Objective Data
-
Vital Signs:
Vital Signs
Temp Pulse Resp BP Pulse Ox
98.2 F 66 40 125/52 96
06/10/24 11:44 06/10/24 11:44 06/10/24 11:44 06/10/24 11:44 06/10/24 11:44
I&O
10/06/10/24 06/11/24
06:59 06:59 06:59
Intake Total 540 / 540 200 / 200
Output Total 215 / 215 275 / 275 250 / 250
Balance 325 / 325 -275 / -275 -50 / -50
Physical Exam
-
General: Well Nourished, No Apparent Distress and Comfortable
HEENT: Normocephalic, Atraumatic and Moist Mucous Membranes
Respiratory: Non Labored Respirations and Decreased Breath Sounds; Negative Wheezes, Rales, Rhonchi or Accessory Resp Muscle Use
Cardiac: Regular Rhythm and S1/S2; Negative Murmur, Rub or Gallop
GI: Soft, Nontender, Nondistended and Normal Bowel Sounds
Musculoskeletal: No Clubbing, No Cyanosis and No Edema
Skin: Warm and Dry; Negative Rash
Neuro: AO x 3, Nonfocal/Grossly Intact, Central Nerve's Intact and Other (Lethargic appearing)
Psych: Calm
[2024-06-10 15:21] VITALS: BP 124/52
[2024-06-10 20:10] VITALS: BP 130/51
[2024-06-10] MEDS: FLOMAX 0.4 MG PO (22:39)
[2024-06-10] MEDS: LIPITOR 20 MG PO (22:39)
[2024-06-10] MEDS: PROSCAR 5 MG PO (22:40)
[2024-06-10] MEDS: PEPCID 20 MG PO (22:40)
[2024-06-10 23:43] VITALS: BP 144/62
[2024-06-11] VITALS (9 sets, daily range): BP systolic 116–141; BP diastolic 48–63; PULSE 2–77; O2SAT 98; BMI 23.4
[2024-06-11] MEDS: BETAPACE 80 MG PO ×2 (07:37→20:55)
[2024-06-11] MEDS: LASIX 20 MG PO (07:38)
[2024-06-11] MEDS: LOW STRENGTH ASPIRIN 81 MG PO (07:38)
--- NOTE | 2024-06-11 11:50 | CM ---
Addendum entered by Elvia Valdez 06/11/24 14:20:
Per Verito, [facility] does not have any Assisted Living units available; per his request, SNF referral was sent to [facility] via [facility]
CM called [facility] flight coordinator and was told they did not have a bed available; may have a bed available the middle of next week
Original Note:
Family is seeking to transition patient to Assisted Living @ [facility]
Per Verito, he and patient's son plan to meet with Hospice this afternoon
Verito, will call CM back when more information is available
--- NOTE | 2024-06-11 16:02 | W.PN.HOSP.TC ---
Today's Communication/Plan
-
Respiratory and mental status has been stable
Ongoing disposition efforts.
Assessment / Plan
Assessment / Plan
Impression:
Toxic metabolic encephalopathy secondary to hypercarbia.
Acute on chronic hypercarbic respiratory failure
-On home O2 at 2 L
Aspiration episode with pneumonia
Aspiration risk
Possibly reaccumulating left pleural effusion.
Left facial droop, mild with reasonable concern for CVA
Conditions prior to admission:
Paroxysmal atrial fibrillation not on anticoagulation due to hemorrhagic complications
Status post watchman
MDS with chronic pancytopenia
Nonischemic cardiomyopathy with recovered EF 2021.
Echo 03/15/2024: EF 60 to 65%, some views suggest prolapse of posterior leaflet, mild MR, mild AI, mild TR, PAP 35 to 40 mmHg, no significant change compared to prior
History of gastrointestinal hemorrhage.
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
Dyslipidemia
BPH.
Surgical history: Status post watchman, schwannoma excision, appendectomy, cholecystectomy, TURP
Plan:
#Acute on chronic hypercapnic and hypoxemic respiratory failure
#Suspected aspiration pneumonia
#Left pleural effusion s/p thoracentesis
-Currently uses 2 L of oxygen nightly at baseline
-Presented with significant respiratory distress, saturations in mid 60s on baseline oxygen
-S/p thoracentesis on 06/04 with exudative qualities per lights criteria; WBC 578, glucose 103, pH 7.3
-Started on IV Zosyn empirically for coverage of aspiration pneumonia; unclear if true infection was present
-Was started on nightly BiPAP due to significant hypercapnia, pCO2 82 on ABG; most recent pCO2 70
-Pulmonology following; refuses BiPAP
-Transitioned to oral Augmentin, completed antibiotic course on 06/09
-Patient refusing BiPAP. Had been discontinued
-Continue nightly BiPAP for hypercapnia
-Wean supplemental oxygen for SpO2 goal >88%
-Aspiration precautions
Transient hypotension in the settings of acidosis responding to IV fluids and CPAP administration. Sepsis ruled out.
Left pleural effusion.
Status post thoracentesis 850 mL. Transudate.
Follow-up chest x-ray improved.
#Toxic metabolic encephalopathy
-Likely secondary to hypercapnia and hypoxemia
-Patient seems oriented today, likely baseline
#MDS C/B chronic pancytopenia
#Neutropenia
-All cell lines chronically depressed, ANC today 0.6
-Will continue to trend CBC and start neutropenic precaution
-Plan for IV cefepime for new onset fever
#Mild facial droop
-Stroke workup here was negative, MRI without acute findings
-Does not seem that profound upon my assessment today
#HFrecEF
#NICM
#Cardiac valvular disease
-Echo with LVEF 60%, mild MR, mild AI
-Not currently on any GDMT, does take Lasix 20 mg
-Seems euvolemic upon my assessment today
#Paroxysmal AF s/p Watchman
#H/O GIB
-Home medication includes sotalol 80 mg twice daily
-No longer on AC following watchman due to history of GIB
#BPH
-Home medications include finasteride and tamsulosin
#HLD
-No known ASCVD history
-Home meds include moderate intensity
DVT prophylaxis: SCDs
Diet: Regular
CODE STATUS: DNR
Anticipated Discharge: > 48 hours
Subjective/Interval History
-
Date of Service: June 11, 2024
Objective Data
-
Vital Signs:
Vital Signs
Temp Pulse Resp BP Pulse Ox
98.3 F 61 16 129/55 95
06/11/24 15:46 06/11/24 15:46 06/11/24 15:46 06/11/24 15:46 06/11/24 15:46
I&O
06/10/24 06/11/24 06/12/24
06:59 06:59 06:59
Intake Total 920 / 920
Output Total 275 / 275 1200 / 1200
Balance -275 / -275 -280 / -280
Physical Exam
-
General: Well Nourished, No Apparent Distress and Comfortable
HEENT: Normocephalic, Atraumatic and Moist Mucous Membranes
Respiratory: Non Labored Respirations and Decreased Breath Sounds; Negative Wheezes, Rales, Rhonchi or Accessory Resp Muscle Use
Cardiac: Regular Rhythm and S1/S2; Negative Murmur, Rub or Gallop
GI: Soft, Nontender, Nondistended and Normal Bowel Sounds
Musculoskeletal: No Clubbing, No Cyanosis and No Edema
Skin: Warm and Dry; Negative Rash
Neuro: AO x 3, Nonfocal/Grossly Intact, Central Nerve's Intact and Other (Lethargic appearing)
Psych: Calm
[2024-06-11] MEDS: PROSCAR 5 MG PO (21:38)
[2024-06-11] MEDS: FLOMAX 0.4 MG PO (21:39)
[2024-06-11] MEDS: PEPCID 20 MG PO (21:39)
[2024-06-11] MEDS: LIPITOR 20 MG PO (21:39)
[2024-06-12] VITALS (9 sets, daily range): BP systolic 117–152; BP diastolic 44–73; PULSE 2–75; BMI 22.5
--- NOTE | 2024-06-12 08:55 | W.PN.HOSP.TC ---
Today's Communication/Plan
-
Discharge disposition
Assessment / Plan
Assessment / Plan
Physical exam:
General: Chronically ill
HEENT: Normocephalic, Atraumatic and Moist Mucous Membranes
Respiratory: Clear to Auscultation; Negative Wheezes, Rales or Rhonchi
Cardiac: Regular Rhythm and S1/S2
GI: Soft, Nontender and Nondistended
Musculoskeletal: No Clubbing, No Cyanosis and No Edema
Neuro: Lethargic, nonfocal exam
Psych: Calm
A/P:
Impression:
Toxic metabolic encephalopathy secondary to hypercarbia.
Acute on chronic hypercarbic respiratory failure
-On home O2 at 2 L
Aspiration episode with pneumonia
Aspiration risk
Possibly reaccumulating left pleural effusion.
Left facial droop, mild with reasonable concern for CVA
Conditions prior to admission:
Paroxysmal atrial fibrillation not on anticoagulation due to hemorrhagic complications
Status post watchman
MDS with chronic pancytopenia
Nonischemic cardiomyopathy with recovered EF 2021.
Echo 03/15/2024: EF 60 to 65%, some views suggest prolapse of posterior leaflet, mild MR, mild AI, mild TR, PAP 35 to 40 mmHg, no significant change compared to prior
History of gastrointestinal hemorrhage.
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
Dyslipidemia
BPH.
Surgical history: Status post watchman, schwannoma excision, appendectomy, cholecystectomy, TURP
Plan:
#Acute on chronic hypercapnic and hypoxemic respiratory failure
#Suspected aspiration pneumonia
#Left pleural effusion s/p thoracentesis
-Currently uses 2 L of oxygen nightly at baseline
-Presented with significant respiratory distress, saturations in mid 60s on baseline oxygen
-S/p thoracentesis on 06/04 with exudative qualities per lights criteria; WBC 578, glucose 103, pH 7.3
-Started on IV Zosyn empirically for coverage of aspiration pneumonia; unclear if true infection was present
-Was started on nightly BiPAP due to significant hypercapnia, pCO2 82 on ABG; most recent pCO2 70
-Pulmonology following; refuses BiPAP
-Transitioned to oral Augmentin, completed antibiotic course on 06/09
-Patient refusing BiPAP. Had been discontinued
-Continue nightly BiPAP for hypercapnia
-Wean supplemental oxygen for SpO2 goal >88%
-Aspiration precautions
-Discussed with son at bedside today on 06/12
Transient hypotension in the settings of acidosis responding to IV fluids and CPAP administration. Sepsis ruled out.
Left pleural effusion.
Status post thoracentesis 850 mL. Transudate.
Follow-up chest x-ray improved.
#Toxic metabolic encephalopathy
-Likely secondary to hypercapnia and hypoxemia
-Patient seems oriented today, likely baseline
#MDS C/B chronic pancytopenia
#Neutropenia
-All cell lines chronically depressed, ANC today 0.6
-Will continue to trend CBC and start neutropenic precaution
-Plan for IV cefepime for new onset fever
#Mild facial droop
-Stroke workup here was negative, MRI without acute findings
-Does not seem that profound upon my assessment today
#HFrecEF
#NICM
#Cardiac valvular disease
-Echo with LVEF 60%, mild MR, mild AI
-Not currently on any GDMT, does take Lasix 20 mg
-Seems euvolemic upon my assessment today
#Paroxysmal AF s/p Watchman
#H/O GIB
-Home medication includes sotalol 80 mg twice daily
-No longer on AC following watchman due to history of GIB
#BPH
-Home medications include finasteride and tamsulosin
#HLD
-No known ASCVD history
-Home meds include moderate intensity
DVT prophylaxis: SCDs
Diet: Regular
CODE STATUS: DNR
Anticipated Discharge: > 48 hours
Subjective/Interval History
-
Date of Service: June 12, 2024
No new events. Afebrile
Objective Data
-
Vital Signs:
Vital Signs
Temp Pulse Resp BP Pulse Ox
98.3 F 79 16 152/68 95
06/12/24 07:41 06/12/24 07:41 06/12/24 07:41 06/12/24 07:41 06/12/24 07:41
I&O
06/11/24 06/12/24 06/13/24
06:59 06:59 06:59
Intake Total 920 / 920 480 / 480
Output Total 1200 / 1200 400 / 400
Balance -280 / -280 80 / 80
[2024-06-12] MEDS: LASIX 20 MG PO (09:19)
[2024-06-12] MEDS: LOW STRENGTH ASPIRIN 81 MG PO (09:19)
[2024-06-12] MEDS: BETAPACE 80 MG PO ×2 (09:19→20:31)
--- NOTE | 2024-06-12 15:30 | PTCARENOTE ---
Pt very dyspneic at rest. Purse lip breathing and unable to talk in full sentences. Pt appears uncomfortable and unable to lay flat. 2L 94% AAOx3. Dr Bronson notified and orders placed.
[2024-06-12] MEDS: DUONEB 3 ML INH (15:51)
[2024-06-12 15:52] LABS: B.E. 27.2 mmol/L; PO2 79 mmHg (83-108); pH 7.35 (7.35-7.45)
[2024-06-12 15:55] LABS: HCO3 56.9 mmol/L (21-28); PCO2 103 mmHg (35-48)
--- NOTE | 2024-06-12 16:22 | W.PN.PUL3 ---
Today's Communication / Plan
-
CXR today shows worsening left-sided pleural effusion
Recommend IR consult for thoracentesis
Continue with BiPAP and trend venous blood gas; blood gas today shows well compensated hypercapnia with pH 7.35, pCO2 103
Continue with aspiration precautions
DNR/DNI
Low threshold to transition to comfort care
Assessment
-
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
aspiration-solar project coordination specialist consulted for respiratory failure/critical care management 06/03/2024.
Impression:
Respiratory failure-acute on chronic hypoxemic and hypercapnic due to aspiration pneumonia
Chronic respiratory failure with hypercapnia
Chronic compensatory metabolic alkalosis
Aspiration pneumonia
Left pleural effusion - worsening
Sepsis with hypotension unresponsive to fluids requiring pressors
Leukopenia
Anemia-macrocytic
Thrombocytopenia
Hyperglycemia - resolved
Hypoalbuminemia
DNR
Conditions present prior to admission:
Recent hospitalization 03/2024-hypoxemic/hypercapnic respiratory failure, CHF, left pleural effusion
Myelodysplasia.
PAF/Watchman.
Chronic heart failure preserved EF.
BPH.
Chronic nystagmus.
Schwannoma excision 2012. Appendectomy. Cholecystectomy. Tonsillectomy. TURP.
Plan/recommendations
Patient has been comfortable but then today developed worsening shortness of breath, was placed onto BiPAP and transferred to the IMU for further care with solar project coordination specialist/pulmonary service consulted
He previously was not tolerating BiPAP and was consistently taken the mask off
He still wants to take the mask off now but he is not interested in comfort care
CXR shows worsening left-sided pleural effusion
- Consult IR for left-sided thoracentesis
- Last thoracentesis was on 06/04/2024 of left effusion, removing 850 cc of elma-colored transudative fluid
Encouraged BiPAP usage at nighttime-explained benefits of improved ventilation/CO2 elimination-respiratory therapy notes from 06/04/2024 state patient refused
ABGs reviewed-chronic hypercapnia suspected with baseline pCO2 ~95
Nebulizers as needed
Aspiration precautions
Speech therapy evaluation ongoing
Chest ultrasound 06/03/2024 with moderate pleural effusion
Thoracentesis 06/04/20241952-[id number] -850 mL elma fluid-pH 7.38, WBC 579, glucose 103, total protein 2.9, LDH 130, cultures negative, cytology negative for malignant cells
Patient is on 20 mg PO Lasix daily; change Lasix to 40 mg IV daily x 3 days before transitioning back to home dose
Cultures reviewed
Finite course of antibiotics-transitioned from Zosyn to Augmentinon 06/06, for a total of 7-10 days - last dose on 06/08; monitor off ABx
Monitor hemoglobin
Transfuse as needed
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
DVT prophylaxis-mechanical
Nutrition
PT/OT
DNR status noted
Pulmonary service will continue to briefly follow along.
Diagnostic data:
Chest x-ray 10/07/2023-mild subsegmental atelectasis and scarring both lungs, T9 endplate fracture
Chest x-ray 11/27/2023-trace left pleural effusion
Chest x-ray 03/13/2024-moderate size left pleural effusion, severe basilar atelectasis
Chest x-ray 06/02/2024-moderate left pleural effusion which is progressed
CXR 06/12/2024: Moderate left pleural effusion with associated probable atelectasis, progressed.
CT chest 10/06/2022-stable or slightly less pronounced tiny pulmonary nodules, no hilar or mediastinal mass, bronchial wall thickening consistent with bronchitis,, no new nodules or existing nodular enlargement
CT chest 01/24/2023-left atrial appendage chicken wing morphology without evidence for thrombus, small sub-5 mm pulmonary nodules in both lungs appear unchanged
CT chest 10/07/2023-no evidence for pulm embolism, small left and trace right pleural effusions
CT head 06/02/2024-no acute intracranial abnormalities
Thoracentesis 03/15/20240767-[id number], 600 mL elma pleural fluid
Echocardiogram 05/22/2023-EF 55%, [address], no thrombus or significant leak, moderate mitral regurgitation, mild aortic regurgitation
Echocardiogram 03/15/2024-EF 60-65%, mild mitral regurgitation, PA systolic 35
Total time spent today was 51 minutes for this encounter. Time includes reviewing laboratory test/imaging results, reviewing pertinent medical records, obtaining and reviewing medical history, performing an appropriate exam, ordering medications,
tests and procedures. Time also includes documentation of this encounter, coordinating patient care and communicating with other healthcare professionals. Total time does not include separately billed tests performed on this date of service.
Subjective Data
-
Date of Service:
Date of Service: June 12, 2024
Chief Complaint: Pulmonary Follow Up (Aspiration pneumonia/parapneumonic effusion) and Dyspnea Follow Up
Subjective:
Asked to see this patient again due to worsening SOB. CXR done today shows a moderate size left pleural effusion. When I saw him he was resting in bed on BiPAP 18/ bled with 6 L/min, with VTe 450 mL and saturating 94%. BP 117/44 and heart rate
69. He was lethargic but easily arousable and nodding his head yes or no to my questions.
Review of Systems
General: Other (Unable to obtain as on BiPAP/acute clinical status)
Objective Data
Data Reviewed
Vital Signs / I&O / Oxygen:
Vital Signs
Temp Pulse Resp BP Pulse Ox
98.1 F 76 20 146/73 95
06/12/24 15:32 06/12/24 15:55 06/12/24 15:55 06/12/24 15:32 06/12/24 15:55
Intake and Output
06/11/24 06/12/24 06/13/24
06:59 06:59 06:59
Intake Total 920 / 920 480 / 480 480 / 480
Output Total 1200 / 1200 400 / 400 500 / 500
Balance -280 / -280 80 / 80 -20 / -20
SaO2 95
Nasal Cannula flow liters per 2
minute
Physical Exam
General: Respiratory Distress (mild at rest on BiPAP), Chills (negative) and Sweats (negative)
HEENT: Normocephalic and Anicteric
Cardiovascular: S1-S2 and Peripheral Edema (n)
Respiratory: Wheeze (negative), Crackles (left base), Rhonchi (n), Accessory Resp Muscle Use (mild at rest), Stridor (n) and Other (Reduced breath sounds bilaterally in the posterior lung field)
GI: Soft, Non Distended and Non Tender
Neurology: Lethargic (Easily awakens, nodding head yes or no to my questions)
Skin: Warm, Dry, Good Color, Jaundice (negative) and Rash (n)
Labs/Micro/Reports
Laboratory Results
06/12/24
15:44
pH 7.35
pCO2 103 H*
pO2 79 L
HCO3 56.9 H*
O2 Delivery Level
--- NOTE | 2024-06-12 18:00 | PTCARENOTE ---
Report given to CIERA Fenton. Pt transported via bed on BiPAP and portable monitor with 2 RNs.
--- NOTE | 2024-06-12 18:35 | W.PN.UPDATE ---
Update Note
Progress Note Update
I was alerted by RN that patient was more short of breath and tachypneic and somewhat more lethargic today. I came and reevaluated patient and asked for chest x-ray and blood gas. Lungs decreased BS b/l more pronounced on the left. Chest x-ray
shows reaccumulation of the pleural effusion with atelectasis and blood gas shows pH 7.35, pCO2 103, pO2 79, bicarb 56.9 on 2 L of oxygen. Although compensated given his worsening respiratory status and worsening hypercapnia, will start him on
BiPAP and transfer him to IMU. Discussed with pulmonary Dr. De La Garza and asked him to reevaluate him. Updated family today about events, Dr Shea.
[2024-06-12 18:41] LABS: Lactic Acid 0.7 mmol/L (0.7-2.0)
--- NOTE | 2024-06-12 18:44 | PTCARENOTE ---
Received patient into room [address] [place] [address]. Pt arrived on BiPAP, looks comfortable but drowsy. SPO2 96-98%. Very diminished posteriorly. Speech very soft. VS as charted.
[2024-06-12 18:46] LABS: ALT (SGPT) 18 U/L (0-50); AST (SGOT) 27 U/L (17-59); Albumin 3.5 g/dl (3.5-5.0); Alkaline Phosphatase 91 U/L (38-126); Blood Urea Nitrogen 31 mg/dl (9-20); Calcium 7.8 mg/dl (8.4-10.2); Chloride 88 mmol/L (98-107); Estimated Creatinine Clearance 51 ml/min; Glucose 103 mg/dl (70-99); Potassium 4.7 mmol/L (3.5-5.1); Sodium 142 mmol/L (135-145); Total Bilirubin 0.8 mg/dl (0.2-1.3); eGFR > 60.00
[2024-06-12 18:52] LABS: NT-proBNP 1360 pg/ml
[2024-06-12 18:59] LABS: % Eosinophils 0.8 % (0-6); % Immature Granulocytes 0.8 % (0-0.5); % Lymphocytes 41.7 % (20.5-51.1); % Monocytes 9.4 % (1.7-9.3); % Neutrophils 47.3 % (42.2-75.2); Absolute Lymphocytes 0.5 10^3/uL (1.2-3.4); Absolute Monocytes 0.1 10^3/uL (0.1-0.6); Absolute Neutrophils 0.6 10^3/uL (1.4-6.5); Hematocrit 28.3 % (39.0-52.0); Hemoglobin 8.8 g/dL (13.0-18.0); Mean Corp Hgb Conc. 31.1 g/dL (33.0-37.0); Mean Corpuscular Hgb 31.7 pg (27.0-31.0); Mean Corpuscular Volume 101.8 fL (80.0-94.0); Mean Platelet Volume 10.1 fL (7.4-10.4); Nucleated Red Blood Cells % 0 % (-); Platelet Count 82 10^3/uL (130-400); Red Blood Cell Count 2.78 10^6/uL (4.70-6.10); Red Cell Dist. Width 13.7 % (11.5-14.5); White Blood Cell Count 1.3 10^3/uL (4.8-10.8)
[2024-06-12 19:00] LABS: Procalcitonin < 0.05 ng/ml (0.0-0.25)
[2024-06-12 20:13] LABS: Carbon Dioxide 48 mmol/L (22-30)
[2024-06-12] MEDS: PEPCID 20 MG PO (20:31)
[2024-06-12] MEDS: FLOMAX 0.4 MG PO (20:31)
[2024-06-12] MEDS: PROSCAR 5 MG PO (20:31)
[2024-06-12] MEDS: LIPITOR 20 MG PO (20:31)
[2024-06-13] VITALS (17 sets, daily range): BP systolic 62–135; BP diastolic 45–68; PULSE 2–62; BMI 22.1
--- NOTE | 2024-06-13 00:10 | PTCARENOTE ---
Pt repeatedly removed BiPAP overnight - each time Pt apeared to be confused on why he removed it. Pt AAO x 3; Agreed to have BiPAP placed back on twice but each time Pt removed it. Left BiPAP off and placed on 2L O2 overnight.
[2024-06-13 04:33] LABS: Venous Blood Gas B.E. 22.2 mmol/L (-4 to +4); Venous Blood Gas HCO3 50.3 mmol/L (22-27); Venous Blood Gas pH 7.38 (7.32-7.43); Venous Blood Gas pO2 192 mmHg (30-50)
[2024-06-13 04:39] LABS: Venous Blood Gas pCO2 85 mmHg (35-48)
[2024-06-13 04:55] LABS: Hematocrit 24.8 % (39.0-52.0); Hemoglobin 7.6 g/dL (13.0-18.0); Mean Corp Hgb Conc. 30.6 g/dL (33.0-37.0); Mean Corpuscular Hgb 30.9 pg (27.0-31.0); Mean Corpuscular Volume 100.8 fL (80.0-94.0); Mean Platelet Volume 10.7 fL (7.4-10.4); Platelet Count 73 10^3/uL (130-400); Red Blood Cell Count 2.46 10^6/uL (4.70-6.10); Red Cell Dist. Width 13.8 % (11.5-14.5); White Blood Cell Count 1.1 10^3/uL (4.8-10.8)
[2024-06-13 05:03] LABS: Blood Urea Nitrogen 31 mg/dl (9-20); Calcium 7.8 mg/dl (8.4-10.2); Chloride 91 mmol/L (98-107); Estimated Creatinine Clearance 64 ml/min; Glucose 96 mg/dl (70-99); LDH 225 U/L (120-246); Magnesium 2.1 mg/dl (1.6-2.3); Phosphorus 2.5 mg/dl (2.5-4.5); Potassium 4.5 mmol/L (3.5-5.1); Sodium 140 mmol/L (135-145); eGFR > 60.00
[2024-06-13 05:16] LABS: Carbon Dioxide 46 mmol/L (22-30)
[2024-06-13 07:16] LABS: % Eosinophils 0.9 % (0-6); % Lymphocytes 48.2 % (20.5-51.1); % Monocytes 8.9 % (1.7-9.3); Absolute Lymphocytes 0.5 10^3/uL (1.2-3.4); Absolute Monocytes 0.1 10^3/uL (0.1-0.6); Absolute Neutrophils 0.5 10^3/uL (1.4-6.5); Nucleated Red Blood Cells % 0 % (-)
[2024-06-13] MEDS: BETAPACE 80 MG PO ×2 (07:33→21:21)
[2024-06-13] MEDS: LOW STRENGTH ASPIRIN 81 MG PO (07:33)
[2024-06-13] MEDS: LASIX 40 MG IV (07:34)
--- NOTE | 2024-06-13 09:24 | W.PN.HOSP.TC ---
Today's Communication/Plan
-
Thoracentesis today. Transfer to telemetry.
Assessment / Plan
Assessment / Plan
Physical exam:
General: Chronically ill
HEENT: Normocephalic, Atraumatic and Moist Mucous Membranes
Respiratory: Decreased breath sounds in the left base; Negative Wheezes, Rales or Rhonchi
Cardiac: Regular Rhythm and S1/S2
GI: Soft, Nontender and Nondistended
Musculoskeletal: No Clubbing, No Cyanosis and No Edema
Neuro: Awake, Alert and Oriented
Psych: Calm
A/P:
Impression:
Toxic metabolic encephalopathy secondary to hypercarbia.
Acute on chronic hypercarbic respiratory failure
-On home O2 at 2 L
Aspiration episode with pneumonia
Aspiration risk
Possibly reaccumulating left pleural effusion.
Left facial droop, mild with reasonable concern for CVA
Conditions prior to admission:
Paroxysmal atrial fibrillation not on anticoagulation due to hemorrhagic complications
Status post watchman
MDS with chronic pancytopenia
Nonischemic cardiomyopathy with recovered EF 2021.
Echo 03/15/2024: EF 60 to 65%, some views suggest prolapse of posterior leaflet, mild MR, mild AI, mild TR, PAP 35 to 40 mmHg, no significant change compared to prior
History of gastrointestinal hemorrhage.
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
Dyslipidemia
BPH.
Surgical history: Status post watchman, schwannoma excision, appendectomy, cholecystectomy, TURP
Plan:
#Acute on chronic hypercapnic and hypoxemic respiratory failure
#Suspected aspiration pneumonia
#Left pleural effusion s/p thoracentesis
-Currently uses 2 L of oxygen nightly at baseline
-Presented with significant respiratory distress, saturations in mid 60s on baseline oxygen
-S/p thoracentesis on 06/04 with exudative qualities per lights criteria; WBC 578, glucose 103, pH 7.3
-Started on IV Zosyn empirically for coverage of aspiration pneumonia; unclear if true infection was present
-Was started on nightly BiPAP due to significant hypercapnia, pCO2 82 on ABG; most recent pCO2 70
-Pulmonology following; refuses BiPAP
-Transitioned to oral Augmentin, completed antibiotic course on 06/09
-Patient refusing BiPAP. Had been discontinued
-Continue nightly BiPAP for hypercapnia
-Wean supplemental oxygen for SpO2 goal >88%
-Aspiration precautions
-Discussed with son Nain at bedside on 06/12. later on discussed with criss as below:
I was alerted by RN that patient was more short of breath and tachypneic and somewhat more lethargic today. I came and reevaluated patient and asked for chest x-ray and blood gas. Lungs decreased BS b/l more pronounced on the left. Chest x-ray
shows reaccumulation of the pleural effusion with atelectasis and blood gas shows pH 7.35, pCO2 103, pO2 79, bicarb 56.9 on 2 L of oxygen. Although compensated given his worsening respiratory status and worsening hypercapnia, will start him on
BiPAP and transfer him to IMU. Discussed with pulmonary Dr. De La Garza and asked him to reevaluate him. Updated family about events, Dr Shea.
Today on 06/13:
Patient tolerated a few hours of BiPAP last evening (about 3 hours).
Appreciate pulmonary input
Chest x-ray with left lower reaccumulation of pleural effusion
Plan to repeat thoracentesis today
Can transfer back to telemetry today.
Discussed with RN today.
Transient hypotension in the settings of acidosis responding to IV fluids and CPAP administration. Sepsis ruled out.
Left pleural effusion.
Status post thoracentesis 850 mL. Transudate.
Follow-up chest x-ray improved.
#Toxic metabolic encephalopathy
-Likely secondary to hypercapnia and hypoxemia
-Patient seems oriented today, likely baseline
#MDS C/B chronic pancytopenia
#Neutropenia
-All cell lines chronically depressed, ANC today 0.6
-Will continue to trend CBC and start neutropenic precaution
-Plan for IV cefepime for new onset fever
#Mild facial droop
-Stroke workup here was negative, MRI without acute findings
-Does not seem that profound upon my assessment today
#HFrecEF
#NICM
#Cardiac valvular disease
-Echo with LVEF 60%, mild MR, mild AI
-Not currently on any GDMT, does take Lasix 20 mg
-Seems euvolemic upon my assessment today
#Paroxysmal AF s/p Watchman
#H/O GIB
-Home medication includes sotalol 80 mg twice daily
-No longer on AC following watchman due to history of GIB
#BPH
-Home medications include finasteride and tamsulosin
#HLD
-No known ASCVD history
-Home meds include moderate intensity
DVT prophylaxis: SCDs
Diet: Regular
CODE STATUS: DNR
Anticipated Discharge: 24 - 48 hours
Subjective/Interval History
-
Date of Service: June 13, 2024
Patient more comfortable today. Less shortness of breath. More alert. He did few hours of BiPAP last evening but then they are more alert he is that less likely he is to wear it. Afebrile.
Objective Data
-
Labs:
Laboratory Results
06/13/24
04:25
WBC 1.1 L*
Hgb 7.6 L
Hct 24.8 L
Plt Count 73 L
Sodium 140
Potassium 4.5
Chloride 91 L
Carbon Dioxide 46 H
BUN 31 H
Creatinine 0.8
Glucose 96
Calcium 7.8 L
Vital Signs:
Vital Signs
Temp Pulse Resp BP Pulse Ox
97.7 F 67 17 133/68 95
06/13/24 03:00 06/13/24 07:34 06/13/24 06:00 06/13/24 07:34 06/13/24 00:03
I&O
06/12/24 06/13/24 06/14/24
06:59 06:59 06:59
Intake Total 480 / 480 480 / 480
Output Total 400 / 400 875 / 875
Balance 80 / 80 -395 / -395
--- NOTE | 2024-06-13 10:03 | W.PN.PUL3 ---
Today's Communication / Plan
-
CXR from 06/12 shows worsening left-sided pleural effusion --> s/p thora today with 1L bloody fluid removed, and post-thora CXR shows marked improvement with minimal residual pleural fluid
Continue with BiPAP and trend venous blood gas; blood gas today andn yesterday shows well compensated hypercapnia
Continue with aspiration precautions
DNR/DNI
Low threshold to transition to comfort care
Assessment
-
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
aspiration-technical support director consulted for respiratory failure/critical care management 06/03/2024.
Impression:
Respiratory failure-acute on chronic hypoxemic and hypercapnic due to aspiration pneumonia
Chronic respiratory failure with hypercapnia
Chronic compensatory metabolic alkalosis
Aspiration pneumonia
Left pleural effusion - worsening
Sepsis with hypotension unresponsive to fluids requiring pressors
Leukopenia
Anemia-macrocytic
Thrombocytopenia
Hyperglycemia - resolved
Hypoalbuminemia
DNR
Conditions present prior to admission:
Recent hospitalization 03/2024-hypoxemic/hypercapnic respiratory failure, CHF, left pleural effusion
Myelodysplasia.
PAF/Watchman.
Chronic heart failure preserved EF.
BPH.
Chronic nystagmus.
Schwannoma excision 2012. Appendectomy. Cholecystectomy. Tonsillectomy. TURP.
Plan/recommendations
Patient has been comfortable but then today developed worsening shortness of breath, was placed onto BiPAP and transferred to the IMU for further care with technical support director/pulmonary service consulted
He is now on nasal cannula breathing more comfortably
He previously was not tolerating BiPAP and was consistently taken the mask off
He still wants to take the mask off now but he is not interested in comfort care
CXR shows worsening left-sided pleural effusion
- Consult IR for left-sided thoracentesis --> performed today and removed 1 L of hemorrhagic exudative pleural fluid
-Follow-up pleural fluid cultures + cytopathology
- Last thoracentesis was on 06/04/2024 of left effusion, removing 850 cc of elma-colored transudative fluid
Encouraged BiPAP usage at nighttime-explained benefits of improved ventilation/CO2 elimination-respiratory therapy notes from 06/04/2024 state patient refused
ABGs reviewed-chronic hypercapnia suspected with baseline pCO2 ~80-90
Blood gas performed this morning (06/13) shows compensated chronic hypercapnia
Nebulizers as needed
Aspiration precautions
Speech therapy evaluation ongoing
Chest ultrasound 06/03/2024 with moderate pleural effusion
Thoracentesis 06/04/[id number] -850 mL elma fluid-pH 7.38, WBC 579, glucose 103, total protein 2.9, LDH 130, cultures negative, cytology negative for malignant cells
Patient is on 20 mg PO Lasix daily; on 06/13 I changed Lasix to 40 mg IV daily x 3 days before transitioning back to home dose
Cultures reviewed
Finite course of antibiotics-transitioned from Zosyn to Augmentin on 06/06, for a total of 7-10 days - last dose on 06/08; monitor off ABx
Monitor hemoglobin
Transfuse as needed
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
DVT prophylaxis-mechanical
Nutrition
PT/OT
DNR status noted
Pulmonary service will continue to briefly follow along.
Diagnostic data:
Chest x-ray 10/07/2023-mild subsegmental atelectasis and scarring both lungs, T9 endplate fracture
Chest x-ray 11/27/2023-trace left pleural effusion
Chest x-ray 03/13/2024-moderate size left pleural effusion, severe basilar atelectasis
Chest x-ray 06/02/2024-moderate left pleural effusion which is progressed
CXR 06/12/2024: Moderate left pleural effusion with associated probable atelectasis, progressed.
CT chest 10/06/2022-stable or slightly less pronounced tiny pulmonary nodules, no hilar or mediastinal mass, bronchial wall thickening consistent with bronchitis,, no new nodules or existing nodular enlargement
CT chest 01/24/2023-left atrial appendage chicken wing morphology without evidence for thrombus, small sub-5 mm pulmonary nodules in both lungs appear unchanged
CT chest 10/07/2023-no evidence for pulm embolism, small left and trace right pleural effusions
CT head 06/02/2024-no acute intracranial abnormalities
Thoracentesis 03/15/[id number], 600 mL elma pleural fluid
Echocardiogram 05/22/2023-EF 55%, [address], no thrombus or significant leak, moderate mitral regurgitation, mild aortic regurgitation
Echocardiogram 03/15/2024-EF 60-65%, mild mitral regurgitation, PA systolic 35
Total time spent today was 37 minutes for this encounter. Time includes reviewing laboratory test/imaging results, reviewing pertinent medical records, obtaining and reviewing medical history, performing an appropriate exam, ordering medications,
tests and procedures. Time also includes documentation of this encounter, coordinating patient care and communicating with other healthcare professionals. Total time does not include separately billed tests performed on this date of service.
Subjective Data
-
Date of Service:
Date of Service: June 13, 2024
Chief Complaint: Pulmonary Follow Up (Aspiration pneumonia/parapneumonic effusion) and Dyspnea Follow Up
Subjective:
Patient was seen and evaluated today at bedside. Denies shortness of breath at rest. Patient wore BiPAP overnight on 18/6 cmH2O bled with 6 L/min. Heart rate 61, saturating 98% on 2 L/min, BP 120/63. He denies chest pain, SILVA, abdominal pain,
nausea, fevers or chills.
Review of Systems
General: Other (Negative unless mentioned above)
Objective Data
Data Reviewed
Vital Signs / I&O / Oxygen:
Vital Signs
Temp Pulse Resp BP Pulse Ox
97.9 F 67 17 133/68 95
06/13/24 07:05 06/13/24 07:34 06/13/24 06:00 06/13/24 07:34 06/13/24 00:03
Intake and Output
06/12/24 06/13/24 06/14/24
06:59 06:59 06:59
Intake Total 480 / 480 480 / 480
Output Total 400 / 400 875 / 875
Balance 80 / 80 -395 / -395
SaO2 95
Nasal Cannula flow liters per 2
minute
Physical Exam
General: Respiratory Distress (mild at rest on BiPAP), Chills (negative) and Sweats (negative)
HEENT: Normocephalic and Anicteric
Cardiovascular: S1-S2 and Peripheral Edema (n)
Respiratory: Wheeze (negative), Crackles (left base), Rhonchi (n), Accessory Resp Muscle Use (mild at rest), Stridor (n) and Other (Reduced breath sounds bilaterally in the posterior lung field)
GI: Soft, Non Distended and Non Tender
Neurology: Lethargic (Easily awakens, nodding head yes or no to my questions)
Skin: Warm, Dry, Good Color, Jaundice (negative) and Rash (n)
Labs/Micro/Reports
Lab Data
06/13/24 04:25
06/13/24 04:25
Laboratory Results
06/12/24
15:44
pH 7.35
pCO2 103 H*
pO2 79 L
HCO3 56.9 H*
O2 Delivery Level
--- NOTE | 2024-06-13 10:43 | PTCARENOTE ---
Pt calling stating he feels like his urine is backing up into his kidney. Pt feels he is not able to empty his bladder fully. Pt bladder scanned by PCT, see flowsheet.
[2024-06-13 13:09] LABS: Body Fluid pH 7.52
[2024-06-13 13:15] LABS: Body Fluid Mononuclear 90.8 %; Body Fluid Polymorphonuclear 9.2 %; Body Fluid WBC 611 /CUMM
[2024-06-13 13:20] LABS: Body Fluid Amylase < 30 U/L; Body Fluid Glucose 86 mg/dl; Body Fluid LDH 212 U/L; Body Fluid Triglycerides < 30 mg/dl
[2024-06-13 13:21] LABS: Body Fluid Second Tech EM
--- NOTE | 2024-06-13 13:43 | PTCARENOTE ---
Patient back from IR. Pt drowsy but easily arousable. Pt with bandaid to L flank area, CDI. Pt has no complaints at this time. Vital signs are stable.
--- NOTE | 2024-06-13 14:41 | PTOTSP ---
Speech Pathology Follow Up
Follow up requested by MD 2/2 worsening respiratory status. CXR with worsening left-sided pleural effusion. Lt thoracentesis performed this morning. On 2LPM via NC. VSE on 06/04 with recommendations for regular textures and thin liquids. Pt denies
dysphagia symptoms.
PO trials of thin liquid via straw and regular textures this date with adequate bolus acceptance. Self fed all trials. Adequate oral preparation of regular solid. Functional mastication. Prompt swallow. No overt s/s of aspiration or penetration
observed.
Impression:
Mild pharyngeal dysphagia per recent VSE w/ 'trace supraglottic penetration noted at times with no deep penetration or any aspiration. Significant pharyngeal residue, which mostly cleared with either effortful swallow or liquid wash.'
Continue to recommend:
(1) Regular solids/thin liquids
(2) Aspiration precautions: slow rate, intermittent use of effortful swallow after solids or liquid wash
(3) Meds as tolerated
(4) Consider wallowing exercises at next level of care.
CHIEF LIBRARIAN CIRCULATION DEPARTMENT to sign off. Please reconsult as indicated.
[2024-06-13] MEDS: DULCOLAX 10 MG RECTAL (16:02)
--- NOTE | 2024-06-13 20:11 | RESPNOTE ---
Addendum entered by Reanna Soto, RT 06/13/24 22:06:
BiPAP settings 18/6 w/ 5L
Addendum entered by Reanna Soto, RT 06/13/24 22:04:
Pt requested to go on BiPAP at 22:04. Pt resting comfortably and tolerating BiPAP settings 18/5 w/5L well at this time.
Original Note:
Pt refused HS BiPAP when making BiPAP rounds. Pt stated ' Not tonight '. BiPAP encouraged with pt. Pt resting comfortably, no respiratory distress noted.
[2024-06-13] MEDS: FLOMAX 0.4 MG PO (21:21)
[2024-06-13] MEDS: LIPITOR 20 MG PO (21:21)
[2024-06-13] MEDS: PROSCAR 5 MG PO (21:21)
[2024-06-13] MEDS: PEPCID 20 MG PO (21:21)
[2024-06-13] MEDS: REMERON 7.5 MG PO (21:37)
[2024-06-14] VITALS (12 sets, daily range): BP systolic 105–163; BP diastolic 40–66
--- NOTE | 2024-06-14 02:20 | PTCARENOTE ---
Pt very confused overnight; Removed monitor, oxygen and condom cath multiple times. Many attempts to climb out of bed without assistance. Had Pt stand at bedside to reposition and Pt unable to bear weight with nursing assistance and rolling
walker. Discussed safety concerns regarding behavior with Pt and reassured Pt that he was safe in hospital. Bed alarm in place; Mitts ordered and placed on Pt. Will continue to monitor and assess.
[2024-06-14 06:26] LABS: Blood Urea Nitrogen 33 mg/dl (9-20); Calcium 7.7 mg/dl (8.4-10.2); Chloride 91 mmol/L (98-107); Estimated Creatinine Clearance 56 ml/min; Glucose 88 mg/dl (70-99); Potassium 4.1 mmol/L (3.5-5.1); Sodium 142 mmol/L (135-145); eGFR > 60.00
[2024-06-14 07:14] LABS: Carbon Dioxide 43 mmol/L (22-30)
[2024-06-14] MEDS: LASIX 40 MG IV (08:43)
[2024-06-14] MEDS: LOW STRENGTH ASPIRIN 81 MG PO (08:43)
[2024-06-14] MEDS: BETAPACE 80 MG PO ×2 (08:43→20:52)
--- NOTE | 2024-06-14 09:24 | W.PN.PUL3 ---
Today's Communication / Plan
-
Remains on supplemental O2, severely lethargic
Co2 baseline in 80s with occasional acute on chronic episodes but has refused BIPAP
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
He is DNR, has declined comfort care, ongoing GOC discussions are recommended
PT/OT ongoing
I am not sure how much more can be done
Assessment
-
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
aspiration-panel monitor consulted for respiratory failure/critical care management 06/03/2024.
Impression:
Respiratory failure-acute on chronic hypoxemic and hypercapnic due to aspiration pneumonia
Chronic respiratory failure with hypercapnia
Chronic compensatory metabolic alkalosis
Aspiration pneumonia
Left pleural effusion - worsening
Profound weakness/fatigue
Sepsis with hypotension unresponsive to fluids requiring pressors--resolved
Leukopenia
Anemia-macrocytic
Thrombocytopenia
Hyperglycemia - resolved
Hypoalbuminemia
DNR
Conditions present prior to admission:
Recent hospitalization 03/2024-hypoxemic/hypercapnic respiratory failure, CHF, left pleural effusion
Myelodysplasia/MGUS
PAF/Watchman.
Chronic heart failure preserved EF.
BPH.
Chronic nystagmus.
Schwannoma excision 2012. Appendectomy. Cholecystectomy. Tonsillectomy. TURP.
Plan/recommendations
Patient has been notably lethargic, ongoing
He is now on nasal cannula-98% on 2L NC
He previously was not tolerating BiPAP and was consistently taken the mask off
He still wants to take the mask off now but he is not interested in comfort care
Chest ultrasound 06/03/2024 with moderate pleural effusion
Patient is on 20 mg PO Lasix daily; on 06/13 I changed Lasix to 40 mg IV daily x 3 days before transitioning back to home dose
CXR shows worsening left-sided pleural effusion, history of thora 03/15/24- 600 clear fluid extracted/culture + cyto negative
- Consult IR for left-sided thoracentesis
- Thoracentesis 06/04/2024 of left effusion- removed 850 cc of elma-colored transudative fluid
Cell count: pH 7.38, WBC 579, glucose 103, total protein 2.9, LDH 130, cultures negative, cytology negative for malignant cells
- Last thora 06/13, 1000mL hemorrhagic fluid
Cultures reviewed
Finite course of antibiotics-transitioned from Zosyn to Augmentin on 06/06, for a total of 7-10 days - last dose on 06/08; monitor off ABx
Encouraged BiPAP usage at nighttime-explained benefits of improved ventilation/CO2 elimination-respiratory therapy notes from 06/04/2024 state patient refused
ABGs reviewed-chronic hypercapnia suspected with baseline pCO2 ~80-90
Blood gas performed this morning (06/13) shows compensated chronic hypercapnia
Nebulizers as needed
Aspiration precautions
Speech therapy evaluation ongoing
Monitor hemoglobin
Transfuse as needed
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
DVT prophylaxis-mechanical
Nutrition
PT/OT
DNR status noted
GOC is recommended as patient has numerous serious conditions not being treated, refused care
Pulmonary service will continue to briefly follow along.
Diagnostic Data:
Chest x-ray 10/07/2023-mild subsegmental atelectasis and scarring both lungs, T9 endplate fracture
Chest x-ray 11/27/2023-trace left pleural effusion
Chest x-ray 03/13/2024-moderate size left pleural effusion, severe basilar atelectasis
Chest x-ray 06/02/2024-moderate left pleural effusion which is progressed
CXR 06/12/2024: Moderate left pleural effusion with associated probable atelectasis, progressed.
CT chest 10/06/2022-stable or slightly less pronounced tiny pulmonary nodules, no hilar or mediastinal mass, bronchial wall thickening consistent with bronchitis,, no new nodules or existing nodular enlargement
CT chest 01/24/2023-left atrial appendage chicken wing morphology without evidence for thrombus, small sub-5 mm pulmonary nodules in both lungs appear unchanged
CT chest 10/07/2023-no evidence for pulm embolism, small left and trace right pleural effusions
CT head 06/02/2024-no acute intracranial abnormalities
Thoracentesis 03/15/[id number], 600 mL elma pleural fluid
Echocardiogram 05/22/2023-EF 55%, [address], no thrombus or significant leak, moderate mitral regurgitation, mild aortic regurgitation
Echocardiogram 03/15/2024-EF 60-65%, mild mitral regurgitation, PA systolic 35
-----
Total time spent today was 50 minutes for this encounter. Time includes reviewing laboratory test/imaging results, reviewing pertinent medical records, obtaining and reviewing medical history, performing an appropriate exam, ordering medications,
tests and procedures. Time also includes documentation of this encounter, coordinating patient care and communicating with other healthcare professionals. Total time does not include separately billed tests performed on this date of service.
Subjective Data
-
Date of Service:
Date of Service: June 14, 2024
Chief Complaint: Pulmonary Follow Up (Aspiration pneumonia/parapneumonic effusion) and Dyspnea Follow Up
Subjective:
Remains in bed, profoundly weak
On O2
No new complaints
Very lethargic
Objective Data
Data Reviewed
Vital Signs / I&O / Oxygen:
Vital Signs
Temp Pulse Resp BP Pulse Ox
99 F 70 22 113/46 96
06/14/24 07:20 06/14/24 08:43 06/14/24 05:00 06/14/24 08:43 06/14/24 05:00
Intake and Output
06/13/24 06/14/24 06/15/24
06:59 06:59 06:59
Intake Total 480 / 480 240 / 240
Output Total 875 / 875 1450 / 1450
Balance -395 / -395 -1210 / -1210
SaO2 96
Nasal Cannula flow liters per 2
minute
Physical Exam
General: Respiratory Distress (mild), Chills (negative), Sweats (negative), Poor Appetite and Other (very lethargic)
HEENT: Normocephalic, Anicteric and Other (weak voice, dry MM)
Cardiovascular: S1-S2, Regular Rhythm and Peripheral Edema (n)
Respiratory: Wheeze (negative), Crackles (left base), Rhonchi (n), Accessory Resp Muscle Use (mild at rest), Stridor (n) and Other (Reduced breath sounds bilaterally in the posterior lung field)
GI: Soft, Non Distended and Non Tender
Neurology: Awake (on stim command), No Motor Deficits and Lethargic (Easily awakens, nodding head yes or no to my questions, falls asleep easily)
Skin: Warm, Dry, Good Color, Jaundice (negative) and Rash (n)
Labs/Micro/Reports
Lab Data
06/13/24 04:25
06/14/24 05:22
Microbiology
06/13/24 12:40 Pleural Fluid Gram Stain - Preliminary
06/13/24 12:40 Pleural Fluid Fungal Culture - Preliminary
Culture in progress.
Positive cultures are reported as soon as detected.
Final report to follow in four to five weeks.
--- NOTE | 2024-06-14 11:52 | PTCARENOTE ---
Upon assessment patient AAOx3 with some confusion. Mitts removed, patient oriented to room and expectations. 2L NC, sats 95%, sats 88% on RA. VSS. No complaints. Bed alarm on for safety. Call arndt in patients hand. Poor appetite, HAs in ears. NSR on
monitor. Continuing to closely monitor.
--- NOTE | 2024-06-14 16:18 | W.PN.HOSP.TC ---
Today's Communication/Plan
-
Intermittently lethargic or agitated
Had not been able to tolerate BiPAP.
Continue supportive care
Ongoing goals of care discussion
Due to severe hypercarbic respiratory failure, overall declining and deconditioning, patient would be high risk for hospital readmission.
Assessment / Plan
Assessment / Plan
Impression:
Toxic metabolic encephalopathy secondary to hypercarbia.
Acute on chronic hypercarbic respiratory failure
-On home O2 at 2 L
Aspiration episode with pneumonia
Aspiration risk
Possibly reaccumulating left pleural effusion.
Left facial droop, mild with reasonable concern for CVA
Conditions prior to admission:
Paroxysmal atrial fibrillation not on anticoagulation due to hemorrhagic complications
Status post watchman
MDS with chronic pancytopenia
Nonischemic cardiomyopathy with recovered EF 2021.
Echo 03/15/2024: EF 60 to 65%, some views suggest prolapse of posterior leaflet, mild MR, mild AI, mild TR, PAP 35 to 40 mmHg, no significant change compared to prior
History of gastrointestinal hemorrhage.
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
Dyslipidemia
BPH.
Surgical history: Status post watchman, schwannoma excision, appendectomy, cholecystectomy, TURP
Plan:
#Acute on chronic hypercapnic and hypoxemic respiratory failure
#Suspected aspiration pneumonia
#Left pleural effusion s/p thoracentesis
-Currently uses 2 L of oxygen nightly at baseline
-Presented with significant respiratory distress, saturations in mid 60s on baseline oxygen
-S/p thoracentesis on 06/04 with exudative qualities per lights criteria; WBC 578, glucose 103, pH 7.3
-Started on IV Zosyn empirically for coverage of aspiration pneumonia; unclear if true infection was present
-Was started on nightly BiPAP due to significant hypercapnia, pCO2 82 on ABG; most recent pCO2 70
-Pulmonology following; refuses BiPAP
-Transitioned to oral Augmentin, completed antibiotic course on 06/09
-Patient refusing BiPAP. Had been discontinued
-Continue nightly BiPAP for hypercapnia
-Wean supplemental oxygen for SpO2 goal >88%
-Aspiration precautions
-Discussed with son Nain at bedside on 06/12. later on discussed with naimaon as below:
I was alerted by RN that patient was more short of breath and tachypneic and somewhat more lethargic today. I came and reevaluated patient and asked for chest x-ray and blood gas. Lungs decreased BS b/l more pronounced on the left. Chest x-ray
shows reaccumulation of the pleural effusion with atelectasis and blood gas shows pH 7.35, pCO2 103, pO2 79, bicarb 56.9 on 2 L of oxygen. Although compensated given his worsening respiratory status and worsening hypercapnia, will start him on
BiPAP and transfer him to IMU. Discussed with pulmonary Dr. De La Garza and asked him to reevaluate him. Updated family about events, Dr Shea.
Transient hypotension in the settings of acidosis responding to IV fluids and CPAP administration. Sepsis ruled out.
Recurrent left pleural effusion.
Status post thoracentesis 850 mL. Transudate.
Status post thoracentesis 06/13 1000 cc.
Follow-up chest x-ray improved.
#Toxic metabolic encephalopathy
-Likely secondary to hypercapnia and hypoxemia
Intermittently agitated and lethargic. Not able to tolerate BiPAP
#MDS C/B chronic pancytopenia
#Neutropenia
-All cell lines chronically depressed, ANC today 0.6
-Will continue to trend CBC and start neutropenic precaution
-Plan for IV cefepime for new onset fever
#Mild facial droop
-Stroke workup here was negative, MRI without acute findings
-Does not seem that profound upon my assessment today
#HFrecEF
#NICM
#Cardiac valvular disease
-Echo with LVEF 60%, mild MR, mild AI
-Not currently on any GDMT, does take Lasix 20 mg
-Seems euvolemic upon my assessment today
#Paroxysmal AF s/p Watchman
#H/O GIB
-Home medication includes sotalol 80 mg twice daily
-No longer on AC following watchman due to history of GIB
#BPH
-Home medications include finasteride and tamsulosin
#HLD
-No known ASCVD history
-Home meds include moderate intensity
DVT prophylaxis: SCDs
Diet: Regular
CODE STATUS: DNR
Anticipated Discharge: 24 - 48 hours
Subjective/Interval History
-
Date of Service: June 14, 2024
Objective Data
-
Labs:
Laboratory Results
06/14/24
05:22
Sodium 142
Potassium 4.1
Chloride 91 L
Carbon Dioxide 43 H
BUN 33 H
Creatinine 0.9
Glucose 88
Calcium 7.7 L
Vital Signs:
Vital Signs
Temp Pulse Resp BP Pulse Ox
97.2 F 68 14 107/54 96
06/14/24 11:10 06/14/24 11:00 06/14/24 11:00 06/14/24 10:00 06/14/24 11:00
I&O
06/13/24 06/14/24 06/15/24
06:59 06:59 06:59
Intake Total 480 / 480 240 / 240
Output Total 875 / 875 1450 / 1450
Balance -395 / -395 -1210 / -1210
Physical Exam
-
General: Well Nourished, No Apparent Distress and Comfortable
HEENT: Normocephalic, Atraumatic and Moist Mucous Membranes
Respiratory: Non Labored Respirations and Decreased Breath Sounds; Negative Wheezes, Rales, Rhonchi or Accessory Resp Muscle Use
Cardiac: Regular Rhythm and S1/S2; Negative Murmur, Rub or Gallop
GI: Soft, Nontender, Nondistended and Normal Bowel Sounds
Musculoskeletal: No Clubbing, No Cyanosis and No Edema
Skin: Warm and Dry; Negative Rash
Neuro: AO x 3, Nonfocal/Grossly Intact, Central Nerve's Intact and Other (Lethargic appearing)
Psych: Calm
--- NOTE | 2024-06-14 16:50 | CM ---
Patient from [facility] with Hx Myelodysplasia with Dx Acute hypercapnic and hypoxemic respiratory failure, aspiration pneumonia, pleural effusion s/p thoracentesis, TME. O2 1.5 L. BiPAP. Receiving IV Lasix. Ongoing goals of
care discussion per MD. PT/OT recommend skilled rehab. Per nurse assessment; confused.
Spoke with [facility]; they had an available bed today if patient is ready for d/c to SNF -provided update not medically ready at d/c.
Spoke with Adm Ilanas [facility]; they still have no available bed. Provided clinical update.
Plan probable [facility] SNF when medically ready unless bed becomes available at [facility].
[2024-06-14] MEDS: PROSCAR 5 MG PO ×2 (20:52)
[2024-06-14] MEDS: FLOMAX 0.4 MG PO (20:52)
[2024-06-14] MEDS: LIPITOR 20 MG PO (20:52)
[2024-06-14] MEDS: PEPCID 20 MG PO (20:52)
[2024-06-14] MEDS: REMERON 7.5 MG PO (21:11)
--- NOTE | 2024-06-14 21:12 | PTCARENOTE ---
Pt received from previous shift in bed. Downgraded to telemetry. Family at bedside brought in dinner and pt consumed approx 80%. Full physical assessment documented (refer to worklist). #25 condom cath intact. Assisted w/HS hygiene. Report to
be called to floor to receiving RN.
--- NOTE | 2024-06-14 22:13 | TRANSFER ---
Pt transferred to room 327 in bed with all personal belongings. Telephone report to receiving RN
--- NOTE | 2024-06-14 23:00 | TRANSFER ---
@2220;Received pt from IMU,via bed with 02 @ 2liters,B/L hearing aides in ears and telemetry .Pt transferred to bed with x4 staff assist.Pt denies pain at present.
[2024-06-15] VITALS (8 sets, daily range): BP systolic 104–121; BP diastolic 43–70; PULSE 2–62; BMI 21.8
[2024-06-15] MEDS: BETAPACE 80 MG PO ×2 (08:52→23:15)
[2024-06-15] MEDS: LASIX 40 MG IV (08:53)
[2024-06-15] MEDS: LOW STRENGTH ASPIRIN 81 MG PO (08:53)
--- NOTE | 2024-06-15 09:31 | W.PN.PUL3 ---
Today's Communication / Plan
-
Declining condition, progressive weakness noted
Not clinically improving, has been refusing care, this was reviewed with patient
He is DNR
He is now agreeable to hospice consult, he also wants to discuss with his family
Consult placed
At this point, no further recs from our standpoint, we will sign off
Please call with questions
Assessment
-
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
Impression:
Respiratory failure-acute on chronic hypoxemic and hypercapnic due to aspiration pneumonia
Chronic respiratory failure with hypercapnia
Chronic compensatory metabolic alkalosis
Aspiration pneumonia
Left pleural effusion - worsening
Profound weakness/fatigue
Sepsis with hypotension unresponsive to fluids requiring pressors--resolved
Leukopenia
Anemia-macrocytic
Thrombocytopenia
Hyperglycemia - resolved
Hypoalbuminemia
DNR
Conditions present prior to admission:
Recent hospitalization 03/2024-hypoxemic/hypercapnic respiratory failure, CHF, left pleural effusion
Myelodysplasia/MGUS
PAF/Watchman.
Chronic heart failure preserved EF.
BPH.
Chronic nystagmus.
Schwannoma excision 2012. Appendectomy. Cholecystectomy. Tonsillectomy. TURP.
Plan/recommendations
Patient has been notably lethargic, ongoing
He is now on nasal cannula-98% on 2L NC
He previously was not tolerating BiPAP and was consistently taken the mask off
He still wants to take the mask off, declined PAP use
Chest ultrasound 06/03/2024 with moderate pleural effusion
Patient is on 20 mg PO Lasix daily; on 06/13 I changed Lasix to 40 mg IV daily x 3 days before transitioning back to home dose
CXR shows worsening left-sided pleural effusion, history of thora 03/15/24- 600 clear fluid extracted/culture + cyto negative
- Consult IR for left-sided thoracentesis
- Thoracentesis 06/04/2024 of left effusion- removed 850 cc of elma-colored transudative fluid
Cell count: pH 7.38, WBC 579, glucose 103, total protein 2.9, LDH 130, cultures negative, cytology negative for malignant cells
- Last thora 06/13, 1000mL hemorrhagic fluid
Cultures reviewed
Finite course of antibiotics-transitioned from Zosyn to Augmentin on 06/06, for a total of 7-10 days - last dose on 06/08; monitor off ABx
Encouraged BiPAP usage at nighttime-explained benefits of improved ventilation/CO2 elimination-respiratory therapy notes from 06/04/2024 state patient refused
ABGs reviewed-chronic hypercapnia suspected with baseline pCO2 ~80-90
Blood gas performed this morning (06/13) shows compensated chronic hypercapnia
Nebulizers as needed
Aspiration precautions
Speech therapy evaluation ongoing
Monitor hemoglobin
Transfuse as needed
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
DVT prophylaxis-mechanical
Nutrition
PT/OT
DNR status noted
GOC is recommended as patient has numerous serious conditions not being treated, refused care
He is now interested in pursuing hospice and was agreeable to consult
Diagnostic Data:
Chest x-ray 10/07/2023-mild subsegmental atelectasis and scarring both lungs, T9 endplate fracture
Chest x-ray 11/27/2023-trace left pleural effusion
Chest x-ray 03/13/2024-moderate size left pleural effusion, severe basilar atelectasis
Chest x-ray 06/02/2024-moderate left pleural effusion which is progressed
CXR 06/12/2024: Moderate left pleural effusion with associated probable atelectasis, progressed.
CT chest 10/06/2022-stable or slightly less pronounced tiny pulmonary nodules, no hilar or mediastinal mass, bronchial wall thickening consistent with bronchitis,, no new nodules or existing nodular enlargement
CT chest 01/24/2023-left atrial appendage chicken wing morphology without evidence for thrombus, small sub-5 mm pulmonary nodules in both lungs appear unchanged
CT chest 10/07/2023-no evidence for pulm embolism, small left and trace right pleural effusions
CT head 06/02/2024-no acute intracranial abnormalities
Thoracentesis 03/15/[id number], 600 mL elma pleural fluid
Echocardiogram 05/22/2023-EF 55%, [address], no thrombus or significant leak, moderate mitral regurgitation, mild aortic regurgitation
Echocardiogram 03/15/2024-EF 60-65%, mild mitral regurgitation, PA systolic 35
-----
Total time spent today was 50 minutes for this encounter. Time includes reviewing laboratory test/imaging results, reviewing pertinent medical records, obtaining and reviewing medical history, performing an appropriate exam, ordering medications,
tests and procedures. Time also includes documentation of this encounter, coordinating patient care and communicating with other healthcare professionals. Total time does not include separately billed tests performed on this date of service.
Subjective Data
-
Date of Service:
Date of Service: June 15, 2024
Chief Complaint: Pulmonary Follow Up (Aspiration pneumonia/parapneumonic effusion) and Dyspnea Follow Up
Subjective:
Remains clinically unchanged, feels to weak to speak
No new events
Objective Data
Data Reviewed
Vital Signs / I&O / Oxygen:
Vital Signs
Temp Pulse Resp BP Pulse Ox
97.4 F 63 18 121/70 96
06/15/24 07:22 06/15/24 08:52 06/15/24 07:22 06/15/24 08:52 06/15/24 07:22
Intake and Output
06/14/24 06/15/24 06/16/24
06:59 06:59 06:59
Intake Total 240 / 240 270 / 270
Output Total 1450 / 1450 100 / 100
Balance -1210 / -1210 170 / 170
SaO2 96
Nasal Cannula flow liters per 2
minute
Physical Exam
General: Respiratory Distress (mild), Chills (negative), Sweats (negative), Poor Appetite and Other (very lethargic)
HEENT: Normocephalic, Anicteric and Other (weak voice, dry MM)
Cardiovascular: S1-S2, Regular Rhythm and Peripheral Edema (n)
Respiratory: Wheeze (negative), Crackles (left base), Rhonchi (n), Accessory Resp Muscle Use (mild at rest), Stridor (n) and Other (Reduced breath sounds bilaterally in the posterior lung field)
GI: Soft, Non Distended and Non Tender
Neurology: Awake (on stim command), No Motor Deficits and Lethargic (Easily awakens, nodding head yes or no to my questions, falls asleep easily)
Skin: Warm, Dry, Good Color, Jaundice (negative) and Rash (n)
Labs/Micro/Reports
Lab Data
06/13/24 04:25
06/14/24 05:22
Microbiology
06/13/24 12:40 Pleural Fluid Fungal Culture - Preliminary
Culture in progress.
Positive cultures are reported as soon as detected.
Final report to follow in four to five weeks.
06/13/24 12:40 Pleural Fluid Body Fluid Culture - Preliminary
No Growth After 18-24 Hours
06/13/24 12:40 Pleural Fluid Gram Stain - Preliminary
--- NOTE | 2024-06-15 11:56 | W.PN.HOSP.TC ---
Today's Communication/Plan
-
Cognitive status remains fluctuant due to overall deconditioning and CO2 retention.
Long discussion with patient today promoting palliative approach with consideration of hospice care. Patient agrees, and wants to discuss that with the rest of the family.
Will ask hospice to evaluate with options. Given progressive declining could be appropriate for inpatient hospice care.
Assessment / Plan
Assessment / Plan
Impression:
Toxic metabolic encephalopathy secondary to hypercarbia.
Acute on chronic hypercarbic respiratory failure
-On home O2 at 2 L
Aspiration episode with pneumonia
Aspiration risk
Possibly reaccumulating left pleural effusion.
Left facial droop, mild with reasonable concern for CVA
Conditions prior to admission:
Paroxysmal atrial fibrillation not on anticoagulation due to hemorrhagic complications
Status post watchman
MDS with chronic pancytopenia
Nonischemic cardiomyopathy with recovered EF 2021.
Echo 03/15/2024: EF 60 to 65%, some views suggest prolapse of posterior leaflet, mild MR, mild AI, mild TR, PAP 35 to 40 mmHg, no significant change compared to prior
History of gastrointestinal hemorrhage.
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
Dyslipidemia
BPH.
Surgical history: Status post watchman, schwannoma excision, appendectomy, cholecystectomy, TURP
Plan:
#Acute on chronic hypercapnic and hypoxemic respiratory failure
#Suspected aspiration pneumonia
#Left pleural effusion s/p thoracentesis
-Currently uses 2 L of oxygen nightly at baseline
-Presented with significant respiratory distress, saturations in mid 60s on baseline oxygen
-S/p thoracentesis on 06/04 with exudative qualities per lights criteria; WBC 578, glucose 103, pH 7.3
-Started on IV Zosyn empirically for coverage of aspiration pneumonia; unclear if true infection was present
-Was started on nightly BiPAP due to significant hypercapnia, pCO2 82 on ABG; most recent pCO2 70
-Pulmonology following; refuses BiPAP
-Transitioned to oral Augmentin, completed antibiotic course on 06/09
-Patient refusing BiPAP. Had been discontinued
-Continue nightly BiPAP for hypercapnia
-Wean supplemental oxygen for SpO2 goal >88%
-Aspiration precautions
-Discussed with son Nain at bedside on 06/12. later on discussed with naimaon as below:
I was alerted by RN that patient was more short of breath and tachypneic and somewhat more lethargic today. I came and reevaluated patient and asked for chest x-ray and blood gas. Lungs decreased BS b/l more pronounced on the left. Chest x-ray
shows reaccumulation of the pleural effusion with atelectasis and blood gas shows pH 7.35, pCO2 103, pO2 79, bicarb 56.9 on 2 L of oxygen. Although compensated given his worsening respiratory status and worsening hypercapnia, will start him on
BiPAP and transfer him to IMU. Discussed with pulmonary Dr. De La Garza and asked him to reevaluate him. Updated family about events, Dr Shea.
Transient hypotension in the settings of acidosis responding to IV fluids and CPAP administration. Sepsis ruled out.
Recurrent left pleural effusion.
Status post thoracentesis 850 mL. Transudate.
Status post thoracentesis 06/13 1000 cc.
Follow-up chest x-ray improved.
#Toxic metabolic encephalopathy
-Likely secondary to hypercapnia and hypoxemia
Intermittently agitated and lethargic. Not able to tolerate BiPAP
#MDS C/B chronic pancytopenia
#Neutropenia
-All cell lines chronically depressed, ANC today 0.6
-Will continue to trend CBC and start neutropenic precaution
-Observe closely off antibiotics.
#Mild facial droop
-Stroke workup here was negative, MRI without acute findings
-Does not seem that profound upon my assessment today
#HFrecEF
#NICM
#Cardiac valvular disease
-Echo with LVEF 60%, mild MR, mild AI
-Not currently on any GDMT, does take Lasix 20 mg
-Seems euvolemic upon my assessment today
#Paroxysmal AF s/p Watchman
#H/O GIB
-Home medication includes sotalol 80 mg twice daily
-No longer on AC following watchman due to history of GIB
#BPH
-Home medications include finasteride and tamsulosin
#HLD
-No known ASCVD history
-Home meds include moderate intensity
DVT prophylaxis: SCDs
Diet: Regular
CODE STATUS: DNR
Anticipated Discharge: 24 - 48 hours
Subjective/Interval History
-
Date of Service: June 15, 2024
Objective Data
-
Vital Signs:
Vital Signs
Temp Pulse Resp BP Pulse Ox
97.7 F 66 18 104/44 98
06/15/24 11:02 06/15/24 11:02 06/15/24 11:02 06/15/24 11:02 06/15/24 11:02
I&O
06/14/24 06/15/24 06/16/24
06:59 06:59 06:59
Intake Total 240 / 240 270 / 270
Output Total 1450 / 1450 100 / 100
Balance -1210 / -1210 170 / 170
Physical Exam
-
General: Well Nourished, No Apparent Distress and Comfortable
HEENT: Normocephalic, Atraumatic and Moist Mucous Membranes
Respiratory: Non Labored Respirations and Decreased Breath Sounds; Negative Wheezes, Rales, Rhonchi or Accessory Resp Muscle Use
Cardiac: Regular Rhythm and S1/S2; Negative Murmur, Rub or Gallop
GI: Soft, Nontender, Nondistended and Normal Bowel Sounds
Musculoskeletal: No Clubbing, No Cyanosis and No Edema
Skin: Warm and Dry; Negative Rash
Neuro: AO x 3, Nonfocal/Grossly Intact, Central Nerve's Intact and Other (Lethargic appearing)
Psych: Calm
--- NOTE | 2024-06-15 12:57 | PTOTSP ---
New orders received 06/14/24. Discussed with state director; patient to be transitioning to hospice care and skilled therapy no longer warranted. Will discharge from case load.
--- NOTE | 2024-06-15 13:24 | HOSPNOTE ---
I had a long conversation with patient and on the telephone was step son Dr Shea. All in agreement with inpatient hospice. The plan is to move patient to [facility] and start inpatient hospice tomorrow 06/16. Attending and CM aware of plan.
--- NOTE | 2024-06-15 14:03 | CM ---
CM reviewed chart and noted dc order
Bedside meeting with pt
He is requesting both step-son/Dr Shea and son/Nain are part of planning process with hospice
Referral made to Hospice
Plan for comfort care and admission to [facility] tomorrow on 2N
Discharge Disposition- [facility] tomorrow
--- NOTE | 2024-06-15 16:30 | PTCARENOTE ---
pt transferred from 3W to 2N this afternoon. continuing with scheduled medications as normal per MD and hospice nurse. plan to transition patient to [facility] hospice tomorrow.
[2024-06-15] MEDS: LIPITOR 20 MG PO (21:49)
[2024-06-15] MEDS: REMERON 7.5 MG PO (21:49)
[2024-06-15] MEDS: PROSCAR 5 MG PO (21:51)
[2024-06-15] MEDS: PEPCID 20 MG PO (21:51)
[2024-06-15] MEDS: FLOMAX 0.4 MG PO (23:15)
[2024-06-16] MEDS: TYLENOL 650 MG PO (03:14)
[2024-06-16 06:00] VITALS: BMI 21.5
[2024-06-16 06:46] LABS: Hematocrit 26.3 % (39.0-52.0); Hemoglobin 8.2 g/dL (13.0-18.0); Mean Corp Hgb Conc. 31.2 g/dL (33.0-37.0); Mean Corpuscular Hgb 31.2 pg (27.0-31.0); Mean Platelet Volume 11.4 fL (7.4-10.4); Platelet Count 67 10^3/uL (130-400); Red Blood Cell Count 2.63 10^6/uL (4.70-6.10); Red Cell Dist. Width 13.8 % (11.5-14.5); White Blood Cell Count 1.7 10^3/uL (4.8-10.8)
[2024-06-16 07:00] LABS: Blood Urea Nitrogen 35 mg/dl (9-20); Calcium 7.7 mg/dl (8.4-10.2); Chloride 91 mmol/L (98-107); Estimated Creatinine Clearance 54 ml/min; Glucose 105 mg/dl (70-99); Potassium 4.1 mmol/L (3.5-5.1); Sodium 143 mmol/L (135-145); eGFR > 60.00
[2024-06-16 07:19] LABS: Carbon Dioxide 45 mmol/L (22-30)
[2024-06-16 07:35] VITALS: BP 113/43
[2024-06-16 07:41] LABS: % Eosinophils 0.6 % (0-6); % Immature Granulocytes 0.6 % (0-0.5); % Lymphocytes 42.4 % (20.5-51.1); % Monocytes 8.7 % (1.7-9.3); % Neutrophils 47.7 % (42.2-75.2); Absolute Lymphocytes 0.7 10^3/uL (1.2-3.4); Absolute Monocytes 0.2 10^3/uL (0.1-0.6); Absolute Neutrophils 0.8 10^3/uL (1.4-6.5); Nucleated Red Blood Cells % 0 % (-)
[2024-06-16] MEDS: BETAPACE PO ×2 (08:00→09:17)
[2024-06-16] MEDS: LOW STRENGTH ASPIRIN PO ×2 (08:01→09:17)
--- NOTE | 2024-06-16 09:17 | PTCARENOTE ---
Pt difficult to arouse this AM. Verbally responsive but soft spoken, pt repositioned and oral care provided, pt unable to take AM meds due to drowsiness.
--- NOTE | 2024-06-16 13:04 | HOSPNOTE ---
Patient will be transitioning to inpatient hospice today.
== END 2024-06-16 14:14 | disposition hospice, inpatient (51) | DRG 177 ==
LOC: 2 NORTH 22:41
PROVIDERS: Hospitalist; Internal Medicine; Internal Medicine Critical Care Medicine; Radiology Diagnostic Radiology; Radiology Vascular & Interventional Radiology; ADMITTING PHYSICIAN Student in an Organized Health Care Education/Training Program; ATTENDING PHYSICIAN Internal Medicine; CONSULT PHYSICIAN Internal Medicine Critical Care Medicine; EMERGENCY PHYSICIAN Emergency Medicine; FAMILY PHYSICIAN Internal Medicine Geriatric Medicine
PROC: 5A09357 Assistance with Respiratory Ventilation, Less than 24 Consecutive Hours, Continuous Positive Airway Pressure (ICD-10-PCS; 2024-06-02)
PROC: 0W9B3ZZ Drainage of Left Pleural Cavity, Percutaneous Approach (ICD-10-PCS; 2024-06-04)
DX: J69.0 Pneumonitis due to inhalation of food and vomit (principal); G92.8 Other toxic encephalopathy; J96.22 Acute and chronic respiratory failure with hypercapnia; J96.21 Acute and chronic respiratory failure with hypoxia; D61.818 Other pancytopenia; I50.32 Chronic diastolic (congestive) heart failure; E87.3 Alkalosis; I42.8 Other cardiomyopathies; E87.20 Acidosis, unspecified; J91.8 Pleural effusion in other conditions classified elsewhere; Z66 Do not resuscitate; Z51.5 Encounter for palliative care; I11.0 Hypertensive heart disease with heart failure; E78.00 Pure hypercholesterolemia, unspecified; D46.9 Myelodysplastic syndrome, unspecified; I95.9 Hypotension, unspecified; I48.0 Paroxysmal atrial fibrillation; N40.0 Benign prostatic hyperplasia without lower urinary tract symptoms; H55.00 Unspecified nystagmus; E88.09 Other disorders of plasma-protein metabolism, not elsewhere classified; R73.9 Hyperglycemia, unspecified; R29.810 Facial weakness; D70.9 Neutropenia, unspecified; D53.9 Nutritional anemia, unspecified; Z87.891 Personal history of nicotine dependence; Z95.818 Presence of other cardiac implants and grafts; Z79.899 Other long term (current) drug therapy; Z79.82 Long term (current) use of aspirin; Z11.52 Encounter for screening for COVID-19
CPT/HCPCS: 88305; 32555; 36600; 70450; 70551; 71045; 74230; 76604; 80048; 80053; 81003; 81015; 82150; 82805; 82945; 82962; 83605; 83615; 83735; 83880; 83986; 84100; 84145; 84155; 84157; 84478; 84484; 85025; 85610; 87015; 87040; 87070; 87102; 87116; 87205; 87502; 87811; 88112; 89051; 92526; 92610; 92611; 93005; 94640; 94660; 96361; 96365; 96367; 97163; 97167; 97530; 97535; 99291

== ENCOUNTER 2024-06-16 14:19 | Inpatient (IN) | payer OTHER, SELFPAY ==
[2024-06-16 14:36] VITALS: BMI 21.5
--- NOTE | 2024-06-16 14:41 | CM ---
Reviewed the chart notes. Patient resides alone in independent living at [facility]. Patient has a rollator and home O2. Patient has had [facility] and been to [facility]. CM continues to be available to patient/family.
Plan: [facility] Hospice.
[2024-06-16 15:11] VITALS: BP 113/43
--- NOTE | 2024-06-16 15:12 | PTCARENOTE ---
Pts chart flipped to inpatient hospice, pt resting comfortably in bed at this time. Comfort box ordered.
--- NOTE | 2024-06-16 19:25 | HOSPNOTE ---
Patient admitted [facility] level of hospice care. Patient meets inpatient criteria for the management of pain, dyspnea and anxiety with IVP PRN Morphine and Ativan that could not be managed in the outpatient setting. Informal report with SASHA Villar, in
agreement with the above. Discharge planning continues. Patient will be seen daily by hospice nurse.
[2024-06-16 23:41] VITALS: BP 115/70
[2024-06-17] MEDS: TYLENOL 650 MG PO ×2 (02:39→21:58)
[2024-06-17 07:45] VITALS: BP 122/60
--- NOTE | 2024-06-17 09:24 | CM ---
Reviewed the chart notes. CM continues to be available to patient/family.
Plan: [facility] continues.
--- NOTE | 2024-06-17 11:49 | HOSPNOTE ---
Messaged son Nain with the name and phone number of [facility] in order for patient to go home with hospice and 24 hour care. Will continue to support and for now patient remains inpatient hospice and will be followed daily.
--- NOTE | 2024-06-17 13:44 | CHAP ---
Addendum entered by Phuong Burks 06/18/24 10:35:
Monsignor Burnett did arrive and provided Sacrament of the Sick for Mr. Rea as requested.
Original Note:
Msgr. Vincenzo Burnett of [facility] in [place] has been called to give the Sacrament of the Sick/Anointing to Nain at his request. expects to arrive around 3:00 pm this afternoon.
--- NOTE | 2024-06-17 13:46 | PTCARENOTE ---
Pt asking this RN, 'Am I going to today? I think I am going to today.' Pt requested pastoral care to visit, they are set to come speak with him at 1500. Pt resting comfortably in bed at this time, emotional support provided.
--- NOTE | 2024-06-17 16:15 | W.PN.HOSP.TC ---
Today's Communication/Plan
-
Continue hospice care
Assessment / Plan
Assessment / Plan
Acute on chronic hypoxic/hypercarbic respiratory failure.
Paroxysmal atrial fibrillation
Myelodysplastic syndrome with chronic pancytopenia.
Nonischemic cardiomyopathy.
Overall deconditioning.
Continue hospice and supportive care.
Patient has been alert awake and rated today
Comfortable with no evidence of respiratory distress.
Pain-free
Family at the bedside.
Anticipated Discharge: > 48 hours
Subjective/Interval History
-
Date of Service: June 17, 2024
Objective Data
-
Vital Signs:
Vital Signs
Temp Pulse Resp BP Pulse Ox
98.5 F 86 16 122/60 96
06/17/24 07:45 06/17/24 07:45 06/17/24 07:45 06/17/24 07:45 06/17/24 11:09
I&O
06/16/24 06/17/24 06/18/24
06:59 06:59 06:59
Intake Total 540 / 540
Output Total 450 / 450
Balance 90 / 90
Physical Exam
-
General: Well Nourished, No Apparent Distress and Comfortable
HEENT: Normocephalic, Atraumatic and Moist Mucous Membranes
Respiratory: Non Labored Respirations and Decreased Breath Sounds; Negative Wheezes, Rales, Rhonchi or Accessory Resp Muscle Use
Cardiac: Regular Rhythm and S1/S2; Negative Murmur, Rub or Gallop
GI: Soft, Nontender, Nondistended and Normal Bowel Sounds
Musculoskeletal: No Clubbing, No Cyanosis and No Edema
Skin: Warm and Dry; Negative Rash
Neuro: AO x 3, Nonfocal/Grossly Intact, Central Nerve's Intact and Other (Lethargic appearing)
Psych: Calm
[2024-06-17 23:18] VITALS: BP 127/55
[2024-06-18] MEDS: DULCOLAX RECTAL (05:42)
[2024-06-18] MEDS: DULCOLAX 10 MG RECTAL (05:45)
[2024-06-18 07:53] VITALS: BP 128/58
--- NOTE | 2024-06-18 10:19 | CM ---
Reviewed the chart notes. Patient remains [facility].
Plan: [facility].
--- NOTE | 2024-06-18 11:45 | HOSPNOTE ---
jewelry bench worker visited with patient who is currently [facility] level of care to provide supportive services as well as to complete initial VALVE MAKER assessment. Patient is an 88 year old who was recently admitted onto hospice services with primary
diagnosis of respiratory failure. Patient was awake laying in bed and denied being in pain during visit. Patient is soft spoken and was tired during visit and stated he had a little bit of his breakfast this morning. Documentation states that
patient has been having increased confusion and weakness. Patient resided at [facility] in [place] prior to admission. Patient has been for about 4 years and also has a step-son, Jeanmarie. Patient stated that he wanted to take a nap and social
worker called son Nain to introduce self and provide update. Son stated that family has been visiting to provide companionship and support. Son is aware that a plan needs to be in place in the event that patient is to be discharged and social
worker informed son that hospice social worker will reach out to hospice liasion Naomy about update and planning. Son confirmed that patient is not a and is Hindu. End of life discussion occurred and plan is for patient to be cremated and son
stated that they would prefer to use a crematorium. List will be sent to son per his request. leadite worker will visit at a frequency of twice a week while [facility] level of care. Patient remains [facility] level of care for titration of medications for SOB and
agitation. Discharge planning continues.
--- NOTE | 2024-06-18 14:01 | HOSPNOTE ---
Patient is very lethargic today, I spoke at length with Dr Shea and he is in agreement with any medications that are needed to help with any discomfort. Spoke with floor RN and discussed. Patient will be seen daily by a hospice nurse. Patient is
very tachypneic and required a dose of morphine. Will continue to follow.
[2024-06-18] MEDS: MORPHINE SULFATE 2 MG IV ×2 (14:06→15:21)
[2024-06-18] MEDS: NSS (PRESERVATIVE FREE) 0.5 ML IV (15:21)
[2024-06-18] MEDS: ATIVAN 1 MG IV (15:21)
--- NOTE | 2024-06-18 16:13 | W.PN.HOSP.TC ---
Today's Communication/Plan
-
Discussed with nursing
If any symptoms of discomfort or respiratory distress option would be to escalate morphine dosing with transition to infusion if required
Assessment / Plan
Assessment / Plan
Acute on chronic hypoxic/hypercarbic respiratory failure.
Paroxysmal atrial fibrillation
Myelodysplastic syndrome with chronic pancytopenia.
Nonischemic cardiomyopathy.
Overall deconditioning.
Continue hospice and supportive care.
Patient has been alert awake and rated today
Comfortable with no evidence of respiratory distress.
Pain-free
Family at the bedside.
Anticipated Discharge: 24 - 48 hours
Subjective/Interval History
-
Date of Service: June 18, 2024
Objective Data
-
Vital Signs:
Vital Signs
Temp Pulse Resp BP Pulse Ox
98.0 F 79 17 128/58 90
06/18/24 07:53 06/18/24 07:53 06/18/24 07:53 06/18/24 07:53 06/18/24 15:31
I&O
06/17/24 06/18/24 06/19/24
06:59 06:59 06:59
Intake Total 540 / 540 740 / 740
Output Total 450 / 450 525 / 525
Balance 90 / 90 215 / 215
Physical Exam
-
General: Well Nourished, No Apparent Distress and Comfortable
HEENT: Normocephalic, Atraumatic and Moist Mucous Membranes
Respiratory: Non Labored Respirations and Decreased Breath Sounds; Negative Wheezes, Rales, Rhonchi or Accessory Resp Muscle Use
Cardiac: Regular Rhythm and S1/S2; Negative Murmur, Rub or Gallop
GI: Soft, Nontender, Nondistended and Normal Bowel Sounds
Musculoskeletal: No Clubbing, No Cyanosis and No Edema
Skin: Warm and Dry; Negative Rash
Neuro: AO x 3, Nonfocal/Grossly Intact, Central Nerve's Intact and Other (Lethargic appearing)
Psych: Calm
--- NOTE | 2024-06-18 18:30 | PTCARENOTE ---
pt received prn doses of morphine and ativan from this nurse. see MAR for proper documentation. pt comfortable at this time with family at bedside.
[2024-06-18 23:35] VITALS: BP 123/59
[2024-06-19] MEDS: MORPHINE SULFATE 2 MG IV ×2 (06:01→22:23)
[2024-06-19 08:00] VITALS: BP 133/56
--- NOTE | 2024-06-19 11:04 | HOSPNOTE ---
Pt sleeping but arousable, several family members bedside.Pt denied pain, FLACC 0- Pt received 3x prn morphine 2mg since 1406 on 06/18 for management of pain, 1x ativan for restlessness. PO2 93% on 2L O2. Pt cont to decline, family support
provided. Pt remains appropriate for [facility] level of care for frequent nursing assessment and medication titration during the end stage of life.
--- NOTE | 2024-06-19 11:12 | W.PN.HOSP.TC ---
Today's Communication/Plan
-
cont hospice and comfort measures
Assessment / Plan
Assessment / Plan
pt is an 88 year old male
06/19/24 --pt appears comfortable--awake--family at bedside--may need to move to another level for hospice care if stays stable....
Acute on chronic hypoxic/hypercarbic respiratory failure.
Paroxysmal atrial fibrillation
Myelodysplastic syndrome with chronic pancytopenia.
Nonischemic cardiomyopathy.
Overall deconditioning.
Continue hospice and supportive care.
Patient has been alert awake and rated today
Comfortable with no evidence of respiratory distress.
Pain-free
Family at the bedside.
Anticipated Discharge: > 48 hours
Subjective/Interval History
-
Date of Service: June 19, 2024
pt denies pain or SOB--family at bedside--appears comfortable
Objective Data
-
Vital Signs:
max temp for 24 hours
06/18/24
23:35
Temp 98.5 F
Vital Signs
Temp Pulse Resp BP Pulse Ox
97.5 F 81 17 133/56 96
06/19/24 08:00 06/19/24 08:00 06/19/24 08:00 06/19/24 08:00 06/19/24 08:00
I&O
06/18/24 06/19/24 06/20/24
06:59 06:59 05:59
Intake Total 740 / 740 360 / 360
Output Total 525 / 525 600 / 600
Balance 215 / 215 -240 / -240
Review of Systems
-
All other systems: Reviewed and negative
Physical Exam
-
General: Comfortable and Appears Chronically Ill (frail male )
HEENT: Normocephalic, Atraumatic and Oxygen
Respiratory: Clear to Auscultation; Negative Wheezes or Rhonchi
Cardiac: Regular Rhythm and S1/S2; Negative Murmur
GI: Soft, Nontender, Nondistended and Normal Bowel Sounds
Musculoskeletal: No Clubbing, No Cyanosis and No Edema
Neuro: Awake
Psych: Calm
[2024-06-20 07:00] VITALS: BP 134/66
--- NOTE | 2024-06-20 10:36 | W.PN.HOSP.TC ---
Today's Communication/Plan
-
cont current management
Assessment / Plan
Assessment / Plan
pt is an 88 year old male
06/20/24 -- no changes today--pt remains awake and comfortable--conversant
06/19/24 --pt appears comfortable--awake--family at bedside--may need to move to another level for hospice care if stays stable....
Acute on chronic hypoxic/hypercarbic respiratory failure.
Paroxysmal atrial fibrillation
Myelodysplastic syndrome with chronic pancytopenia.
Nonischemic cardiomyopathy.
Overall deconditioning.
Continue hospice and supportive care.
Patient has been alert awake and rated today
Comfortable with no evidence of respiratory distress.
Pain-free
Family at the bedside.
Anticipated Discharge: > 48 hours
Subjective/Interval History
-
Date of Service: June 20, 2024
pt asked me if he was dying--then asked for help eating and needed repositioning
Objective Data
-
Vital Signs:
max temp for 24 hours
06/18/24
23:35
Temp 98.5 F
Vital Signs
Temp Pulse Resp BP Pulse Ox
97.7 F 79 12 134/66 99
06/20/24 07:00 06/20/24 07:00 06/20/24 07:00 06/20/24 07:00 06/20/24 07:00
I&O
06/19/24 06/20/24 06/21/24
07:59 06:59 06:59
Intake Total
Output Total
Balance
Review of Systems
-
All other systems: Reviewed and negative
Physical Exam
-
General: Appears Chronically Ill
HEENT: Normocephalic, Atraumatic and Oxygen
Respiratory: Clear to Auscultation; Negative Wheezes or Rhonchi
Cardiac: Regular Rhythm and S1/S2; Negative Murmur
GI: Soft, Nontender, Nondistended and Normal Bowel Sounds
Musculoskeletal: No Clubbing, No Cyanosis and No Edema
Neuro: Awake
--- NOTE | 2024-06-20 16:44 | HOSPNOTE ---
Pt remains appropriate for [facility] level of care for frequent nursing assessment and medication titration during the end stage of life. Discharge planning continues as if patient remains stable and does not continue to need iv pain medication, he could
look into transitioning to home hospice services. His family has been made aware of this today per primary RN. During visit he is complaining of pain to the middle of his back. Hospital staff also report that he has been fixated on this discomfort
but when asked he only rates it at a 1/10. Suggested giving PRN Ativan as well to pain medication to primary RN. Family updated. Emotional support provided. Hospice will continue to visit daily and discharge planning continues.
[2024-06-20] MEDS: TYLENOL 650 MG PO (17:04)
[2024-06-20] MEDS: ATIVAN 1 MG IV ×2 (17:05→19:48)
[2024-06-20 19:30] VITALS: BP 147/71
[2024-06-20] MEDS: NSS (PRESERVATIVE FREE) 0.5 ML IV (19:49)
[2024-06-21] MEDS: ATIVAN 1 MG IV ×3 (03:41→16:56)
[2024-06-21] MEDS: NSS (PRESERVATIVE FREE) 0.5 ML IV (03:42)
[2024-06-21] MEDS: ROBINUL 0.2 MG IV (06:03)
[2024-06-21] MEDS: MORPHINE SULFATE 2 MG IV ×5 (06:03→16:45)
--- NOTE | 2024-06-21 06:16 | PTCARENOTE ---
Patient received Ativan twice this shift for restlessness and attempting to get OOB; patient did not void this shift; bladder scanned (437ml) and straight cath'd (500ml elma colored urine); morphine administered at 0603 for discomfort; will
continue to monitor.
[2024-06-21 07:50] VITALS: BP 136/61
--- NOTE | 2024-06-21 09:21 | CM ---
Reviewed the chart notes. Patient remains [facility].
--- NOTE | 2024-06-21 11:54 | HOSPNOTE ---
Patient continues to be inpatient hospice. Encouraged to medicate with Ativan for extreme anxiety. Spoke with nurse who will medicate prior to any care and when needed. Patient does complain of pain to lower back and educated on using medications.
Patient is very lethargic today. Will see patient daily.
--- NOTE | 2024-06-21 14:21 | HOSPNOTE ---
rodding anode worker visited with patient who is [facility] level of care to provide supportive services. Patient's ex- Vianney was present at bedside and appeared to be coping appropriately. Patient was very lethargic during [employer] visit. Patient did not
show any physical signs of pain during visit. Documentation reports that patient was agitated last night and into this morning and was given Ativan with good effect. Patient remains [facility] level of care appropriate for pain management and anxiety that
cannot be managed outside of hospital setting. Discharge planning continues.
[2024-06-21] MEDS: MORPHINE 100 IV (15:09)
--- NOTE | 2024-06-21 15:26 | W.PN.HOSP.TC ---
Today's Communication/Plan
-
Continue hospice care
Assessment / Plan
Assessment / Plan
Acute on chronic hypoxic/hypercarbic respiratory failure.
Paroxysmal atrial fibrillation
Myelodysplastic syndrome with chronic pancytopenia.
Nonischemic cardiomyopathy.
Overall deconditioning.
Continue hospice and supportive care.
Noted to be obtunded with increased work of breathing and reported periods of agitation.
Continue lorazepam per
Escalate morphine dosing with option for continuous drip for comfort.
Oneil catheter for retention..
Anticipated Discharge: 24 - 48 hours
Subjective/Interval History
-
Date of Service: June 21, 2024
Objective Data
-
Vital Signs:
Vital Signs
Temp Pulse Resp BP Pulse Ox
97.3 F 108 16 136/61 98
06/21/24 07:50 06/21/24 07:50 06/21/24 07:50 06/21/24 07:50 06/21/24 07:50
I&O
06/20/24 06/21/24 06/22/24
06:59 06:59 06:59
Intake Total 240 / 240
Output Total 925 / 925
Balance -685 / -685
Physical Exam
-
General: Well Developed and No Apparent Distress
HEENT: Normocephalic, Atraumatic and Moist Mucous Membranes
Respiratory: Clear to Auscultation
Cardiac: Regular Rhythm and S1/S2; Negative Murmur, Rub or Gallop
GI: Soft, Nontender, Nondistended and Normal Bowel Sounds; Negative Organomegaly
Rectal: Deferred by Provider
Musculoskeletal: No Clubbing, No Cyanosis and No Edema
Skin: Negative Rash
Neuro: Nonfocal/Grossly Intact
[2024-06-21 19:15] VITALS: BP 56/36
--- NOTE | 2024-06-21 21:58 | W.PN.DEATH ---
Pronouncement of
-
Called to see patient to pronounce.
No spontaneous heart tones or respirations noted.
Patient not responsive to verbal stimuli.
Patient is pronounced .
Time of : 20:54
Date of : 06/21/24
Cause of : Acute on chronic hypoxic/hypercarbic respiratory failure, secondary to myelodysplastic syndrome with pancytopenia
Family Notified: Yes
== END 2024-06-21 20:54 | disposition expired | DRG 951 ==
LOC: 2 NORTH 14:19
PROVIDERS: ADMITTING PHYSICIAN Internal Medicine
DX: Z51.5 Encounter for palliative care (principal); J96.21 Acute and chronic respiratory failure with hypoxia; J96.22 Acute and chronic respiratory failure with hypercapnia; D61.818 Other pancytopenia; I42.8 Other cardiomyopathies; I48.0 Paroxysmal atrial fibrillation; D46.9 Myelodysplastic syndrome, unspecified